=== PATIENT | male | born 1955 | race Caucasian/White ===

== ENCOUNTER → 2020-03-16 09:50 | Outpatient (BNVA) | payer MEDICAID, SELFPAY | PROVIDERS: PCP Family Medicine; Referring Provider Family Medicine; Visit Provider Internal Medicine Endocrinology, Diabetes & Metabolism | DX: E11.65 Type 2 diabetes mellitus with hyperglycemia (principal); E11.42 Type 2 diabetes mellitus with diabetic polyneuropathy; E11.21 Type 2 diabetes mellitus with diabetic nephropathy; E11.319 Type 2 diabetes mellitus with unspecified diabetic retinopathy without macular edema; E78.5 Hyperlipidemia, unspecified; I10 Essential (primary) hypertension; E66.01 Morbid (severe) obesity due to excess calories; E55.9 Vitamin D deficiency, unspecified; Z79.84 Long term (current) use of oral hypoglycemic drugs; Z96.41 Presence of insulin pump (external) (internal) | CPT/HCPCS: 82947; 99212 ==

== ENCOUNTER 2020-04-03 14:07 | Outpatient (RCR) | payer MEDICAID, SELFPAY ==
[2020-04-03 14:33] VITALS: BMI 42.3
[2020-04-03 14:34] VITALS: BP 126/58; PULSE 93; RESP 18; TEMP 38.4; O2SAT 97
[2020-04-03 14:42] VITALS: TEMP 38.8
--- NOTE | 2020-04-03 15:20 | P.PNHO_ITS ---
Medical Summary - Medical Summary Date of Service: 04/09/20 Chief complaint: F/U FOR 1. ANEMIA. 2. THROMBOCYTOPENIA. Medical Summary: DIAGNOSIS: 1. ANEMIA. 2. THROMBOCYTOPENIA. Interval History Interval history: This is a pleasant 65 year-old gentleman, who has been noted to have Thrombocytopenia. Review of his platelet count in the computer reveals the following trend: Dec 13 10:05 75 Oct 27 20:06 132 Oct 20 15:32 126 October 03 09:48 94 Aug 12 08:02 82 May 27 12:29 93 Jan 16 23:55 121 Dec 23 08:15 89 He has easy fatigueability. He was noted to have a fever today. He went out yesterday. He said every time he goes out into the rain he gets a fever. This happens since childhood. he has had a non productive cough for several months. He denies abdominal pain, nausea vomiting, nor heart burn/indigestion. His bowels are working without any gross blood. He enjoys a good apetite. He has gained weight. He has H/O complains of epistaxis. He mentioned that sometimes it is quite moderate. he was referred to ENT. He denies any systemic bleeding. No easy bruising. He is in good spirits, rest of the ROS is unremarkable.. He used to drink heavily quit in 1985. Review of Systems - Constitutional Denies body aches, Reports fever(s), Reports lack of energy, Denies malaise, Denies night sweats, Reports weight gain - Eyes Denies blurry vision - Cardiovascular Denies chest pain at rest - Respiratory Reports cough, Denies hemoptysis - Gastrointestinal Denies abdominal pain, Denies black, tarry stools, Reports constipation, Reports dyspepsia - Musculoskeletal Reports back pain - Integumentary/Breasts Skin/Breast: Denies bleeding lesions - Neurologic Reports no additional neurologic complaints - Psychiatric Denies anxiety - Hematologic/Lymphatic Denies easy bleeding, Denies easy bruising - Allergic/Immunologic Reports GI upset with certain foods PMFSH Medical History: Medical History (Last Reviewed 04/03/20 @ 16:07 by Princess Andre NP) Anxiety Asthma Bipolar disorder Depression Diabetes type 2, uncontrolled Diabetic nephropathy associated with type 2 diabetes mellitus Diabetic polyneuropathy associated with type 2 diabetes mellitus Diabetic retinopathy associated with type 2 diabetes mellitus Dyslipidemia History of CVA (cerebrovascular accident) Hyperlipidemia Hypertension 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 Morbid obesity SHIRA on CPAP Pulmonary embolism Pulmonary embolism Vitamin D deficiency Functional capacity: uses cane/walker Patient : No Family History: Family History (Last Reviewed 04/03/20 @ 16:07 by Princess Andre NP) Father Diabetes Mother Diabetes Hypertension Surgical History: Surgical History (Last Reviewed 04/03/20 @ 16:07 by Princess Andre NP) History of carpal tunnel release Hx of brain surgery Hx of colonoscopy Hx of esophagogastroduodenoscopy Hx of hernia repair Home Medications and Allergies Home Medications Medication Instructions Recorded Confirmed Type amlodipine 5 mg tablet 5 mg PO DAILY 03/16/20 03/16/20 History aspirin 81 mg tablet,delayed 81 mg PO DAILY 03/16/20 03/16/20 History release blood sugar diagnostic #10 ea 03/16/20 03/16/20 History cholecalciferol (vitamin D3) 125 125 mcg PO DAILY 03/16/20 03/16/20 History mcg (5,000 unit) capsule clopidogrel 75 mg tablet 75 mg PO DAILY 03/16/20 03/16/20 History diltiazem HCl 120 mg 120 mg PO BID 03/16/20 03/16/20 History capsule,extended release 12 hr dulaglutide 1.5 mg/0.5 mL 1.5 mg SUBCUT QWEEK 03/16/20 03/16/20 History subcutaneous pen injector furosemide 20 mg tablet 20 mg PO DAILY 03/16/20 03/16/20 History insulin regular hum U-500 conc 500 130 unit SUBCUT QPM ml 03/16/20 03/16/20 History unit/mL subcutaneous soln lancets 28 gauge #100 ea 03/16/20 03/16/20 History losartan 50 mg tablet 50 mg PO DAILY 03/16/20 03/16/20 History metformin 500 mg/5 mL oral solution 1,000 mg PO DAILY 03/16/20 03/16/20 History montelukast 10 mg tablet 10 mg PO DAILY 03/16/20 03/16/20 History Allergies Allergy/AdvReac Type Severity Reaction Status Date / Time amoxicillin [AMOXICILLIN] Allergy Mild DIZZINESS Unverified 01/26/20 15:27 carbamazepine [From Tegretol] Allergy Mild RASH AND Unverified 01/26/20 15:27 ITCH lurasidone [From LATUDA] Allergy Unknown TONGUE Unverified 01/26/20 15:27 SWELLED Penicillins [PENICILLINS] Allergy Unknown ITCHINESS, Unverified 01/26/20 15:27 FELT LIKE BLACKING OUT clonazepam [From KLONOPIN] AdvReac Mild CAUSED Unverified 01/26/20 15:27 SHORT TERM MEMORY LOSS Exam Vital signs: Vital Signs Temp 101.9 F H 04/03/20 14:42 Pulse 93 04/03/20 14:34 Resp 18 04/03/20 14:34 BP 126/58 L 04/03/20 14:34 Pulse Ox 97 04/03/20 14:34 Intake & Output 04/02/20 04/03/20 04/03/20 18:59 06:59 18:59 Other: Weight 122.4 kg Weight 122.4 kg Body Mass Index 42.3 - Constitutional Present: mild distress - Routine HEENT Exam Head: Present: normocephalic Eye: Present: normal appearance ENT: Present: mucous membranes moist - Routine Neck Exam Present: full ROM - Routine Respiratory Exam Present: CTAB - Routine Cardiovascular Exam Cardiovascular: Present: RRR, S1, S2 - Routine Abdominal Exam Present: soft, nontender - Routine Rectal Exam Patient deferred: digital exam - Routine Extremities Exam Present: nontender - Routine Skin Exam Present: intact - Routine Neurological Exam Present: alert, oriented X3 - Detailed Neurological Exam: Coma Scale Eye Opening: Spontaneous (4) Verbal Response: Oriented (5) Motor Response: Obeys commands (6) Glascow Coma Scale Total: 15 - Routine Psychiatric Exam Present: normal affect Data - Labs CBC & Chem 7: 04/03/20 15:08 04/03/20 15:08 Progress Note: A/P (1) Anemia Status: Acute Assessment and plan: 65 year old man with H/O Anemia & Thrombocytopenia. He has had a long standing low platelet however they have recently dropped from 132 to 75. DIFFERENTIAL DIAGNOSIS: 1. Related to underlying liver disease: He does have a history of alcoholism. Most likely he has splenomegaly, leading to hypersplenism. 2. B12 and folate deficiency. 3. Collagen vascular disorder. 4. Underlying myelo infiltrative disorder: MDS versus MM versus lymphoma. 5. ITP. I proceeded with further evaluation. l checked an ultrasound of the abdomen, to check his liver and spleen. This was done 01/25 and revealed: 1. Splenomegaly, 17.3 cm. No ascites. 2. Hepatic steatosis. Liver normal in size with smooth surface. 3. Visualized pancreas unremarkable. Distal body and tail obscured by bowel gas. 4. Mild gallbladder wall thickening likely related to incomplete distention/partial contraction. No visible stone, sludge, or ductal dilatation. Checked B12: 831 and folate levels: 9.1. Checked a collagen vascular profile: ESR 19, RA: <15, SHARON: Negative. I checked LDH: 165 and an SIEP: IgG 1481 IgA 424 IgM 78 IMFIXS INTERP No abnormal bands are present on immunofixation. Most likely he has Hypersplenism leading to his hematological abnormalities. PLAN: At this point I will monitor his platelet count carefully over time. If the platelets fall to less than 50, will proceed with a bone marrow exam for further evaluation. He will return in 3 month for follow-up visit. He was transferred to the ER, for further testing where he tested positive for COVID-19. Thank you, CC: Dr. Brito. Dr. Francisco Thomas. Code Status FULL CODE (2) Thrombocytopenia Status: Acute Assessment and plan: This is a pleasant 65 year-old gentleman here for: Thrombocytopenia. He has had a long standing low platelet however they have recently dropped from 132 to 75. Today's plts are 58. DIFFERENTIAL DIAGNOSIS: 1. Related to underlying liver disease: He does have a history of alcoholism. Most likely he has splenomegaly, leading to hypersplenism. 2. B12 and folate deficiency. 3. Collagen vascular disorder. 4. Underlying myelo infiltrative disorder: MDS versus MM versus lymphoma. 5. ITP. PLAN: I will proceed with further evaluation. Will check an ultrasound of the abdomen, to check his liver and spleen. Will check B12: 831 and folate levels: 9.1. Will check a collagen vascular profile: ESR 19, RA: <15, SHARON: Negative. Will check LDH: 165 and an SIEP: IgG 1481 IgA 424 IgM 78 IMFIXS INTERP No abnormal bands are present on immunofixation. PLAN: At this point I will monitor his platelet count carefully over time. If the platelets fall to less than 50, will proceed with a bone marrow exam for further evaluation. He will return in 6 months for follow-up visit. However, he was referred to the ER, for further evaluation, on account of the rising fever, Thank you, CC: Dr. Brito. Dr. Francisco Thomas. Code Status FULL CODE - Time Spent With Patient Total time spent is greater than 50% in coordination of care (as documented) at patient's floor/unit and/or counseling patient: 25 - 35 minutes
[2020-04-03 15:34] LABS: MANUAL DIFF FLAG NO
[2020-04-03 15:44] LABS: Basophils Absolute Auto 0.1 X10*3/uL (0.0-0.2); Basophils Percent Auto 1.2 % (0-2); Eosinophils Percent Auto 0.5 % (0-4); Hematocrit 41.8 % (42-52); Hemoglobin 14.1 g/dl (14.0-18.0); Imm Gran Abs Auto 0.01 X10*3/uL (0.00-0.03); Imm Gran Pct Auto 0.2 % (0.0-0.4); Lymphocytes Absolute Auto 0.9 X10*3/uL (1.2-4.9); Lymphocytes Percent Auto 19.9 % (20-40); Mean Corpuscular HGB Conc 33.7 g/dl (31.0-36.0); Mean Corpuscular Hemoglobin 32.6 pg (27.0-33.0); Mean Corpuscular Volume 96.5 fL (80-98); Mean Platelet Volume 12.3 fL (9.4-12.4); Monocytes Absolute Auto 0.8 X10*3/uL (0.1-1.2); Monocytes Percent Auto 18.3 % (2-11); Neutrophils Absolute Auto 2.6 X10*3/uL (2.0-8.3); Neutrophils Percent Auto 59.9 % (45-73); Red Blood Count 4.33 X10*6/uL (4.60-5.80); Red Cell Distribution Width 13.2 % (11.0-16.0); White Blood Count 4.3 X10*3/uL (4.8-10.8)
[2020-04-03 16:05] LABS: Platelet Count 59 X10*3/uL (160-400)
[2020-04-03 16:13] LABS: Alanine Aminotransferase 44 U/L (0-40); Albumin Level 3.3 g/dL (3.5-5.0); Alkaline Phosphatase 172 U/L (39-117); Anion Gap 9 (12-20); Aspartate Amino Transferase 109 U/L (5-37); Bilirubin Total 0.9 mg/dL (0.0-1.0); Blood Urea Nitrogen 8 mg/dL (9-16); Calcium 8.3 mg/dL (8.4-10.2); Carbon Dioxide 23 mmol/L (22-29); Chloride 107 mmol/L (96-108); Creatinine Clr Calc Pharmacy 91.7; Estimated Glomerular Filt Rate > 60; Glucose Random 109 mg/dL (60-115); Potassium 3.4 mmol/l (3.3-5.1); Sodium 136 mmol/L (135-145); Total Protein 6.7 g/dL (6.5-8.0)
== END 2020-05-02 | disposition home or self-care (01) ==
LOC: HO.ONC 14:07
PROVIDERS: PCP Family Medicine; Visit Provider Internal Medicine Medical Oncology
DX: D64.9 Anemia, unspecified (principal); D69.6 Thrombocytopenia, unspecified
CPT/HCPCS: 36415; 80053; 85025; 99214

== ENCOUNTER 2020-04-03 15:24 | Emergency (ER) | payer MEDICAID, SELFPAY ==
[2020-04-03 15:27] VITALS: BP 151/59; PULSE 102; RESP 16; TEMP 38.1; O2SAT 98; BMI 34.4
[2020-04-03] MEDS: Acetaminophen 325 MG TABLET 650 MG PO (16:03)
--- NOTE | 2020-04-03 16:04 | ED.FEVER ---
HPI - Fever General Chief Complaint: Fever Stated Complaint: Fever Time Seen by Provider: 04/03/20 15:53 Source: patient and sign language interpreter Mode of arrival: ambulatory Limitations: no limitations and language barrier History of Present Illness HPI Narrative: 65-year-old male with a past medical history of diabetes, liver disease, thrombocytopenia with fever. The patient tells me he was seen at hematology this morning for follow-up for thrombocytopenia and was noted to be febrile and was sent to the emergency department for further evaluation. He denies fevers or chills at home. Denies weakness, cough, shortness of breath, body aches, vomiting, diarrhea or any other symptoms. He tells me he feels well. On arrival the patient has a temp of 100.5 degrees. He is asking to be discharged home as his mother suddenly and he needs to go to the home. he does not want to stay in the emergency department MD elicited complaint: fever Pertinent past history: diabetes Onset (ago): day(s) (1 day) Measured temperature: 100.5 F Exacerbating factors: nothing Relieving factors: nothing Associated symptoms: denies other symptoms Treatments prior to arrival fever: none Related Data Home Medications Medication Instructions Recorded Confirmed amlodipine 5 mg tablet 5 mg PO DAILY 03/16/20 03/16/20 aspirin 81 mg tablet,delayed 81 mg PO DAILY 03/16/20 03/16/20 release blood sugar diagnostic #10 ea 03/16/20 03/16/20 cholecalciferol (vitamin D3) 125 125 mcg PO DAILY 03/16/20 03/16/20 mcg (5,000 unit) capsule clopidogrel 75 mg tablet 75 mg PO DAILY 03/16/20 03/16/20 diltiazem HCl 120 mg 120 mg PO BID 03/16/20 03/16/20 capsule,extended release 12 hr dulaglutide 1.5 mg/0.5 mL 1.5 mg SUBCUT QWEEK 03/16/20 03/16/20 subcutaneous pen injector furosemide 20 mg tablet 20 mg PO DAILY 03/16/20 03/16/20 insulin regular hum U-500 conc 500 130 unit SUBCUT QPM ml 03/16/20 03/16/20 unit/mL subcutaneous soln lancets 28 gauge #100 ea 03/16/20 03/16/20 losartan 50 mg tablet 50 mg PO DAILY 03/16/20 03/16/20 metformin 500 mg/5 mL oral solution 1,000 mg PO DAILY 03/16/20 03/16/20 montelukast 10 mg tablet 10 mg PO DAILY 03/16/20 03/16/20 Previous Rx's Medication Instructions Recorded ezetimibe 10 mg tablet 10 mg PO DAILY 30 Days #30 tab 03/05/20 rosuvastatin 40 mg tablet 40 mg PO DAILY 30 Days #30 tab 03/05/20 BD Insulin Syringe U-500 1/2 mL 31 #100 ea NS 03/16/20 gauge x 15/64 blood-glucose meter #1 ea 03/16/20 Allergies Allergy/AdvReac Type Severity Reaction Status Date / Time amoxicillin [AMOXICILLIN] Allergy Mild DIZZINESS Unverified 01/26/20 15:27 carbamazepine [From Tegretol] Allergy Mild RASH AND Unverified 01/26/20 15:27 ITCH lurasidone [From LATUDA] Allergy Unknown TONGUE Unverified 01/26/20 15:27 SWELLED Penicillins [PENICILLINS] Allergy Unknown ITCHINESS, Unverified 01/26/20 15:27 FELT LIKE BLACKING OUT clonazepam [From KLONOPIN] AdvReac Mild CAUSED Unverified 01/26/20 15:27 SHORT TERM MEMORY LOSS Review of Systems Review of Systems: Yes all other systems are reviewed and are negative Constitutional: Constitutional: Reports no additional constitutional complaints, Denies body ache(s), Denies chills, Reports fever(s), Denies headache(s) and Denies weakness Eyes: Eyes: Reports no additional eye complaints and Denies change in vision ENT: Reports system reviewed and no additional complaints, except as documented, Denies dizziness, Denies headache(s), Denies nasal congestion, Denies nasal discharge and Denies neck pain Cardiovascular: Cardiovascular: Reports no additional cardiovascular complaints, Denies chest pain, Denies leg edema and Denies dyspnea Respiratory: Respiratory: Reports no additional respiratory complaints, Denies cough and Denies dyspnea Gastrointestinal: Gastrointestinal: Reports no additional gastrointestinal complaints, Denies abdominal pain, Denies diarrhea, Denies nausea and Denies vomiting Genitourinary: Genitourinary: Denies urinary incontinence Musculoskeletal: Musculoskeletal: Reports no additional musculoskeletal complaints, Denies back pain, Denies arthralgias, Denies joint swelling, Denies neck pain, Denies numbness and Denies tingling Integumentary/Breasts: Skin/Breast: Reports system reviewed and no additional complaints, except as docu and Denies rash Neurologic: Reports system reviewed and no additional complaints, except as documented, Denies Abnormal speech present, Denies dizziness, Denies headache(s), Denies numbness, Denies tingling and Denies weakness PMFSH Past Medical History Attestation statement: The following information was validated with the patient. 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 Morbid obesity SHIRA on CPAP Pulmonary embolism Pulmonary embolism Vitamin D deficiency Surgical History History of carpal tunnel release Hx of brain surgery Hx of colonoscopy Hx of esophagogastroduodenoscopy Hx of hernia repair Family History Family History Father Diabetes Mother Diabetes Hypertension Social History Social History Alcohol intake: unknown Smoking Status: Unknown if ever smoked Smoked in Last 30 Days: No Use of substances other than those prescribed or required for medical reasons: Unknown Substance Use Type: Unknown Advance Directives: No Advance Directives Information Provided: No Physical Exam Vital Signs: Vital Signs: Last Vital Signs Temp 100.5 F H 04/03/20 15:27 Pulse 102 H 04/03/20 15:27 Resp 16 04/03/20 15:27 BP 151/59 H 04/03/20 15:27 Pulse Ox 98 04/03/20 15:27 Body Mass Index 34.4 Const: General: cooperative, healthy appearing, comfortable and no acute distress Orientation/consciousness: patient oriented x3 Limitations: no limitations HENMT: Head: Yes normal to inspection Ears: hearing grossly normal bilaterally General nose exam: Normal external nose present Face and sinus: Yes normal facial exam Mouth: Normal oral and palatal mucosa present Throat: Yes posterior oropharynx normal Eyes: General: appearance normal, both eyes and all related structures Pupils: Equal, round and reactive pupils present Neck: Neck: Yes normal visual inspection Chest: Chest palpation & inspection: normal inspection of the chest Resp: Effort & Inspection: normal respiratory effort Auscultation: clear to auscultation bilaterally Cardio: Rate: regular rate Rhythm: regular rhythm Peripheral pulses: Peripheral pulses 2+ throughout GI: Inspection: Yes normal to inspection Palpation (GI): Soft to palpation and nontender Auscultation: normal bowel sounds Back/Spine/Pelvis: Thoracic/Lumbar Spine: thoracic and lumbar spine normal to inspection Skin: General skin exam: no rashes or lesions noted Neuro: General: patient oriented x3, no focal motor deficits and normal sensation to monofilament Cranial nerves: Yes Equal, round and reactive pupils present Cognition (Neuro): normal cognition Speech: No Abnormal speech present Gait exam (Neuro): Normal gait present Motor exam (neuro): 5/5 motor strength present throughout Extrem: General: Yes normal to inspection Course Course Course Narrative: I was called to the room to the patient as he was requesting to leave. He tells me that his mother suddenly today and he must leave. I did discuss with the patient that I would like to do additional testing including labs and imaging. Patient declined this. He tells me he feels well and is asymptomatic. He did accept having a COVID test done and sent. I did explain that he is welcome to return at any time. Shared decision making done with patient, nursing with sign language interpreter. reviewed worrisome signs and symptoms of when to return to the emergency department. Comfortable discharge home. Discharge Plan Discharge Clinical Impression: Fever of unknown origin Patient Disposition: Home, Self-Care Instructions: Fever in Adults (ED) Additional Instructions: We have tested you today for COVID 19. Test results take 1-2 days and we will call you with the results negative or positive. Take tylenol or motrin if able as needed for pain or fever. Stay well hydrated with fluids like water, gatorade and/or powerade. Wash hands at home. If living with others try to self isolate if possible. If unable wear a mask around others in your home and wash hands frequently. If COVID test is positive you will need to self isolate for a total of 14 days from when your symptoms started. You may return to work sooner if testing is negative and all symptoms resolved >72 hours. You should return to the emergency department for severe shortness of breath, chest pain or fever which does not respond to both tylenol and motrin at home. Prescriptions: No Action rosuvastatin 40 mg tablet 40 mg PO DAILY 30 Days Qty: 30 RF: 6 ezetimibe [Zetia] 10 mg tablet 10 mg PO DAILY 30 Days Qty: 30 RF: 0 amlodipine 5 mg tablet 5 mg PO DAILY RF: 0 aspirin 81 mg tablet,delayed release (DR/EC) 81 mg PO DAILY RF: 0 clopidogrel 75 mg tablet 75 mg PO DAILY RF: 0 diltiazem HCl 120 mg capsule,extended release 12 hr 120 mg PO BID RF: 0 furosemide 20 mg tablet 20 mg PO DAILY RF: 0 losartan 50 mg tablet 50 mg PO DAILY RF: 0 montelukast 10 mg tablet 10 mg PO DAILY RF: 0 cholecalciferol (vitamin D3) 125 mcg (5,000 unit) capsule 125 mcg PO DAILY RF: 0 insulin regular hum U-500 conc 500 unit/mL solution 130 unit subcut QPM RF: 0 Trulicity 1.5 mg/0.5 mL pen injector 1.5 mg subcut QWEEK RF: 0 metformin [Riomet] 500 mg/5 mL solution 1,000 mg PO DAILY RF: 0 (DME) FreeStyle Lite Strips Strip See Rx Instructions .ROUTE .MEDSUPPLY Qty: 10 RF: 0 (DME) lancets [FreeStyle Lancets] 28 gauge misc See Rx Instructions .ROUTE .MEDSUPPLY Qty: 100 RF: 0 (DME) BD Insulin Syringe U-500 1/2 mL 31 gauge x 15/64 syringe See Rx Instructions .ROUTE .MEDSUPPLY Qty: 100 RF: 4 (DME) blood-glucose meter [FreeStyle Lite Meter] Kit See Rx Instructions .ROUTE .MEDSUPPLY Qty: 1 RF: 0 Referrals: Peyton Brito MD [Primary Care Provider] - 2 days Interventions: ED Discharge Assessment Last Done: 04/03/20 16:05 Discharge Date/Time: 04/03/20 16:06 Print Language: Chadian
[2020-04-03 16:09] VITALS: TEMP 38.1
== END 2020-04-03 16:06 | disposition home or self-care (01) ==
PROVIDERS: Nurse Practitioner Family; Emergency Provider Emergency Medicine Emergency Medical Services; PCP Family Medicine
DX: R50.9 Fever, unspecified (principal); D69.6 Thrombocytopenia, unspecified; I10 Essential (primary) hypertension; Z79.899 Other long term (current) drug therapy
CPT/HCPCS: 99283; 99284; U0003

== ENCOUNTER 2020-04-14 05:47 | Inpatient (IN) | payer MEDICAID, SELFPAY ==
[2020-04-14] VITALS (33 sets, daily range): BP systolic 00–198; BP diastolic 00–66; PULSE 88–151; RESP 18–40; TEMP -17.7–38.2; O2SAT 38–92; BMI 40.8; BMI 40.4
--- NOTE | 2020-04-14 | US_ITS ---
EXAMINATION: US VENOUS ULTRASOUND WITH DOPPLER LOWER EXTREMITY, BILATERAL CLINICAL INFORMATION: Bilateral lower extremity swelling COMPARISON: None TECHNIQUE: Ultrasound of the deep veins is performed from the hip to the calf with compression sonography and color and pulse Doppler assessment. Spectral analysis with color-flow imaging is performed. FINDINGS: RIGHT: There is normal venous compression and respiratory variation and augmented flow. The visualized common femoral vein, superficial femoral vein, profunda femoral vein, popliteal vein, and the trifurcation region shows no evidence of deep venous thrombosis. There is no significant popliteal fossa cyst. LEFT: There is normal venous compression and respiratory variation and augmented flow. The visualized common femoral vein, superficial femoral vein, profunda femoral vein, popliteal vein, and the trifurcation region shows no evidence of deep venous thrombosis. There is no significant popliteal fossa cyst. If the patient's symptoms persist, followup ultrasound in 5 days 7 days might be of value to exclude proximal propagation from a non-visualized calf vein. US/US venous duplex LE BI IMPRESSION: No DVT demonstrated in either lower extremity.
--- NOTE | 2020-04-14 06:00 | ECG_ITS ---
Test Reason : sob Blood Pressure : / mmHG Vent. Rate : 123 BPM Atrial Rate : 123 BPM P-R Int : 150 ms QRS Dur : 084 ms QT Int : 318 ms P-R-T Axes : 060 086 042 degrees QTc Int : 455 ms Sinus tachycardia Nonspecific ST abnormality Abnormal ECG When compared to the previous EKG of NST is now present Referred By: William Meyers Electronically Signed By: MARITZA CONTE MD MTDManish
--- NOTE | 2020-04-14 06:18 | XR_ITS ---
EXAMINATION: XR CHEST CLINICAL INFORMATION: ET tube COMPARISON: 05/02/2019 TECHNIQUE: Frontal view of the chest was obtained. FINDINGS: Endotracheal tube tip lies approximately 5 cm above the ramón. Lung volumes are symmetric. There are moderately extensive bilateral airspace opacities in the mid to lower lungs. No appreciable pneumothorax or significant pleural effusion. The cardiomediastinal contour is unremarkable. No acute osseous findings are seen. XR/XR chest 1V IMPRESSION: Endotracheal tube tip approximately 5 cm above the ramón. Moderately extensive bilateral airspace opacities suspicious for multifocal pneumonia versus edema in the proper clinical setting.
[2020-04-14] MEDS: propofoL 1,000 MG/100 ML VIAL 14.22 MG IVCONT ×2 (06:24→13:45)
--- NOTE | 2020-04-14 06:27 | ED.SOB ---
HPI - SOB/Dyspnea General Chief Complaint: Dyspnea Stated Complaint: DIFF BREATHING Time Seen by Provider: 04/14/20 05:57 Source: EMS Mode of arrival: EMS Limitations: language barrier and other ( respiratory distress) History of Present Illness HPI Narrative: patient history of COPD/ asthma sleep apnea was diagnosed with COVID on 04/03 was doing okay using inhaler for last 2 days getting worse and today was not able to take breath saturating 670% at room air increased to 80% on 100% non-rebreather by EMS when he arrived patient was very short of breath unable to speak full sentences saturating 30% at room air and increased to 70% on non-rebreather no chest pain no fever MD elicited complaint: shortness of breath Pertinent past history: COPD and asthma Onset (ago): day(s) (2) Context: recent illness Related Data Home Medications Medication Instructions Recorded Confirmed amlodipine 5 mg tablet 5 mg PO DAILY 03/16/20 03/16/20 aspirin 81 mg tablet,delayed 81 mg PO DAILY 03/16/20 03/16/20 release blood sugar diagnostic #10 ea 03/16/20 03/16/20 cholecalciferol (vitamin D3) 125 125 mcg PO DAILY 03/16/20 03/16/20 mcg (5,000 unit) capsule clopidogrel 75 mg tablet 75 mg PO DAILY 03/16/20 03/16/20 diltiazem HCl 120 mg 120 mg PO BID 03/16/20 03/16/20 capsule,extended release 12 hr dulaglutide 1.5 mg/0.5 mL 1.5 mg SUBCUT QWEEK 03/16/20 03/16/20 subcutaneous pen injector furosemide 20 mg tablet 20 mg PO DAILY 03/16/20 03/16/20 insulin regular hum U-500 conc 500 130 unit SUBCUT QPM ml 03/16/20 03/16/20 unit/mL subcutaneous soln lancets 28 gauge #100 ea 03/16/20 03/16/20 losartan 50 mg tablet 50 mg PO DAILY 03/16/20 03/16/20 metformin 500 mg/5 mL oral solution 1,000 mg PO DAILY 03/16/20 03/16/20 montelukast 10 mg tablet 10 mg PO DAILY 03/16/20 03/16/20 Previous Rx's Medication Instructions Recorded rosuvastatin 40 mg tablet 40 mg PO DAILY 30 Days #30 tab 03/05/20 BD Insulin Syringe U-500 1/2 mL 31 #100 ea NS 03/16/20 gauge x 15/64 blood-glucose meter #1 ea 03/16/20 ezetimibe 10 mg tablet 10 mg PO DAILY 90 Days #90 tab 04/10/20 Allergies Allergy/AdvReac Type Severity Reaction Status Date / Time amoxicillin [AMOXICILLIN] Allergy Mild DIZZINESS Unverified 01/26/20 15:27 carbamazepine [From Tegretol] Allergy Mild RASH AND Unverified 01/26/20 15:27 ITCH lurasidone [From LATUDA] Allergy Unknown TONGUE Unverified 01/26/20 15:27 SWELLED Penicillins [PENICILLINS] Allergy Unknown ITCHINESS, Unverified 01/26/20 15:27 FELT LIKE BLACKING OUT clonazepam [From KLONOPIN] AdvReac Mild CAUSED Unverified 01/26/20 15:27 SHORT TERM MEMORY LOSS Review of Systems Review of Systems: Yes Unobtainable due to mental condition PMFSH Past Medical History Medical History Anxiety Asthma Bipolar disorder Depression Diabetes type 2, uncontrolled Diabetic nephropathy associated with type 2 diabetes mellitus Diabetic polyneuropathy associated with type 2 diabetes mellitus Diabetic retinopathy associated with type 2 diabetes mellitus Dyslipidemia History of CVA (cerebrovascular accident) Hyperlipidemia Hypertension skilled nursing (current) use of insulin Morbid obesity SHIRA on CPAP Pulmonary embolism Pulmonary embolism Vitamin D deficiency Surgical History History of carpal tunnel release Hx of brain surgery Hx of colonoscopy Hx of esophagogastroduodenoscopy Hx of hernia repair Family History Family History Father Diabetes Mother Diabetes Hypertension Social History Social History Alcohol intake: unknown Smoking Status: Unknown if ever smoked Use of substances other than those prescribed or required for medical reasons: Unknown Substance Use Type: Unknown Advance Directives: No Advance Directives Information Provided: No Physical Exam Vital Signs: Vital Signs: Last Vital Signs Temp 100.8 F H 04/14/20 07:22 Pulse 133 H 04/14/20 07:22 Resp 20 04/14/20 07:22 BP 127/45 L 04/14/20 07:22 Pulse Ox 85 L 04/14/20 07:22 Body Mass Index 40.8 Const: General: acute distress severe and respiratory, ill appearing, lethargic and tired appearing Nutritional Appearance: obese Orientation/consciousness: oriented to person, oriented to place, oriented to time and lethargic Limitations: language barrier HENMT: Head: Yes normal to inspection and Yes normocephalic Ears: hearing grossly normal bilaterally Face and sinus: Yes normal facial exam Mouth: Normal oral and palatal mucosa present Eyes: General: appearance normal, both eyes and all related structures Conjunctivae: conjunctivae normal Sclerae: sclerae normal Neck: Other: short neck Neck: Yes normal visual inspection and Yes full ROM Thyroid: Thyroid normal Carotids: normal carotid upstroke Lymphatic: no lymphadenopathy noted Chest: Chest palpation & inspection: normal inspection of the chest Resp: Effort & Inspection: decreased respiratory effort, labored, nasal flaring, respiratory distress, uses accessory muscles and prolonged expiratory phase Auscultation: rhonchi and diminished lung sounds Percussion: percussion normal Cardio: Jugular venous distension: no JVD Palpation: normal PMI Rate: regular rate Rhythm: regular rhythm Heart sounds: S1 normal heart sound present and S2 normal heart sound present GI: Inspection: Yes normal to inspection Palpation (GI): Soft to palpation, nontender and no guarding Auscultation: normal bowel sounds : General: Yes no CVA tenderness Penis: normal penis Back/Spine/Pelvis: Back: no CVA tenderness Thoracic/Lumbar Spine: thoracic and lumbar spine normal to inspection Skin: General skin exam: no rashes or lesions noted Neuro: General: oriented to person, oriented to place, oriented to time, moves all extremities and no focal motor deficits Extrem: General: Yes normal to inspection, Yes full ROM, Yes no calf tenderness, Yes normal gait and No pedal edema Procedures Intubation Time out performed: Yes sedative: Etomidate Mg Given: 20 paralytic: Rocuronium Mg Given: 50 Laryngoscope: fiber optic video scope ET Tube Size: 7.5 ET Tube Uncuffed: Yes Tube Secured Depth (cm): 25 Tube Secured Location: teeth Tube Placement Confirmation: visualized tube passing through cords and equal breath sounds bilaterally Patient Tolerated Procedure: well Intubation Complications: none MDM - SOB/Dyspnea MDM Narrative Medical decision making narrative: patient with sleep apnea COPD/asthma with COVID infection came for increased shortness of breath patient was started on non rebreather 100% is still desaturating to 70% plays on high-flow oxygen and still barely maintaining 75%-80% patient was getting tired agreed for intubation patient was intubated at 06:24. case discussed with Dr. staton talent program manager will take the patient to ICU patient received IV Decadron 10 mg continues nebulizing treatment will start him on Rocephin and Zithromax labs are pending. Chest x-ray showed diffuse infiltrate in ARDS pattern patient is septic secondary to viral infection COVID-19 not bacterial infection and fluids are restricted Medical Records Attestation: I reviewed the patient's medical records. Lab Data Result diagrams: 04/14/20 06:31 12 06:31 Labs: Lab Results 04/14/20 04/14/20 Range/Units 06:31 06:31 PT 16.2 H (10.8-13.0) SEC INR 1.4 H (0.9-1.1) APTT 31.7 (24.1-38.0) SEC D-Dimer 1249 NG/ML Lactic Acid 6.6 H* (0.5-2.0) mmol/L Critical Care Time Critical Care Time Critical Care Time: Yes Total Critical Care Time: 35 Attestation: critical care time involved patient care only Discharge Plan Discharge Clinical Impression: Acute hypoxemic respiratory failure due to COVID-19 Patient Disposition: Admitted As Inpatient
[2020-04-14] MEDS: Albuterol Sulfate (0.083%) 2.5 MG/3 ML VIAL.NEB 7.5 MG INHALE (06:35)
[2020-04-14] MEDS: Etomidate 20 MG/10 ML VIAL IVPUSH (06:35)
[2020-04-14] MEDS: Rocuronium Bromide 50 MG/5 ML VIAL IVPUSH (06:36)
--- NOTE | 2020-04-14 06:36 | PC.NURSE ---
0609 HIGH FLOW O2, O2 SAT 79% HR 130 R16 0610 10MG DECADRON GIVEN 0612 PLAN TO INTUBATE, PT CYANOTIC, RESTLESS, R28 0613 O2 SAT 74% HIGH FLOW 0614 O2 SAT 69% HR 132 R40 0614 ETOMIDATE 20MG IN 0616 50MG LAZARO IN 0616 ATTEMPTING INTUBATION HR 150 0618 SUCCESSFUL INTUBATION 0619 HR 158 O2 SAT 84% VIA BVM R26 BP 169/70 0621 BP 149/74 MAG 2G IN 0624 PER MD PROPOFOL FOR SEDATION 0625 HR 154 O2 SAT 81% R25 BP 179/67 VENT SETTINGS R18 TV500 O2 100% PEEP 10
[2020-04-14] MEDS: Magnesium Sulfate/H2O 2 GM/50 ML PIGGYBACK IV ×2 (06:37→18:00)
[2020-04-14] MEDS: dexAMETHasone sod phosphate 4 MG/ML VIAL 10 MG IVPUSH (06:37)
--- NOTE | 2020-04-14 06:45 | PC.NURSE ---
EMS VS BP 142/84 HR 124 R24/28 O2 SAT 65%-70% 85-90% ON NASAL CANULA
[2020-04-14] MEDS: Albuterol Sulfate (0.083%) 2.5 MG/3 ML VIAL.NEB 10 MG INHALE (06:55)
[2020-04-14 07:00] LABS: MANUAL DIFF FLAG SCAN; Mean Corpuscular Hemoglobin 32.8 pg (27.0-33.0); Monocytes Absolute Auto 0.1 X10*3/uL (0.1-1.2); PLT CLUMP 1; SCAN SMEAR FLAG 1
[2020-04-14 07:02] LABS: Basophils Percent Auto 0.5 % (0-2); Hematocrit 44.2 % (42-52); Imm Gran Abs Auto 0.04 X10*3/uL (0.00-0.03); Imm Gran Pct Auto 0.9 % (0.0-0.4); Lymphocytes Absolute Auto 0.6 X10*3/uL (1.2-4.9); Lymphocytes Percent Auto 13.1 % (20-40); Mean Corpuscular HGB Conc 33.9 g/dl (31.0-36.0); Mean Corpuscular Volume 96.5 fL (80-98); Mean Platelet Volume 12.4 fL (9.4-12.4); NRBC Pct Auto 0.5 /100WBC (0.0-0.2); Neutrophils Absolute Auto 3.6 X10*3/uL (2.0-8.3); Neutrophils Percent Auto 82.5 % (45-73); Platelet Count 115 X10*3/uL (160-400); Red Blood Count 4.58 X10*6/uL (4.60-5.80); Red Cell Distribution Width 14.1 % (11.0-16.0); White Blood Count 4.3 X10*3/uL (4.8-10.8)
[2020-04-14 07:04] LABS: INTERNATIONAL NORM RATIO 1.4 (0.9-1.1); Prothrombin Time 16.2 SEC (10.8-13.0)
[2020-04-14 07:06] LABS: Partial Thromboplastin Time 31.7 SEC (24.1-38.0)
--- NOTE | 2020-04-14 07:10 | PC.NURSE ---
pt arrives by ems. welsh speaking only able to stand and pivot from stretcher. Patient was covid postive 04/03. patient reported fevers and sob at home. pt arrived by ems on 2 L. satting 38% on ra/2L. Patient was extremely anxious. unable to tolerate NRB on face until rt arrived. 2 bilateral 18g iv established. Per verbal md order 1 L ns given due to suspected severe sepsis. Mag infused per notes. dexamethasone given. line flushed per protocol. Patient failed highflow. unable to tolerate it per severe respiratory distress. Intubated per notes from [place] rn. ET tube and vent settings as noted. Temperature clemons placed. Dark foul smelling yellow urine. cloudy to note. approximately 40ml output.
[2020-04-14 07:18] LABS: D Dimer 1249 NG/ML
[2020-04-14 07:20] LABS: Lactic Acid 6.6 mmol/L (0.5-2.0)
[2020-04-14] MEDS: cefTRIAXone sodium 1 GM in 0.9 % Sodium Chloride 50 ML IV (07:27)
--- NOTE | 2020-04-14 07:30 | PC.NURSE ---
BP continues to trend down, Dr Napier aware and will order Levophed. RT at bedside attempting to trial pt on different settings at 02 sat is trending down as well, Attempted APRV settings however pt not tolerating well. Central line to be placed in ICU Per Dr Napeir
[2020-04-14 07:31] LABS: Troponin-I High Sensitivity 17.9 ng/L (<3.5-35.0)
[2020-04-14 07:36] LABS: SLIDE REVIEW VERIFIED
[2020-04-14 07:40] LABS: Alanine Aminotransferase 64 U/L (0-40); Albumin Level 2.8 g/dL (3.5-5.0); Alkaline Phosphatase 307 U/L (39-117); Anion Gap 20 (12-20); Aspartate Amino Transferase 131 U/L (5-37); Bilirubin Direct 1.6 mg/dL (0.0-0.5); Bilirubin Total 2.1 mg/dL (0.0-1.0); Blood Urea Nitrogen 13 mg/dL (9-16); Calcium 7.5 mg/dL (8.4-10.2); Carbon Dioxide 18 mmol/L (22-29); Chloride 98 mmol/L (96-108); Creatinine Clr Calc Pharmacy 103.2; Estimated Glomerular Filt Rate > 60; Glucose Random 88 mg/dL (60-115); Potassium 3.4 mmol/l (3.3-5.1); Sodium 133 mmol/L (135-145); Total Protein 6.3 g/dL (6.5-8.0)
[2020-04-14] MEDS: Midazolam HCl/PF 2 MG/2 ML VIAL IVPUSH (07:44)
[2020-04-14] MEDS: 0.9 % Sodium Chloride 1,000 ML 999 ML IVCONT (07:51)
[2020-04-14] MEDS: Acetaminophen Supp 650 MG SUPP.RECT PR (08:25)
--- NOTE | 2020-04-14 08:32 | XR_ITS ---
EXAMINATION: XR CHEST CLINICAL INFORMATION: COVID 19. Intubated. COMPARISON: Chest done on 04/14/2020. TECHNIQUE: Frontal view of the chest was obtained. FINDINGS: Multilobar patchy groundglass airspace disease is noted at both upper, left lower and right lower lobes, appear similar to prior study. The position of the catheters and tubes appear satisfactory, unchanged. Heart size is within normal limits. Overall no significant change. XR/XR chest 1V IMPRESSION: Stable radiographic appearance of the chest. The position of the tubes and catheters appear satisfactory. No new abnormalities.
[2020-04-14 08:37] LABS: Reflex Lactate? Lactic Acid Added
[2020-04-14] MEDS: Azithromycin 500 MG in 0.9 % Sodium Chloride 250 ML 125 MG IV (08:49)
[2020-04-14] MEDS: Midazolam HCl/NS 50 MG/50 ML PLAST..BAG IVCONT ×2 (09:04→20:06)
--- NOTE | 2020-04-14 09:15 | PC.NURSE ---
Azithromycin started at this time Delay in start d/t non compatibility with propfol and versed, needed to obtain additional peripheral IV access.
[2020-04-14 09:36] LABS: Base Excess VBG -7.6 mmol/L; HCO3 VBG 22 mmol/L; PCO2 VBG 65 mmhg; PO2 VBG 77 mmhg
[2020-04-14 09:37] LABS: Oxygen Saturation VBG 90.2 %
[2020-04-14 09:38] LABS: pH VBG 7.15 (7.32-7.43)
--- NOTE | 2020-04-14 09:38 | PC.NURSE ---
Addendum entered by Lindsay Turner 04/14/20 10:23: 400ml in clemons at this time Original Note: Dr Napier notified of continuous low BPs at this time despite max of Levophed at 0.3mcg/kg/min will reach out to ICU for further recommendations Versed gtt started per emar to assist with sedation at 2mg/hr Pressure control settings on vent with resp 18, peep 12, 90% and a 1:2 I/E ratio Indwelling cath is patent with approx 600ml of dark yellow concentrated urine. Propfol gtt running at 30mcg/kg/min Temp trending down s/p AR tylenol given and currently 99.3 via temp sensing indwelling cath Spoke with daughter Eliza who has been updated on plan and transfer needed to ICU some time this morning, contact [phone]
--- NOTE | 2020-04-14 09:47 | PC.NURSE ---
No further recommendations from ICU at this time
[2020-04-14 10:02] LABS: ~Lactic Acid-LAB USE ONLY 2.8 mmol/L (0.5-2.0)
--- NOTE | 2020-04-14 10:38 | PC.NURSE ---
Pt sedated on Propofol 40mcg/kg/min (unable to tolerate 30mcg/kg/min) and Versed at 2mg/hr , HR has trended down to low 100s at this time, sinus tach with occasional PVCs noted. Pt appears more comfortable, breathing synchronously with vent. Awaiting bed assgn in ICU at this time. Per Dr Napier, Rocuronium ordered and to be given just prior to transfer to ICU to facilitate central line placement in ICU. Dr Napier and ICU undercollar baster aware of vitals/status, no new orders at this time. No changes on vent settings, continues on pressure support with settings from prior note
[2020-04-14 11:31] LABS: Reflex Lactate? 2 Y
--- NOTE | 2020-04-14 12:34 | PC.NURSE ---
Spoke with Eliza (daughter) again who will be designated person to contact and speak with. RT trialed pt down to 80% fi02 and sat down to 88%, pt back up to 90% fi02 and 92% at this time with Etc02 41. SBP 90s with MAP 54. Awaiting room assgn to be ready for pt to transfer at this time. Drips continue to infuse at previously documented rates. POC obtained and 126
[2020-04-14 12:58] LABS: ~Lactic Acid-LAB USE ONLY 3.9 mmol/L (0.5-2.0)
--- NOTE | 2020-04-14 13:05 | PC.NURSE ---
ET tube 25ATL, 7.5 tube
[2020-04-14] MEDS: Rocuronium Bromide 50 MG/5 ML VIAL 80 MG IVPUSH (13:08)
[2020-04-14 13:44] LABS: C Reactive Protein 21.62 mg/dL (< or = 0.50); Lactate Dehydrogenase 798 U/L (118-273)
[2020-04-14 14:05] LABS: Ferritin 765 ng/mL (20-250)
--- NOTE | 2020-04-14 15:07 | XR_ITS ---
EXAMINATION: XR CHEST CLINICAL INFORMATION: Triple-lumen catheter placed COMPARISON: Chest radiograph earlier this morning TECHNIQUE: Frontal view of the chest was obtained. FINDINGS: Since the prior study a left IJ triple-lumen catheter has been placed with its tip in the proximal SVC, curved upwards for about 2 cm. The exam is otherwise unchanged. Again seen is the lobar patchy airspace disease and the tube and NG tube. XR/XR chest 1V IMPRESSION: A left-sided jugular triple lumen catheter has its tip in the proximal SVC.
[2020-04-14 15:14] LABS: Glucose, Whole Blood 126 mg/dL (60-115)
--- NOTE | 2020-04-14 15:17 | PC.NURSE ---
Pt arrived from ED to icu via zoll and stretcher with no incident. ammon given prior to patient transport by ed rn for line placement. BP trending 70s-80s systollically upon arrival,maxed out on levo, md aware, 1 L LR ordered to be given, pt responded well, bp up to 100-110 systollically post bolus. Left ij tlc placed by md, chest xray ordered to confirm placement.
--- NOTE | 2020-04-14 15:29 | MHC.CM.PN ---
Male 65 DX COVID+. Information obtain via EMR and daughter Eliza. He lives with his s.o., his childrens mother. He uses 2 crutches to ambulate. Eliza will look for HCP. DP will be determined by further evaluation. Patient is intubated in ICU.CM will follow.
--- NOTE | 2020-04-14 15:36 | P.PCNCC_ITS ---
Procedures Central Line Placement Left IJ: Central Line Comments: PROCEDURE: Insertion Left internal jugular triple lumen central venous catheter. INDICATION: acute respiratory failure, shock; for venous access and respiratory monitoring. ANESTHESIA: Local plus propofol infusion. PROCEDURE: Vascular ultrasound was used to examine the left neck. A large compressible internal jugular vein was noted, lateral to the carotid artery. The left neck was widely prepped and draped in full sterile fashion. Local anesthesia was applied to the LIJV insertion site. Under US guidance, the left IJ vein was cannulated on the 1st pass of the 18 g thin wall needle, w return of dark, non-pulsatile blood. The wire was threaded but hung up at about 14cm. I twisted the wire a number of times and it finally went in fully. The 16cm x 7 [place]ian triple-lumen CVC was then advanced into the vein up to the hub via the Seldinger technique without incident. There was good blood return x3. The catheter was sutured x3 and a Biopatch and dry sterile dressing were applied. Postop chest x-ray showed the line traveling caudad on the left side of the midline, then crossing to the right at the level just above the cariina, then flipping upward. there is no pneumothorax. I discussed the line position with Dr. Duron from Radiology. In his opinion, the tip is in the proximal SVC, and may well flip back down over time. He advises leaving the line where it is and taking another film tomorrow. The patient tolerated the procedure well w otherwise no complications. No consent was obtained bec of the emergent nature of the procedure.
--- NOTE | 2020-04-14 15:38 | PM.CCPN ---
Subjective Subjective Date of Service: 04/14/20 Physical Exam Vital Signs: Vital Signs: Last Vital Signs Temp 7.7 F L 04/14/20 14:00 Pulse 100 04/14/20 14:00 Resp 18 04/14/20 14:00 BP 106/47 L 04/14/20 14:00 Pulse Ox 91 L 04/14/20 14:00 Body Mass Index 40.4 Objective Data Labs CBC & Chem 7: 04/14/20 06:31 04/14/20 06:31 Labs: Laboratory Results - last 24 hr 04/14/20 04/14/20 04/14/20 06:31 06:31 06:31 WBC 4.3 L RBC 4.58 L Hgb 15.0 Hct 44.2 MCV 96.5 MCH 32.8 MCHC 33.9 RDW 14.1 Plt Count 115 L D MPV 12.4 Immature Gran % (Auto) 0.9 H Neut % (Auto) 82.5 H Lymph % (Auto) 13.1 L Baxter % (Auto) 3.0 Eos % (Auto) 0.0 Baso % (Auto) 0.5 Lymph # (Auto) 0.6 L Baxter # (Auto) 0.1 Eos # (Auto) 0.0 Baso # (Auto) 0.0 Abs Immat Gran (auto) 0.04 H Absolute Neuts (auto) 3.6 Absolute Nucleated RBC 0.020 H Nucleated RBC % (auto) 0.5 H Smear Tech's Comments VERIFIED PT INR APTT D-Dimer VBG pH VBG pCO2 VBG pO2 VBG HCO3 VBG O2 Saturation VBG Base Excess Sodium 133 L Potassium 3.4 Chloride 98 Carbon Dioxide 18 L Anion Gap 20 BUN 13 D Creatinine 0.89 Estim Creat Clear Calc 103.2 Estimated GFR > 60 POC Glucose Random Glucose 88 Lactic Acid Lactic Acid Fup @ 2Hr Lactic Acid Fup @ 4Hr Calcium 7.5 L D Ferritin 765 H Total Bilirubin 2.1 H Direct Bilirubin 1.6 H AST 131 H ALT 64 H Alkaline Phosphatase 307 H D Lactate Dehydrogenase 798 H Troponin I High Sens 17.9 C-Reactive Protein 21.62 H Total Protein 6.3 L Albumin 2.8 L 04/14/20 04/14/20 04/14/20 06:31 06:31 09:19 WBC RBC Hgb Hct MCV MCH MCHC RDW Plt Count MPV Immature Gran % (Auto) Neut % (Auto) Lymph % (Auto) Baxter % (Auto) Eos % (Auto) Baso % (Auto) Lymph # (Auto) Baxter # (Auto) Eos # (Auto) Baso # (Auto) Abs Immat Gran (auto) Absolute Neuts (auto) Absolute Nucleated RBC Nucleated RBC % (auto) Smear Tech's Comments PT 16.2 H INR 1.4 H APTT 31.7 D-Dimer 1249 VBG pH 7.15 L* VBG pCO2 65 VBG pO2 77 VBG HCO3 22 VBG O2 Saturation 90.2 VBG Base Excess -7.6 Sodium Potassium Chloride Carbon Dioxide Anion Gap BUN Creatinine Estim Creat Clear Calc Estimated GFR POC Glucose Random Glucose Lactic Acid 6.6 H* Lactic Acid Fup @ 2Hr Lactic Acid Fup @ 4Hr Calcium Ferritin Total Bilirubin Direct Bilirubin AST ALT Alkaline Phosphatase Lactate Dehydrogenase Troponin I High Sens C-Reactive Protein Total Protein Albumin 04/14/20 04/14/20 04/14/20 09:23 12:16 12:31 WBC RBC Hgb Hct MCV MCH MCHC RDW Plt Count MPV Immature Gran % (Auto) Neut % (Auto) Lymph % (Auto) Baxter % (Auto) Eos % (Auto) Baso % (Auto) Lymph # (Auto) Baxter # (Auto) Eos # (Auto) Baso # (Auto) Abs Immat Gran (auto) Absolute Neuts (auto) Absolute Nucleated RBC Nucleated RBC % (auto) Smear Tech's Comments PT INR APTT D-Dimer VBG pH VBG pCO2 VBG pO2 VBG HCO3 VBG O2 Saturation VBG Base Excess Sodium Potassium Chloride Carbon Dioxide Anion Gap BUN Creatinine Estim Creat Clear Calc Estimated GFR POC Glucose 126 H Random Glucose Lactic Acid Lactic Acid Fup @ 2Hr 2.8 H* Lactic Acid Fup @ 4Hr 3.9 H* Calcium Ferritin Total Bilirubin Direct Bilirubin AST ALT Alkaline Phosphatase Lactate Dehydrogenase Troponin I High Sens C-Reactive Protein Total Protein Albumin Progress Note: A&P Time Spent With Patient Time: Total time spent is greater than 50% in coordination of care (as documented) at patient's floor/unit and/or counseling patient:
[2020-04-14 16:44] LABS: Anion Gap 17 (12-20); Blood Urea Nitrogen 17 mg/dL (9-16); Calcium 7.1 mg/dL (8.4-10.2); Carbon Dioxide 22 mmol/L (22-29); Chloride 99 mmol/L (96-108); Creatinine Clr Calc Pharmacy 50.9; Estimated Glomerular Filt Rate 38; Glucose Random 158 mg/dL (60-115); Potassium 4.6 mmol/l (3.3-5.1); Sodium 133 mmol/L (135-145)
[2020-04-14 16:47] LABS: Lactic Acid 3.7 mmol/L (0.5-2.0)
[2020-04-14 17:28] LABS: Cancel Lactic Acid Canceled
[2020-04-14] MEDS: Amiodarone/Dextrose 150 MG/100 ML PLAST..BAG 600 MG IV (17:32)
[2020-04-14] MEDS: Albumin Human 25 % 100 ML 200 ML IV (17:42)
[2020-04-14 17:45] LABS: Procalcitonin 42.65 ng/mL
[2020-04-14] MEDS: Amiodarone HCL 900 MG in 0.9 % Sodium Chloride 500 ML 34.53 MG IVCONT (17:45)
--- NOTE | 2020-04-14 17:46 | P.HPCC_ITS ---
History of Present Illness Date of Service: 04/14/20 Chief Complaint: Acute respiratory failure secondary to COVID pneumonia. Mr. Christiano Tirado was admitted to the ICU this morning because of acute respiratory failure secondary to COVID pneumonia. The patient is a 65-year-old male with a past medical history of morbid obesity, COPD/asthma, sleep apnea, diabetes, liver disease, vitamin-D deficiency, and thrombocytopenia. Was seen at hematology clinic on Apr 03 for follow-up for thrombocytopenia and was noted to be febrile and was sent to the emergency department for further evaluation. Was febrile to 100.5. Tested COVID positive there, and was sent home. At the time, he denied any symptoms and felt well. Over the last 2 days, the patient's breathing was getting worse and he called EMS. Sat was 67% on room air at the scene, increased to 80% on non-rebreather face mask by EMS. On arrival to the ED, the patient was very short of breath, unable to speak full sentences, saturating 30% at room air and increased to 70% on non-rebreather. Placed on high-flow nasal cannula, was still barely maintaining 75-80% sat. Patient started getting tired and agreed to intubation. Following that, he was given Decadron, Rocephin, and Zithromax. Chest x-ray was consistent with coronavirus pneumonia. Fluids were restricted. LABS in the ED were notable for: White count is 4.3, with 0.6% lymphs. Hem oglobin was 15.0, platelet count was [id number]. D-dimer was 1249. BUN and creatinine were 13/0.8, lactate was 6.6, ferritin was 765, total bili was 2.1, AST/ALT were 131/64, LDH 798, CRP 21, albumin 2.8. Patient was given a total of about 2.5 L of fluid in the ER, sedated, admitted to the ICU. In the ICU, he is afebrile, heart rate was 98, blood pressure 106/47. Paralyzed on Nimbex, the patient is on AC PC, FiO2 90%, peep 12 cm, with sat 90-92%. He is sedated on propofol at 40 mcg, midazolam at 2 mg, and he is on Levophed 0.3ug. A central line was immediately placed (see separate procedure note) and the patient was echoed: ECHOCARDIOGRAM for hemodynamic monitoring: Image quality: Fair. Findings: 1. Wall thickness probably normal or top normal. 2. LV cavity size is normal, with normal LV fxn. Images not adequate to comment on reg wall motion. EF 50-60%. 3. RV size normal or top normal. 4. Atria not adequately assessed. 5. AoV not adeq assessed. 6. MV morphologically normal with no MR by color valentin. 7. TV morphologically normal. Unable to obtain any Doppler signal. 8. IVC 1.3 cm w minimal insp collapse. Estimated CVP 8cm. Unable to estimate RVSP. IMPRESSION: 1. Bilateral pulmonary infiltrates/ARDS secondary to COVID pneumonia. Send sputum. 2. Acute hypoxemic and hypercarbic respiratory failure secondary to above. PE unlikely based on echo, but we?ll duplex his LE?s. 3. Hypotension with elevated lactate. Presumably septic shock. The patient was given an empiric dose of ceftriaxone and Zithromax, and I am going to start him on doxycycline. Given Coronavirus pneumonia, fluid should be restricted to the extent possible. The echo and the amount of fluid he has had so far suggests adequate volume resuscitation. I will also send a urine sodium. For now, we?ll go with Levophed and vasopressin. 4. DM. Gluc is adequately controlled so far without intervention. Will no doubt rise w the steroids. Will start him on the complete EVMS COVID, including Solumedrol 80 bid, Lovenox 100 bid, doxycycline, etc. (minus the ivermectin). Follow biomarkers daily. Prognosis guarded. But his biomarkers aren?t so bad (yet). Critical care time (excluding procedures): 100 min. [facility] Past Medical History Medical History Anxiety Asthma Bipolar disorder Depression Diabetes type 2, uncontrolled Diabetic nephropathy associated with type 2 diabetes mellitus Diabetic polyneuropathy associated with type 2 diabetes mellitus Diabetic retinopathy associated with type 2 diabetes mellitus Dyslipidemia History of CVA (cerebrovascular accident) Hyperlipidemia Hypertension [employer] (current) use of insulin Morbid obesity SHIRA on CPAP Pulmonary embolism Pulmonary embolism Vitamin D deficiency Family History Family History Father Diabetes Mother Diabetes Hypertension Surgical History Surgical History History of carpal tunnel release Hx of brain surgery Hx of colonoscopy Hx of esophagogastroduodenoscopy Hx of hernia repair Social History Social History Household Members: Spouse Housing: Apartment Do you presently have visiting nurse or other home services: Yes ([employer] through [employer] daily) Alcohol intake: unknown Smoking Status: Former smoker Tobacco Type: Cigarette Smoked in Last 30 Days: No Smoking Quit Date: 2004 Patient Interested in Nicotine Replacement: No (n/a) Patient Given Instructions on How to Stop Smoking: No Second Hand Smoke Exposure: Yes Use of substances other than those prescribed or required for medical reasons: Unknown Substance Use Type: Unknown Spiritual Healthcare Practices: no Voodoo Healthcare Practices: no Cultural Healthcare Practices: no Advance Directives: No Advance Directives Information Provided: No Recently lost weight without trying: Unsure service: No Current occupational status: disabled Meds Allergies Allergy/AdvReac Type Severity Reaction Status Date / Time carbamazepine [From Tegretol] Allergy Mild RASH AND Verified 04/14/20 13:57 ITCH lurasidone [From LATUDA] Allergy Unknown TONGUE Verified 04/14/20 13:57 SWELLED Penicillins [PENICILLINS] Allergy Unknown ITCHINESS, Verified 04/14/20 13:57 FELT LIKE BLACKING OUT amoxicillin [AMOXICILLIN] AdvReac Mild DIZZINESS Verified 04/14/20 13:57 clonazepam [From KLONOPIN] AdvReac Mild CAUSED Verified 04/14/20 13:57 SHORT TERM MEMORY LOSS Home Medications Medication Instructions Recorded Confirmed Type amlodipine 5 mg tablet 5 mg PO DAILY 03/16/20 03/16/20 History aspirin 81 mg tablet,delayed 81 mg PO DAILY 03/16/20 03/16/20 History release blood sugar diagnostic #10 ea 03/16/20 03/16/20 History cholecalciferol (vitamin D3) 125 125 mcg PO DAILY 03/16/20 03/16/20 History mcg (5,000 unit) capsule clopidogrel 75 mg tablet 75 mg PO DAILY 03/16/20 03/16/20 History diltiazem HCl 120 mg 120 mg PO BID 03/16/20 03/16/20 History capsule,extended release 12 hr dulaglutide 1.5 mg/0.5 mL 1.5 mg SUBCUT QWEEK 03/16/20 03/16/20 History subcutaneous pen injector furosemide 20 mg tablet 20 mg PO DAILY 03/16/20 03/16/20 History insulin regular hum U-500 conc 500 130 unit SUBCUT QPM ml 03/16/20 03/16/20 History unit/mL subcutaneous soln lancets 28 gauge #100 ea 03/16/20 03/16/20 History losartan 50 mg tablet 50 mg PO DAILY 03/16/20 03/16/20 History metformin 500 mg/5 mL oral solution 1,000 mg PO DAILY 03/16/20 03/16/20 History montelukast 10 mg tablet 10 mg PO DAILY 03/16/20 03/16/20 History Physical Exam Vital Signs: Vital Signs: Last Vital Signs Temp 7.7 F L 04/14/20 14:00 Pulse 100 04/14/20 14:00 Resp 18 04/14/20 14:00 BP 106/47 L 04/14/20 14:00 Pulse Ox 91 L 04/14/20 14:00 Body Mass Index 40.4 Results Labs CBC and Chem 7: 04/14/20 06:31 04/14/20 16:01 Labs: Laboratory Results - last 24 hr 04/14/20 04/14/20 04/14/20 06:31 06:31 06:31 MCV 96.5 MCH 32.8 MCHC 33.9 RDW 14.1 Plt Count 115 L D MPV 12.4 Immature Gran % (Auto) 0.9 H Neut % (Auto) 82.5 H Lymph % (Auto) 13.1 L [place] % (Auto) 3.0 Eos % (Auto) 0.0 Baso % (Auto) 0.5 Lymph # (Auto) 0.6 L [place] # (Auto) 0.1 Eos # (Auto) 0.0 Baso # (Auto) 0.0 Abs Immat Gran (auto) 0.04 H Absolute Neuts (auto) 3.6 Absolute Nucleated RBC 0.020 H Nucleated RBC % (auto) 0.5 H Smear Tech's Comments VERIFIED PT INR APTT D-Dimer VBG pH VBG pCO2 VBG pO2 VBG HCO3 VBG O2 Saturation VBG Base Excess Anion Gap 20 Estim Creat Clear Calc 103.2 Estimated GFR > 60 POC Glucose Random Glucose 88 Lactic Acid Lactic Acid Fup @ 2Hr Lactic Acid Fup @ 4Hr Calcium 7.5 L D Ferritin 765 H Total Bilirubin 2.1 H Direct Bilirubin 1.6 H AST 131 H ALT 64 H Alkaline Phosphatase 307 H D Lactate Dehydrogenase 798 H Troponin I High Sens 17.9 C-Reactive Protein 21.62 H Total Protein 6.3 L Albumin 2.8 L Procalcitonin 04/14/20 04/14/20 04/14/20 06:31 06:31 06:31 MCV MCH MCHC RDW Plt Count MPV Immature Gran % (Auto) Neut % (Auto) Lymph % (Auto) [place] % (Auto) Eos % (Auto) Baso % (Auto) Lymph # (Auto) [place] # (Auto) Eos # (Auto) Baso # (Auto) Abs Immat Gran (auto) Absolute Neuts (auto) Absolute Nucleated RBC Nucleated RBC % (auto) Smear Tech's Comments PT 16.2 H INR 1.4 H APTT 31.7 D-Dimer 1249 VBG pH VBG pCO2 VBG pO2 VBG HCO3 VBG O2 Saturation VBG Base Excess Anion Gap Estim Creat Clear Calc Estimated GFR POC Glucose Random Glucose Lactic Acid 6.6 H* Lactic Acid Fup @ 2Hr Lactic Acid Fup @ 4Hr Calcium Ferritin Total Bilirubin Direct Bilirubin AST ALT Alkaline Phosphatase Lactate Dehydrogenase Troponin I High Sens C-Reactive Protein Total Protein Albumin Procalcitonin 42.65 04/14/20 04/14/20 04/14/20 09:19 09:23 12:16 MCV MCH MCHC RDW Plt Count MPV Immature Gran % (Auto) Neut % (Auto) Lymph % (Auto) [place] % (Auto) Eos % (Auto) Baso % (Auto) Lymph # (Auto) [place] # (Auto) Eos # (Auto) Baso # (Auto) Abs Immat Gran (auto) Absolute Neuts (auto) Absolute Nucleated RBC Nucleated RBC % (auto) Smear Tech's Comments PT INR APTT D-Dimer VBG pH 7.15 L* VBG pCO2 65 VBG pO2 77 VBG HCO3 22 VBG O2 Saturation 90.2 VBG Base Excess -7.6 Anion Gap Estim Creat Clear Calc Estimated GFR POC Glucose Random Glucose Lactic Acid Lactic Acid Fup @ 2Hr 2.8 H* Lactic Acid Fup @ 4Hr 3.9 H* Calcium Ferritin Total Bilirubin Direct Bilirubin AST ALT Alkaline Phosphatase Lactate Dehydrogenase Troponin I High Sens C-Reactive Protein Total Protein Albumin Procalcitonin 04/14/20 04/14/20 04/14/20 12:31 16:01 16:01 MCV MCH MCHC RDW Plt Count MPV Immature Gran % (Auto) Neut % (Auto) Lymph % (Auto) [place] % (Auto) Eos % (Auto) Baso % (Auto) Lymph # (Auto) [place] # (Auto) Eos # (Auto) Baso # (Auto) Abs Immat Gran (auto) Absolute Neuts (auto) Absolute Nucleated RBC Nucleated RBC % (auto) Smear Tech's Comments PT INR APTT D-Dimer VBG pH VBG pCO2 VBG pO2 VBG HCO3 VBG O2 Saturation VBG Base Excess Anion Gap 17 Estim Creat Clear Calc 50.9 Estimated GFR 38 POC Glucose 126 H Random Glucose 158 H D Lactic Acid 3.7 H* Lactic Acid Fup @ 2Hr Lactic Acid Fup @ 4Hr Calcium 7.1 L Ferritin Total Bilirubin Direct Bilirubin AST ALT Alkaline Phosphatase Lactate Dehydrogenase Troponin I High Sens C-Reactive Protein Total Protein Albumin Procalcitonin Imaging Radiologist's Impressions: Impressions Venous Duplex 04/14/20 00:00 IMPRESSION: No DVT demonstrated in either lower extremity. Chest X-Ray 04/14/20 06:18 IMPRESSION: Endotracheal tube tip approximately 5 cm above the ramón. Moderately extensive bilateral airspace opacities suspicious for multifocal pneumonia versus edema in the proper clinical setting. Chest X-Ray 04/14/20 08:32 IMPRESSION: Stable radiographic appearance of the chest. The position of the tubes and catheters appear satisfactory. No new abnormalities. Chest X-Ray 04/14/20 15:07 IMPRESSION: A left-sided jugular triple lumen catheter has its tip in the proximal SVC. Critical Care Time Critical Care Time (minutes): 90
[2020-04-14 17:47] LABS: Base Excess VBG -14.8 mmol/L; HCO3 VBG 20 mmol/L; PCO2 VBG 97 mmhg; PO2 VBG 80 mmhg
[2020-04-14 17:48] LABS: Blood Gas Serial # 5414; Oxygen Saturation VBG 88.8 %; pH VBG 6.93 (7.32-7.43)
[2020-04-14] MEDS: Zinc Sulfate 220 MG CAPSULE G-TUBE (18:00)
[2020-04-14] MEDS: methylPREDNISolone Sod Succ/PF 125 MG/2 ML VIAL 80 MG IV (18:00)
[2020-04-14] MEDS: Cholecalciferol (Vitamin D3) 25 MCG TABLET 50 MCG G-TUBE (18:00)
[2020-04-14] MEDS: Doxycycline Hyclate 100 MG in 0.9 % Sodium Chloride 250 ML 166.67 MG IV (18:00)
[2020-04-14 18:11] LABS: Base Excess VBG -12.4 mmol/L; HCO3 VBG 22 mmol/L; PCO2 VBG 97 mmhg; PO2 VBG 78 mmhg; pH VBG 6.97 (7.32-7.43)
[2020-04-14 18:12] LABS: Blood Gas Serial # 5414; Oxygen Saturation VBG 88.9 %
[2020-04-14] MEDS: Enoxaparin Sodium 100 MG/ML SYRINGE SUBCUT (18:45)
[2020-04-14] MEDS: Famotidine/PF 20 MG/2 ML VIAL 40 MG IVPUSH (18:45)
[2020-04-14] MEDS: Sodium Polystyrene Sulfon/Sorb 15 GM/60 ML ORAL.SUSP 30 GM G-TUBE (19:00)
[2020-04-14] MEDS: Thiamine HCL 200 MG in 0.9 % Sodium Chloride 100 ML 204 MG IV (19:00)
[2020-04-14] MEDS: Ascorbic Acid 500 MG TABLET 1000 MG G-TUBE (19:47)
[2020-04-14] MEDS: Sodium Bicarbonate 8.4% 50 MEQ/50 ML VIAL 100 MEQ IVPUSH (19:49)
[2020-04-14] MEDS: Cisatracurium Besylate 20 MG/10 ML VIAL IVPUSH (19:51)
[2020-04-14] MEDS: Melatonin 3 MG TABLET 9 MG PO ×2 (19:53→20:07)
[2020-04-14] MEDS: Atorvastatin Calcium 80 MG TABLET G-TUBE ×2 (19:54→20:07)
[2020-04-14] MEDS: Chlorhexidine Gluc Oral Rinse 15 ML MOUTHWASH BUCCAL ×2 (19:54→20:07)
[2020-04-14 21:21] LABS: Pt Ventilation O2% 100%
[2020-04-14 21:24] LABS: PO2 ABG 53 mmhg (83-108)
[2020-04-14 21:25] LABS: Base Excess ABG -10.2; Blood Gas Serial # 5414; HCO3 ABG 20 mmol/l (22-26); Oxygen Saturation ABG 85.2 %
[2020-04-14 21:27] LABS: pH ABG 7.13 (7.35-7.45)
[2020-04-14 21:28] LABS: ABG PCO2 60 mmhg (32-45)
[2020-04-14] MEDS: fentaNYL citrate/NS 1,000 MCG/100 ML PLAST..BAG 10 MCG IVCONT (23:53)
[2020-04-15] VITALS (31 sets, daily range): BP systolic 110–128; BP diastolic 33–66; PULSE 80–92; RESP 25–26; TEMP 36.9–37.3; O2SAT 86–91; BMI 41.4
[2020-04-15 00:04] LABS: Glucose, Whole Blood 216 mg/dL (60-115)
[2020-04-15 01:18] LABS: Anion Gap 22 (12-20); Blood Urea Nitrogen 23 mg/dL (9-16); Calcium 6.7 mg/dL (8.4-10.2); Carbon Dioxide 18 mmol/L (22-29); Chloride 98 mmol/L (96-108); Creatinine Clr Calc Pharmacy 37.7; Estimated Glomerular Filt Rate 27; Glucose Random 296 mg/dL (60-115); Potassium 5.7 mmol/l (3.3-5.1); Sodium 132 mmol/L (135-145)
[2020-04-15] MEDS: Insulin Lispro 100 UNIT/ML 3 ML VIAL SUBCUT ×2 (01:20→07:27)
[2020-04-15 01:21] LABS: Glucose, Whole Blood 282 mg/dL (60-115)
[2020-04-15] MEDS: Albuterol Sulfate (0.083%) 2.5 MG/3 ML VIAL.NEB 10 MG INHALE (03:05)
[2020-04-15] MEDS: propofoL 1,000 MG/100 ML VIAL 14.22 MG IVCONT ×3 (03:10→15:57)
[2020-04-15] MEDS: methylPREDNISolone Sod Succ/PF 125 MG/2 ML VIAL 80 MG IV ×2 (05:21→16:10)
[2020-04-15] MEDS: Doxycycline Hyclate 100 MG in 0.9 % Sodium Chloride 250 ML 166.67 MG IV ×2 (05:21→16:10)
[2020-04-15] MEDS: Enoxaparin Sodium 100 MG/ML SYRINGE SUBCUT (05:21)
[2020-04-15] MEDS: Famotidine/PF 20 MG/2 ML VIAL 40 MG IVPUSH ×2 (05:22→16:07)
[2020-04-15 06:08] LABS: Hematocrit 42.7 % (42-52); Hemoglobin 13.3 g/dl (14.0-18.0); Mean Corpuscular HGB Conc 31.1 g/dl (31.0-36.0); Mean Corpuscular Hemoglobin 32.7 pg (27.0-33.0); Mean Corpuscular Volume 104.9 fL (80-98); NRBC Pct Auto 0.1 /100WBC (0.0-0.2); Platelet Count 217 X10*3/uL (160-400); Red Blood Count 4.07 X10*6/uL (4.60-5.80); Red Cell Distribution Width 15.4 % (11.0-16.0); White Blood Count 21.4 X10*3/uL (4.8-10.8)
[2020-04-15 06:17] LABS: Base Excess VBG -9.9 mmol/L; HCO3 VBG 19 mmol/L; Oxygen Saturation VBG 84.3 %; PCO2 VBG 52 mmhg; PO2 VBG 54 mmhg
[2020-04-15 06:19] LABS: pH VBG 7.18 (7.32-7.43)
[2020-04-15 06:41] LABS: Anion Gap 25 (12-20); Blood Urea Nitrogen 28 mg/dL (9-16); C Reactive Protein 30.46 mg/dL (< or = 0.50); Calcium 6.5 mg/dL (8.4-10.2); Carbon Dioxide 16 mmol/L (22-29); Chloride 97 mmol/L (96-108); Estimated Glomerular Filt Rate 22; Glucose Random 339 mg/dL (60-115); Phosphorus 9.3 mg/dL (2.7-4.5); Potassium 5.8 mmol/l (3.3-5.1); Sodium 132 mmol/L (135-145)
[2020-04-15 06:57] LABS: Ferritin 494 ng/mL (20-250)
[2020-04-15] MEDS: Zinc Sulfate 220 MG CAPSULE G-TUBE (07:26)
[2020-04-15] MEDS: Thiamine HCL 200 MG in 0.9 % Sodium Chloride 100 ML 204 MG IV (07:26)
[2020-04-15] MEDS: Cholecalciferol (Vitamin D3) 25 MCG TABLET 50 MCG G-TUBE (07:26)
[2020-04-15 07:31] LABS: Atypical Lymph Absolute Manual 0.4 x10*3/uL; Atypical Lymphs Percent Manual 2 % (0-6); Band Neutrophils Percent 24 % (3-5); Lymphocytes Absolute Manual 0.6 X10*3/uL (0.6-4.8); Lymphocytes Percent Manual 3 % (20-40); Monocytes Absolute Manual 1.5 X10*3/uL (0.0-1.2); Monocytes Percent Manual 7 % (2-11); Neutrophils Absolute Manual 18.8 X10*3/uL (2.2-7.9); Neutrophils Percent Manual 64 % (45-73)
[2020-04-15 07:33] LABS: Platelet Estimate NORMAL (NORMAL); Platelet Morphology Comment NORMAL; Toxic Vacuolation PRESENT
[2020-04-15 07:34] LABS: Burr Cells 2+; D Dimer 1581 NG/ML; Macrocytosis 1+; RBC Morphology NOTED
[2020-04-15 07:35] LABS: Acanthocytes 1+; Ovalocytes 1+; Polychromasia 1+
[2020-04-15] MEDS: fentaNYL citrate/NS 1,000 MCG/100 ML PLAST..BAG 10 MCG IVCONT ×2 (07:52→20:01)
[2020-04-15 08:18] LABS: Procalcitonin 80.59 ng/mL
--- NOTE | 2020-04-15 08:46 | P.PNCC_ITS ---
Subjective Subjective Date of Service: 04/15/20 Interval History: Mr. Christiano Tirado was admitted to the ICU yesterday Apr 14 because of acute respiratory failure secondary to COVID pneumonia. The patient is a 65-year-old male with a past medical history of morbid obesity, COPD/asthma, sleep apnea, diabetes, liver disease, vitamin-D deficiency, and thrombocytopenia. Was seen at hematology clinic on Apr 03 for follow-up for thrombocytopenia and was noted to be febrile and was sent to the emergency department for further evaluation. Was febrile to 100.5. Tested COVID positive there, and was sent home. At that time, he denied any symptoms and felt well. Over the 2 days prior to the current admission, the patient's breathing was getting worse. He called EMS early yest morning. Sat was 67% on room air at the scene, increased to 80% on non-rebreather face mask by EMS. On arrival to the ED, the patient was very short of breath, unable to speak full sentences, saturating 38% at room air and increased to 70% on non-rebreather. Placed on high-flow nasal cannula, was still barely maintaining 75-80% sat. LABS in the ED were notable for white count 4.3, with 0.6% lymphs. Hemoglobin 15.0, platelet count was 115,000. D-dimer was 1249. BUN and creatinine were 13/0.8, lactate was 6.6, ferritin was 765, total bili was 2.1, AST/ALT were 131/64, LDH 798, CRP 21, PCT was 42, albumin 2.8. Chest x-ray was consistent with coronavirus pneumonia. The patient was given Decadron, Rocephin, and Zithromax. He started getting tired and agreed to intubation. Fluids were restricted. The patient was given a total of about 2.5 L of fluid in the ER and sedated. After sedation, his BP dropped into 80s-90?s, and he was started on Levophed. Doxycycline was added. He was admitted to the ICU. In the ICU, he was afebrile, heart rate was 98, blood pressure was 106/47 on Lev ophed 0.3ug. Paralyzed on Zemuron. A central line was placed. We added full dose Lovenox and the complete EVMS COVID protocol (minus ivermectin). After the Zemuron wore off, tidal vol dropped to 450cc range and his PvCO2 climbed into the 90?s, pH dropped to 6.95 range. He was reparalyzed, and Vt increased to 500s range and pCO2 came down. Creat delmer to 1.8 in the evening, then to 2.4 by MN. He?s been averaging u/o of 20cc/hr or less. He?s sedated and paralyzed this morning. On propofol at 20ug, Versed at 2mg, Fent at 100ug, Levophed at 0.3ug, vasopressin at 0.04ug, Nimbex @ 1. HR 83, sinus rhythm, on an amiodarone drip. The QRS complex and T-waves are normal. BP about 120/40. Afebrile. On the vent at AC/PC 26, pressures 22/12, 100%, PiP is 35, Vt 530cc, Ve 13.8L, Sat 90%. Central venous blood gas this morning showed 7.18/52/-10. No JVD, abdomen is soft, no edema. LABORATORY DATA: As below. Notably, white count this morning is bumped to 21. BUN and creatinine are up to 28/2.8, bicarb is down to 16, potassium is up to 5.8. Phosphorus is up to 9.3. Glucose is up to 339. D-dimer is only up to 1580. Ferritin is down to 494, CRP is up to 30, prolactin is up to 80. MICROBIOLOGY: Sputum Gram stain from yesterday shows 4+ polys with a polymicrobial lacho. Blood cultures from the ED are negative so far. Bilat LE duplex US flast nite: No evidence of DVT ECHOCARDIOGRAM yesterday for hemodynamic monitoring: Image quality: Fair. Findings: 1. Wall thickness probably normal or top normal. 2. LV cavity size is normal, with normal LV fxn. Images not adequate to comment on reg wall motion. EF 50-60%. 3. RV size normal or top normal. 4. Atria not adequately assessed. 5. AoV not adeq assessed. 6. MV morphologically normal with no MR by color valentin. 7. TV morphologically normal. Unable to obtain any Doppler signal. 8. IVC 1.3 cm w minimal insp collapse. Estimated CVP 8cm. Unable to estimate RVSP. IMPRESSION: 1. Bilateral pulmonary infiltrates/ARDS secondary to COVID pneumonia. On full EVMS Covid protocol, including Solumedrol, Lovenox, and doxycycline (minus ivermectin). Follow biomarkers daily. 2. Acute hypoxemic and hypercarbic respiratory failure secondary to above. PE unlikely based on echo, and Duplex scan was negative last nite. Regardless, was started on full dose Lovenox empirically, and we?ll continue that, silverio in light of rising DDimer. 3. Hypotension with elevated lactate. I?m doubtful he has bacterial septic shock, but can?t rule it out, silverio with the bump in his WBC. The patient was given empiric Abx. Given Coronavirus pneumonia, fluid should be restricted to the extent possible. The echo yesterday suggested euvolemia. Urine sodium was 44. He?s getting > 100cc/hr of fluids. We?ll continue with Levophed and vasopressin. (And he?s also getting steroids.) 4. BRYSON with metabolic acidosis. 2? sepsis vs COVID. Doesn?t need more fluids. Will start bicarb drip and place a permcath today. Prepare for HD tomorrow. R echeck chem 5pm. 5. Hyperkalemia. Treating with bicarb, insulin, and kayexelate. 6. Hypergycemia. Starting insulin drip. 7. ID. Still afebrile, but WBC is up (albeit could be 2? rhoids). Given his desperate situation, we?ll add Zyvox and meropenam (PCN allergic) to his Doxy, altho I believe dubious benefit. Prognosis very grim. Critical care time (including multiple visits and extended discussion with Renal consult and pharmacy): 90 min. Physical Exam Vital Signs: Vital Signs: Last Vital Signs Temp 98.8 F 04/15/20 08:00 Pulse 83 04/15/20 08:00 Resp 26 H 04/15/20 08:00 BP 120/36 L 04/15/20 08:00 Pulse Ox 90 L 04/15/20 08:00 Body Mass Index 40.4 Objective Data Labs CBC & Chem 7: 04/15/20 05:24 04/15/20 05:24 Labs: Laboratory Results - last 24 hr 04/14/20 04/14/20 04/14/20 06:31 06:31 09:19 WBC RBC Hgb Hct MCV MCH MCHC RDW Plt Count MPV Immature Gran % (Auto) Neut % (Auto) Lymph % (Auto) Mccracken % (Auto) Eos % (Auto) Baso % (Auto) Lymph # (Auto) Mccracken # (Auto) Eos # (Auto) Baso # (Auto) Abs Immat Gran (auto) Absolute Neuts (auto) Absolute Nucleated RBC Nucleated RBC % (auto) Neutrophils % (Manual) Band Neutrophils % Lymphocytes % (Manual) Atypical Lymphs % (Man) Monocytes % (Manual) Abs Neuts (Manual) Lymphocytes # (Manual) Atyp Lymphs # (Manual) Monocytes # (Manual) Toxic Vacuolation Platelet Estimate Plt Morphology Comment RBC Morphology Polychromasia Macrocytosis Ovalocytes Hermosa Cells Acanthocytes (Spur) D-Dimer ABG pH ABG pCO2 ABG pO2 ABG HCO3 ABG O2 Saturation ABG Base Excess VBG pH 7.15 L* VBG pCO2 65 VBG pO2 77 VBG HCO3 22 VBG O2 Saturation 90.2 VBG Base Excess -7.6 Oxygen Given Sodium Potassium Chloride Carbon Dioxide Anion Gap BUN Creatinine Estim Creat Clear Calc Estimated GFR POC Glucose Random Glucose Lactic Acid Lactic Acid Fup @ 2Hr Lactic Acid Fup @ 4Hr Calcium Phosphorus Magnesium Ferritin 765 H Lactate Dehydrogenase 798 H Total Creatine Kinase C-Reactive Protein 21.62 H Procalcitonin 42.65 Ur Random Sodium 04/14/20 04/14/20 04/14/20 09:23 12:16 12:31 WBC RBC Hgb Hct MCV MCH MCHC RDW Plt Count MPV Immature Gran % (Auto) Neut % (Auto) Lymph % (Auto) Mccracken % (Auto) Eos % (Auto) Baso % (Auto) Lymph # (Auto) Mccracken # (Auto) Eos # (Auto) Baso # (Auto) Abs Immat Gran (auto) Absolute Neuts (auto) Absolute Nucleated RBC Nucleated RBC % (auto) Neutrophils % (Manual) Band Neutrophils % Lymphocytes % (Manual) Atypical Lymphs % (Man) Monocytes % (Manual) Abs Neuts (Manual) Lymphocytes # (Manual) Atyp Lymphs # (Manual) Monocytes # (Manual) Toxic Vacuolation Platelet Estimate Plt Morphology Comment RBC Morphology Polychromasia Macrocytosis Ovalocytes Hermosa Cells Acanthocytes (Spur) D-Dimer ABG pH ABG pCO2 ABG pO2 ABG HCO3 ABG O2 Saturation ABG Base Excess VBG pH VBG pCO2 VBG pO2 VBG HCO3 VBG O2 Saturation VBG Base Excess Oxygen Given Sodium Potassium Chloride Carbon Dioxide Anion Gap BUN Creatinine Estim Creat Clear Calc Estimated GFR POC Glucose 126 H Random Glucose Lactic Acid Lactic Acid Fup @ 2Hr 2.8 H* Lactic Acid Fup @ 4Hr 3.9 H* Calcium Phosphorus Magnesium Ferritin Lactate Dehydrogenase Total Creatine Kinase C-Reactive Protein Procalcitonin Ur Random Sodium 04/14/20 04/14/20 04/14/20 14:45 16:01 16:01 WBC RBC Hgb Hct MCV MCH MCHC RDW Plt Count MPV Immature Gran % (Auto) Neut % (Auto) Lymph % (Auto) Mccracken % (Auto) Eos % (Auto) Baso % (Auto) Lymph # (Auto) Mccracken # (Auto) Eos # (Auto) Baso # (Auto) Abs Immat Gran (auto) Absolute Neuts (auto) Absolute Nucleated RBC Nucleated RBC % (auto) Neutrophils % (Manual) Band Neutrophils % Lymphocytes % (Manual) Atypical Lymphs % (Man) Monocytes % (Manual) Abs Neuts (Manual) Lymphocytes # (Manual) Atyp Lymphs # (Manual) Monocytes # (Manual) Toxic Vacuolation Platelet Estimate Plt Morphology Comment RBC Morphology Polychromasia Macrocytosis Ovalocytes Hermosa Cells Acanthocytes (Spur) D-Dimer ABG pH ABG pCO2 ABG pO2 ABG HCO3 ABG O2 Saturation ABG Base Excess VBG pH 6.93 L* VBG pCO2 97 VBG pO2 80 VBG HCO3 20 VBG O2 Saturation 88.8 VBG Base Excess -14.8 Oxygen Given Sodium 133 L Potassium 4.6 D Chloride 99 Carbon Dioxide 22 Anion Gap 17 BUN 17 H Creatinine 1.79 H Estim Creat Clear Calc 50.9 Estimated GFR 38 POC Glucose Random Glucose 158 H D Lactic Acid 3.7 H* Lactic Acid Fup @ 2Hr Lactic Acid Fup @ 4Hr Calcium 7.1 L Phosphorus Magnesium Ferritin Lactate Dehydrogenase Total Creatine Kinase C-Reactive Protein Procalcitonin Ur Random Sodium 04/14/20 04/14/20 04/14/20 17:59 18:21 18:56 WBC RBC Hgb Hct MCV MCH MCHC RDW Plt Count MPV Immature Gran % (Auto) Neut % (Auto) Lymph % (Auto) Mccracken % (Auto) Eos % (Auto) Baso % (Auto) Lymph # (Auto) Mccracken # (Auto) Eos # (Auto) Baso # (Auto) Abs Immat Gran (auto) Absolute Neuts (auto) Absolute Nucleated RBC Nucleated RBC % (auto) Neutrophils % (Manual) Band Neutrophils % Lymphocytes % (Manual) Atypical Lymphs % (Man) Monocytes % (Manual) Abs Neuts (Manual) Lymphocytes # (Manual) Atyp Lymphs # (Manual) Monocytes # (Manual) Toxic Vacuolation Platelet Estimate Plt Morphology Comment RBC Morphology Polychromasia Macrocytosis Ovalocytes Hermosa Cells Acanthocytes (Spur) D-Dimer ABG pH ABG pCO2 ABG pO2 ABG HCO3 ABG O2 Saturation ABG Base Excess VBG pH 6.97 L* VBG pCO2 97 VBG pO2 78 VBG HCO3 22 VBG O2 Saturation 88.9 VBG Base Excess -12.4 Oxygen Given Sodium Potassium Chloride Carbon Dioxide Anion Gap BUN Creatinine Estim Creat Clear Calc Estimated GFR POC Glucose 216 H Random Glucose Lactic Acid Lactic Acid Fup @ 2Hr Lactic Acid Fup @ 4Hr Calcium Phosphorus Magnesium Ferritin Lactate Dehydrogenase Total Creatine Kinase C-Reactive Protein Procalcitonin Ur Random Sodium 44.0 04/14/20 04/15/20 04/15/20 21:02 00:09 00:31 WBC RBC Hgb Hct MCV MCH MCHC RDW Plt Count MPV Immature Gran % (Auto) Neut % (Auto) Lymph % (Auto) Mccracken % (Auto) Eos % (Auto) Baso % (Auto) Lymph # (Auto) Mccracken # (Auto) Eos # (Auto) Baso # (Auto) Abs Immat Gran (auto) Absolute Neuts (auto) Absolute Nucleated RBC Nucleated RBC % (auto) Neutrophils % (Manual) Band Neutrophils % Lymphocytes % (Manual) Atypical Lymphs % (Man) Monocytes % (Manual) Abs Neuts (Manual) Lymphocytes # (Manual) Atyp Lymphs # (Manual) Monocytes # (Manual) Toxic Vacuolation Platelet Estimate Plt Morphology Comment RBC Morphology Polychromasia Macrocytosis Ovalocytes Hermosa Cells Acanthocytes (Spur) D-Dimer ABG pH 7.13 L* ABG pCO2 60 H* ABG pO2 53 L ABG HCO3 20 L ABG O2 Saturation 85.2 ABG Base Excess -10.2 VBG pH VBG pCO2 VBG pO2 VBG HCO3 VBG O2 Saturation VBG Base Excess Oxygen Given 100% Sodium 132 L Potassium 5.7 H D Chloride 98 Carbon Dioxide 18 L Anion Gap 22 H BUN 23 H Creatinine 2.42 H Estim Creat Clear Calc 37.7 Estimated GFR 27 POC Glucose 282 H Random Glucose 296 H D Lactic Acid Lactic Acid Fup @ 2Hr Lactic Acid Fup @ 4Hr Calcium 6.7 L Phosphorus Magnesium Ferritin Lactate Dehydrogenase Total Creatine Kinase C-Reactive Protein Procalcitonin Ur Random Sodium 04/15/20 04/15/20 04/15/20 05:24 05:24 05:24 WBC 21.4 H RBC 4.07 L Hgb 13.3 L Hct 42.7 MCV 104.9 H D MCH 32.7 MCHC 31.1 RDW 15.4 Plt Count 217 D MPV 11.0 Immature Gran % (Auto) Cancelled Neut % (Auto) Cancelled Lymph % (Auto) Cancelled Mccracken % (Auto) Cancelled Eos % (Auto) Cancelled Baso % (Auto) Cancelled Lymph # (Auto) Cancelled Mccracken # (Auto) Cancelled Eos # (Auto) Cancelled Baso # (Auto) Cancelled Abs Immat Gran (auto) Cancelled Absolute Neuts (auto) Cancelled Absolute Nucleated RBC 0.030 H Nucleated RBC % (auto) 0.1 Neutrophils % (Manual) 64 Band Neutrophils % 24 H Lymphocytes % (Manual) 3 L Atypical Lymphs % (Man) 2 Monocytes % (Manual) 7 Abs Neuts (Manual) 18.8 H Lymphocytes # (Manual) 0.6 Atyp Lymphs # (Manual) 0.4 Monocytes # (Manual) 1.5 H Toxic Vacuolation PRESENT Platelet Estimate NORMAL Plt Morphology Comment NORMAL RBC Morphology NOTED Polychromasia 1+ Macrocytosis 1+ Ovalocytes 1+ Thomas Cells 2+ Acanthocytes (Spur) 1+ D-Dimer 1581 ABG pH ABG pCO2 ABG pO2 ABG HCO3 ABG O2 Saturation ABG Base Excess VBG pH 7.18 L* VBG pCO2 52 VBG pO2 54 VBG HCO3 19 VBG O2 Saturation 84.3 VBG Base Excess -9.9 Oxygen Given Sodium Potassium Chloride Carbon Dioxide Anion Gap BUN Creatinine Estim Creat Clear Calc Estimated GFR POC Glucose Random Glucose Lactic Acid Lactic Acid Fup @ 2Hr Lactic Acid Fup @ 4Hr Calcium Phosphorus Magnesium Ferritin Lactate Dehydrogenase Total Creatine Kinase C-Reactive Protein Procalcitonin Ur Random Sodium 04/15/20 04/15/20 05:24 05:24 WBC RBC Hgb Hct MCV MCH MCHC RDW Plt Count MPV Immature Gran % (Auto) Neut % (Auto) Lymph % (Auto) Mccracken % (Auto) Eos % (Auto) Baso % (Auto) Lymph # (Auto) Mccracken # (Auto) Eos # (Auto) Baso # (Auto) Abs Immat Gran (auto) Absolute Neuts (auto) Absolute Nucleated RBC Nucleated RBC % (auto) Neutrophils % (Manual) Band Neutrophils % Lymphocytes % (Manual) Atypical Lymphs % (Man) Monocytes % (Manual) Abs Neuts (Manual) Lymphocytes # (Manual) Atyp Lymphs # (Manual) Monocytes # (Manual) Toxic Vacuolation Platelet Estimate Plt Morphology Comment RBC Morphology Polychromasia Macrocytosis Ovalocytes Thomas Cells Acanthocytes (Spur) D-Dimer ABG pH ABG pCO2 ABG pO2 ABG HCO3 ABG O2 Saturation ABG Base Excess VBG pH VBG pCO2 VBG pO2 VBG HCO3 VBG O2 Saturation VBG Base Excess Oxygen Given Sodium 132 L Potassium 5.8 H Chloride 97 Carbon Dioxide 16 L Anion Gap 25 H BUN 28 H Creatinine 2.85 H Estim Creat Clear Calc 32.0 Estimated GFR 22 POC Glucose Random Glucose 339 H Lactic Acid Lactic Acid Fup @ 2Hr Lactic Acid Fup @ 4Hr Calcium 6.5 L Phosphorus 9.3 H Magnesium 3.0 H Ferritin 494 H Lactate Dehydrogenase Total Creatine Kinase 4195 H C-Reactive Protein 30.46 H Procalcitonin 80.59 Ur Random Sodium Progress Note: A&P Time Spent With Patient Time: Total time spent is greater than 50% in coordination of care (as documented) at patient's floor/unit and/or counseling patient: Total time spent with greater than 50% in coordination of care (as documented) at patient's floor/unit and/or counseling patient:: 0 Critical Care Time Critical Care Time (minutes): 90
[2020-04-15 08:48] LABS: Glucose, Whole Blood 340 mg/dL (60-115)
[2020-04-15] MEDS: Amiodarone HCL 900 MG in 0.9 % Sodium Chloride 500 ML 17.27 MG IVCONT (11:22)
[2020-04-15] MEDS: Linezolid/D5W 600 MG/300 ML PIGGYBACK 300 MG IV ×2 (11:23→22:38)
[2020-04-15] MEDS: Ascorbic Acid 500 MG TABLET 1000 MG G-TUBE ×2 (11:24→16:07)
[2020-04-15] MEDS: Chlorhexidine Gluc Oral Rinse 15 ML MOUTHWASH BUCCAL ×2 (11:24→20:00)
[2020-04-15] MEDS: Insulin Regular/NS 100 UNIT/100 ML PLAST..BAG 10 UNIT IVCONT ×2 (11:39→16:20)
[2020-04-15 12:01] LABS: Glucose, Whole Blood 349 mg/dL (60-115)
--- NOTE | 2020-04-15 12:09 | P.CONNP_ITS ---
History of Present Illness Reason for Consult Consult date: 04/15/20 Reason for consult: BRYSON, acidosis,hyperkalemia Requesting physician: Erik Pool Chief Complaint Chief complaint: HYPOXIC RESPIRATORY FAILURE, COVID History of Present Illness Narrative: Pt is a 65 yo male admitted with hypoxic resp failure from COVID 19 pneumonia. He presented initially to ER with fever and thromboc ytopenia, tested positive for COVID 19-was sent home then returned very dyspneic and requireed intubation. He was initially hypotensive. His creat at presentation was 0.8 mg/dl. He has a hx of type II DM, HTN. Over the past 24 hrs, he has become oliguric, remains pressor dependent with BPs 120 systolic, went into AFib and is on amiodarone. He has received about 3L fluid IV and IVC appears adequate in size by US suggesting vol resuscitated. He is getting linezolid and doxycycline. He has not had contrast exposure. His creat has risen from 1.7 yesterday aftternoon to 2.9 today and he is hyperkalemic with a mixed resp and metabolic acidosis. CPK is 4000. The patient is intubated and this history is obtained from dr. Pool and the medical record. There is mention made in ER and H and P notes of possible underlying liver dysfunction. 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 Morbid obesity SHIRA on CPAP Pulmonary embolism Pulmonary embolism Vitamin D deficiency Functional capacity: independent ambulation Family History Family History Father Diabetes Mother Diabetes Hypertension Surgical History Surgical History History of carpal tunnel release Hx of brain surgery Hx of colonoscopy Hx of esophagogastroduodenoscopy Hx of hernia repair Social History Social History Household Members: Spouse Housing: Apartment Do you presently have visiting nurse or other home services: Yes ([employer] through [employer] daily) Alcohol intake: unknown Smoking Status: Former smoker Tobacco Type: Cigarette Smoked in Last 30 Days: No Smoking Quit Date: 2004 Patient Interested in Nicotine Replacement: No (n/a) Patient Given Instructions on How to Stop Smoking: No Second Hand Smoke Exposure: Yes Use of substances other than those prescribed or required for medical reasons: Unknown Substance Use Type: Unknown Currently Displaying Signs/Symptoms of Drug Intoxication Withdrawal: No Spiritual Healthcare Practices: no Jainism Healthcare Practices: no Cultural Healthcare Practices: no Advance Directives: No Advance Directives Information Provided: No Do you have thoughts of harming others: None Do you have a plan to hurt others: No Plan Recently lost weight without trying: Unsure service: No Current occupational status: disabled Meds Allergies Allergy/AdvReac Type Severity Reaction Status Date / Time carbamazepine [From Tegretol] Allergy Mild RASH AND Verified 04/14/20 13:57 ITCH lurasidone [From LATUDA] Allergy Unknown TONGUE Verified 04/14/20 13:57 SWELLED Penicillins [PENICILLINS] Allergy Unknown ITCHINESS, Verified 04/14/20 13:57 FELT LIKE BLACKING OUT amoxicillin [AMOXICILLIN] AdvReac Mild DIZZINESS Verified 04/14/20 13:57 clonazepam [From KLONOPIN] AdvReac Mild CAUSED Verified 04/14/20 13:57 SHORT TERM MEMORY LOSS Home Medications Medication Instructions Recorded Confirmed Type amlodipine 5 mg tablet 5 mg PO DAILY 03/16/20 03/16/20 History aspirin 81 mg tablet,delayed 81 mg PO DAILY 03/16/20 03/16/20 History release blood sugar diagnostic #10 ea 03/16/20 03/16/20 History cholecalciferol (vitamin D3) 125 125 mcg PO DAILY 03/16/20 03/16/20 History mcg (5,000 unit) capsule clopidogrel 75 mg tablet 75 mg PO DAILY 03/16/20 03/16/20 History diltiazem HCl 120 mg 120 mg PO BID 03/16/20 03/16/20 History capsule,extended release 12 hr dulaglutide 1.5 mg/0.5 mL 1.5 mg SUBCUT QWEEK 03/16/20 03/16/20 History subcutaneous pen injector furosemide 20 mg tablet 20 mg PO DAILY 03/16/20 03/16/20 History insulin regular hum U-500 conc 500 130 unit SUBCUT QPM ml 03/16/20 03/16/20 History unit/mL subcutaneous soln lancets 28 gauge #100 ea 03/16/20 03/16/20 History losartan 50 mg tablet 50 mg PO DAILY 03/16/20 03/16/20 History metformin 500 mg/5 mL oral solution 1,000 mg PO DAILY 03/16/20 03/16/20 History montelukast 10 mg tablet 10 mg PO DAILY 03/16/20 03/16/20 History Physical Exam Vital Signs: Last Vital Signs Temp 98.8 F 04/15/20 11:55 Pulse 81 04/15/20 11:55 Resp 26 H 04/15/20 11:55 BP 127/39 L 04/15/20 11:55 Pulse Ox 89 L 04/15/20 11:55 Body Mass Index 41.4 Resp Other: I did not examine patient but reviewed the exam done by the [employer] consultant - pt is orally intubated, sitting 45 degrees Results Lab Results Result Diagrams: 04/15/20 05:24 04/15/20 05:24 Lab results: Chemistry 04/14/20 04/14/20 04/15/20 06:31 16:01 00:31 Sodium 133 L 133 L 132 L Potassium 3.4 4.6 D 5.7 H D Carbon Dioxide 18 L 22 18 L BUN 13 D 17 H 23 H Creatinine 0.89 1.79 H 2.42 H Calcium 7.5 L D 7.1 L 6.7 L Phosphorus 04/15/20 05:24 Sodium 132 L Potassium 5.8 H Carbon Dioxide 16 L BUN 28 H Creatinine 2.85 H Calcium 6.5 L Phosphorus 9.3 H Hematology 04/14/20 04/15/20 06:31 05:24 WBC 4.3 L 21.4 H Hgb 15.0 13.3 L Plt Count 115 L D 217 D Assessment and Plan (1) Acute kidney injury: Problem details: This pt has BRYSON in the setting of severe COVID 19 pneumonia, hypotensive on presentation and on a background of type II DM and HTN. The most likely cause of BRYSON is ATN. Covid 19 has also been associated with TMA within the kidney. He is not volume overloaded but is receiving over 130 cc/hr in IV drips and is oliguric. He will require dialysis over the next 24 hrs for hyperkalemia and acidosis. Ideally, CRRT but not available here and given current BP can trial IHD. Status: Acute (2) Hyperkalemia: Problem details: Hyperkalemia is due predominantly to transcell shift due to acidemia and relative insulin deficiency; mild rhabdo as well. K is 5.8 and being repeated Status: Acute REcommend: Place [facility] for anticipated need for dialysis over next 12-24 hrs Repeat K Kayexalate Low rate D5W with 150 meq/L bicarb Monitor calcium with bicarb as it is low REmdesivir and or dexamethasone should be considered Monitor platelets on linezolid as baseline thrombocytopenia
[2020-04-15] MEDS: Sodium Polystyrene Sulfon/Sorb 15 GM/60 ML ORAL.SUSP 30 GM G-TUBE ×2 (13:31→16:10)
[2020-04-15 14:08] LABS: Glucose, Whole Blood 363 mg/dL (60-115)
--- NOTE | 2020-04-15 14:47 | PC.NURSE ---
Patient remains sedated and paralyzed on propofol, fentanyl, versed, and nimbex for vent synchrony. Patient afebrile. SR on tele monitor with HR trending in the 80s, patient remains on Amiodarone drip. SBP trending in the 120s, remains on vasopressin and levophed. Remains on PC ventilation, fio2 titrated down to 85% from 100%, o2 sat trending between 88-90%. Remains off tube feeds d/t nimbex. Kayexlate given and started on bicarb drip. Abx ordered and adjusted. Urine output around 10 ml/hr, MD aware, nephro consult placed. Patient blood glucose levels trending in the 300s, reported to MD, started on insulin drip. Patient's daughter, Jaiden undated.
--- NOTE | 2020-04-15 15:00 | XR_ITS ---
EXAMINATION: XR chest 1V CLINICAL INFORMATION: Reason for Exam CVC position COMPARISON: Prior portable chest x-ray 04/14/2020 TECHNIQUE: XR chest 1V Tubes and lines: Endotracheal tube is about 5 cm from ramón. Gastric tube passing below the diaphragm into the stomach the tip is excluded from film margin. Left IJ central line catheter tip is pointing upward toward the right lung apex, might have perforated or heading toward the right subclavian. Lungs and Joanna: Redemonstration of bilateral pulmonary interstitial opacification concerning for diffuse interstitial pneumonia has not significantly changed. Pleura: Normal. Costophrenic angles are sharp. No pneumothorax. Heart and mediastinum: The mediastinum is within normal limits.. Bones: Skeletal structures included are normal for patient's age. XR/XR chest 1V IMPRESSION: Left IJ central line catheter tip still pointing upward toward the right lung apex might have perforated or malpositioned in the SVC or right subclavian. Reinsertion of this catheter recommended. Exam otherwise unchanged. (Referring physician staff is being called, to be alerted of the above findings and recommendations.) AJ
[2020-04-15] MEDS: Midazolam HCl/NS 50 MG/50 ML PLAST..BAG IVCONT (16:00)
--- NOTE | 2020-04-15 17:35 | P.PCNCC_ITS ---
Procedures Central Line Placement Right SC: Central Line Comments: PROCEDURE: Insertion right subclavian central venous line. INDICATION: Acute respiratory failure, acute renal failure. For IV access; blood draws, respiratory monitoring. ANESTHESIA: Local plus propofol infusion. PROCEDURE: The right subclavian areas was widely prepped and draped in full sterile fashion. Local anesthesia was applied to the subclavian area. The right subclavian vein was cannulated on the 1st pass of the 18 gauge thin wall. The wire was threaded without incident. A 7 [place] by 16 cm triple-lumen catheter was advanced into the vein up to the hub via the Seldinger technique without incident. There was good blood return x3. The catheter was sutured x3 and a Biopatch and dry sterile dressing were applied. No postop chest x-ray. The patient tolerated the procedure well w no complications.
[2020-04-15 18:04] LABS: PCO2 VBG 65 mmhg; pH VBG 7.12 (7.32-7.43)
[2020-04-15 18:05] LABS: Base Excess VBG -9.5 mmol/L; Blood Gas Serial # 5414; HCO3 VBG 21 mmol/L; Oxygen Saturation VBG 81.2 %; PO2 VBG 53 mmhg
[2020-04-15 18:18] LABS: Glucose, Whole Blood 243 mg/dL (60-115)
[2020-04-15 18:18] LABS: Lactic Acid 1.8 mmol/L (0.5-2.0)
[2020-04-15 18:18] LABS: Glucose, Whole Blood 290 mg/dL (60-115)
[2020-04-15 18:22] LABS: Anion Gap 20 (12-20); Blood Urea Nitrogen 42 mg/dL (9-16); Calcium 6.3 mg/dL (8.4-10.2); Carbon Dioxide 19 mmol/L (22-29); Chloride 98 mmol/L (96-108); Creatinine Clr Calc Pharmacy 24.2; Estimated Glomerular Filt Rate 16; Glucose Random 261 mg/dL (60-115); Potassium 4.8 mmol/l (3.3-5.1); Sodium 132 mmol/L (135-145)
--- NOTE | 2020-04-15 18:30 | PC.NURSE ---
Right subclavian TLC placed by , no XRay to confirm placement per MD. Removed LIJ TLC per MD and Policy. Catheter and tip visualized and intact. Continuous o2 and HR monitoring provided, O2 remained at 88-90% and HR remained in the 80s. Occlusive dressing applied.
[2020-04-15] MEDS: Atorvastatin Calcium 80 MG TABLET G-TUBE (20:00)
[2020-04-15] MEDS: Melatonin 3 MG TABLET 9 MG PO (20:00)
[2020-04-15] MEDS: Thiamine HCL 200 MG in 0.9 % Sodium Chloride 100 ML IV (20:00)
[2020-04-15 20:49] LABS: Glucose, Whole Blood 184 mg/dL (60-115)
[2020-04-15 22:55] LABS: Glucose, Whole Blood 185 mg/dL (60-115)
[2020-04-16] VITALS (29 sets, daily range): BP systolic 100–180; BP diastolic 34–80; PULSE 73–101; RESP 25–27; TEMP 36.8–37.2; O2SAT 82–95; BMI 41.4
--- NOTE | 2020-04-16 | XR_ITS ---
EXAMINATION: XR CHEST CLINICAL INFORMATION: Right IJ power line placement COMPARISON: 04/15/2020 TECHNIQUE: Frontal view of the chest was obtained. FINDINGS: Endotracheal tube tip lies approximately 5.5 cm above the ramón. Enteric tube courses into the stomach. Right IJ central line tip is suspected to lie in the region of the mid SVC. Right subclavian central line tip suspected to lie in the region of the distal SVC. Lung volumes are symmetric. Regions of airspace opacity in the mid and basilar right lung appears similar to prior. There is increasing opacity in the mid and basilar left lung compared to prior. No pneumothorax is seen. Small pleural effusions cannot be excluded. The cardiomediastinal silhouette is stable. No acute osseous findings are seen. XR/XR chest 1V IMPRESSION: 1. Right IJ central line tip suspected to lie in the region of the mid SVC. Right subclavian central line tip likely in the region of the distal SVC. 2. Multifocal bilateral airspace opacities of the mid to lower lungs, worsened on the left since 04/15/2020.
--- NOTE | 2020-04-16 00:33 | W.PM.CCHP ---
Procedures Central Line Placement A quick time-out was made for clarification and proper patient identification, patient was positioned, landmarks were identified, US used to locate a large compressible IJ. The right neck was widely prepped and draped in a full sterile fashion. Ultrasound was used to locate again the right IJ, the vein was cannulated on the 1st pass with an 18 gauge thin needle, dark nonpulsatile blood return was obtained. The wire was threaded, a small incision was made at its base and dilator inserted. A double lumen 13cm power line HD catheter was advanced into the vein up to the hub without problems, wired was removed. Ports had good blood return and flushed x3. The catheter was secured with 3 sutures at 3 sites, a Biopatch and dry sterile dressing were applied. Post procedure chest x-ray showed the line to be in good position without pneumothorax. No bleeding or complications noted.: Consent for Procedure: Emergent-no informed consent obtained Time out performed: Yes Sterile Technique Used: Yes Patient placed on monitor/pulse ox: Yes prep: mask, gown and gloves Central line prep: Chlorhexidine scrub Ultrasound used for placement: Yes Central line lumen inserted: double Post procedure: sutured in place, good blood return and all ports aspirated, flushed, capped Post procedure x-ray: tip of catheter in good position Patient tolerated procedure: well Complications: none
[2020-04-16] MEDS: Sodium Polystyrene Sulfon/Sorb 15 GM/60 ML ORAL.SUSP 30 GM G-TUBE (01:15)
[2020-04-16] MEDS: Ascorbic Acid 500 MG TABLET 1000 MG G-TUBE ×2 (01:16→06:20)
[2020-04-16 01:43] LABS: Glucose, Whole Blood 183 mg/dL (60-115)
[2020-04-16] MEDS: Doxycycline Hyclate 100 MG in 0.9 % Sodium Chloride 250 ML 166.67 MG IV ×2 (04:41→16:14)
[2020-04-16] MEDS: methylPREDNISolone Sod Succ/PF 125 MG/2 ML VIAL 80 MG IV ×2 (04:41→16:14)
[2020-04-16 05:36] LABS: Glucose, Whole Blood 190 mg/dL (60-115)
[2020-04-16] MEDS: Famotidine/PF 20 MG/2 ML VIAL 40 MG IVPUSH ×2 (06:20→16:20)
[2020-04-16] MEDS: Enoxaparin Sodium 120 MG/0.8 ML SYRINGE 110 MG SUBCUT (06:20)
[2020-04-16] MEDS: Thiamine HCL 200 MG in 0.9 % Sodium Chloride 100 ML 100 MG IV ×2 (06:21→18:06)
[2020-04-16] MEDS: Insulin Regular/NS 100 UNIT/100 ML PLAST..BAG 6 UNIT IVCONT (06:21)
[2020-04-16 06:47] LABS: Hematocrit 40.8 % (42-52); Hemoglobin 12.9 g/dl (14.0-18.0); Mean Corpuscular HGB Conc 31.6 g/dl (31.0-36.0); Mean Corpuscular Hemoglobin 32.5 pg (27.0-33.0); Mean Corpuscular Volume 102.8 fL (80-98); Mean Platelet Volume 10.8 fL (9.4-12.4); NRBC Pct Auto 0.5 /100WBC (0.0-0.2); Platelet Count 267 X10*3/uL (160-400); Red Blood Count 3.97 X10*6/uL (4.60-5.80); Red Cell Distribution Width 15.6 % (11.0-16.0); White Blood Count 24.3 X10*3/uL (4.8-10.8)
[2020-04-16] MEDS: fentaNYL citrate/NS 1,000 MCG/100 ML PLAST..BAG 10 MCG IVCONT (06:49)
[2020-04-16 06:53] LABS: Base Excess VBG -7.2 mmol/L; HCO3 VBG 22 mmol/L; PCO2 VBG 57 mmhg; PO2 VBG 45 mmhg
[2020-04-16 06:54] LABS: Oxygen Saturation VBG 77.2 %
[2020-04-16 06:55] LABS: pH VBG 7.19 (7.32-7.43)
[2020-04-16 07:14] LABS: Band Neutrophils Percent 8 % (3-5); Lymphocytes Absolute Manual 0.7 X10*3/uL (0.6-4.8); Lymphocytes Percent Manual 3 % (20-40); Metamyelocytes Absolute 0.2 X10*3/uL; Metamyelocytes Percent 1 %; Monocytes Absolute Manual 0.7 X10*3/uL (0.0-1.2); Monocytes Percent Manual 3 % (2-11); Neutrophils Absolute Manual 22.6 X10*3/uL (2.2-7.9); Neutrophils Percent Manual 85 % (45-73); Nucleated Red Blood Cells 1 /100WBC (0-0)
[2020-04-16 07:15] LABS: Platelet Estimate NORMAL (NORMAL); Platelet Morphology Comment NORMAL
[2020-04-16 07:17] LABS: Burr Cells 1+; Macrocytosis 1+; Polychromasia 1+; RBC Morphology NOTED
[2020-04-16 07:23] LABS: Procalcitonin 73.59 ng/mL
[2020-04-16 07:30] LABS: Ferritin 639 ng/mL (20-250)
--- NOTE | 2020-04-16 07:33 | PC.NURSE ---
Insulin drip was titrated per MILO Block. Dialysis catheter was placed at the bedside at 2350. Patient was afebrile throughout the shift, drips were titrated as needed. Propofol was turned off at 2100 and patient remained on fentanyl, versed and nimbex.
[2020-04-16 07:57] LABS: Glucose, Whole Blood 165 mg/dL (60-115)
[2020-04-16 07:57] LABS: SARS COV2 IgG Positive (Negative)
[2020-04-16] MEDS: Chlorhexidine Gluc Oral Rinse 15 ML MOUTHWASH BUCCAL ×3 (07:59→21:19)
[2020-04-16] MEDS: Zinc Sulfate 220 MG CAPSULE G-TUBE (07:59)
[2020-04-16] MEDS: Cholecalciferol (Vitamin D3) 25 MCG TABLET 50 MCG G-TUBE (07:59)
[2020-04-16 08:05] LABS: D Dimer 1374 NG/ML
[2020-04-16 08:22] LABS: Alanine Aminotransferase 66 U/L (0-40); Albumin Level 2.4 g/dL (3.5-5.0); Alkaline Phosphatase 216 U/L (39-117); Anion Gap 20 (12-20); Aspartate Amino Transferase 257 U/L (5-37); Bilirubin Direct 1.9 mg/dL (0.0-0.5); Bilirubin Total 2.3 mg/dL (0.0-1.0); Blood Urea Nitrogen 59 mg/dL (9-16); C Reactive Protein 30.75 mg/dL (< or = 0.50); Carbon Dioxide 20 mmol/L (22-29); Chloride 99 mmol/L (96-108); Creatinine Clr Calc Pharmacy 20.1; Estimated Glomerular Filt Rate 13; Glucose Random 172 mg/dL (60-115); Phosphorus 7.7 mg/dL (2.7-4.5); Potassium 5.4 mmol/l (3.3-5.1); Sodium 134 mmol/L (135-145); Total Protein 5.6 g/dL (6.5-8.0)
[2020-04-16 08:29] LABS: Glucose, Whole Blood 91 mg/dL (60-115)
[2020-04-16 08:44] LABS: Glucose, Whole Blood 176 mg/dL (60-115)
[2020-04-16] MEDS: Linezolid/D5W 600 MG/300 ML PIGGYBACK 300 MG IV (09:35)
[2020-04-16] MEDS: Albumin Human 25 % 100 ML 200 ML IV (09:35)
[2020-04-16] MEDS: Heparin Sodium,Porcine 1,000 UNIT/ML VIAL 1000 UNIT IV ×2 (10:22)
[2020-04-16 10:35] LABS: Glucose, Whole Blood 182 mg/dL (60-115)
--- NOTE | 2020-04-16 10:41 | MHC.CLN ---
[facility] CURRENT[facility]C PLAN TO START TF; RECOMMEND NEPRO AT MAX GOAL RATE 35CC/HR TO PROVIDE 1512KCALS (22.5KCALS/KG BASED ON IBW), 68G PROTEIN (1.0G/KG), 610CC FREE WATER FROM FORMULA MONITOR TOLERANCE, RESIDUALS AND LYTES
[2020-04-16 11:36] LABS: Glucose, Whole Blood 143 mg/dL (60-115)
--- NOTE | 2020-04-16 11:47 | PM.PNNEP ---
Subjective Subjective Date of Service: 04/16/20 Interval history: The patient is a 65-year-old male with a history of morbid obesity, COPD/asthma, sleep apnea, diabetes, liver disease, vitamin-D deficiency, and thrombocytopenia. Was seen at hematology clinic on Apr 03 for follow-up for thrombocytopenia and was noted to be febrile and was sent to the emergency department for further evaluation. Was febrile to 100.5. Tested COVID positive there, and was sent home. At that time, he denied any symptoms and felt well. Currently oliguric with worsening kidney function Physical Exam Vital Signs: Vital Signs: Last Vital Signs Temp 98.6 F 04/16/20 11:00 Pulse 81 04/16/20 11:00 Resp 26 H 04/16/20 11:00 BP 132/66 04/16/20 11:00 Pulse Ox 88 L 04/16/20 11:00 Body Mass Index 41.4 Const: Other: Intubated General: ill appearing Assessment & Plan Assessment and plan (1) Acute kidney injury: Problem details: BRYSON in the setting of severe COVID 19 pneumonia, hypotensive on presentation and on a background of type II DM and HTN The most likely cause of BRYSON is ATN. Covid 19 has also been associated with TMA within the kidney. He is oliguric Will initiate dialysis for hyperkalemia and acidosis and renal failure. Status: Acute Time Spent With Patient Time: Total time spent is greater than 50% in coordination of care (as documented) at patient's floor/unit and/or counseling patient:
[2020-04-16 12:33] LABS: Glucose, Whole Blood 144 mg/dL (60-115)
[2020-04-16 13:39] LABS: Glucose, Whole Blood 148 mg/dL (60-115)
--- NOTE | 2020-04-16 14:18 | PM.CCPN ---
Subjective Subjective Date of Service: 04/16/20 Interval History: 65-year-old morbidly obese diabetic male admitted with acute hypoxic respiratory failure due to bilateral COVID-19 ARDS/pneumonitis and now sputum growing strep agalactiae group B with penicillin allergy and this could represent a nosocomial or ventilator associated pneumonia also complicated by acute stage 5 renal failure currently requiring hemodialysis initiated today because of worsening uremia in and hypervolemia with probable component given the elevated CVP of pulmonary edema and had ultrafiltration as well Physical Exam Vital Signs: Vital Signs: Last Vital Signs Temp 98.6 F 04/16/20 13:00 Pulse 85 04/16/20 13:00 Resp 25 H 04/16/20 13:00 BP 146/72 H 04/16/20 13:00 Pulse Ox 92 04/16/20 13:00 Body Mass Index 41.4 Const: Other: completely unresponsive and on fentanyl given the concern with renal failure fentanyl was stopped and train of 4 showed no response so Nimbex drip was also discontinued unresponsive but pupils reactive to light and other cranial nerve reflexes are intact and after dialysis which was hemodynamically well tolerated oxygen saturations delmer from 86% to 94% blood pressure mean delmer to 104 skin intact with no decubiti I no acrocyanosis abdomen benign soft with good bowel sounds no organomegaly tolerating feedings bilateral coarse ventilator related breath sounds cardiac exam repeat CVP is improving with ultrafiltration and is no neck vein distension and bilateral carotid upstrokes are normal with no resting gallop Objective Data Labs CBC & Chem 7: 04/16/20 05:16 04/16/20 05:16 Labs: Laboratory Results - last 24 hr 04/14/20 04/14/20 04/15/20 06:00 16:01 15:45 WBC RBC Hgb Hct MCV MCH MCHC RDW Plt Count MPV Immature Gran % (Auto) Neut % (Auto) Lymph % (Auto) [place] % (Auto) Eos % (Auto) Baso % (Auto) Lymph # (Auto) [place] # (Auto) Eos # (Auto) Baso # (Auto) Abs Immat Gran (auto) Absolute Neuts (auto) Absolute Nucleated RBC Nucleated RBC % (auto) Neutrophils % (Manual) Band Neutrophils % Lymphocytes % (Manual) Monocytes % (Manual) Metamyelocytes % Abs Neuts (Manual) Lymphocytes # (Manual) Monocytes # (Manual) Metamyelocytes # Nucleated RBCs Platelet Estimate Plt Morphology Comment RBC Morphology Polychromasia Macrocytosis [place] Cells Smear Path Review D-Dimer VBG pH VBG pCO2 VBG pO2 VBG HCO3 VBG O2 Saturation VBG Base Excess Sodium Potassium Chloride Carbon Dioxide Anion Gap BUN Creatinine Estim Creat Clear Calc Estimated GFR POC Glucose 91 290 H Random Glucose Lactic Acid Calcium Phosphorus Ferritin Total Bilirubin Direct Bilirubin AST ALT Alkaline Phosphatase Total Creatine Kinase C-Reactive Protein Total Protein Albumin Procalcitonin SARS-CoV-2 IgG Ab Positive 04/15/20 04/15/20 04/15/20 17:38 17:38 17:38 WBC RBC Hgb Hct MCV MCH MCHC RDW Plt Count MPV Immature Gran % (Auto) Neut % (Auto) Lymph % (Auto) [place] % (Auto) Eos % (Auto) Baso % (Auto) Lymph # (Auto) [place] # (Auto) Eos # (Auto) Baso # (Auto) Abs Immat Gran (auto) Absolute Neuts (auto) Absolute Nucleated RBC Nucleated RBC % (auto) Neutrophils % (Manual) Band Neutrophils % Lymphocytes % (Manual) Monocytes % (Manual) Metamyelocytes % Abs Neuts (Manual) Lymphocytes # (Manual) Monocytes # (Manual) Metamyelocytes # Nucleated RBCs Platelet Estimate Plt Morphology Comment RBC Morphology Polychromasia Macrocytosis [place] Cells Smear Path Review D-Dimer VBG pH 7.12 L* VBG pCO2 65 VBG pO2 53 VBG HCO3 21 VBG O2 Saturation 81.2 VBG Base Excess -9.5 Sodium 132 L Potassium 4.8 Chloride 98 Carbon Dioxide 19 L Anion Gap 20 BUN 42 H Creatinine 3.82 H Estim Creat Clear Calc 24.2 Estimated GFR 16 POC Glucose Random Glucose 261 H Lactic Acid 1.8 Calcium 6.3 L Phosphorus Ferritin Total Bilirubin Direct Bilirubin AST ALT Alkaline Phosphatase Total Creatine Kinase C-Reactive Protein Total Protein Albumin Procalcitonin SARS-CoV-2 IgG Ab 04/15/20 04/15/20 04/15/20 17:54 20:09 22:40 WBC RBC Hgb Hct MCV MCH MCHC RDW Plt Count MPV Immature Gran % (Auto) Neut % (Auto) Lymph % (Auto) [place] % (Auto) Eos % (Auto) Baso % (Auto) Lymph # (Auto) [place] # (Auto) Eos # (Auto) Baso # (Auto) Abs Immat Gran (auto) Absolute Neuts (auto) Absolute Nucleated RBC Nucleated RBC % (auto) Neutrophils % (Manual) Band Neutrophils % Lymphocytes % (Manual) Monocytes % (Manual) Metamyelocytes % Abs Neuts (Manual) Lymphocytes # (Manual) Monocytes # (Manual) Metamyelocytes # Nucleated RBCs Platelet Estimate Plt Morphology Comment RBC Morphology Polychromasia Macrocytosis [place] Cells Smear Path Review D-Dimer VBG pH VBG pCO2 VBG pO2 VBG HCO3 VBG O2 Saturation VBG Base Excess Sodium Potassium Chloride Carbon Dioxide Anion Gap BUN Creatinine Estim Creat Clear Calc Estimated GFR POC Glucose 243 H 184 H 185 H Random Glucose Lactic Acid Calcium Phosphorus Ferritin Total Bilirubin Direct Bilirubin AST ALT Alkaline Phosphatase Total Creatine Kinase C-Reactive Protein Total Protein Albumin Procalcitonin SARS-CoV-2 IgG Ab 04/16/20 04/16/20 04/16/20 01:22 04:45 05:16 WBC RBC Hgb Hct MCV MCH MCHC RDW Plt Count MPV Immature Gran % (Auto) Neut % (Auto) Lymph % (Auto) [place] % (Auto) Eos % (Auto) Baso % (Auto) Lymph # (Auto) [place] # (Auto) Eos # (Auto) Baso # (Auto) Abs Immat Gran (auto) Absolute Neuts (auto) Absolute Nucleated RBC Nucleated RBC % (auto) Neutrophils % (Manual) Band Neutrophils % Lymphocytes % (Manual) Monocytes % (Manual) Metamyelocytes % Abs Neuts (Manual) Lymphocytes # (Manual) Monocytes # (Manual) Metamyelocytes # Nucleated RBCs Platelet Estimate Plt Morphology Comment RBC Morphology Polychromasia Macrocytosis Thomas Cells Smear Path Review D-Dimer VBG pH VBG pCO2 VBG pO2 VBG HCO3 VBG O2 Saturation VBG Base Excess Sodium Potassium Chloride Carbon Dioxide Anion Gap BUN Creatinine Estim Creat Clear Calc Estimated GFR POC Glucose 183 H 190 H Random Glucose Lactic Acid Calcium Phosphorus Ferritin Total Bilirubin Cancelled Direct Bilirubin Cancelled AST Cancelled ALT Cancelled Alkaline Phosphatase Cancelled Total Creatine Kinase C-Reactive Protein Total Protein Cancelled Albumin Cancelled Procalcitonin SARS-CoV-2 IgG Ab 04/16/20 04/16/20 04/16/20 05:16 05:16 05:16 WBC 24.3 H RBC 3.97 L Hgb 12.9 L Hct 40.8 L MCV 102.8 H MCH 32.5 MCHC 31.6 RDW 15.6 Plt Count 267 MPV 10.8 Immature Gran % (Auto) Cancelled Neut % (Auto) Cancelled Lymph % (Auto) Cancelled [place] % (Auto) Cancelled Eos % (Auto) Cancelled Baso % (Auto) Cancelled Lymph # (Auto) Cancelled [place] # (Auto) Cancelled Eos # (Auto) Cancelled Baso # (Auto) Cancelled Abs Immat Gran (auto) Cancelled Absolute Neuts (auto) Cancelled Absolute Nucleated RBC 0.120 H Nucleated RBC % (auto) 0.5 H Neutrophils % (Manual) 85 H Band Neutrophils % 8 H Lymphocytes % (Manual) 3 L Monocytes % (Manual) 3 Metamyelocytes % 1 Abs Neuts (Manual) 22.6 H Lymphocytes # (Manual) 0.7 Monocytes # (Manual) 0.7 Metamyelocytes # 0.2 Nucleated RBCs 1 H Platelet Estimate NORMAL Plt Morphology Comment NORMAL RBC Morphology NOTED Polychromasia 1+ Macrocytosis 1+ [place] Cells 1+ Smear Path Review SEE NOTE D-Dimer 1374 VBG pH VBG pCO2 VBG pO2 VBG HCO3 VBG O2 Saturation VBG Base Excess Sodium 134 L Potassium 5.4 H Chloride 99 Carbon Dioxide 20 L Anion Gap 20 BUN 59 H Creatinine 4.59 H* Estim Creat Clear Calc 20.1 Estimated GFR 13 POC Glucose Random Glucose 172 H Lactic Acid Calcium 6.0 L* Phosphorus 7.7 H Ferritin 639 H Total Bilirubin 2.3 H Direct Bilirubin 1.9 H AST 257 H ALT 66 H Alkaline Phosphatase 216 H D Total Creatine Kinase C-Reactive Protein 30.75 H Total Protein 5.6 L Albumin 2.4 L Procalcitonin SARS-CoV-2 IgG Ab 04/16/20 04/16/20 04/16/20 05:16 05:16 05:16 WBC RBC Hgb Hct MCV MCH MCHC RDW Plt Count MPV Immature Gran % (Auto) Neut % (Auto) Lymph % (Auto) [place] % (Auto) Eos % (Auto) Baso % (Auto) Lymph # (Auto) [place] # (Auto) Eos # (Auto) Baso # (Auto) Abs Immat Gran (auto) Absolute Neuts (auto) Absolute Nucleated RBC Nucleated RBC % (auto) Neutrophils % (Manual) Band Neutrophils % Lymphocytes % (Manual) Monocytes % (Manual) Metamyelocytes % Abs Neuts (Manual) Lymphocytes # (Manual) Monocytes # (Manual) Metamyelocytes # Nucleated RBCs Platelet Estimate Plt Morphology Comment RBC Morphology Polychromasia Macrocytosis [place] Cells Smear Path Review D-Dimer VBG pH 7.19 L* VBG pCO2 57 VBG pO2 45 VBG HCO3 22 VBG O2 Saturation 77.2 VBG Base Excess -7.2 Sodium Potassium Chloride Carbon Dioxide Anion Gap BUN Creatinine Estim Creat Clear Calc Estimated GFR POC Glucose Random Glucose Lactic Acid Calcium Phosphorus Ferritin Total Bilirubin Direct Bilirubin AST ALT Alkaline Phosphatase Total Creatine Kinase 72851 H D C-Reactive Protein Total Protein Albumin Procalcitonin 73.59 SARS-CoV-2 IgG Ab 04/16/20 04/16/20 04/16/20 07:30 08:31 10:27 WBC RBC Hgb Hct MCV MCH MCHC RDW Plt Count MPV Immature Gran % (Auto) Neut % (Auto) Lymph % (Auto) [place] % (Auto) Eos % (Auto) Baso % (Auto) Lymph # (Auto) [place] # (Auto) Eos # (Auto) Baso # (Auto) Abs Immat Gran (auto) Absolute Neuts (auto) Absolute Nucleated RBC Nucleated RBC % (auto) Neutrophils % (Manual) Band Neutrophils % Lymphocytes % (Manual) Monocytes % (Manual) Metamyelocytes % Abs Neuts (Manual) Lymphocytes # (Manual) Monocytes # (Manual) Metamyelocytes # Nucleated RBCs Platelet Estimate Plt Morphology Comment RBC Morphology Polychromasia Macrocytosis Thomas Cells Smear Path Review D-Dimer VBG pH VBG pCO2 VBG pO2 VBG HCO3 VBG O2 Saturation VBG Base Excess Sodium Potassium Chloride Carbon Dioxide Anion Gap BUN Creatinine Estim Creat Clear Calc Estimated GFR POC Glucose 165 H 176 H 182 H Random Glucose Lactic Acid Calcium Phosphorus Ferritin Total Bilirubin Direct Bilirubin AST ALT Alkaline Phosphatase Total Creatine Kinase C-Reactive Protein Total Protein Albumin Procalcitonin SARS-CoV-2 IgG Ab 04/16/20 04/16/20 04/16/20 11:23 12:24 13:33 WBC RBC Hgb Hct MCV MCH MCHC RDW Plt Count MPV Immature Gran % (Auto) Neut % (Auto) Lymph % (Auto) [place] % (Auto) Eos % (Auto) Baso % (Auto) Lymph # (Auto) [place] # (Auto) Eos # (Auto) Baso # (Auto) Abs Immat Gran (auto) Absolute Neuts (auto) Absolute Nucleated RBC Nucleated RBC % (auto) Neutrophils % (Manual) Band Neutrophils % Lymphocytes % (Manual) Monocytes % (Manual) Metamyelocytes % Abs Neuts (Manual) Lymphocytes # (Manual) Monocytes # (Manual) Metamyelocytes # Nucleated RBCs Platelet Estimate Plt Morphology Comment RBC Morphology Polychromasia Macrocytosis [place] Cells Smear Path Review D-Dimer VBG pH VBG pCO2 VBG pO2 VBG HCO3 VBG O2 Saturation VBG Base Excess Sodium Potassium Chloride Carbon Dioxide Anion Gap BUN Creatinine Estim Creat Clear Calc Estimated GFR POC Glucose 143 H 144 H 148 H Random Glucose Lactic Acid Calcium Phosphorus Ferritin Total Bilirubin Direct Bilirubin AST ALT Alkaline Phosphatase Total Creatine Kinase C-Reactive Protein Total Protein Albumin Procalcitonin SARS-CoV-2 IgG Ab Microbiology Microbiology Results: Microbiology 04/14/20 07:14 Blood - Venous Blood Culture - Preliminary No growth after 48 hours. 04/14/20 07:09 Blood - Venous Blood Culture - Preliminary No growth after 48 hours. 04/14/20 21:02 Sputum - Suctioned Gram Stain - Final 04/14/20 21:02 Sputum - Suctioned Sputum Culture - Final Strep agalactiae (Grp B) Progress Note: A&P Assessment and plan (1) Hyperkalemia: Problem details: Hyperkalemia is due predominantly to transcell shift due to acidemia and relative insulin deficiency; mild rhabdo as well. K is 5.8 and being repeated Status: Acute (2) Acute kidney injury: Problem details: BRYSON in the setting of severe COVID 19 pneumonia, hypotensive on presentation and on a background of type II DM and HTN The most likely cause of BRYSON is ATN. Covid 19 has also been associated with TMA within the kidney. He is oliguric Will initiate dialysis for hyperkalemia and acidosis and renal failure. 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: Status: Acute (12) Diabetes type 2, uncontrolled: Status: Acute (13) Dyslipidemia: Status: Acute (14) ARDS (adult respiratory distress syndrome): Status: Acute (15) Ventilator-associated bacterial pneumonia: Status: Acute Assessment and Plan: metabolically much improved and volume status much improved since dialysis and we will recheck blood work to prove resolution of uremia and continue to follow CVP but adding vancomycin post dialysis to treat strep agalactiae group B secondary pneumonia Time Spent With Patient Time: Total time spent is greater than 50% in coordination of care (as documented) at patient's floor/unit and/or counseling patient: Total time spent with greater than 50% in coordination of care (as documented) at patient's floor/unit and/or counseling patient:: 35
[2020-04-16 14:20] LABS: Glucose, Whole Blood 147 mg/dL (60-115)
--- NOTE | 2020-04-16 14:44 | MHC.CM.PN ---
Pt remains in ICU: intubated with COVID PNA: Pt began emergent hemodialysis today in response to worsening renal labs: D/C plans remain unknown at this time d/t patients ability to wean from the vent and ? resumption of normal renal fx. CM will follow for d/c needs
[2020-04-16] MEDS: Midazolam HCl/NS 50 MG/50 ML PLAST..BAG IVCONT (14:49)
[2020-04-16 14:58] LABS: Glucose, Whole Blood 127 mg/dL (60-115)
--- NOTE | 2020-04-16 15:06 | W.PM.IDCN ---
History of Present Illness Data of Consult Service Date: 04/16/20 Requesting physician: Donna Galdamez Primary Care Provider: Unknown Physician HPI Reason for consult: possible lung infection He presents to hospital with shortness of breath. He has no fever or chills He has had COVID diagnosed 04/03 He has Group B strep in sputum He has maximal oxygen saturation of 86% He has had multiple antibiotics Review of Systems Review of Systems: Yes unobtainable due to endotracheal tube PMFSH Past Medical History Medical History Anxiety Asthma Bipolar disorder Depression Diabetes type 2, uncontrolled Diabetic nephropathy associated with type 2 diabetes mellitus Diabetic polyneuropathy associated with type 2 diabetes mellitus Diabetic retinopathy associated with type 2 diabetes mellitus Dyslipidemia History of CVA (cerebrovascular accident) Hyperlipidemia Hypertension 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 Morbid obesity SHIRA on CPAP Pulmonary embolism Pulmonary embolism Vitamin D deficiency Functional capacity: independent ambulation Family History Family History Father Diabetes Mother Diabetes Hypertension Surgical History Surgical History History of carpal tunnel release Hx of brain surgery Hx of colonoscopy Hx of esophagogastroduodenoscopy Hx of hernia repair Social History Social History Household Members: Spouse Housing: Apartment Do you presently have visiting nurse or other home services: Yes ([employer]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) Alcohol intake: unknown Smoking Status: Former smoker Tobacco Type: Cigarette Smoked in Last 30 Days: No Smoking Quit Date: 2004 Patient Interested in Nicotine Replacement: No (n/a) Patient Given Instructions on How to Stop Smoking: No Second Hand Smoke Exposure: Yes Use of substances other than those prescribed or required for medical reasons: Unknown Substance Use Type: Unknown Currently Displaying Signs/Symptoms of Drug Intoxication Withdrawal: No Spiritual Healthcare Practices: no [employer]an Healthcare Practices: no Cultural Healthcare Practices: no Advance Directives: No Advance Directives Information Provided: No Do you have thoughts of harming others: None Do you have a plan to hurt others: No Plan Recently lost weight without trying: Unsure service: No Current occupational status: disabled Meds Allergies Allergy/AdvReac Type Severity Reaction Status Date / Time carbamazepine [From Tegretol] Allergy Mild RASH AND Verified 04/14/20 13:57 ITCH lurasidone [From LATUDA] Allergy Unknown TONGUE Verified 04/14/20 13:57 SWELLED Penicillins [PENICILLINS] Allergy Unknown ITCHINESS, Verified 04/14/20 13:57 FELT LIKE BLACKING OUT amoxicillin [AMOXICILLIN] AdvReac Mild DIZZINESS Verified 04/14/20 13:57 clonazepam [From KLONOPIN] AdvReac Mild CAUSED Verified 04/14/20 13:57 SHORT TERM MEMORY LOSS Home Medications Medication Instructions Recorded Confirmed Type amlodipine 5 mg tablet 5 mg PO DAILY 03/16/20 03/16/20 History aspirin 81 mg tablet,delayed 81 mg PO DAILY 03/16/20 03/16/20 History release blood sugar diagnostic #10 ea 03/16/20 03/16/20 History cholecalciferol (vitamin D3) 125 125 mcg PO DAILY 03/16/20 03/16/20 History mcg (5,000 unit) capsule clopidogrel 75 mg tablet 75 mg PO DAILY 03/16/20 03/16/20 History diltiazem HCl 120 mg 120 mg PO BID 03/16/20 03/16/20 History capsule,extended release 12 hr dulaglutide 1.5 mg/0.5 mL 1.5 mg SUBCUT QWEEK 03/16/20 03/16/20 History subcutaneous pen injector furosemide 20 mg tablet 20 mg PO DAILY 03/16/20 03/16/20 History insulin regular hum U-500 conc 500 130 unit SUBCUT QPM ml 03/16/20 03/16/20 History unit/mL subcutaneous soln lancets 28 gauge #100 ea 03/16/20 03/16/20 History losartan 50 mg tablet 50 mg PO DAILY 03/16/20 03/16/20 History metformin 500 mg/5 mL oral solution 1,000 mg PO DAILY 03/16/20 03/16/20 History montelukast 10 mg tablet 10 mg PO DAILY 03/16/20 03/16/20 History Physical Exam Vital Signs: Vital Signs: Last Vital Signs Temp 98.8 F 04/16/20 14:00 Pulse 93 04/16/20 14:00 Resp 26 H 04/16/20 14:00 BP 180/79 H 04/16/20 14:00 Pulse Ox 94 04/16/20 14:00 Body Mass Index 41.4 Const: General: no acute distress HENMT: Head: Yes normal to inspection Mouth: Normal oral and palatal mucosa present Resp: Effort & Inspection: normal respiratory effort Cardio: Rate: regular rate Rhythm: regular rhythm GI: Inspection: Yes normal to inspection : General: Yes no CVA tenderness Back/Spine/Pelvis: Back: no CVA tenderness Skin: General skin exam: no rashes or lesions noted Extrem: General: Yes normal to inspection Assessment and Plan (1) Ventilator-associated bacterial pneumonia: Problem details: He has still some areas of lung with infiltrate He has some prior Group A strep pneumonia Status: Acute Doxycycline 100 mg bid for 10 days cover possible atypical lung infection (2) ARDS (adult respiratory distress syndrome): Status: Acute Results Labs CBC & Chem 7: 04/16/20 05:16 04/16/20 05:16 Labs: Short CBC 04/16/20 Range/Units 05:16 WBC 24.3 H (4.8-10.8) X10*3/uL Hgb 12.9 L (14.0-18.0) g/dl Hct 40.8 L (42-52) % Plt Count 267 (160-400) X10*3/uL BMP 04/15/20 04/16/20 17:38 05:16 Sodium 132 L 134 L Potassium 4.8 5.4 H Chloride 98 99 Carbon Dioxide 19 L 20 L BUN 42 H 59 H Creatinine 3.82 H 4.59 H* Calcium 6.3 L 6.0 L* Cardiac Enzymes 04/16/20 Range/Units 05:16 Total Creatine Kinase 05843 H D (38-174) U/L Liver Function 04/16/20 04/16/20 Range/Units 05:16 05:16 Total Bilirubin Cancelled 2.3 H Direct Bilirubin Cancelled 1.9 H AST Cancelled 257 H ALT Cancelled 66 H Alkaline Phosphatase Cancelled 216 H D Albumin Cancelled 2.4 L Microbiology Microbiology Results: Microbiology 04/14/20 07:14 Blood - Venous Blood Culture - Preliminary No growth after 48 hours. 04/14/20 07:09 Blood - Venous Blood Culture - Preliminary No growth after 48 hours. 04/14/20 21:02 Sputum - Suctioned Gram Stain - Final 04/14/20 21:02 Sputum - Suctioned Sputum Culture - Final Strep agalactiae (Grp B)
[2020-04-16 15:56] LABS: Glucose, Whole Blood 127 mg/dL (60-115)
[2020-04-16 16:57] LABS: Glucose, Whole Blood 119 mg/dL (60-115)
[2020-04-16 20:00] LABS: Glucose, Whole Blood 184 mg/dL (60-115)
[2020-04-16 20:15] LABS: Base Excess VBG -3.4 mmol/L; Blood Gas Serial # 5414; HCO3 VBG 23 mmol/L; PCO2 VBG 49 mmhg; PO2 VBG 54 mmhg; pH VBG 7.29 (7.32-7.43)
[2020-04-16 21:41] LABS: Glucose, Whole Blood 222 mg/dL (60-115)
[2020-04-16 21:48] LABS: Anion Gap 20 (12-20); Blood Urea Nitrogen 54 mg/dL (9-16); Calcium 6.2 mg/dL (8.4-10.2); Carbon Dioxide 21 mmol/L (22-29); Chloride 99 mmol/L (96-108); Creatinine Clr Calc Pharmacy 20.9; Estimated Glomerular Filt Rate 14; Glucose Random 184 mg/dL (60-115); Potassium 4.3 mmol/l (3.3-5.1); Sodium 136 mmol/L (135-145)
[2020-04-16 22:40] LABS: Glucose, Whole Blood 246 mg/dL (60-115)
[2020-04-16 23:47] LABS: Glucose, Whole Blood 247 mg/dL (60-115)
[2020-04-17] VITALS (31 sets, daily range): BP systolic 94–178; BP diastolic 46–79; PULSE 76–106; RESP 8–76; TEMP 36.9–37.5; O2SAT 90–94
--- NOTE | 2020-04-17 | XR_ITS ---
EXAMINATION: XR CHEST CLINICAL INFORMATION: Volumes dropping COMPARISON: 04/16/2020 TECHNIQUE: Frontal view of the chest was obtained. FINDINGS: An ET tube remains in place about 5 cm above the ramón. Again noted is a right IJ catheter with its tip in the SVC. PICC line is present also with its tip in the SVC Again noted are bilateral pulmonary infiltrates minimally improved when compared to yesterday's study. Lungs are better inflated when compared to the prior study. No pleural effusions are seen on today's study, whereas small pleural effusions were suggested on yesterday's exam. XR/XR chest 1V IMPRESSION: Appearance is slightly improved with better expansion of lungs and slight decrease in pulmonary infiltrates with clearing of possible pleural effusions.
--- NOTE | 2020-04-17 | US_ITS ---
EXAMINATION: US ABDOMEN LIMITED CLINICAL INFORMATION: Elevated liver function tests and elevated white blood cell count. Evaluate for cholecystitis.. COMPARISON: Previous abdominal ultrasound January [address] of the abdomen and pelvis October 2018 TECHNIQUE: Real-time imaging of the right upper quadrant abdominal viscera. FINDINGS: PANCREAS: Not well visualized due to bowel gas. LIVER: Liver echotexture is heterogeneous suggestive of hepatocellular disease. The contour of the liver is slightly irregular suggestive of mild cirrhotic change. No focal liver lesion is seen. There is no intrahepatic biliary duct dilatation. Dedicated Doppler exam was not performed however occluded splenic vein and portal splenic confluence is noted. The visualized main portal vein is patent. GALLBLADDER: The gallbladder is normal in size. No gallstones are seen. The gallbladder wall is minimally thickened measuring 0.4 cm. COMMON BILE DUCT: Not well visualized. The visualized common bile duct is normal in caliber measuring 0.4 cm. RIGHT KIDNEY: Normal. No hydronephrosis. No renal calculi or focal parenchymal lesions. The kidney measures 13 cm in maximum dimension. FREE FLUID: There is trace ascites. US/US abdomen limited IMPRESSION: Cirrhotic-appearing liver. Normal-size gallbladder without gallstones. Mild gallbladder wall thickening measuring 4 mm. Trace ascites. Dedicated Doppler exam not performed however the splenic vein/portal spenic confluence appears thrombosed.
--- NOTE | 2020-04-17 | CT_ITS ---
EXAMINATION: CT ABDOMEN AND PELVIS WITHOUT CONTRAST CLINICAL INFORMATION: Elevated liver function tests and possible portal vein thrombosis COMPARISON: Previous abdominal and pelvic CT October 2018, abdominal ultrasound from earlier today and chest x-rays most recent from yesterday TECHNIQUE: Multidetector volumetric imaging was performed from the superior aspect of the liver through the pubic symphysis. Sagittal and coronal reformatted images were obtained on the technologist's workstation. This CT examination was performed using dose optimization techniques as appropriate, variously including the following: *Automated exposure control *Adjustment of mA and/or kV according to patient size (this includes techniques or standardized protocols for targeted exams where dose is matched to indication/reason for exam; i.e. extremities or head) *Use of iterative reconstruction technique DLP: 133 mGy-cm FINDINGS: Exam is limited due to motion artifact and the patient's arms being at his side. LUNG BASES: There is dense bilateral lower lobe airspace disease with air bronchograms suggestive of pneumonia. There is airspace disease seen in the right middle lobe as well. LIVER, GALLBLADDER, AND BILIARY TREE: The liver appears cirrhotic. No focal liver lesion is seen. There is high attenuation seen dependently in the gallbladder. No gallstones are seen on previous ultrasounds or CT scan is a represent vicarious excretion of IV contrast. There is no biliary duct dilatation. Vascular patency is not assessed without contrast. There is a small amount of ascites. PANCREAS: Unremarkable. SPLEEN: The spleen is enlarged measuring 14.8 cm in length. ADRENAL GLANDS: Unremarkable. KIDNEYS AND URETERS: There may be bilateral renal cortical thickening. There is a central left renal vascular calcification. There are 2 punctate 2 mm calcifications in the upper and lower pole the left kidney questionable for vascular calcifications versus stones. BLADDER: There is a Chandler catheter in the bladder. There is high attenuation fluid in the bladder, again questionable for previous IV contrast excretion. GASTROINTESTINAL TRACT: There is a nasogastric tube in the stomach. There are fluid and contrast filled loops of small and large bowel. There is a rectal tube. ABDOMINAL WALL: No significant hernia is appreciated. LYMPH NODES: Normal. VASCULAR: There is evidence of atherosclerotic disease. No aneurysm is seen. PELVIC VISCERA: The prostate gland does not appear enlarged. OSSEOUS STRUCTURES: There are degenerative changes of the spine. CT/CT abdomen pelvis wo con IMPRESSION: Cirrhotic-appearing liver, splenomegaly and small amount of ascites. Vessel patency is not assessed without contrast. New dependent high attenuation in the gallbladder probably representing vicarious excretion of contrast. Bilateral renal cortical thickening. Two small left renal calcifications questionable for vascular calcifications versus nonobstructing stones. Distended fluid-filled loops of small and large bowel probably representing an ileus. Bibasilar pneumonia.
[2020-04-17 01:12] LABS: Glucose, Whole Blood 256 mg/dL (60-115)
[2020-04-17 02:17] LABS: Glucose, Whole Blood 250 mg/dL (60-115)
[2020-04-17] MEDS: Insulin Regular/NS 100 UNIT/100 ML PLAST..BAG 8 UNIT IVCONT (03:05)
[2020-04-17 03:17] LABS: Glucose, Whole Blood 258 mg/dL (60-115)
[2020-04-17] MEDS: methylPREDNISolone Sod Succ/PF 125 MG/2 ML VIAL 80 MG IV ×2 (04:16→16:46)
[2020-04-17] MEDS: Doxycycline Hyclate 100 MG in 0.9 % Sodium Chloride 250 ML 166.67 MG IV ×2 (04:17→16:45)
[2020-04-17 04:40] LABS: Glucose, Whole Blood 268 mg/dL (60-115)
[2020-04-17] MEDS: Heparin Sodium,Porcine 5,000 UNIT/ML VIAL 5000 UNIT SUBCUT ×2 (05:23→13:44)
[2020-04-17] MEDS: Famotidine/PF 20 MG/2 ML VIAL 40 MG IVPUSH ×2 (05:23→16:46)
[2020-04-17 05:44] LABS: Glucose, Whole Blood 242 mg/dL (60-115)
[2020-04-17 06:13] LABS: Basophils Percent Auto 0.2 % (0-2); Hematocrit 35.8 % (42-52); Hemoglobin 11.8 g/dl (14.0-18.0); Imm Gran Abs Auto 0.16 X10*3/uL (0.00-0.03); Imm Gran Pct Auto 1.1 % (0.0-0.4); Lymphocytes Absolute Auto 0.6 X10*3/uL (1.2-4.9); Lymphocytes Percent Auto 3.8 % (20-40); MANUAL DIFF FLAG SCAN; Mean Corpuscular Hemoglobin 32.1 pg (27.0-33.0); Mean Corpuscular Volume 97.3 fL (80-98); Mean Platelet Volume 10.2 fL (9.4-12.4); Monocytes Absolute Auto 0.6 X10*3/uL (0.1-1.2); NRBC Pct Auto 0.2 /100WBC (0.0-0.2); Neutrophils Absolute Auto 13.2 X10*3/uL (2.0-8.3); Neutrophils Percent Auto 90.9 % (45-73); Platelet Count 156 X10*3/uL (160-400); Red Blood Count 3.68 X10*6/uL (4.60-5.80); Red Cell Distribution Width 15.1 % (11.0-16.0); SCAN SMEAR FLAG 1; White Blood Count 14.5 X10*3/uL (4.8-10.8)
[2020-04-17 06:20] LABS: INTERNATIONAL NORM RATIO 1.2 (0.9-1.1); Prothrombin Time 14.8 SEC (10.8-13.0)
[2020-04-17 06:24] LABS: Partial Thromboplastin Time 36.3 SEC (24.1-38.0)
[2020-04-17 06:29] LABS: HCO3 VBG 23 mmol/L; Oxygen Saturation VBG 87.2 %; PCO2 VBG 39 mmhg; PO2 VBG 55 mmhg; pH VBG 7.38 (7.32-7.43)
[2020-04-17] MEDS: Thiamine HCL 200 MG in 0.9 % Sodium Chloride 100 ML 100 MG IV ×3 (06:29→22:16)
[2020-04-17 06:40] LABS: D Dimer 2010 NG/ML
[2020-04-17 06:42] LABS: B Type Natriuretic Peptide 150 pg/mL (<100)
[2020-04-17 06:51] LABS: Glucose, Whole Blood 212 mg/dL (60-115)
[2020-04-17 06:56] LABS: Alanine Aminotransferase 89 U/L (0-40); Albumin Level 2.6 g/dL (3.5-5.0); Alkaline Phosphatase 270 U/L (39-117); Anion Gap 19 (12-20); Aspartate Amino Transferase 423 U/L (5-37); Bilirubin Direct 2.4 mg/dL (0.0-0.5); Bilirubin Total 2.9 mg/dL (0.0-1.0); Blood Urea Nitrogen 70 mg/dL (9-16); C Reactive Protein 18.96 mg/dL (< or = 0.50); Calcium 6.3 mg/dL (8.4-10.2); Carbon Dioxide 22 mmol/L (22-29); Chloride 100 mmol/L (96-108); Glucose Random 238 mg/dL (60-115); Magnesium 2.9 mg/dL (1.6-2.6); Phosphorus 5.5 mg/dL (2.7-4.5); Potassium 3.2 mmol/l (3.3-5.1); Sodium 138 mmol/L (135-145); Total Protein 5.4 g/dL (6.5-8.0)
[2020-04-17 06:57] LABS: Creatinine Clr Calc Pharmacy 19.4; Estimated Glomerular Filt Rate 12
[2020-04-17] MEDS: Midazolam HCl/NS 50 MG/50 ML PLAST..BAG IVCONT (07:19)
[2020-04-17] MEDS: Chlorhexidine Gluc Oral Rinse 15 ML MOUTHWASH BUCCAL ×3 (07:19→22:17)
[2020-04-17] MEDS: levoFLOXacin/D5W 250 MG/50 ML PIGGYBACK 50 MG IV ×2 (07:20→16:45)
[2020-04-17] MEDS: Cholecalciferol (Vitamin D3) 25 MCG TABLET 50 MCG G-TUBE (07:20)
[2020-04-17] MEDS: Zinc Sulfate 220 MG CAPSULE G-TUBE (07:20)
[2020-04-17 07:55] LABS: Glucose, Whole Blood 206 mg/dL (60-115)
[2020-04-17] MEDS: Potassium Chloride Packet 20 MEQ PACKET PO (08:11)
[2020-04-17 08:41] LABS: Ferritin 630 ng/mL (20-250)
[2020-04-17 09:25] LABS: SLIDE REVIEW VERIFIED
[2020-04-17 09:27] LABS: Glucose, Whole Blood 207 mg/dL (60-115)
[2020-04-17 09:44] LABS: INTERNATIONAL NORM RATIO 1.2 (0.9-1.1); Prothrombin Time 14.8 SEC (10.8-13.0)
[2020-04-17 09:47] LABS: Partial Thromboplastin Time 36.7 SEC (24.1-38.0)
[2020-04-17 10:09] LABS: Lipase 51 U/L (8-78)
--- NOTE | 2020-04-17 10:10 | P.PNNP_ITS ---
Subjective Subjective Date of Service: 04/17/20 Interval history: Events noted Tolerated HD yesterday Off pressors UO sluggish LFTs increasing Physical Exam Vital Signs: Vital Signs: Last Vital Signs Temp 99.5 F 04/17/20 09:52 Pulse 106 H 04/17/20 09:52 Resp 34 H 04/17/20 09:52 BP 178/67 H 04/17/20 09:52 Pulse Ox 93 04/17/20 09:52 Body Mass Index 41.4 Const: Other: Intubated General: ill appearing Resp: Auscultation: rhonchi Cardio: Other: Intubated Heart sounds: no rubs GI: Auscultation: normal bowel sounds Extrem: Left upper extremity: edema Assessment & Plan Assessment and plan (1) Acute kidney injury: Problem details: BRYSON in the setting of severe COVID 19 pneumonia, hypotensive on presentation and on a background of type II DM and HTN The most likely cause of BRYSON is ATN. Covid 19 has also been associated with TMA within the kidney. He is oliguric Will initiate dialysis again today and remove fluids supportive care Status: Acute Time Spent With Patient Time: Total time spent is greater than 50% in coordination of care (as docume nted) at patient's floor/unit and/or counseling patient:
[2020-04-17 10:15] LABS: Glucose, Whole Blood 205 mg/dL (60-115)
[2020-04-17] MEDS: Insulin Regular/NS 100 UNIT/100 ML PLAST..BAG 14 UNIT IVCONT (10:54)
[2020-04-17 11:09] LABS: Glucose, Whole Blood 185 mg/dL (60-115)
[2020-04-17] MEDS: Midazolam HCl/NS 50 MG/50 ML PLAST..BAG 10 MG IVCONT ×3 (11:59→22:17)
[2020-04-17 12:05] LABS: Glucose, Whole Blood 168 mg/dL (60-115)
[2020-04-17 13:04] LABS: Glucose, Whole Blood 145 mg/dL (60-115)
[2020-04-17 13:59] LABS: Glucose, Whole Blood 120 mg/dL (60-115)
[2020-04-17 14:57] LABS: Glucose, Whole Blood 115 mg/dL (60-115)
--- NOTE | 2020-04-17 17:30 | P.PNCC_ITS ---
Subjective Subjective Date of Service: 04/18/20 Interval History: [age]-year-old diabetic hypertensive presents with acute hypoxic respiratory failure due to bilateral COVID-19 pneumonitis and ARDS with acute stage 5 renal failure requiring temporary dialysis but currently increasingly non oliguric and hopefully prognosis for kidney recovery is improving but also has elevated liver function tests and between CT scan and ultrasound there is no evidence of cholecystitis or cholangitis just a cirrhotic liver but a question of splenic vein thrombosis from the ultrasound is raised and within otherwise benign looking pancreas on CT scan her raising the question of COVID related coagulopathy Physical Exam Vital Signs: Vital Signs: Last Vital Signs Temp 98.4 F 04/17/20 15:39 Pulse 96 04/17/20 15:39 Resp 26 H 04/17/20 15:39 BP 160/64 H 04/17/20 15:39 Pulse Ox 93 04/17/20 15:39 Body Mass Index 41.4 Const: Other: at the end of the day routine blood gas showed an acute respiratory acidosis with pCO2 of 90 and pH 7.12 and apparently his tidal volumes were dropping on pressure control so we put him on volume control requiring more sedation with propofol and with that his blood gas corrected beautifully before propofol he was awake responsive and nonfocal neurologic Nina skin intact with no wounds no acrocyanosis cardiac exam normal S1 normal S2 no gallops or murmurs CVP 12-13 abdomen benign tolerating feedings good bowel sounds no organomegaly and n ondistended chest with coarse bilateral rales on the ventilator but no other adventitious sounds Objective Data Labs CBC & Chem 7: 04/18/20 04:48 04/18/20 04:48 Labs: Laboratory Results - last 24 hr 04/16/20 04/16/20 04/16/20 19:30 19:36 19:40 WBC RBC Hgb Hct MCV MCH MCHC RDW Plt Count MPV Immature Gran % (Auto) Neut % (Auto) Lymph % (Auto) Ness % (Auto) Eos % (Auto) Baso % (Auto) Lymph # (Auto) Ness # (Auto) Eos # (Auto) Baso # (Auto) Abs Immat Gran (auto) Absolute Neuts (auto) Absolute Nucleated RBC Nucleated RBC % (auto) Smear Tech's Comments PT INR APTT D-Dimer VBG pH 7.29 L VBG pCO2 49 VBG pO2 54 VBG HCO3 23 VBG O2 Saturation 86.0 VBG Base Excess -3.4 Sodium 136 Potassium 4.3 D Chloride 99 Carbon Dioxide 21 L Anion Gap 20 BUN 54 H Creatinine 4.42 H* Estim Creat Clear Calc 20.9 Estimated GFR 14 POC Glucose 184 H Random Glucose 184 H Calcium 6.2 L Phosphorus Magnesium Ferritin Total Bilirubin Direct Bilirubin AST ALT Alkaline Phosphatase Total Creatine Kinase C-Reactive Protein B-Natriuretic Peptide Total Protein Albumin Lipase 04/16/20 04/16/20 04/16/20 21:26 22:34 23:32 WBC RBC Hgb Hct MCV MCH MCHC RDW Plt Count MPV Immature Gran % (Auto) Neut % (Auto) Lymph % (Auto) Ness % (Auto) Eos % (Auto) Baso % (Auto) Lymph # (Auto) Ness # (Auto) Eos # (Auto) Baso # (Auto) Abs Immat Gran (auto) Absolute Neuts (auto) Absolute Nucleated RBC Nucleated RBC % (auto) Smear Tech's Comments PT INR APTT D-Dimer VBG pH VBG pCO2 VBG pO2 VBG HCO3 VBG O2 Saturation VBG Base Excess Sodium Potassium Chloride Carbon Dioxide Anion Gap BUN Creatinine Estim Creat Clear Calc Estimated GFR POC Glucose 222 H 246 H 247 H Random Glucose Calcium Phosphorus Magnesium Ferritin Total Bilirubin Direct Bilirubin AST ALT Alkaline Phosphatase Total Creatine Kinase C-Reactive Protein B-Natriuretic Peptide Total Protein Albumin Lipase 04/17/20 04/17/20 04/17/20 01:05 02:04 03:06 WBC RBC Hgb Hct MCV MCH MCHC RDW Plt Count MPV Immature Gran % (Auto) Neut % (Auto) Lymph % (Auto) Ness % (Auto) Eos % (Auto) Baso % (Auto) Lymph # (Auto) Ness # (Auto) Eos # (Auto) Baso # (Auto) Abs Immat Gran (auto) Absolute Neuts (auto) Absolute Nucleated RBC Nucleated RBC % (auto) Smear Tech's Comments PT INR APTT D-Dimer VBG pH VBG pCO2 VBG pO2 VBG HCO3 VBG O2 Saturation VBG Base Excess Sodium Potassium Chloride Carbon Dioxide Anion Gap BUN Creatinine Estim Creat Clear Calc Estimated GFR POC Glucose 256 H 250 H 258 H Random Glucose Calcium Phosphorus Magnesium Ferritin Total Bilirubin Direct Bilirubin AST ALT Alkaline Phosphatase Total Creatine Kinase C-Reactive Protein B-Natriuretic Peptide Total Protein Albumin Lipase 04/17/20 04/17/2020 04:21 05:26 05:26 WBC 14.5 H RBC 3.68 L Hgb 11.8 L Hct 35.8 L MCV 97.3 D MCH 32.1 MCHC 33.0 RDW 15.1 Plt Count 156 L D MPV 10.2 Immature Gran % (Auto) 1.1 H Neut % (Auto) 90.9 H Lymph % (Auto) 3.8 L Ness % (Auto) 4.0 Eos % (Auto) 0.0 Baso % (Auto) 0.2 Lymph # (Auto) 0.6 L Ness # (Auto) 0.6 Eos # (Auto) 0.0 Baso # (Auto) 0.0 Abs Immat Gran (auto) 0.16 H Absolute Neuts (auto) 13.2 H Absolute Nucleated RBC 0.030 H Nucleated RBC % (auto) 0.2 Smear Tech's Comments VERIFIED PT 14.8 H INR 1.2 H APTT 36.3 D-Dimer 2010 VBG pH VBG pCO2 VBG pO2 VBG HCO3 VBG O2 Saturation VBG Base Excess Sodium Potassium Chloride Carbon Dioxide Anion Gap BUN Creatinine Estim Creat Clear Calc Estimated GFR POC Glucose 268 H Random Glucose Calcium Phosphorus Magnesium Ferritin Total Bilirubin Direct Bilirubin AST ALT Alkaline Phosphatase Total Creatine Kinase C-Reactive Protein B-Natriuretic Peptide Total Protein Albumin Lipase 04/17/20 04/17/20 04/17/20 05:26 05:26 05:26 WBC RBC Hgb Hct MCV MCH MCHC RDW Plt Count MPV Immature Gran % (Auto) Neut % (Auto) Lymph % (Auto) Ness % (Auto) Eos % (Auto) Baso % (Auto) Lymph # (Auto) Ness # (Auto) Eos # (Auto) Baso # (Auto) Abs Immat Gran (auto) Absolute Neuts (auto) Absolute Nucleated RBC Nucleated RBC % (auto) Smear Tech's Comments PT INR APTT D-Dimer VBG pH 7.38 VBG pCO2 39 VBG pO2 55 VBG HCO3 23 VBG O2 Saturation 87.2 VBG Base Excess -2.0 Sodium 138 Potassium 3.2 L D Chloride 100 Carbon Dioxide 22 Anion Gap 19 BUN 70 H Creatinine 4.75 H* Estim Creat Clear Calc 19.4 Estimated GFR 12 POC Glucose Random Glucose 238 H Calcium 6.3 L Phosphorus 5.5 H Magnesium 2.9 H Ferritin 630 H Total Bilirubin 2.9 H Direct Bilirubin 2.4 H AST 423 H ALT 89 H Alkaline Phosphatase 270 H D Total Creatine Kinase 11110 H D C-Reactive Protein 18.96 H B-Natriuretic Peptide 150 H Total Protein 5.4 L Albumin 2.6 L Lipase 04/17/20 04/17/20 04/17/20 05:30 06:34 07:50 WBC RBC Hgb Hct MCV MCH MCHC RDW Plt Count MPV Immature Gran % (Auto) Neut % (Auto) Lymph % (Auto) Ness % (Auto) Eos % (Auto) Baso % (Auto) Lymph # (Auto) Ness # (Auto) Eos # (Auto) Baso # (Auto) Abs Immat Gran (auto) Absolute Neuts (auto) Absolute Nucleated RBC Nucleated RBC % (auto) Smear Tech's Comments PT INR APTT D-Dimer VBG pH VBG pCO2 VBG pO2 VBG HCO3 VBG O2 Saturation VBG Base Excess Sodium Potassium Chloride Carbon Dioxide Anion Gap BUN Creatinine Estim Creat Clear Calc Estimated GFR POC Glucose 242 H 212 H 206 H Random Glucose Calcium Phosphorus Magnesium Ferritin Total Bilirubin Direct Bilirubin AST ALT Alkaline Phosphatase Total Creatine Kinase C-Reactive Protein B-Natriuretic Peptide Total Protein Albumin Lipase 04/17/20 04/17/20 04/17/20 09:22 09:27 09:27 WBC RBC Hgb Hct MCV MCH MCHC RDW Plt Count MPV Immature Gran % (Auto) Neut % (Auto) Lymph % (Auto) Ness % (Auto) Eos % (Auto) Baso % (Auto) Lymph # (Auto) Ness # (Auto) Eos # (Auto) Baso # (Auto) Abs Immat Gran (auto) Absolute Neuts (auto) Absolute Nucleated RBC Nucleated RBC % (auto) Smear Tech's Comments PT 14.8 H INR 1.2 H APTT 36.7 D-Dimer VBG pH VBG pCO2 VBG pO2 VBG HCO3 VBG O2 Saturation VBG Base Excess Sodium Potassium Chloride Carbon Dioxide Anion Gap BUN Creatinine Estim Creat Clear Calc Estimated GFR POC Glucose 207 H Random Glucose Calcium Phosphorus Magnesium Ferritin Total Bilirubin Direct Bilirubin AST ALT Alkaline Phosphatase Total Creatine Kinase C-Reactive Protein B-Natriuretic Peptide Total Protein Albumin Lipase 51 04/17/20 04/17/20 04/17/20 09:57 10:58 12:01 WBC RBC Hgb Hct MCV MCH MCHC RDW Plt Count MPV Immature Gran % (Auto) Neut % (Auto) Lymph % (Auto) Ness % (Auto) Eos % (Auto) Baso % (Auto) Lymph # (Auto) Ness # (Auto) Eos # (Auto) Baso # (Auto) Abs Immat Gran (auto) Absolute Neuts (auto) Absolute Nucleated RBC Nucleated RBC % (auto) Smear Tech's Comments PT INR APTT D-Dimer VBG pH VBG pCO2 VBG pO2 VBG HCO3 VBG O2 Saturation VBG Base Excess Sodium Potassium Chloride Carbon Dioxide Anion Gap BUN Creatinine Estim Creat Clear Calc Estimated GFR POC Glucose 205 H 185 H 168 H Random Glucose Calcium Phosphorus Magnesium Ferritin Total Bilirubin Direct Bilirubin AST ALT Alkaline Phosphatase Total Creatine Kinase C-Reactive Protein B-Natriuretic Peptide Total Protein Albumin Lipase 04/17/20 04/17/20 04/17/20 12:59 13:50 14:50 WBC RBC Hgb Hct MCV MCH MCHC RDW Plt Count MPV Immature Gran % (Auto) Neut % (Auto) Lymph % (Auto) Ness % (Auto) Eos % (Auto) Baso % (Auto) Lymph # (Auto) Ness # (Auto) Eos # (Auto) Baso # (Auto) Abs Immat Gran (auto) Absolute Neuts (auto) Absolute Nucleated RBC Nucleated RBC % (auto) Smear Tech's Comments PT INR APTT D-Dimer VBG pH VBG pCO2 VBG pO2 VBG HCO3 VBG O2 Saturation VBG Base Excess Sodium Potassium Chloride Carbon Dioxide Anion Gap BUN Creatinine Estim Creat Clear Calc Estimated GFR POC Glucose 145 H 120 H 115 Random Glucose Calcium Phosphorus Magnesium Ferritin Total Bilirubin Direct Bilirubin AST ALT Alkaline Phosphatase Total Creatine Kinase C-Reactive Protein B-Natriuretic Peptide Total Protein Albumin Lipase Microbiology Microbiology Results: Microbiology 04/14/20 07:14 Blood - Venous Blood Culture - Preliminary No growth after 48 hours. 04/14/20 07:09 Blood - Venous Blood Culture - Preliminary No growth after 48 hours. 04/14/20 21:02 Sputum - Suctioned Gram Stain - Final 04/14/20 21:02 Sputum - Suctioned Sputum Culture - Final Strep agalactiae (Grp B) Progress Note: A&P Assessment and plan (1) Ventilator-associated bacterial pneumonia: Problem details: He has still some areas of lung with infiltrate He has some prior Group A strep pneumonia Status: Acute (2) ARDS (adult respiratory distress syndrome): Status: Acute (3) Hyperkalemia: Problem details: Hyperkalemia is due predominantly to transcell shift due to acidemia and relative insulin deficiency; mild rhabdo as well. K is 5.8 and being repeated Status: Acute (4) Acute kidney injury: Problem details: BRYSON in the setting of severe COVID 19 pneumonia, hypotensive on presentation and on a background of type II DM and HTN The most likely cause of BRYSON is ATN. ;Rhabdomyolysis Will initiate dialysis again today and remove fluids as tolerated Watch UO supportive care Status: Acute (5) Anemia: Status: Acute (6) Thrombocytopenia: Status: Acute (7) Acute hypoxemic respiratory failure due to COVID-19: Status: Acute (8) Vitamin D deficiency: Status: Acute (9) Morbid obesity: Status: Acute (10) Hypertension: Status: Acute (11) Diabetic retinopathy associated with type 2 diabetes mellitus: Status: Acute (12) Diabetic nephropathy associated with type 2 diabetes mellitus: Status: Acute (13) Diabetic polyneuropathy associated with type 2 diabetes mellitus: Status: Acute (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: Status: Acute (15) Diabetes type 2, uncontrolled: Status: Acute (16) Dyslipidemia: Status: Acute (17) Coagulopathy: Status: Acute (18) Rhabdomyolysis due to COVID-19: Status: Acute Assessment and Plan: so fluid intake is all through his feedings and with somewhat elevated CVP I will await the CPK resulted in the morning make a decision about fluids and based on urine output and resolution of metabolic issues decide about another dialysis treatment but he is becoming progressively less oliguric and he will receive a dose of Levaquin today post dialysis to treat him for the strep agalactiae ventilator associated secondary bacterial pneumonia Time Spent With Patient Time: Total time spent is greater than 50% in coordination of care (as documented) at patient's floor/unit and/or counseling patient: Total time spent with greater than 50% in coordination of care (as documented) at patient's floor/unit and/or counseling patient:: 45
[2020-04-17 17:49] LABS: Glucose, Whole Blood 182 mg/dL (60-115)
[2020-04-17 18:23] LABS: Hematocrit 38.2 % (42-52); Hemoglobin 12.5 g/dl (14.0-18.0); Mean Corpuscular HGB Conc 32.7 g/dl (31.0-36.0); Mean Corpuscular Hemoglobin 32.8 pg (27.0-33.0); Mean Corpuscular Volume 100.3 fL (80-98); Mean Platelet Volume 10.1 fL (9.4-12.4); NRBC Pct Auto 0.3 /100WBC (0.0-0.2); Platelet Count 133 X10*3/uL (160-400); Red Blood Count 3.81 X10*6/uL (4.60-5.80); Red Cell Distribution Width 15.7 % (11.0-16.0); White Blood Count 14.5 X10*3/uL (4.8-10.8)
[2020-04-17 18:25] LABS: Glucose, Whole Blood 179 mg/dL (60-115)
[2020-04-17 18:27] LABS: INTERNATIONAL NORM RATIO 1.2 (0.9-1.1); Prothrombin Time 14.8 SEC (10.8-13.0)
[2020-04-17 18:30] LABS: Partial Thromboplastin Time 41.2 SEC (24.1-38.0)
[2020-04-17 18:37] LABS: PCO2 VBG 90 mmhg
[2020-04-17 18:38] LABS: HCO3 VBG 29 mmol/L; Oxygen Saturation VBG 93.9 %; PO2 VBG 94 mmhg
[2020-04-17 18:43] LABS: Blood Gas Serial # 5414; pH VBG 7.12 (7.32-7.43)
[2020-04-17 19:18] LABS: Anion Gap 17 (12-20); Blood Urea Nitrogen 52 mg/dL (9-16); Calcium 6.6 mg/dL (8.4-10.2); Carbon Dioxide 27 mmol/L (22-29); Chloride 100 mmol/L (96-108); Creatinine Clr Calc Pharmacy 25.2; Estimated Glomerular Filt Rate 17; Glucose Random 185 mg/dL (60-115); Potassium 3.8 mmol/l (3.3-5.1); Sodium 140 mmol/L (135-145)
[2020-04-17 21:15] LABS: Glucose, Whole Blood 231 mg/dL (60-115)
[2020-04-17 21:15] LABS: Glucose, Whole Blood 207 mg/dL (60-115)
[2020-04-17 21:15] LABS: Glucose, Whole Blood 202 mg/dL (60-115)
[2020-04-17 21:18] LABS: Base Excess VBG -3.5 mmol/L; Blood Gas Serial # 5414; HCO3 VBG 26 mmol/L; Oxygen Saturation VBG 84.6 %; PCO2 VBG 70 mmhg; PO2 VBG 61 mmhg
[2020-04-17 21:24] LABS: pH VBG 7.19 (7.32-7.43)
[2020-04-17] MEDS: Enoxaparin Sodium 120 MG/0.8 ML SYRINGE SUBCUT (22:17)
[2020-04-18] VITALS (30 sets, daily range): BP systolic 105–151; BP diastolic 46–73; PULSE 65–93; RESP 14–29; TEMP 36.7–37.2; O2SAT 92–97
[2020-04-18 00:03] LABS: Base Excess VBG -3.5 mmol/L; HCO3 VBG 23 mmol/L; Oxygen Saturation VBG 87.6 %; PCO2 VBG 49 mmhg; PO2 VBG 57 mmhg; pH VBG 7.29 (7.32-7.43)
--- NOTE | 2020-04-18 00:05 | W.PM.CCHP ---
Procedures Chest Tube Chest Tube 1: Chest tube location: Mid-Axillary Chest Size of tube: 14 Chest tube procedure: Yes betadine prep and sterile drapes applied Tube sutured to skin: Yes Sterile dressing applied: Yes Anesthesia: 1% Lidocaine Incision made with: #11 blade Post procedure: sutured to skin and sterile dressing applied Macario of air heard: Yes Tube Drainage: fluid Amount of initial drainage (ml): 2,500 Post procedure CXR?: Yes Patient tolerated procedure: Yes Progress: improved respiratory acidosis and other words some some relief of space
[2020-04-18 00:47] LABS: Glucose, Whole Blood 189 mg/dL (60-115)
[2020-04-18 00:47] LABS: Glucose, Whole Blood 200 mg/dL (60-115)
[2020-04-18 00:47] LABS: Glucose, Whole Blood 212 mg/dL (60-115)
[2020-04-18 01:20] LABS: Glucose, Whole Blood 211 mg/dL (60-115)
--- NOTE | 2020-04-18 01:41 | PC.NURSE ---
ineffective breathing pattern- I. STAFF ASSISTED FAMILY WITH IPAD COMMUNICATION WITH PT I. VENT CHANGES-FROM PRESSURE CONTROL VENTILATION TO VOLUME CONTROL-VENOUS GASES PH 7.19 HAVE SHOWN PROFOUND RESP ACIDOSIS: VENOUS GAS PH 7.29 PC02 49 P02 57 I. LOW DOSE LEVOPHED IMPLEMENTED TO ACHIEVE B/P GUIDELINES I. INSULIN DRIP ADJUSTED PER PROTOCOL I. REPOSITION SIDE TO SIDE Q 2HR ON HOVER MAT
[2020-04-18] MEDS: Insulin Regular/NS 100 UNIT/100 ML PLAST..BAG 6 UNIT IVCONT (01:55)
[2020-04-18 02:49] LABS: Glucose, Whole Blood 222 mg/dL (60-115)
[2020-04-18] MEDS: propofoL 1,000 MG/100 ML VIAL 21.6 MG IVCONT (03:19)
[2020-04-18] MEDS: Midazolam HCl/NS 50 MG/50 ML PLAST..BAG 10 MG IVCONT ×4 (03:48→17:10)
[2020-04-18 03:56] LABS: Glucose, Whole Blood 230 mg/dL (60-115)
[2020-04-18 05:02] LABS: Glucose, Whole Blood 226 mg/dL (60-115)
[2020-04-18 05:29] LABS: Hematocrit 34.9 % (42-52); Hemoglobin 11.5 g/dl (14.0-18.0); Mean Corpuscular Hemoglobin 31.9 pg (27.0-33.0); Mean Corpuscular Volume 96.9 fL (80-98); Mean Platelet Volume 10.1 fL (9.4-12.4); NRBC Pct Auto 0.3 /100WBC (0.0-0.2); Platelet Count 130 X10*3/uL (160-400); Red Cell Distribution Width 15.5 % (11.0-16.0); White Blood Count 10.8 X10*3/uL (4.8-10.8)
[2020-04-18 05:35] LABS: INTERNATIONAL NORM RATIO 1.3 (0.9-1.1); Prothrombin Time 15.4 SEC (10.8-13.0)
[2020-04-18 05:37] LABS: Partial Thromboplastin Time 37.9 SEC (24.1-38.0)
[2020-04-18 05:46] LABS: D Dimer 1989 NG/ML
[2020-04-18 05:49] LABS: Base Excess VBG -2.6 mmol/L; HCO3 VBG 23 mmol/L; Oxygen Saturation VBG 88.5 %; PCO2 VBG 44 mmhg; PO2 VBG 58 mmhg; pH VBG 7.34 (7.32-7.43)
[2020-04-18 06:06] LABS: Glucose, Whole Blood 242 mg/dL (60-115)
[2020-04-18 06:15] LABS: Creatinine Clr Calc Pharmacy 19.6; Estimated Glomerular Filt Rate 13
[2020-04-18] MEDS: Doxycycline Hyclate 100 MG in 0.9 % Sodium Chloride 250 ML 166.7 MG IV (06:16)
[2020-04-18] MEDS: methylPREDNISolone Sod Succ/PF 125 MG/2 ML VIAL 80 MG IV ×2 (06:17→17:07)
[2020-04-18 06:18] LABS: Anion Gap 17 (12-20); Blood Urea Nitrogen 71 mg/dL (9-16); C Reactive Protein 13.91 mg/dL (< or = 0.50); Calcium 6.5 mg/dL (8.4-10.2); Carbon Dioxide 25 mmol/L (22-29); Chloride 100 mmol/L (96-108); Glucose Random 223 mg/dL (60-115); Lactate Dehydrogenase 1156 U/L (118-273); Phosphorus 6.4 mg/dL (2.7-4.5); Potassium 3.5 mmol/l (3.3-5.1); Sodium 138 mmol/L (135-145)
[2020-04-18] MEDS: Famotidine/PF 20 MG/2 ML VIAL 40 MG IVPUSH ×2 (06:18→17:07)
[2020-04-18] MEDS: Thiamine HCL 200 MG in 0.9 % Sodium Chloride 100 ML 100 MG IV (06:18)
[2020-04-18 06:32] LABS: Ferritin 927 ng/mL (20-250)
[2020-04-18 06:55] LABS: Glucose, Whole Blood 215 mg/dL (60-115)
[2020-04-18] MEDS: Chlorhexidine Gluc Oral Rinse 15 ML MOUTHWASH BUCCAL ×3 (08:05→20:23)
[2020-04-18] MEDS: Cholecalciferol (Vitamin D3) 25 MCG TABLET 50 MCG G-TUBE (08:05)
[2020-04-18] MEDS: Zinc Sulfate 220 MG CAPSULE G-TUBE (08:06)
--- NOTE | 2020-04-18 09:06 | PM.PNNEP ---
Subjective Subjective Date of Service: 04/18/20 Interval history: Events noted Remains on vent REsp acidosis -corrected UO increased CPK trending down Physical Exam Vital Signs: Vital Signs: Last Vital Signs Temp 98.2 F 04/18/20 08:00 Pulse 85 04/18/20 08:00 Resp 21 H 04/18/20 08:00 BP 151/73 H 04/18/20 08:00 Pulse Ox 95 04/18/20 08:00 Body Mass Index 41.4 Const: Other: Intubated General: ill appearing Resp: Auscultation: rhonchi Cardio: Other: Intubated Heart sounds: no rubs GI: Auscultation: normal bowel sounds Extrem: Left upper extremity: edema Assessment & Plan Assessment and plan (1) Acute kidney injury: Problem details: BRYSON in the setting of severe COVID 19 pneumonia, hypotensive on presentation and on a background of type II DM and HTN The most likely cause of BRYSON is ATN. ;Rhabdomyolysis Will initiate dialysis again today and remove fluids as tolerated Watch UO supportive care Status: Acute Time Spent With Patient Time: :
--- NOTE | 2020-04-18 09:32 | MHC.CLN ---
F/U PT RECEIVING TF NEPRO AT MAX GOAL RATE 35CC/HR PROVIDES 1512KCALS (22.5KCALS/KG BASED ON IBW), 68G PROTEIN (1.0G/KG), 610CC FREE WATER FROM FORMULA TOLERATING PER NSG MONITOR TOLERANCE, RESIDUALS AND LYTES
[2020-04-18 09:41] LABS: Glucose, Whole Blood 223 mg/dL (60-115)
[2020-04-18] MEDS: Heparin Sodium,Porcine 5,000 UNIT/ML VIAL 5000 UNIT INTRACATH (11:52)
[2020-04-18] MEDS: Heparin Sodium,Porcine 1,000 UNIT/ML VIAL 1000 UNIT IV (11:54)
[2020-04-18 12:08] LABS: Basophils Percent Auto 0.1 % (0-2); Imm Gran Abs Auto 0.09 X10*3/uL (0.00-0.03); Imm Gran Pct Auto 0.8 % (0.0-0.4); Lymphocytes Absolute Auto 0.5 X10*3/uL (1.2-4.9); Lymphocytes Percent Auto 4.2 % (20-40); MANUAL DIFF FLAG SCAN; Monocytes Absolute Auto 0.6 X10*3/uL (0.1-1.2); Monocytes Percent Auto 5.8 % (2-11); Neutrophils Absolute Auto 9.8 X10*3/uL (2.0-8.3); Neutrophils Percent Auto 89.1 % (45-73); SCAN SMEAR FLAG 1
--- NOTE | 2020-04-18 12:23 | W.PM.CCHP ---
Procedures Chest Tube Chest Tube 2: Chest tube location: anterior axillary Size of tube: 14 Chest tube procedure: Yes betadine prep and sterile drapes applied Tube sutured to skin: Yes Sterile dressing applied: Yes Anesthesia: 1% Lidocaine Incision made with: #11 blade Post procedure: sutured to skin and sterile dressing applied Macario of air heard: Yes Tube Drainage: air Post procedure CXR?: Yes Patient tolerated procedure: Yes Progress: uncomplicated procedure with complete resolution of pneumothorax and re-expansion of the left lung with extensive interstitial infiltrate infectious verses re-expansion pulmonary edema
--- NOTE | 2020-04-18 12:25 | P.PNCC_ITS ---
Subjective Subjective Date of Service: 04/18/20 Interval History: doing well still has increasing azotemia following yesterday's dialysis but significant resolution of uremia and central venous pressure on 12 of PEEP reads at 12-13 so I doubt any significant volume overload but still has significant CPK elevation he has been weaned from the propofol and is on a trivial 3 micrograms/minute dose of Levophed with blood pressure 130 and undergoing dialysis without intention to remove volume and little by little very slowly weaning peep and FiO2 Physical Exam Vital Signs: Vital Signs: Last Vital Signs Temp 98.1 F 04/18/20 11:00 Pulse 72 04/18/20 11:00 Resp 26 H 04/18/20 11:00 BP 132/58 L 04/18/20 11:00 Pulse Ox 95 04/18/20 11:00 Body Mass Index 41.4 Const: Other: arousable with nonfocal neurological skin intact cardiac exam stable with normal sinus rhythm and normal S1 and S2 with no gallops abdomen benign with good bowel sounds and nondistended and tolerating feedings chest with coarse bilateral ventilator related breath sounds Objective Data Labs CBC & Chem 7: 04/18/20 04:48 04/18/20 04:48 Labs: Laboratory Results - last 24 hr 04/17/20 04/17/20 04/17/20 12:59 13:50 14:50 WBC RBC Hgb Hct MCV MCH MCHC RDW Plt Count MPV Absolute Nucleated RBC Nucleated RBC % (auto) PT INR APTT D-Dimer VBG pH VBG pCO2 VBG pO2 VBG HCO3 VBG O2 Saturation VBG Base Excess Sodium Potassium Chloride Carbon Dioxide Anion Gap BUN Creatinine Estim Creat Clear Calc Estimated GFR POC Glucose 145 H 120 H 115 Random Glucose Calcium Phosphorus Magnesium Ferritin Lactate Dehydrogenase Total Creatine Kinase C-Reactive Protein 04/17/20 04/17/20 04/17/20 16:58 18:11 18:11 WBC 14.5 H RBC 3.81 L Hgb 12.5 L Hct 38.2 L MCV 100.3 H MCH 32.8 MCHC 32.7 RDW 15.7 Plt Count 133 L MPV 10.1 Absolute Nucleated RBC 0.040 H Nucleated RBC % (auto) 0.3 H PT INR APTT D-Dimer VBG pH 7.12 L* VBG pCO2 90 VBG pO2 94 VBG HCO3 29 VBG O2 Saturation 93.9 VBG Base Excess -3.0 Sodium Potassium Chloride Carbon Dioxide Anion Gap BUN Creatinine Estim Creat Clear Calc Estimated GFR POC Glucose 182 H Random Glucose Calcium Phosphorus Magnesium Ferritin Lactate Dehydrogenase Total Creatine Kinase C-Reactive Protein 04/17/20 04/17/20 04/17/20 18:11 18:11 18:11 WBC RBC Hgb Hct MCV MCH MCHC RDW Plt Count MPV Absolute Nucleated RBC Nucleated RBC % (auto) PT 14.8 H INR 1.2 H APTT 41.2 H D-Dimer VBG pH VBG pCO2 VBG pO2 VBG HCO3 VBG O2 Saturation VBG Base Excess Sodium 140 Potassium 3.8 Chloride 100 Carbon Dioxide 27 Anion Gap 17 BUN 52 H Creatinine 3.67 H Estim Creat Clear Calc 25.2 Estimated GFR 17 POC Glucose 179 H Random Glucose 185 H Calcium 6.6 L Phosphorus Magnesium Ferritin Lactate Dehydrogenase Total Creatine Kinase C-Reactive Protein 04/17/20 04/17/20 04/17/20 19:06 20:26 21:02 WBC RBC Hgb Hct MCV MCH MCHC RDW Plt Count MPV Absolute Nucleated RBC Nucleated RBC % (auto) PT INR APTT D-Dimer VBG pH 7.19 L* VBG pCO2 70 VBG pO2 61 VBG HCO3 26 VBG O2 Saturation 84.6 VBG Base Excess -3.5 Sodium Potassium Chloride Carbon Dioxide Anion Gap BUN Creatinine Estim Creat Clear Calc Estimated GFR POC Glucose 207 H 202 H Random Glucose Calcium Phosphorus Magnesium Ferritin Lactate Dehydrogenase Total Creatine Kinase C-Reactive Protein 04/17/20 04/17/20 04/17/20 21:08 22:17 23:25 WBC RBC Hgb Hct MCV MCH MCHC RDW Plt Count MPV Absolute Nucleated RBC Nucleated RBC % (auto) PT INR APTT D-Dimer VBG pH VBG pCO2 VBG pO2 VBG HCO3 VBG O2 Saturation VBG Base Excess Sodium Potassium Chloride Carbon Dioxide Anion Gap BUN Creatinine Estim Creat Clear Calc Estimated GFR POC Glucose 231 H 212 H 189 H Random Glucose Calcium Phosphorus Magnesium Ferritin Lactate Dehydrogenase Total Creatine Kinase C-Reactive Protein 04/17/20 04/18/20 04/18/20 23:45 00:23 01:14 WBC RBC Hgb Hct MCV MCH MCHC RDW Plt Count MPV Absolute Nucleated RBC Nucleated RBC % (auto) PT INR APTT D-Dimer VBG pH 7.29 L VBG pCO2 49 VBG pO2 57 VBG HCO3 23 VBG O2 Saturation 87.6 VBG Base Excess -3.5 Sodium Potassium Chloride Carbon Dioxide Anion Gap BUN Creatinine Estim Creat Clear Calc Estimated GFR POC Glucose 200 H 211 H Random Glucose Calcium Phosphorus Magnesium Ferritin Lactate Dehydrogenase Total Creatine Kinase C-Reactive Protein 04/18/20 04/18/20 04/18/20 02:41 03:47 04:48 WBC RBC Hgb Hct MCV MCH MCHC RDW Plt Count MPV Absolute Nucleated RBC Nucleated RBC % (auto) PT 15.4 H INR 1.3 H APTT 37.9 D-Dimer 1989 VBG pH VBG pCO2 VBG pO2 VBG HCO3 VBG O2 Saturation VBG Base Excess Sodium Potassium Chloride Carbon Dioxide Anion Gap BUN Creatinine Estim Creat Clear Calc Estimated GFR POC Glucose 222 H 230 H Random Glucose Calcium Phosphorus Magnesium Ferritin Lactate Dehydrogenase Total Creatine Kinase C-Reactive Protein 04/18/20 04/18/20 04/18/20 04:48 04:48 04:48 WBC 10.8 RBC 3.60 L Hgb 11.5 L Hct 34.9 L MCV 96.9 MCH 31.9 MCHC 33.0 RDW 15.5 Plt Count 130 L MPV 10.1 Absolute Nucleated RBC 0.030 H Nucleated RBC % (auto) 0.3 H PT INR APTT D-Dimer VBG pH 7.34 VBG pCO2 44 VBG pO2 58 VBG HCO3 23 VBG O2 Saturation 88.5 VBG Base Excess -2.6 Sodium 138 Potassium 3.5 Chloride 100 Carbon Dioxide 25 Anion Gap 17 BUN 71 H Creatinine 4.71 H* Estim Creat Clear Calc 19.6 Estimated GFR 13 POC Glucose Random Glucose 223 H Calcium 6.5 L Phosphorus 6.4 H Magnesium 3.0 H Ferritin 927 H Lactate Dehydrogenase 1156 H Total Creatine Kinase 05299 H C-Reactive Protein 13.91 H 04/18/20 04/18/20 04/18/20 04:54 06:00 06:49 WBC RBC Hgb Hct MCV MCH MCHC RDW Plt Count MPV Absolute Nucleated RBC Nucleated RBC % (auto) PT INR APTT D-Dimer VBG pH VBG pCO2 VBG pO2 VBG HCO3 VBG O2 Saturation VBG Base Excess Sodium Potassium Chloride Carbon Dioxide Anion Gap BUN Creatinine Estim Creat Clear Calc Estimated GFR POC Glucose 226 H 242 H 215 H Random Glucose Calcium Phosphorus Magnesium Ferritin Lactate Dehydrogenase Total Creatine Kinase C-Reactive Protein 04/18/20 08:13 WBC RBC Hgb Hct MCV MCH MCHC RDW Plt Count MPV Absolute Nucleated RBC Nucleated RBC % (auto) PT INR APTT D-Dimer VBG pH VBG pCO2 VBG pO2 VBG HCO3 VBG O2 Saturation VBG Base Excess Sodium Potassium Chloride Carbon Dioxide Anion Gap BUN Creatinine Estim Creat Clear Calc Estimated GFR POC Glucose 223 H Random Glucose Calcium Phosphorus Magnesium Ferritin Lactate Dehydrogenase Total Creatine Kinase C-Reactive Protein Microbiology Microbiology Results: Microbiology 04/14/20 07:14 Blood - Venous Blood Culture - Preliminary No growth after 48 hours. 04/14/20 07:09 Blood - Venous Blood Culture - Preliminary No growth after 48 hours. 04/14/20 21:02 Sputum - Suctioned Gram Stain - Final 04/14/20 21:02 Sputum - Suctioned Sputum Culture - Final Strep agalactiae (Grp B) Progress Note: A&P Assessment and plan (1) Rhabdomyolysis due to COVID-19: Status: Acute (2) Coagulopathy: Status: Acute (3) Ventilator-associated bacterial pneumonia: Problem details: He has still some areas of lung with infiltrate He has some prior Group A strep pneumonia Status: Acute (4) ARDS (adult respiratory distress syndrome): Status: Acute (5) Hyperkalemia: Problem details: Hyperkalemia is due predominantly to transcell shift due to acidemia and relative insulin deficiency; mild rhabdo as well. K is 5.8 and being repeated Status: Acute (6) Acute kidney injury: Problem details: BRYSON in the setting of severe COVID 19 pneumonia, hypotensive on presentation and on a background of type II DM and HTN The most likely cause of BRYSON is ATN. 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: Status: Acute (16) Diabetes type 2, uncontrolled: Status: Acute (17) Dyslipidemia: Status: Acute (18) Diabetic polyneuropathy associated with type 2 diabetes mellitus: Status: Acute Assessment and Plan: so the plan is to complete dialysis and will continue to treat the strep agalactiae secondary respiratory infection with the Levaquin and gradually wean ventilator FiO2 and PEEP and maintain full anticoagulation with Lovenox due to quite likely splenic venous thrombosis Time Spent With Patient Time: Total time spent is greater than 50% in coordination of care (as documented) at patient's floor/unit and/or counseling patient: Total time spent with greater than 50% in coordination of care (as documented) at patient's floor/unit and/or counseling patient:: 35
[2020-04-18] MEDS: Insulin Regular/NS 100 UNIT/100 ML PLAST..BAG 10 UNIT IVCONT (12:28)
[2020-04-18 12:49] LABS: SLIDE REVIEW VERIFIED
[2020-04-18 12:52] LABS: Glucose, Whole Blood 146 mg/dL (60-115)
[2020-04-18 14:06] LABS: Glucose, Whole Blood 149 mg/dL (60-115)
--- NOTE | 2020-04-18 15:18 | PM.IDPN ---
Subjective Subjective Date of Service: 04/18/20 Interval History: He remains dialysis He has slightly improving CXR He has strep sputum Objective Data Labs CBC & Chem 7: 04/18/20 04:48 04/18/20 04:48 Labs: Laboratory Results - last 24 hr 04/17/20 04/17/20 04/17/20 16:58 18:11 18:11 WBC 14.5 H RBC 3.81 L Hgb 12.5 L Hct 38.2 L MCV 100.3 H MCH 32.8 MCHC 32.7 RDW 15.7 Plt Count 133 L MPV 10.1 Immature Gran % (Auto) Neut % (Auto) Lymph % (Auto) [place] % (Auto) Eos % (Auto) Baso % (Auto) Lymph # (Auto) [place] # (Auto) Eos # (Auto) Baso # (Auto) Abs Immat Gran (auto) Absolute Neuts (auto) Absolute Nucleated RBC 0.040 H Nucleated RBC % (auto) 0.3 H Smear Tech's Comments PT INR APTT D-Dimer VBG pH 7.12 L* VBG pCO2 90 VBG pO2 94 VBG HCO3 29 VBG O2 Saturation 93.9 VBG Base Excess -3.0 Sodium Potassium Chloride Carbon Dioxide Anion Gap BUN Creatinine Estim Creat Clear Calc Estimated GFR POC Glucose 182 H Random Glucose Calcium Phosphorus Magnesium Ferritin Lactate Dehydrogenase Total Creatine Kinase C-Reactive Protein 04/17/20 04/17/20 04/17/20 18:11 18:11 18:11 WBC RBC Hgb Hct MCV MCH MCHC RDW Plt Count MPV Immature Gran % (Auto) Neut % (Auto) Lymph % (Auto) [place] % (Auto) Eos % (Auto) Baso % (Auto) Lymph # (Auto) [place] # (Auto) Eos # (Auto) Baso # (Auto) Abs Immat Gran (auto) Absolute Neuts (auto) Absolute Nucleated RBC Nucleated RBC % (auto) Smear Tech's Comments PT 14.8 H INR 1.2 H APTT 41.2 H D-Dimer VBG pH VBG pCO2 VBG pO2 VBG HCO3 VBG O2 Saturation VBG Base Excess Sodium 140 Potassium 3.8 Chloride 100 Carbon Dioxide 27 Anion Gap 17 BUN 52 H Creatinine 3.67 H Estim Creat Clear Calc 25.2 Estimated GFR 17 POC Glucose 179 H Random Glucose 185 H Calcium 6.6 L Phosphorus Magnesium Ferritin Lactate Dehydrogenase Total Creatine Kinase C-Reactive Protein 04/17/20 04/17/20 04/17/20 19:06 20:26 21:02 WBC RBC Hgb Hct MCV MCH MCHC RDW Plt Count MPV Immature Gran % (Auto) Neut % (Auto) Lymph % (Auto) [place] % (Auto) Eos % (Auto) Baso % (Auto) Lymph # (Auto) [place] # (Auto) Eos # (Auto) Baso # (Auto) Abs Immat Gran (auto) Absolute Neuts (auto) Absolute Nucleated RBC Nucleated RBC % (auto) Smear Tech's Comments PT INR APTT D-Dimer VBG pH 7.19 L* VBG pCO2 70 VBG pO2 61 VBG HCO3 26 VBG O2 Saturation 84.6 VBG Base Excess -3.5 Sodium Potassium Chloride Carbon Dioxide Anion Gap BUN Creatinine Estim Creat Clear Calc Estimated GFR POC Glucose 207 H 202 H Random Glucose Calcium Phosphorus Magnesium Ferritin Lactate Dehydrogenase Total Creatine Kinase C-Reactive Protein 04/17/20 04/17/20 04/17/20 21:08 22:17 23:25 WBC RBC Hgb Hct MCV MCH MCHC RDW Plt Count MPV Immature Gran % (Auto) Neut % (Auto) Lymph % (Auto) [place] % (Auto) Eos % (Auto) Baso % (Auto) Lymph # (Auto) [place] # (Auto) Eos # (Auto) Baso # (Auto) Abs Immat Gran (auto) Absolute Neuts (auto) Absolute Nucleated RBC Nucleated RBC % (auto) Smear Tech's Comments PT INR APTT D-Dimer VBG pH VBG pCO2 VBG pO2 VBG HCO3 VBG O2 Saturation VBG Base Excess Sodium Potassium Chloride Carbon Dioxide Anion Gap BUN Creatinine Estim Creat Clear Calc Estimated GFR POC Glucose 231 H 212 H 189 H Random Glucose Calcium Phosphorus Magnesium Ferritin Lactate Dehydrogenase Total Creatine Kinase C-Reactive Protein 04/17/20 04/18/20 04/18/20 23:45 00:23 01:14 WBC RBC Hgb Hct MCV MCH MCHC RDW Plt Count MPV Immature Gran % (Auto) Neut % (Auto) Lymph % (Auto) [place] % (Auto) Eos % (Auto) Baso % (Auto) Lymph # (Auto) [place] # (Auto) Eos # (Auto) Baso # (Auto) Abs Immat Gran (auto) Absolute Neuts (auto) Absolute Nucleated RBC Nucleated RBC % (auto) Smear Tech's Comments PT INR APTT D-Dimer VBG pH 7.29 L VBG pCO2 49 VBG pO2 57 VBG HCO3 23 VBG O2 Saturation 87.6 VBG Base Excess -3.5 Sodium Potassium Chloride Carbon Dioxide Anion Gap BUN Creatinine Estim Creat Clear Calc Estimated GFR POC Glucose 200 H 211 H Random Glucose Calcium Phosphorus Magnesium Ferritin Lactate Dehydrogenase Total Creatine Kinase C-Reactive Protein 04/18/20 04/18/20 04/18/20 02:41 03:47 04:48 WBC RBC Hgb Hct MCV MCH MCHC RDW Plt Count MPV Immature Gran % (Auto) Neut % (Auto) Lymph % (Auto) [place] % (Auto) Eos % (Auto) Baso % (Auto) Lymph # (Auto) [place] # (Auto) Eos # (Auto) Baso # (Auto) Abs Immat Gran (auto) Absolute Neuts (auto) Absolute Nucleated RBC Nucleated RBC % (auto) Smear Tech's Comments PT 15.4 H INR 1.3 H APTT 37.9 D-Dimer 1989 VBG pH VBG pCO2 VBG pO2 VBG HCO3 VBG O2 Saturation VBG Base Excess Sodium Potassium Chloride Carbon Dioxide Anion Gap BUN Creatinine Estim Creat Clear Calc Estimated GFR POC Glucose 222 H 230 H Random Glucose Calcium Phosphorus Magnesium Ferritin Lactate Dehydrogenase Total Creatine Kinase C-Reactive Protein 04/18/20 04/18/20 04/18/20 04:48 04:48 04:48 WBC 10.8 RBC 3.60 L Hgb 11.5 L Hct 34.9 L MCV 96.9 MCH 31.9 MCHC 33.0 RDW 15.5 Plt Count 130 L MPV 10.1 Immature Gran % (Auto) 0.8 H Neut % (Auto) 89.1 H Lymph % (Auto) 4.2 L [place] % (Auto) 5.8 Eos % (Auto) 0.0 Baso % (Auto) 0.1 Lymph # (Auto) 0.5 L [place] # (Auto) 0.6 Eos # (Auto) 0.0 Baso # (Auto) 0.0 Abs Immat Gran (auto) 0.09 H Absolute Neuts (auto) 9.8 H Absolute Nucleated RBC 0.030 H Nucleated RBC % (auto) 0.3 H Smear Tech's Comments VERIFIED PT INR APTT D-Dimer VBG pH 7.34 VBG pCO2 44 VBG pO2 58 VBG HCO3 23 VBG O2 Saturation 88.5 VBG Base Excess -2.6 Sodium 138 Potassium 3.5 Chloride 100 Carbon Dioxide 25 Anion Gap 17 BUN 71 H Creatinine 4.71 H* Estim Creat Clear Calc 19.6 Estimated GFR 13 POC Glucose Random Glucose 223 H Calcium 6.5 L Phosphorus 6.4 H Magnesium 3.0 H Ferritin 927 H Lactate Dehydrogenase 1156 H Total Creatine Kinase 87477 H C-Reactive Protein 13.91 H 04/18/20 04/18/20 04/18/20 04:54 06:00 06:49 WBC RBC Hgb Hct MCV MCH MCHC RDW Plt Count MPV Immature Gran % (Auto) Neut % (Auto) Lymph % (Auto) [place] % (Auto) Eos % (Auto) Baso % (Auto) Lymph # (Auto) [place] # (Auto) Eos # (Auto) Baso # (Auto) Abs Immat Gran (auto) Absolute Neuts (auto) Absolute Nucleated RBC Nucleated RBC % (auto) Smear Tech's Comments PT INR APTT D-Dimer VBG pH VBG pCO2 VBG pO2 VBG HCO3 VBG O2 Saturation VBG Base Excess Sodium Potassium Chloride Carbon Dioxide Anion Gap BUN Creatinine Estim Creat Clear Calc Estimated GFR POC Glucose 226 H 242 H 215 H Random Glucose Calcium Phosphorus Magnesium Ferritin Lactate Dehydrogenase Total Creatine Kinase C-Reactive Protein 04/18/20 04/18/20 04/18/20 08:13 12:31 14:03 WBC RBC Hgb Hct MCV MCH MCHC RDW Plt Count MPV Immature Gran % (Auto) Neut % (Auto) Lymph % (Auto) [place] % (Auto) Eos % (Auto) Baso % (Auto) Lymph # (Auto) [place] # (Auto) Eos # (Auto) Baso # (Auto) Abs Immat Gran (auto) Absolute Neuts (auto) Absolute Nucleated RBC Nucleated RBC % (auto) Smear Tech's Comments PT INR APTT D-Dimer VBG pH VBG pCO2 VBG pO2 VBG HCO3 VBG O2 Saturation VBG Base Excess Sodium Potassium Chloride Carbon Dioxide Anion Gap BUN Creatinine Estim Creat Clear Calc Estimated GFR POC Glucose 223 H 146 H 149 H Random Glucose Calcium Phosphorus Magnesium Ferritin Lactate Dehydrogenase Total Creatine Kinase C-Reactive Protein Microbiology Microbiology Results: Microbiology 04/14/20 07:14 Blood - Venous Blood Culture - Preliminary No growth after 48 hours. 04/14/20 07:09 Blood - Venous Blood Culture - Preliminary No growth after 48 hours. 04/14/20 21:02 Sputum - Suctioned Gram Stain - Final 04/14/20 21:02 Sputum - Suctioned Sputum Culture - Final Strep agalactiae (Grp B) Physical Exam Vital Signs: Vital Signs: Last Vital Signs Temp 98.4 F 04/18/20 13:00 Pulse 93 04/18/20 13:00 Resp 29 H 04/18/20 13:00 BP 146/65 H 04/18/20 13:00 Pulse Ox 93 04/18/20 13:00 Body Mass Index 41.4 Const: General: no acute distress HENMT: Head: Yes normal to inspection Resp: Effort & Inspection: normal respiratory effort Cardio: Rate: regular rate Rhythm: regular rhythm GI: Inspection: Yes normal to inspection Assessment and Plan Assessment and plan (1) Rhabdomyolysis due to COVID-19: Problem details: He remains on vent He has slightly improving CXR Status: Acute Assessment and Plan: Would stop Doxycycline as doesnt need both Levaquin and Doxycycline unless MRSA Probable 7-10 d Levaqin (2) Coagulopathy: Status: Acute (3) Ventilator-associated bacterial pneumonia: Problem details: He has still some areas of lung with infiltrate He has some prior Group A strep pneumonia Status: Acute (4) ARDS (adult respiratory distress syndrome): Status: Acute Time Spent With Patient Time: Total time spent is greater than 50% in coordination of care (as documented) at patient's floor/unit and/or counseling patient: Time with patient: 15 - 24 minutes
--- NOTE | 2020-04-18 15:23 | PC.NURSE ---
Initial infusion of Levophed order not scanned by night RN. Levophed running at .03 mcg/kg/min, MD aware. Titrated Levophed off at 14:45, BP 149/65 but unable to document in MAR for drug tittration.
[2020-04-18] MEDS: 0.9 % Sodium Chloride Flush 3 ML SYRINGE IVFLUSH (15:59)
[2020-04-18] MEDS: 0.9 % Sodium Chloride 1,000 ML 40 ML IVCONT (15:59)
[2020-04-18] MEDS: levoFLOXacin/D5W 250 MG/50 ML PIGGYBACK 50 MG IV (16:00)
[2020-04-18 16:16] LABS: Glucose, Whole Blood 183 mg/dL (60-115)
[2020-04-18 17:20] LABS: Glucose, Whole Blood 191 mg/dL (60-115)
[2020-04-18 17:37] LABS: INTERNATIONAL NORM RATIO 1.3 (0.9-1.1); Prothrombin Time 15.7 SEC (10.8-13.0)
[2020-04-18 18:30] LABS: Glucose, Whole Blood 181 mg/dL (60-115)
[2020-04-18] MEDS: propofoL 1,000 MG/100 ML VIAL 14.4 MG IVCONT (20:23)
[2020-04-18] MEDS: Enoxaparin Sodium 120 MG/0.8 ML SYRINGE SUBCUT (20:23)
[2020-04-18 20:30] LABS: Glucose, Whole Blood 193 mg/dL (60-115)
[2020-04-18 21:31] LABS: Glucose, Whole Blood 179 mg/dL (60-115)
[2020-04-18 21:42] LABS: Base Excess VBG -1.4 mmol/L; HCO3 VBG 27 mmol/L; PCO2 VBG 62 mmhg; PO2 VBG 61 mmhg; pH VBG 7.25 (7.32-7.43)
[2020-04-18 21:43] LABS: Oxygen Saturation VBG 86.4 %
[2020-04-18 21:44] LABS: Blood Gas Serial # 5414
[2020-04-18 22:53] LABS: Glucose, Whole Blood 194 mg/dL (60-115)
[2020-04-18] MEDS: Insulin Regular/NS 100 UNIT/100 ML PLAST..BAG 9 UNIT IVCONT (23:15)
[2020-04-18] MEDS: Midazolam HCl/NS 50 MG/50 ML PLAST..BAG IVCONT (23:15)
[2020-04-18 23:57] LABS: Glucose, Whole Blood 199 mg/dL (60-115)
[2020-04-19] VITALS (27 sets, daily range): BP systolic 92–133; BP diastolic 15–61; PULSE 63–95; RESP 26–27; TEMP 36.8–37.2; O2SAT 87–97; BMI 42.7
[2020-04-19 00:20] LABS: PCO2 VBG 51 mmhg; PO2 VBG 53 mmhg; pH VBG 7.34 (7.32-7.43)
[2020-04-19 00:21] LABS: Base Excess VBG 0.6 mmol/L; HCO3 VBG 27 mmol/L; Oxygen Saturation VBG 84.4 %
[2020-04-19 01:26] LABS: Glucose, Whole Blood 177 mg/dL (60-115)
[2020-04-19] MEDS: propofoL 1,000 MG/100 ML VIAL 14.4 MG IVCONT ×4 (02:13→16:32)
[2020-04-19 02:28] LABS: Glucose, Whole Blood 192 mg/dL (60-115)
[2020-04-19 03:16] LABS: Glucose, Whole Blood 192 mg/dL (60-115)
[2020-04-19 04:05] LABS: Glucose, Whole Blood 199 mg/dL (60-115)
[2020-04-19] MEDS: methylPREDNISolone Sod Succ/PF 125 MG/2 ML VIAL 80 MG IV ×2 (04:37→16:30)
[2020-04-19] MEDS: Famotidine/PF 20 MG/2 ML VIAL 40 MG IVPUSH ×2 (04:38→16:31)
[2020-04-19 05:14] LABS: Basophils Percent Auto 0.1 % (0-2); Hematocrit 33.3 % (42-52); Hemoglobin 10.9 g/dl (14.0-18.0); Imm Gran Abs Auto 0.07 X10*3/uL (0.00-0.03); Lymphocytes Absolute Auto 0.3 X10*3/uL (1.2-4.9); Lymphocytes Percent Auto 4.2 % (20-40); Mean Corpuscular HGB Conc 32.7 g/dl (31.0-36.0); Mean Corpuscular Hemoglobin 32.6 pg (27.0-33.0); Mean Corpuscular Volume 99.7 fL (80-98); Mean Platelet Volume 10.7 fL (9.4-12.4); Monocytes Absolute Auto 0.4 X10*3/uL (0.1-1.2); Monocytes Percent Auto 6.1 % (2-11); NRBC Pct Auto 0.6 /100WBC (0.0-0.2); Neutrophils Percent Auto 88.6 % (45-73); Platelet Count 97 X10*3/uL (160-400); Red Blood Count 3.34 X10*6/uL (4.60-5.80); Red Cell Distribution Width 15.6 % (11.0-16.0); SCAN SMEAR FLAG 1; White Blood Count 6.8 X10*3/uL (4.8-10.8)
[2020-04-19 05:22] LABS: MANUAL DIFF FLAG SCAN
[2020-04-19 05:36] LABS: D Dimer 1231 NG/ML
[2020-04-19 05:38] LABS: pH VBG 7.34 (7.32-7.43)
[2020-04-19 05:39] LABS: Base Excess VBG -0.7 mmol/L; HCO3 VBG 26 mmol/L; Oxygen Saturation VBG 79.7 %; PCO2 VBG 48 mmhg; PO2 VBG 47 mmhg
[2020-04-19 05:46] LABS: SLIDE REVIEW VERIFIED
[2020-04-19 06:00] LABS: Anion Gap 17 (12-20); Blood Urea Nitrogen 88 mg/dL (9-16); Calcium 7.1 mg/dL (8.4-10.2); Carbon Dioxide 24 mmol/L (22-29); Chloride 103 mmol/L (96-108); Estimated Glomerular Filt Rate 14; Glucose Random 183 mg/dL (60-115); Phosphorus 6.9 mg/dL (2.7-4.5); Potassium 4.1 mmol/l (3.3-5.1); Sodium 140 mmol/L (135-145)
[2020-04-19 06:21] LABS: Glucose, Whole Blood 192 mg/dL (60-115)
[2020-04-19 07:18] LABS: Glucose, Whole Blood 181 mg/dL (60-115)
--- NOTE | 2020-04-19 07:35 | XR_ITS ---
EXAMINATION: XR CHEST CLINICAL INFORMATION: Hypoxia. COMPARISON: Chest 12 12/31 TECHNIQUE: Frontal view of the chest was obtained. FINDINGS: The lungs are well-expanded with patchy opacities seen in bilateral midlung and lower lobe consistent with infiltrates. The density of the infiltrates has improved especially right lung. No pleural effusion seen. Right jugular sheath, right subclavian catheter, endotracheal tube and enteric tube are stable. Heart size and pulmonary vascularity is normal. No gross bony abnormality seen. XR/XR chest 1V IMPRESSION: Improvement in the density of bilateral pulmonary infiltrates. Support lines and catheters are stable.
[2020-04-19] MEDS: Chlorhexidine Gluc Oral Rinse 15 ML MOUTHWASH BUCCAL ×3 (07:47→21:24)
[2020-04-19] MEDS: 0.9 % Sodium Chloride Flush 3 ML SYRINGE IVFLUSH ×2 (07:47→14:38)
[2020-04-19] MEDS: Thiamine HCL 200 MG in 0.9 % Sodium Chloride 100 ML 100 MG IV ×2 (07:47→19:27)
[2020-04-19] MEDS: Zinc Sulfate 220 MG CAPSULE G-TUBE (07:48)
[2020-04-19] MEDS: Cholecalciferol (Vitamin D3) 25 MCG TABLET 50 MCG G-TUBE (07:48)
[2020-04-19 09:02] LABS: Glucose, Whole Blood 186 mg/dL (60-115)
--- NOTE | 2020-04-19 09:35 | PM.PNNEP ---
Subjective Subjective Date of Service: 04/19/20 Interval history: Still on vent with PEEP CVP noted UO improved Had HD yesterday Physical Exam Vital Signs: Vital Signs: Last Vital Signs Temp 98.6 F 04/19/20 09:00 Pulse 67 04/19/20 09:00 Resp 26 H 04/19/20 09:00 BP 115/53 L 04/19/20 09:00 Pulse Ox 92 04/19/20 09:00 Body Mass Index 42.7 Const: Other: Intubated General: ill appearing Resp: Auscultation: rhonchi Cardio: Other: Intubated Heart sounds: no rubs GI: Auscultation: normal bowel sounds Extrem: Left upper extremity: edema Assessment & Plan Assessment and plan (1) Acute kidney injury: Problem details: BRYSON in the setting of severe COVID 19 pneumonia, hypotensive on presentation and on a background of type II DM and HTN The most likely cause of BRYSON is ATN. ;Rhabdomyolysis HOLD HD today and reassess Watch UO supportive care Status: Acute Time Spent With Patient Time: Total time spent is greater than 50% in coordination of care (as documented) at patient's floor/unit and/or counseling patient:
[2020-04-19] MEDS: Insulin Regular/NS 100 UNIT/100 ML PLAST..BAG 9 UNIT IVCONT (10:30)
[2020-04-19] MEDS: Midazolam HCl/NS 50 MG/50 ML PLAST..BAG IVCONT ×2 (10:30→21:24)
[2020-04-19 11:10] LABS: Glucose, Whole Blood 199 mg/dL (60-115)
--- NOTE | 2020-04-19 11:18 | PM.CCPN ---
Subjective Subjective Date of Service: 04/19/20 Interval History: 65-year-old male with acute hypoxemic respiratory failure due to bilateral COVID-19 pneumonitis/ARDS complicated by and acute stage 5 and now dialysis dependent renal failure but non oliguric Currently appears euvolemic and on a peep of 10 has a CVP of 12 and oxygen saturation of about 88-90% on an FiO2 now down to 80% and again he still remains nonoliguric He has underlying alcoholic cirrhosis and is a type 2 diabetic Physical Exam Vital Signs: Vital Signs: Last Vital Signs Temp 98.8 F 04/19/20 11:00 Pulse 69 04/19/20 11:00 Resp 26 H 04/19/20 11:00 BP 119/50 L 04/19/20 11:00 Pulse Ox 87 L 04/19/20 11:00 Body Mass Index 42.7 Const: Other: He has equal tone and reflexes bilaterally but remains sedated and intubated Cardiac exam heart rate of 73 in normal sinus rhythm blood pressure on minimal Levophed is 115/52 and he has no neck vein distension and has good bilateral carotid upstrokes no bruits no murmurs and no gallops Chest with coarse bilateral ventilatory sounds Abdomen with comfort and accepting his diet with no signs of ileus belly is nondistended Skin is intact with no wounds and no acrocyanosis Objective Data Labs CBC & Chem 7: 04/19/20 04:41 04/19/20 04:41 Labs: Laboratory Results - last 24 hr 04/18/20 04/18/20 04/18/20 04:48 12:31 14:03 WBC RBC Hgb Hct MCV MCH MCHC RDW Plt Count MPV Immature Gran % (Auto) 0.8 H Neut % (Auto) 89.1 H Lymph % (Auto) 4.2 L [place] % (Auto) 5.8 Eos % (Auto) 0.0 Baso % (Auto) 0.1 Lymph # (Auto) 0.5 L [place] # (Auto) 0.6 Eos # (Auto) 0.0 Baso # (Auto) 0.0 Abs Immat Gran (auto) 0.09 H Absolute Neuts (auto) 9.8 H Absolute Nucleated RBC Nucleated RBC % (auto) Smear Tech's Comments VERIFIED PT INR D-Dimer VBG pH VBG pCO2 VBG pO2 VBG HCO3 VBG O2 Saturation VBG Base Excess Sodium Potassium Chloride Carbon Dioxide Anion Gap BUN Creatinine Estim Creat Clear Calc Estimated GFR POC Glucose 146 H 149 H Random Glucose Calcium Phosphorus Magnesium Total Creatine Kinase 04/18/20 04/18/20 04/18/20 16:10 17:13 17:15 WBC RBC Hgb Hct MCV MCH MCHC RDW Plt Count MPV Immature Gran % (Auto) Neut % (Auto) Lymph % (Auto) [place] % (Auto) Eos % (Auto) Baso % (Auto) Lymph # (Auto) [place] # (Auto) Eos # (Auto) Baso # (Auto) Abs Immat Gran (auto) Absolute Neuts (auto) Absolute Nucleated RBC Nucleated RBC % (auto) Smear Tech's Comments PT 15.7 H INR 1.3 H D-Dimer VBG pH VBG pCO2 VBG pO2 VBG HCO3 VBG O2 Saturation VBG Base Excess Sodium Potassium Chloride Carbon Dioxide Anion Gap BUN Creatinine Estim Creat Clear Calc Estimated GFR POC Glucose 183 H 191 H Random Glucose Calcium Phosphorus Magnesium Total Creatine Kinase 04/18/20 04/18/20 04/18/20 18:08 19:39 21:22 WBC RBC Hgb Hct MCV MCH MCHC RDW Plt Count MPV Immature Gran % (Auto) Neut % (Auto) Lymph % (Auto) [place] % (Auto) Eos % (Auto) Baso % (Auto) Lymph # (Auto) [place] # (Auto) Eos # (Auto) Baso # (Auto) Abs Immat Gran (auto) Absolute Neuts (auto) Absolute Nucleated RBC Nucleated RBC % (auto) Smear Tech's Comments PT INR D-Dimer VBG pH VBG pCO2 VBG pO2 VBG HCO3 VBG O2 Saturation VBG Base Excess Sodium Potassium Chloride Carbon Dioxide Anion Gap BUN Creatinine Estim Creat Clear Calc Estimated GFR POC Glucose 181 H 193 H 179 H Random Glucose Calcium Phosphorus Magnesium Total Creatine Kinase 04/18/20 04/18/20 04/18/20 21:25 22:49 23:53 WBC RBC Hgb Hct MCV MCH MCHC RDW Plt Count MPV Immature Gran % (Auto) Neut % (Auto) Lymph % (Auto) [place] % (Auto) Eos % (Auto) Baso % (Auto) Lymph # (Auto) [place] # (Auto) Eos # (Auto) Baso # (Auto) Abs Immat Gran (auto) Absolute Neuts (auto) Absolute Nucleated RBC Nucleated RBC % (auto) Smear Tech's Comments PT INR D-Dimer VBG pH 7.25 L VBG pCO2 62 VBG pO2 61 VBG HCO3 27 VBG O2 Saturation 86.4 VBG Base Excess -1.4 Sodium Potassium Chloride Carbon Dioxide Anion Gap BUN Creatinine Estim Creat Clear Calc Estimated GFR POC Glucose 194 H 199 H Random Glucose Calcium Phosphorus Magnesium Total Creatine Kinase 04/18/20 04/19/20 04/19/20 23:59 01:21 02:22 WBC RBC Hgb Hct MCV MCH MCHC RDW Plt Count MPV Immature Gran % (Auto) Neut % (Auto) Lymph % (Auto) [place] % (Auto) Eos % (Auto) Baso % (Auto) Lymph # (Auto) [place] # (Auto) Eos # (Auto) Baso # (Auto) Abs Immat Gran (auto) Absolute Neuts (auto) Absolute Nucleated RBC Nucleated RBC % (auto) Smear Tech's Comments PT INR D-Dimer VBG pH 7.34 VBG pCO2 51 VBG pO2 53 VBG HCO3 27 VBG O2 Saturation 84.4 VBG Base Excess 0.6 Sodium Potassium Chloride Carbon Dioxide Anion Gap BUN Creatinine Estim Creat Clear Calc Estimated GFR POC Glucose 177 H 192 H Random Glucose Calcium Phosphorus Magnesium Total Creatine Kinase 04/19/20 04/19/20 04/19/20 03:11 03:57 04:41 WBC 6.8 RBC 3.34 L Hgb 10.9 L Hct 33.3 L MCV 99.7 H MCH 32.6 MCHC 32.7 RDW 15.6 Plt Count 97 L D MPV 10.7 Immature Gran % (Auto) 1.0 H Neut % (Auto) 88.6 H Lymph % (Auto) 4.2 L [place] % (Auto) 6.1 Eos % (Auto) 0.0 Baso % (Auto) 0.1 Lymph # (Auto) 0.3 L [place] # (Auto) 0.4 Eos # (Auto) 0.0 Baso # (Auto) 0.0 Abs Immat Gran (auto) 0.07 H Absolute Neuts (auto) 6.0 Absolute Nucleated RBC 0.040 H Nucleated RBC % (auto) 0.6 H Smear Tech's Comments VERIFIED PT INR D-Dimer VBG pH VBG pCO2 VBG pO2 VBG HCO3 VBG O2 Saturation VBG Base Excess Sodium Potassium Chloride Carbon Dioxide Anion Gap BUN Creatinine Estim Creat Clear Calc Estimated GFR POC Glucose 192 H 199 H Random Glucose Calcium Phosphorus Magnesium Total Creatine Kinase 04/19/20 04/19/20 04/19/20 04:41 04:41 04:41 WBC RBC Hgb Hct MCV MCH MCHC RDW Plt Count MPV Immature Gran % (Auto) Neut % (Auto) Lymph % (Auto) [place] % (Auto) Eos % (Auto) Baso % (Auto) Lymph # (Auto) [place] # (Auto) Eos # (Auto) Baso # (Auto) Abs Immat Gran (auto) Absolute Neuts (auto) Absolute Nucleated RBC Nucleated RBC % (auto) Smear Tech's Comments PT INR D-Dimer 1231 VBG pH 7.34 VBG pCO2 48 VBG pO2 47 VBG HCO3 26 VBG O2 Saturation 79.7 VBG Base Excess -0.7 Sodium 140 Potassium 4.1 Chloride 103 Carbon Dioxide 24 Anion Gap 17 BUN 88 H* D Creatinine 4.40 H* Estim Creat Clear Calc 21.0 Estimated GFR 14 POC Glucose Random Glucose 183 H Calcium 7.1 L D Phosphorus 6.9 H Magnesium 3.0 H Total Creatine Kinase 7490 H D 04/19/20 04/19/20 04/19/20 06:01 07:12 08:57 WBC RBC Hgb Hct MCV MCH MCHC RDW Plt Count MPV Immature Gran % (Auto) Neut % (Auto) Lymph % (Auto) [place] % (Auto) Eos % (Auto) Baso % (Auto) Lymph # (Auto) [place] # (Auto) Eos # (Auto) Baso # (Auto) Abs Immat Gran (auto) Absolute Neuts (auto) Absolute Nucleated RBC Nucleated RBC % (auto) Smear Tech's Comments PT INR D-Dimer VBG pH VBG pCO2 VBG pO2 VBG HCO3 VBG O2 Saturation VBG Base Excess Sodium Potassium Chloride Carbon Dioxide Anion Gap BUN Creatinine Estim Creat Clear Calc Estimated GFR POC Glucose 192 H 181 H 186 H Random Glucose Calcium Phosphorus Magnesium Total Creatine Kinase 04/19/20 10:47 WBC RBC Hgb Hct MCV MCH MCHC RDW Plt Count MPV Immature Gran % (Auto) Neut % (Auto) Lymph % (Auto) [place] % (Auto) Eos % (Auto) Baso % (Auto) Lymph # (Auto) [place] # (Auto) Eos # (Auto) Baso # (Auto) Abs Immat Gran (auto) Absolute Neuts (auto) Absolute Nucleated RBC Nucleated RBC % (auto) Smear Tech's Comments PT INR D-Dimer VBG pH VBG pCO2 VBG pO2 VBG HCO3 VBG O2 Saturation VBG Base Excess Sodium Potassium Chloride Carbon Dioxide Anion Gap BUN Creatinine Estim Creat Clear Calc Estimated GFR POC Glucose 199 H Random Glucose Calcium Phosphorus Magnesium Total Creatine Kinase Microbiology Microbiology Results: Microbiology 04/14/20 07:14 Blood - Venous Blood Culture - Final No growth after 5 days. 04/14/20 07:09 Blood - Venous Blood Culture - Final No growth after 5 days. 04/14/20 21:02 Sputum - Suctioned Gram Stain - Final 04/14/20 21:02 Sputum - Suctioned Sputum Culture - Final Strep agalactiae (Grp B) Progress Note: A&P Assessment and plan (1) Rhabdomyolysis due to COVID-19: Problem details: He remains on vent He has slightly improving CXR Status: Acute (2) Coagulopathy: Status: Acute (3) Ventilator-associated bacterial pneumonia: Problem details: He has still some areas of lung with infiltrate He has some prior Group A strep pneumonia Status: Acute (4) ARDS (adult respiratory distress syndrome): Status: Acute (5) Hyperkalemia: Problem details: Hyperkalemia is due predominantly to transcell shift due to acidemia and relative insulin deficiency; mild rhabdo as well. K is 5.8 and being repeated Status: Acute (6) Acute kidney injury: Problem details: BRYSON in the setting of severe COVID 19 pneumonia, hypotensive on presentation and on a background of type II DM and HTN The most likely cause of BRYSON is ATN. 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: Status: Acute (17) Diabetes type 2, uncontrolled: Status: Acute (18) Dyslipidemia: Status: Acute Assessment and Plan: So plan is to continue blood pressure support as needed and as long as BUN and creatinine still climb he will still need dialysis but not for the next 24 hours and will continue to wean the ventilator as he permits Time Spent With Patient Time: Total time spent is greater than 50% in coordination of care (as documented) at patient's floor/unit and/or counseling patient: Total time spent with greater than 50% in coordination of care (as documented) at patient's floor/unit and/or counseling patient:: 40
--- NOTE | 2020-04-19 11:40 | P.CDIC_ITS ---
[facility] Concurrent Query Service Date: 05/12/20 Documentation Clarification: Please clarify if you are treating a proba ble/suspected/likely or confirmed: Clarity: Sepsis due to Covid-19/Pneumonia/ARDS with Acute hypoxemia and hypercarbic respiratory failure POA Severe Sepsis with shock due to Covid-19/Pneumonia/ARDS w Acute hypoxemia and hypercarbic respiratory failure Please specify if know or other Provider Response: Other Other Diagnosis: Agree with COVID-19 sepsis PLEASE DO NOT DELETE/MODIFY EXISTING CONTENT Additional information is needed in order to code to the highest accuracy and appropriate Severity of Illness (SOI). Please clarify the information noted below in your progress notes and discharge summary. Risk Factors/Clinical Indicators/Treatments ICU 04/14-Bilateral pulmonary infiltrates/ARDS 2nd to Covid-19 with Acute hypoxemia and hypecarbic respiratory failure. CXR consistent with Covid-19 pneumonia presumed septic shock, empiric Ceftriaxone, Zithromycin, Doxycycyline, Solumedrol, ICU admit, intubated on vent. BRYSON secondary to Sepsis vs. Covid-19. ICU 04/15 - Acute respiratory failure, CRP up, prolactin up to 80 hypotensive probably bacterial septic shock, bump up in WBC. CDS: Corrina Driver CCS, [facility] Contact Number: [phone] Please Review the information above and exercise your independent professional judgment in responding to the query. If you concur, pleas document in the PROGRESS NOTES and DISCHARGE SUMMARY. If you do not agree with the query, please document in the query above. THIS QUERY IS PART OF THE PERMANENT MEDICAL RECORD
--- NOTE | 2020-04-19 11:59 | PM.CCPN ---
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 with Lovenox Complicated by acute stage 5 renal failure and dialysis dependent with last dialysis yesterday and persistent CVP level of 12-13 and still unable to wean his FiO2 Off sedation on holiday that he is arousable nonfocal neurologically Physical Exam Vital Signs: Vital Signs: Last Vital Signs Temp 98.8 F 04/19/20 11:00 Pulse 69 04/19/20 11:00 Resp 26 H 04/19/20 11:00 BP 119/50 L 04/19/20 11:00 Pulse Ox 87 L 04/19/20 11:00 Body Mass Index 42.7 Const: Other: Nonfocal neurologically and he does awaken and he tracks so this some cognitive function Cardiac exam stable with normal S1 and S2 and no gallops or murmurs Chest with coarse ventilatory sounds and no barotrauma On Levaquin for secondary bacterial infection with strep agalactiae therefore nosocomial or ventilator associated pneumonia Abdomen benign and tolerating feedings with nondistention no organomegaly and good bowel sounds Skin intact without breakdown no cellulitis no livedo Objective Data Labs CBC & Chem 7: 05/01/20 05:48 05/01/20 05:48 Labs: Laboratory Results - last 24 hr 04/18/20 04/18/20 04/18/20 04:48 12:31 14:03 WBC RBC Hgb Hct MCV MCH MCHC RDW Plt Count MPV Immature Gran % (Auto) 0.8 H Neut % (Auto) 89.1 H Lymph % (Auto) 4.2 L [place] % (Auto) 5.8 Eos % (Auto) 0.0 Baso % (Auto) 0.1 Lymph # (Auto) 0.5 L [place] # (Auto) 0.6 Eos # (Auto) 0.0 Baso # (Auto) 0.0 Abs Immat Gran (auto) 0.09 H Absolute Neuts (auto) 9.8 H Absolute Nucleated RBC Nucleated RBC % (auto) Smear Tech's Comments VERIFIED PT INR D-Dimer VBG pH VBG pCO2 VBG pO2 VBG HCO3 VBG O2 Saturation VBG Base Excess Sodium Potassium Chloride Carbon Dioxide Anion Gap BUN Creatinine Estim Creat Clear Calc Estimated GFR POC Glucose 146 H 149 H Random Glucose Calcium Phosphorus Magnesium Total Creatine Kinase 04/18/20 04/18/20 04/18/20 16:10 17:13 17:15 WBC RBC Hgb Hct MCV MCH MCHC RDW Plt Count MPV Immature Gran % (Auto) Neut % (Auto) Lymph % (Auto) [place] % (Auto) Eos % (Auto) Baso % (Auto) Lymph # (Auto) [place] # (Auto) Eos # (Auto) Baso # (Auto) Abs Immat Gran (auto) Absolute Neuts (auto) Absolute Nucleated RBC Nucleated RBC % (auto) Smear Tech's Comments PT 15.7 H INR 1.3 H D-Dimer VBG pH VBG pCO2 VBG pO2 VBG HCO3 VBG O2 Saturation VBG Base Excess Sodium Potassium Chloride Carbon Dioxide Anion Gap BUN Creatinine Estim Creat Clear Calc Estimated GFR POC Glucose 183 H 191 H Random Glucose Calcium Phosphorus Magnesium Total Creatine Kinase 04/18/20 04/18/20 04/18/20 18:08 19:39 21:22 WBC RBC Hgb Hct MCV MCH MCHC RDW Plt Count MPV Immature Gran % (Auto) Neut % (Auto) Lymph % (Auto) [place] % (Auto) Eos % (Auto) Baso % (Auto) Lymph # (Auto) [place] # (Auto) Eos # (Auto) Baso # (Auto) Abs Immat Gran (auto) Absolute Neuts (auto) Absolute Nucleated RBC Nucleated RBC % (auto) Smear Tech's Comments PT INR D-Dimer VBG pH VBG pCO2 VBG pO2 VBG HCO3 VBG O2 Saturation VBG Base Excess Sodium Potassium Chloride Carbon Dioxide Anion Gap BUN Creatinine Estim Creat Clear Calc Estimated GFR POC Glucose 181 H 193 H 179 H Random Glucose Calcium Phosphorus Magnesium Total Creatine Kinase 04/18/20 04/18/20 04/18/20 21:25 22:49 23:53 WBC RBC Hgb Hct MCV MCH MCHC RDW Plt Count MPV Immature Gran % (Auto) Neut % (Auto) Lymph % (Auto) [place] % (Auto) Eos % (Auto) Baso % (Auto) Lymph # (Auto) [place] # (Auto) Eos # (Auto) Baso # (Auto) Abs Immat Gran (auto) Absolute Neuts (auto) Absolute Nucleated RBC Nucleated RBC % (auto) Smear Tech's Comments PT INR D-Dimer VBG pH 7.25 L VBG pCO2 62 VBG pO2 61 VBG HCO3 27 VBG O2 Saturation 86.4 VBG Base Excess -1.4 Sodium Potassium Chloride Carbon Dioxide Anion Gap BUN Creatinine Estim Creat Clear Calc Estimated GFR POC Glucose 194 H 199 H Random Glucose Calcium Phosphorus Magnesium Total Creatine Kinase 04/18/20 04/19/20 04/19/20 23:59 01:21 02:22 WBC RBC Hgb Hct MCV MCH MCHC RDW Plt Count MPV Immature Gran % (Auto) Neut % (Auto) Lymph % (Auto) [place] % (Auto) Eos % (Auto) Baso % (Auto) Lymph # (Auto) [place] # (Auto) Eos # (Auto) Baso # (Auto) Abs Immat Gran (auto) Absolute Neuts (auto) Absolute Nucleated RBC Nucleated RBC % (auto) Smear Tech's Comments PT INR D-Dimer VBG pH 7.34 VBG pCO2 51 VBG pO2 53 VBG HCO3 27 VBG O2 Saturation 84.4 VBG Base Excess 0.6 Sodium Potassium Chloride Carbon Dioxide Anion Gap BUN Creatinine Estim Creat Clear Calc Estimated GFR POC Glucose 177 H 192 H Random Glucose Calcium Phosphorus Magnesium Total Creatine Kinase 04/19/20 04/19/20 04/19/20 03:11 03:57 04:41 WBC 6.8 RBC 3.34 L Hgb 10.9 L Hct 33.3 L MCV 99.7 H MCH 32.6 MCHC 32.7 RDW 15.6 Plt Count 97 L D MPV 10.7 Immature Gran % (Auto) 1.0 H Neut % (Auto) 88.6 H Lymph % (Auto) 4.2 L [place] % (Auto) 6.1 Eos % (Auto) 0.0 Baso % (Auto) 0.1 Lymph # (Auto) 0.3 L [place] # (Auto) 0.4 Eos # (Auto) 0.0 Baso # (Auto) 0.0 Abs Immat Gran (auto) 0.07 H Absolute Neuts (auto) 6.0 Absolute Nucleated RBC 0.040 H Nucleated RBC % (auto) 0.6 H Smear Tech's Comments VERIFIED PT INR D-Dimer VBG pH VBG pCO2 VBG pO2 VBG HCO3 VBG O2 Saturation VBG Base Excess Sodium Potassium Chloride Carbon Dioxide Anion Gap BUN Creatinine Estim Creat Clear Calc Estimated GFR POC Glucose 192 H 199 H Random Glucose Calcium Phosphorus Magnesium Total Creatine Kinase 04/19/20 04/19/20 04/19/20 04:41 04:41 04:41 WBC RBC Hgb Hct MCV MCH MCHC RDW Plt Count MPV Immature Gran % (Auto) Neut % (Auto) Lymph % (Auto) [place] % (Auto) Eos % (Auto) Baso % (Auto) Lymph # (Auto) [place] # (Auto) Eos # (Auto) Baso # (Auto) Abs Immat Gran (auto) Absolute Neuts (auto) Absolute Nucleated RBC Nucleated RBC % (auto) Smear Tech's Comments PT INR D-Dimer 1231 VBG pH 7.34 VBG pCO2 48 VBG pO2 47 VBG HCO3 26 VBG O2 Saturation 79.7 VBG Base Excess -0.7 Sodium 140 Potassium 4.1 Chloride 103 Carbon Dioxide 24 Anion Gap 17 BUN 88 H* D Creatinine 4.40 H* Estim Creat Clear Calc 21.0 Estimated GFR 14 POC Glucose Random Glucose 183 H Calcium 7.1 L D Phosphorus 6.9 H Magnesium 3.0 H Total Creatine Kinase 7490 H D 04/19/20 04/19/20 04/19/20 06:01 07:12 08:57 WBC RBC Hgb Hct MCV MCH MCHC RDW Plt Count MPV Immature Gran % (Auto) Neut % (Auto) Lymph % (Auto) [place] % (Auto) Eos % (Auto) Baso % (Auto) Lymph # (Auto) [place] # (Auto) Eos # (Auto) Baso # (Auto) Abs Immat Gran (auto) Absolute Neuts (auto) Absolute Nucleated RBC Nucleated RBC % (auto) Smear Tech's Comments PT INR D-Dimer VBG pH VBG pCO2 VBG pO2 VBG HCO3 VBG O2 Saturation VBG Base Excess Sodium Potassium Chloride Carbon Dioxide Anion Gap BUN Creatinine Estim Creat Clear Calc Estimated GFR POC Glucose 192 H 181 H 186 H Random Glucose Calcium Phosphorus Magnesium Total Creatine Kinase 04/19/20 10:47 WBC RBC Hgb Hct MCV MCH MCHC RDW Plt Count MPV Immature Gran % (Auto) Neut % (Auto) Lymph % (Auto) [place] % (Auto) Eos % (Auto) Baso % (Auto) Lymph # (Auto) [place] # (Auto) Eos # (Auto) Baso # (Auto) Abs Immat Gran (auto) Absolute Neuts (auto) Absolute Nucleated RBC Nucleated RBC % (auto) Smear Tech's Comments PT INR D-Dimer VBG pH VBG pCO2 VBG pO2 VBG HCO3 VBG O2 Saturation VBG Base Excess Sodium Potassium Chloride Carbon Dioxide Anion Gap BUN Creatinine Estim Creat Clear Calc Estimated GFR POC Glucose 199 H Random Glucose Calcium Phosphorus Magnesium Total Creatine Kinase Microbiology Microbiology Results: Microbiology 04/14/20 07:14 Blood - Venous Blood Culture - Final No growth after 5 days. 04/14/20 07:09 Blood - Venous Blood Culture - Final No growth after 5 days. 04/14/20 21:02 Sputum - Suctioned Gram Stain - Final 04/14/20 21:02 Sputum - Suctioned Sputum Culture - Final Strep agalactiae (Grp B) Progress Note: A&P Assessment and plan (1) Respiratory failure: Status: Acute (2) COVID-19: Status: Acute (3) Hyperkalemia: Status: Acute (4) BRYSNO (acute kidney injury): Status: Acute (5) Encephalopathy acute: Status: Acute (6) Fever of unknown origin (FUO): Problem details: He had prior Group A strep He has new gram negative sputum Gram negative in sputeum and splenic portal confluence thrombosis may be cause of fever Status: Acute (7) Acute hypernatremia: Status: Acute (8) Rhabdomyolysis due to COVID-19: Problem details: He remains on vent He has slightly improving CXR He is on Levaquin day 4 Status: Acute (9) Coagulopathy: Status: Acute (10) Ventilator-associated bacterial pneumonia: Problem details: He has still some areas of lung with infiltrate He has some prior Group A strep pneumonia Status: Acute (11) ARDS (adult respiratory distress syndrome): Status: Acute (12) Hyperkalemia: Status: Acute (13) Acute kidney injury: Status: Acute (14) Anemia: Status: Acute (15) Thrombocytopenia: Status: Acute (16) Acute hypoxemic respiratory failure due to COVID-19: Status: Acute (17) Vitamin D deficiency: Status: Acute (18) Morbid obesity: Status: Acute (19) Hypertension: Status: Acute (20) Diabetic retinopathy associated with type 2 diabetes mellitus: Status: Acute (21) Diabetic nephropathy associated with type 2 diabetes mellitus: Status: Acute (22) Diabetic polyneuropathy associated with type 2 diabetes mellitus: Status: Acute (23) long-term (current) use of insulin: Status: Acute (24) Diabetes type 2, uncontrolled: Status: Acute (25) Dyslipidemia: Status: Acute Assessment and Plan: So support will continue as before Time Spent With Patient Time: Total time spent is greater than 50% in coordination of care (as documented) at patient's floor/unit and/or counseling patient: Total time spent with greater than 50% in coordination of care (as documented) at patient's floor/unit and/or counseling patient:: 30
[2020-04-19 14:02] LABS: Glucose, Whole Blood 183 mg/dL (60-115)
[2020-04-19] MEDS: 0.9 % Sodium Chloride 1,000 ML 40 ML IVCONT (14:38)
[2020-04-19 15:06] LABS: Glucose, Whole Blood 177 mg/dL (60-115)
[2020-04-19] MEDS: levoFLOXacin/D5W 250 MG/50 ML PIGGYBACK 50 MG IV (16:31)
--- NOTE | 2020-04-19 16:31 | MHC.CM.PN ---
Patient remains intubated/vented in ICU. Continue to monitor for d/c needs.
[2020-04-19 17:19] LABS: Glucose, Whole Blood 183 mg/dL (60-115)
[2020-04-19] MEDS: Insulin Regular/NS 100 UNIT/100 ML PLAST..BAG 8 UNIT IVCONT (19:28)
[2020-04-19 19:39] LABS: Glucose, Whole Blood 158 mg/dL (60-115)
[2020-04-19] MEDS: Enoxaparin Sodium 120 MG/0.8 ML SYRINGE SUBCUT (19:40)
--- NOTE | 2020-04-19 19:58 | PC.NURSE ---
assumed care at 0700. patient sedated on propofol and versed, propofol was able to be titrated down 20 to 10. versed unable to be titrated from 4. patient with sluggishly reactive pupils, 2 bilatearlly, synchronous with vent. has 7.5 ETT, 25 cm at the inside of his bottom lip, near his teeth. patient on VC settings: AC 26; VC 650; peep 10; fio2 85%. patient with scant hartman thick secretions; patient with diminished ls; patient with distant heartsounds, tolerating TF. urine outputs around 100/hour, dark. edema to hands, feet; sacral. skin intact.
[2020-04-19 20:52] LABS: Glucose, Whole Blood 179 mg/dL (60-115)
[2020-04-19 22:03] LABS: Glucose, Whole Blood 178 mg/dL (60-115)
[2020-04-19 23:32] LABS: Glucose, Whole Blood 176 mg/dL (60-115)
[2020-04-20] VITALS (26 sets, daily range): BP systolic 114–154; BP diastolic 49–66; PULSE 86–106; RESP 12–31; TEMP 36.8–37.6; O2SAT 90–95; BMI 42.1
[2020-04-20] MEDS: propofoL 1,000 MG/100 ML VIAL 7.2 MG IVCONT ×2 (01:31→15:22)
[2020-04-20 02:34] LABS: Anion Gap 16 (12-20); Blood Urea Nitrogen 110 mg/dL (9-16); Calcium 7.4 mg/dL (8.4-10.2); Carbon Dioxide 25 mmol/L (22-29); Chloride 107 mmol/L (96-108); Estimated Glomerular Filt Rate 18; Glucose Random 191 mg/dL (60-115); Potassium 3.9 mmol/l (3.3-5.1); Sodium 144 mmol/L (135-145)
[2020-04-20 02:53] LABS: Osmolality Urine 472 mosm/kg (373-1093)
[2020-04-20 03:25] LABS: Glucose, Whole Blood 199 mg/dL (60-115)
[2020-04-20 03:25] LABS: Glucose, Whole Blood 181 mg/dL (60-115)
[2020-04-20] MEDS: methylPREDNISolone Sod Succ/PF 125 MG/2 ML VIAL 80 MG IV (05:11)
[2020-04-20] MEDS: Famotidine/PF 20 MG/2 ML VIAL 40 MG IVPUSH ×2 (05:11→18:03)
[2020-04-20 05:56] LABS: Glucose, Whole Blood 217 mg/dL (60-115)
[2020-04-20 06:17] LABS: Base Excess VBG 2.7 mmol/L; HCO3 VBG 28 mmol/L; Oxygen Saturation VBG 87.4 %; PCO2 VBG 46 mmhg; PO2 VBG 55 mmhg
[2020-04-20 06:20] LABS: MANUAL DIFF FLAG SCAN; Mean Corpuscular Volume 97.3 fL (80-98); PLT CLUMP 1; SCAN SMEAR FLAG 1
[2020-04-20 06:22] LABS: Hemoglobin 12.3 g/dl (14.0-18.0); Imm Gran Abs Auto 0.31 X10*3/uL (0.00-0.03); Lymphocytes Absolute Auto 0.2 X10*3/uL (1.2-4.9); Lymphocytes Percent Auto 3.1 % (20-40); Mean Corpuscular HGB Conc 34.2 g/dl (31.0-36.0); Mean Corpuscular Hemoglobin 33.2 pg (27.0-33.0); Mean Platelet Volume 9.9 fL (9.4-12.4); Monocytes Absolute Auto 0.7 X10*3/uL (0.1-1.2); Monocytes Percent Auto 9.4 % (2-11); NRBC Pct Auto 0.4 /100WBC (0.0-0.2); Neutrophils Absolute Auto 6.4 X10*3/uL (2.0-8.3); Neutrophils Percent Auto 83.5 % (45-73); Red Cell Distribution Width 15.2 % (11.0-16.0); White Blood Count 7.7 X10*3/uL (4.8-10.8)
[2020-04-20 06:25] LABS: Platelet Count 98 X10*3/uL (160-400)
[2020-04-20] MEDS: Insulin Regular/NS 100 UNIT/100 ML PLAST..BAG 9 UNIT IVCONT (06:29)
[2020-04-20 06:33] LABS: Anion Gap 15 (12-20); Blood Urea Nitrogen 112 mg/dL (9-16); Calcium 7.3 mg/dL (8.4-10.2); Carbon Dioxide 25 mmol/L (22-29); Chloride 109 mmol/L (96-108); Creatinine Clr Calc Pharmacy 28.6; Estimated Glomerular Filt Rate 19; Glucose Random 208 mg/dL (60-115); Magnesium 3.2 mg/dL (1.6-2.6); Phosphorus 5.6 mg/dL (2.7-4.5); Sodium 145 mmol/L (135-145)
[2020-04-20 06:34] LABS: INTERNATIONAL NORM RATIO 1.3 (0.9-1.1); Prothrombin Time 15.4 SEC (10.8-13.0)
[2020-04-20 06:36] LABS: D Dimer 985 NG/ML; Partial Thromboplastin Time 35.2 SEC (24.1-38.0)
[2020-04-20 06:53] LABS: SLIDE REVIEW VERIFIED
[2020-04-20 07:56] LABS: Glucose, Whole Blood 209 mg/dL (60-115)
--- NOTE | 2020-04-20 09:24 | P.PNNP_ITS ---
Subjective Subjective Date of Service: 04/20/20 Interval history: Events noted UO increase Cr trending down Remains on vent Physical Exam 2 Vital Signs: Vital Signs: Last Vital Signs Temp 99.1 F 04/20/20 08:00 Pulse 104 H 04/20/20 08:00 Resp 31 H 04/20/20 08:00 BP 136/66 04/20/20 08:00 Pulse Ox 94 04/20/20 08:00 Body Mass Index 42.1 Const: Other: Intubated General: ill appearing Resp: Auscultation: rhonchi Cardio: Other: Intubated Heart sounds: no rubs GI: Auscultation: normal bowel sounds Extrem: Left upper extremity: edema Objective Data Labs CBC & Chem 7: 04/20/20 05:20 04/20/20 05:20 Labs: Laboratory Results - last 24 hr 04/19/20 04/19/20 04/19/20 10:47 13:26 14:58 WBC RBC Hgb Hct MCV MCH MCHC RDW Plt Count MPV Immature Gran % (Auto) Neut % (Auto) Lymph % (Auto) [place] % (Auto) Eos % (Auto) Baso % (Auto) Lymph # (Auto) [place] # (Auto) Eos # (Auto) Baso # (Auto) Abs Immat Gran (auto) Absolute Neuts (auto) Absolute Nucleated RBC Nucleated RBC % (auto) Smear Tech's Comments PT INR APTT D-Dimer VBG pH VBG pCO2 VBG pO2 VBG HCO3 VBG O2 Saturation VBG Base Excess Sodium Potassium Chloride Carbon Dioxide Anion Gap BUN Creatinine Estim Creat Clear Calc Estimated GFR POC Glucose 199 H 183 H 177 H Random Glucose Calcium Phosphorus Magnesium Total Creatine Kinase Urine Osmolality 04/19/20 04/19/20 04/19/20 16:54 19:20 20:38 WBC RBC Hgb Hct MCV MCH MCHC RDW Plt Count MPV Immature Gran % (Auto) Neut % (Auto) Lymph % (Auto) [place] % (Auto) Eos % (Auto) Baso % (Auto) Lymph # (Auto) [place] # (Auto) Eos # (Auto) Baso # (Auto) Abs Immat Gran (auto) Absolute Neuts (auto) Absolute Nucleated RBC Nucleated RBC % (auto) Smear Tech's Comments PT INR APTT D-Dimer VBG pH VBG pCO2 VBG pO2 VBG HCO3 VBG O2 Saturation VBG Base Excess Sodium Potassium Chloride Carbon Dioxide Anion Gap BUN Creatinine Estim Creat Clear Calc Estimated GFR POC Glucose 183 H 158 H 179 H Random Glucose Calcium Phosphorus Magnesium Total Creatine Kinase Urine Osmolality 04/19/20 04/19/20 04/20/20 21:30 23:26 01:45 WBC RBC Hgb Hct MCV MCH MCHC RDW Plt Count MPV Immature Gran % (Auto) Neut % (Auto) Lymph % (Auto) [place] % (Auto) Eos % (Auto) Baso % (Auto) Lymph # (Auto) [place] # (Auto) Eos # (Auto) Baso # (Auto) Abs Immat Gran (auto) Absolute Neuts (auto) Absolute Nucleated RBC Nucleated RBC % (auto) Smear Tech's Comments PT INR APTT D-Dimer VBG pH VBG pCO2 VBG pO2 VBG HCO3 VBG O2 Saturation VBG Base Excess Sodium 144 Potassium 3.9 Chloride 107 Carbon Dioxide 25 Anion Gap 16 BUN 110 H* D Creatinine 3.48 H Estim Creat Clear Calc 27.0 Estimated GFR 18 POC Glucose 178 H 176 H Random Glucose 191 H Calcium 7.4 L Phosphorus Magnesium Total Creatine Kinase Urine Osmolality 04/20/20 04/20/20 04/20/20 01:45 01:46 03:20 WBC RBC Hgb Hct MCV MCH MCHC RDW Plt Count MPV Immature Gran % (Auto) Neut % (Auto) Lymph % (Auto) [place] % (Auto) Eos % (Auto) Baso % (Auto) Lymph # (Auto) [place] # (Auto) Eos # (Auto) Baso # (Auto) Abs Immat Gran (auto) Absolute Neuts (auto) Absolute Nucleated RBC Nucleated RBC % (auto) Smear Tech's Comments PT INR APTT D-Dimer VBG pH VBG pCO2 VBG pO2 VBG HCO3 VBG O2 Saturation VBG Base Excess Sodium Potassium Chloride Carbon Dioxide Anion Gap BUN Creatinine Estim Creat Clear Calc Estimated GFR POC Glucose 181 H 199 H Random Glucose Calcium Phosphorus Magnesium Total Creatine Kinase Urine Osmolality 472 04/20/20 04/20/20 04/20/20 05:20 05:20 05:20 WBC 7.7 RBC 3.70 L Hgb 12.3 L Hct 36.0 L MCV 97.3 MCH 33.2 H MCHC 34.2 RDW 15.2 Plt Count 98 L MPV 9.9 Immature Gran % (Auto) 4.0 H Neut % (Auto) 83.5 H Lymph % (Auto) 3.1 L [place] % (Auto) 9.4 Eos % (Auto) 0.0 Baso % (Auto) 0.0 Lymph # (Auto) 0.2 L [place] # (Auto) 0.7 Eos # (Auto) 0.0 Baso # (Auto) 0.0 Abs Immat Gran (auto) 0.31 H Absolute Neuts (auto) 6.4 Absolute Nucleated RBC 0.030 H Nucleated RBC % (auto) 0.4 H Smear Tech's Comments VERIFIED PT 15.4 H INR 1.3 H APTT 35.2 D-Dimer 985 VBG pH VBG pCO2 VBG pO2 VBG HCO3 VBG O2 Saturation VBG Base Excess Sodium 145 Potassium 4.0 Chloride 109 H Carbon Dioxide 25 Anion Gap 15 BUN 112 H* Creatinine 3.26 H Estim Creat Clear Calc 28.6 Estimated GFR 19 POC Glucose Random Glucose 208 H Calcium 7.3 L Phosphorus 5.6 H Magnesium 3.2 H Total Creatine Kinase 3296 H D Urine Osmolality 04/20/20 04/20/20 04/20/20 05:20 05:25 07:47 WBC RBC Hgb Hct MCV MCH MCHC RDW Plt Count MPV Immature Gran % (Auto) Neut % (Auto) Lymph % (Auto) [place] % (Auto) Eos % (Auto) Baso % (Auto) Lymph # (Auto) [place] # (Auto) Eos # (Auto) Baso # (Auto) Abs Immat Gran (auto) Absolute Neuts (auto) Absolute Nucleated RBC Nucleated RBC % (auto) Smear Tech's Comments PT INR APTT D-Dimer VBG pH 7.40 VBG pCO2 46 VBG pO2 55 VBG HCO3 28 VBG O2 Saturation 87.4 VBG Base Excess 2.7 Sodium Potassium Chloride Carbon Dioxide Anion Gap BUN Creatinine Estim Creat Clear Calc Estimated GFR POC Glucose 217 H 209 H Random Glucose Calcium Phosphorus Magnesium Total Creatine Kinase Urine Osmolality Microbiology Microbiology Results: Microbiology 04/14/20 07:14 Blood - Venous Blood Culture - Final No growth after 5 days. 04/14/20 07:09 Blood - Venous Blood Culture - Final No growth after 5 days. 04/14/20 21:02 Sputum - Suctioned Gram Stain - Final 04/14/20 21:02 Sputum - Suctioned Sputum Culture - Final Strep agalactiae (Grp B) Assessment & Plan Assessment and plan (1) Acute kidney injury: Problem details: BRYSON in the setting of severe COVID 19 pneumonia, hypotensive on presentation and on a background of type II DM and HTN The most likely cause of BRYSON is ATN. ;Rhabdomyolysis HOLD HD today and reassess Watch UO supportive care Status: Acute Time Spent With Patient Time: Total time spent is greater than 50% in coordination of care (as documented) at patient's floor/unit and/or counseling patient:
[2020-04-20 10:39] LABS: Glucose, Whole Blood 226 mg/dL (60-115)
--- NOTE | 2020-04-20 10:58 | MHC.CM.PN ---
Patient remains intubated/vented in ICU. Copy of HCP obtained by daughter, Eliza. Patient is from home. Continue to monitor for d/c needs.
--- NOTE | 2020-04-20 10:59 | MHC.CLN ---
F/U PT RECEIVING TF NEPRO AT MAX GOAL RATE 35CC/HR PROVIDES 1512KCALS (1702kcals; 25KCALS/KG WITH SEDATION BASED ON IBW), 68G PROTEIN (1.0G/KG), 610CC FREE WATER FROM FORMULA TOLERATING PER NSG MONITOR TOLERANCE, RESIDUALS AND LYTES
[2020-04-20] MEDS: Cholecalciferol (Vitamin D3) 25 MCG TABLET 50 MCG G-TUBE (11:20)
[2020-04-20] MEDS: Chlorhexidine Gluc Oral Rinse 15 ML MOUTHWASH BUCCAL ×3 (11:20→21:18)
[2020-04-20] MEDS: 0.9 % Sodium Chloride Flush 3 ML SYRINGE IVFLUSH ×3 (11:20→23:41)
[2020-04-20] MEDS: Midazolam HCl/NS 50 MG/50 ML PLAST..BAG IVCONT ×2 (11:22→23:41)
[2020-04-20 11:43] LABS: Glucose, Whole Blood 234 mg/dL (60-115)
--- NOTE | 2020-04-20 14:32 | PM.CCPN ---
Subjective Subjective Date of Service: 04/20/20 Interval History: 65-year-old male with acute hypoxemic respiratory failure due to COVID-19 bilateral pneumonitis/ARDS complicated by acute stage 5 renal failure which is now resolving because today he is beginning to diurese and creatinine has come down from a peak of 4.5 to the current 3.2 CVP is averaging now at about 11 and with resolving uremia he is now also resolving his hypervolemia and no further dialysis is being required and were slowly weaning his FiO2 only down now to 80% but is PEEP is down to 10 from a peak of 15 He had strep agalactiae superimposed ventilator associated pneumonia also being treated Physical Exam Vital Signs: Vital Signs: Last Vital Signs Temp 99.5 F 04/20/20 14:00 Pulse 100 04/20/20 14:00 Resp 27 H 04/20/20 14:00 BP 136/57 L 04/20/20 14:00 Pulse Ox 95 04/20/20 14:00 Body Mass Index 42.1 Const: Other: Sedated and intubated but he does awaken when he is just off propofol for a short while Skin is intact no wounds no acrocyanosis Neurological is nonfocal Cardiac exam with normal S1 and S2 no gallops Abdomen is benign tolerating feedings nondistended with good bowel sounds Chest with bilateral coarse ventilator related sounds Objective Data Labs CBC & Chem 7: 04/20/20 05:20 04/20/20 05:20 Labs: Laboratory Results - last 24 hr 04/19/20 04/19/20 04/19/20 14:58 16:54 19:20 WBC RBC Hgb Hct MCV MCH MCHC RDW Plt Count MPV Immature Gran % (Auto) Neut % (Auto) Lymph % (Auto) [place] % (Auto) Eos % (Auto) Baso % (Auto) Lymph # (Auto) [place] # (Auto) Eos # (Auto) Baso # (Auto) Abs Immat Gran (auto) Absolute Neuts (auto) Absolute Nucleated RBC Nucleated RBC % (auto) Smear Tech's Comments PT INR APTT D-Dimer VBG pH VBG pCO2 VBG pO2 VBG HCO3 VBG O2 Saturation VBG Base Excess Sodium Potassium Chloride Carbon Dioxide Anion Gap BUN Creatinine Estim Creat Clear Calc Estimated GFR POC Glucose 177 H 183 H 158 H Random Glucose Calcium Phosphorus Magnesium Total Creatine Kinase Urine Osmolality 1204/19/20 04/19/20 20:38 21:30 23:26 WBC RBC Hgb Hct MCV MCH MCHC RDW Plt Count MPV Immature Gran % (Auto) Neut % (Auto) Lymph % (Auto) [place] % (Auto) Eos % (Auto) Baso % (Auto) Lymph # (Auto) [place] # (Auto) Eos # (Auto) Baso # (Auto) Abs Immat Gran (auto) Absolute Neuts (auto) Absolute Nucleated RBC Nucleated RBC % (auto) Smear Tech's Comments PT INR APTT D-Dimer VBG pH VBG pCO2 VBG pO2 VBG HCO3 VBG O2 Saturation VBG Base Excess Sodium Potassium Chloride Carbon Dioxide Anion Gap BUN Creatinine Estim Creat Clear Calc Estimated GFR POC Glucose 179 H 178 H 176 H Random Glucose Calcium Phosphorus Magnesium Total Creatine Kinase Urine Osmolality 04/20/20 04/20/20 04/20/20 01:45 01:45 01:46 WBC RBC Hgb Hct MCV MCH MCHC RDW Plt Count MPV Immature Gran % (Auto) Neut % (Auto) Lymph % (Auto) [place] % (Auto) Eos % (Auto) Baso % (Auto) Lymph # (Auto) [place] # (Auto) Eos # (Auto) Baso # (Auto) Abs Immat Gran (auto) Absolute Neuts (auto) Absolute Nucleated RBC Nucleated RBC % (auto) Smear Tech's Comments PT INR APTT D-Dimer VBG pH VBG pCO2 VBG pO2 VBG HCO3 VBG O2 Saturation VBG Base Excess Sodium 144 Potassium 3.9 Chloride 107 Carbon Dioxide 25 Anion Gap 16 BUN 110 H* D Creatinine 3.48 H Estim Creat Clear Calc 27.0 Estimated GFR 18 POC Glucose 181 H Random Glucose 191 H Calcium 7.4 L Phosphorus Magnesium Total Creatine Kinase Urine Osmolality 472 04/20/20 04/20/20 04/20/20 03:20 05:20 05:20 WBC 7.7 RBC 3.70 L Hgb 12.3 L Hct 36.0 L MCV 97.3 MCH 33.2 H MCHC 34.2 RDW 15.2 Plt Count 98 L MPV 9.9 Immature Gran % (Auto) 4.0 H Neut % (Auto) 83.5 H Lymph % (Auto) 3.1 L [place] % (Auto) 9.4 Eos % (Auto) 0.0 Baso % (Auto) 0.0 Lymph # (Auto) 0.2 L [place] # (Auto) 0.7 Eos # (Auto) 0.0 Baso # (Auto) 0.0 Abs Immat Gran (auto) 0.31 H Absolute Neuts (auto) 6.4 Absolute Nucleated RBC 0.030 H Nucleated RBC % (auto) 0.4 H Smear Tech's Comments VERIFIED PT 15.4 H INR 1.3 H APTT 35.2 D-Dimer 985 VBG pH VBG pCO2 VBG pO2 VBG HCO3 VBG O2 Saturation VBG Base Excess Sodium Potassium Chloride Carbon Dioxide Anion Gap BUN Creatinine Estim Creat Clear Calc Estimated GFR POC Glucose 199 H Random Glucose Calcium Phosphorus Magnesium Total Creatine Kinase Urine Osmolality 04/20/20 04/20/20 04/20/20 05:20 05:20 05:25 WBC RBC Hgb Hct MCV MCH MCHC RDW Plt Count MPV Immature Gran % (Auto) Neut % (Auto) Lymph % (Auto) [place] % (Auto) Eos % (Auto) Baso % (Auto) Lymph # (Auto) [place] # (Auto) Eos # (Auto) Baso # (Auto) Abs Immat Gran (auto) Absolute Neuts (auto) Absolute Nucleated RBC Nucleated RBC % (auto) Smear Tech's Comments PT INR APTT D-Dimer VBG pH 7.40 VBG pCO2 46 VBG pO2 55 VBG HCO3 28 VBG O2 Saturation 87.4 VBG Base Excess 2.7 Sodium 145 Potassium 4.0 Chloride 109 H Carbon Dioxide 25 Anion Gap 15 BUN 112 H* Creatinine 3.26 H Estim Creat Clear Calc 28.6 Estimated GFR 19 POC Glucose 217 H Random Glucose 208 H Calcium 7.3 L Phosphorus 5.6 H Magnesium 3.2 H Total Creatine Kinase 3296 H D Urine Osmolality 04/20/20 04/20/20 04/20/20 07:47 09:14 11:29 WBC RBC Hgb Hct MCV MCH MCHC RDW Plt Count MPV Immature Gran % (Auto) Neut % (Auto) Lymph % (Auto) [place] % (Auto) Eos % (Auto) Baso % (Auto) Lymph # (Auto) [place] # (Auto) Eos # (Auto) Baso # (Auto) Abs Immat Gran (auto) Absolute Neuts (auto) Absolute Nucleated RBC Nucleated RBC % (auto) Smear Tech's Comments PT INR APTT D-Dimer VBG pH VBG pCO2 VBG pO2 VBG HCO3 VBG O2 Saturation VBG Base Excess Sodium Potassium Chloride Carbon Dioxide Anion Gap BUN Creatinine Estim Creat Clear Calc Estimated GFR POC Glucose 209 H 226 H 234 H Random Glucose Calcium Phosphorus Magnesium Total Creatine Kinase Urine Osmolality Microbiology Microbiology Results: Microbiology 04/14/20 07:14 Blood - Venous Blood Culture - Final No growth after 5 days. 04/14/20 07:09 Blood - Venous Blood Culture - Final No growth after 5 days. 04/14/20 21:02 Sputum - Suctioned Gram Stain - Final 04/14/20 21:02 Sputum - Suctioned Sputum Culture - Final Strep agalactiae (Grp B) Progress Note: A&P Assessment and plan (1) Rhabdomyolysis due to COVID-19: Problem details: He remains on vent He has slightly improving CXR Status: Acute (2) Coagulopathy: Status: Acute (3) Ventilator-associated bacterial pneumonia: Problem details: He has still some areas of lung with infiltrate He has some prior Group A strep pneumonia Status: Acute (4) ARDS (adult respiratory distress syndrome): Status: Acute (5) Hyperkalemia: Problem details: Hyperkalemia is due predominantly to transcell shift due to acidemia and relative insulin deficiency; mild rhabdo as well. K is 5.8 and being repeated Status: Acute (6) Acute kidney injury: Problem details: BRYSON in the setting of severe COVID 19 pneumonia, hypotensive on presentation and on a background of type II DM and HTN The most likely cause of BRYSON is ATN. 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: Status: Acute (17) Diabetes type 2, uncontrolled: Status: Acute (18) Dyslipidemia: Status: Acute Assessment and Plan: At this point I am going to institute IV fluids stain slightly behind his urine output of 100 an hour following CVP and continue to treat the nosocomial pneumonia and hopefully continue to wean some of the ventilator support Time Spent With Patient Time: Total time spent is greater than 50% in coordination of care (as documented) at patient's floor/unit and/or counseling patient: Total time spent with greater than 50% in coordination of care (as documented) at patient's floor/unit and/or counseling patient:: 30
[2020-04-20 14:36] LABS: Glucose, Whole Blood 202 mg/dL (60-115)
--- NOTE | 2020-04-20 15:09 | PC.NURSE ---
Addendum entered by Junior Nguyen 04/20/20 15:17: FIo2 titrated to 80% per MD Original Note: Pt remains sedated on propofol at 10mcg and versed at 4mcg, insulin drip titrate per protocol, q2h POC per MD, pt currently at 10 units/hr, Nepro running at 35ml/hr, 0 residual, daughter updated by this RN, Rectal tube left in place, draining dark brown liquid stool, pt bathed, juana and pad changed, peripheral IV removed from right arm, TLC remains intact and patent, dialysis port remains intact, will cont to monitor at this time
[2020-04-20] MEDS: KCl 20 mEq in 0.45% Sod 20 MEQ/1,000 ML IV.SOLN 80 MEQ IVCONT (15:22)
[2020-04-20 15:41] LABS: Glucose, Whole Blood 209 mg/dL (60-115)
[2020-04-20] MEDS: levoFLOXacin/D5W 250 MG/50 ML PIGGYBACK 50 MG IV (18:02)
[2020-04-20] MEDS: methylPREDNISolone Sod Succ/PF 125 MG/2 ML VIAL 60 MG IV (18:02)
[2020-04-20] MEDS: Insulin Regular/NS 100 UNIT/100 ML PLAST..BAG 10 UNIT IVCONT (18:10)
[2020-04-20 18:24] LABS: Glucose, Whole Blood 235 mg/dL (60-115)
[2020-04-20] MEDS: Enoxaparin Sodium 120 MG/0.8 ML SYRINGE SUBCUT (19:38)
[2020-04-20 20:14] LABS: Glucose, Whole Blood 230 mg/dL (60-115)
[2020-04-20 20:57] LABS: Anion Gap 14 (12-20); Blood Urea Nitrogen 124 mg/dL (9-16); Calcium 7.6 mg/dL (8.4-10.2); Carbon Dioxide 27 mmol/L (22-29); Chloride 111 mmol/L (96-108); Creatinine Clr Calc Pharmacy 35.7; Estimated Glomerular Filt Rate 25; Glucose Random 256 mg/dL (60-115); Potassium 4.1 mmol/l (3.3-5.1); Sodium 148 mmol/L (135-145)
[2020-04-20 21:54] LABS: Glucose, Whole Blood 237 mg/dL (60-115)
--- NOTE | 2020-04-20 22:06 | P.PNID_ITS ---
Subjective Subjective Date of Service: 04/20/20 Interval History: he remains on ventilator Objective Data Labs CBC & Chem 7: 04/20/20 05:20 04/20/20 19:35 Labs: Laboratory Results - last 24 hr 04/19/20 04/20/20 04/20/20 23:26 01:45 01:45 WBC RBC Hgb Hct MCV MCH MCHC RDW Plt Count MPV Immature Gran % (Auto) Neut % (Auto) Lymph % (Auto) [place] % (Auto) Eos % (Auto) Baso % (Auto) Lymph # (Auto) [place] # (Auto) Eos # (Auto) Baso # (Auto) Abs Immat Gran (auto) Absolute Neuts (auto) Absolute Nucleated RBC Nucleated RBC % (auto) Smear Tech's Comments PT INR APTT D-Dimer VBG pH VBG pCO2 VBG pO2 VBG HCO3 VBG O2 Saturation VBG Base Excess Sodium 144 Potassium 3.9 Chloride 107 Carbon Dioxide 25 Anion Gap 16 BUN 110 H* D Creatinine 3.48 H Estim Creat Clear Calc 27.0 Estimated GFR 18 POC Glucose 176 H Random Glucose 191 H Calcium 7.4 L Phosphorus Magnesium Total Creatine Kinase Urine Osmolality 472 04/20/20 04/20/20 04/20/20 01:46 03:20 05:20 WBC 7.7 RBC 3.70 L Hgb 12.3 L Hct 36.0 L MCV 97.3 MCH 33.2 H MCHC 34.2 RDW 15.2 Plt Count 98 L MPV 9.9 Immature Gran % (Auto) 4.0 H Neut % (Auto) 83.5 H Lymph % (Auto) 3.1 L [place] % (Auto) 9.4 Eos % (Auto) 0.0 Baso % (Auto) 0.0 Lymph # (Auto) 0.2 L [place] # (Auto) 0.7 Eos # (Auto) 0.0 Baso # (Auto) 0.0 Abs Immat Gran (auto) 0.31 H Absolute Neuts (auto) 6.4 Absolute Nucleated RBC 0.030 H Nucleated RBC % (auto) 0.4 H Smear Tech's Comments VERIFIED PT INR APTT D-Dimer VBG pH VBG pCO2 VBG pO2 VBG HCO3 VBG O2 Saturation VBG Base Excess Sodium Potassium Chloride Carbon Dioxide Anion Gap BUN Creatinine Estim Creat Clear Calc Estimated GFR POC Glucose 181 H 199 H Random Glucose Calcium Phosphorus Magnesium Total Creatine Kinase Urine Osmolality 04/20/20 04/20/20 04/20/20 05:20 05:20 05:20 WBC RBC Hgb Hct MCV MCH MCHC RDW Plt Count MPV Immature Gran % (Auto) Neut % (Auto) Lymph % (Auto) [place] % (Auto) Eos % (Auto) Baso % (Auto) Lymph # (Auto) [place] # (Auto) Eos # (Auto) Baso # (Auto) Abs Immat Gran (auto) Absolute Neuts (auto) Absolute Nucleated RBC Nucleated RBC % (auto) Smear Tech's Comments PT 15.4 H INR 1.3 H APTT 35.2 D-Dimer 985 VBG pH 7.40 VBG pCO2 46 VBG pO2 55 VBG HCO3 28 VBG O2 Saturation 87.4 VBG Base Excess 2.7 Sodium 145 Potassium 4.0 Chloride 109 H Carbon Dioxide 25 Anion Gap 15 BUN 112 H* Creatinine 3.26 H Estim Creat Clear Calc 28.6 Estimated GFR 19 POC Glucose Random Glucose 208 H Calcium 7.3 L Phosphorus 5.6 H Magnesium 3.2 H Total Creatine Kinase 3296 H D Urine Osmolality 04/20/20 04/20/20 04/20/20 05:25 07:47 09:14 WBC RBC Hgb Hct MCV MCH MCHC RDW Plt Count MPV Immature Gran % (Auto) Neut % (Auto) Lymph % (Auto) [place] % (Auto) Eos % (Auto) Baso % (Auto) Lymph # (Auto) [place] # (Auto) Eos # (Auto) Baso # (Auto) Abs Immat Gran (auto) Absolute Neuts (auto) Absolute Nucleated RBC Nucleated RBC % (auto) Smear Tech's Comments PT INR APTT D-Dimer VBG pH VBG pCO2 VBG pO2 VBG HCO3 VBG O2 Saturation VBG Base Excess Sodium Potassium Chloride Carbon Dioxide Anion Gap BUN Creatinine Estim Creat Clear Calc Estimated GFR POC Glucose 217 H 209 H 226 H Random Glucose Calcium Phosphorus Magnesium Total Creatine Kinase Urine Osmolality 04/20/20 04/20/20 04/20/20 11:29 14:02 15:26 WBC RBC Hgb Hct MCV MCH MCHC RDW Plt Count MPV Immature Gran % (Auto) Neut % (Auto) Lymph % (Auto) [place] % (Auto) Eos % (Auto) Baso % (Auto) Lymph # (Auto) [place] # (Auto) Eos # (Auto) Baso # (Auto) Abs Immat Gran (auto) Absolute Neuts (auto) Absolute Nucleated RBC Nucleated RBC % (auto) Smear Tech's Comments PT INR APTT D-Dimer VBG pH VBG pCO2 VBG pO2 VBG HCO3 VBG O2 Saturation VBG Base Excess Sodium Potassium Chloride Carbon Dioxide Anion Gap BUN Creatinine Estim Creat Clear Calc Estimated GFR POC Glucose 234 H 202 H 209 H Random Glucose Calcium Phosphorus Magnesium Total Creatine Kinase Urine Osmolality 04/20/20 04/20/20 04/20/20 18:14 19:35 19:42 WBC RBC Hgb Hct MCV MCH MCHC RDW Plt Count MPV Immature Gran % (Auto) Neut % (Auto) Lymph % (Auto) [place] % (Auto) Eos % (Auto) Baso % (Auto) Lymph # (Auto) [place] # (Auto) Eos # (Auto) Baso # (Auto) Abs Immat Gran (auto) Absolute Neuts (auto) Absolute Nucleated RBC Nucleated RBC % (auto) Smear Tech's Comments PT INR APTT D-Dimer VBG pH VBG pCO2 VBG pO2 VBG HCO3 VBG O2 Saturation VBG Base Excess Sodium 148 H Potassium 4.1 Chloride 111 H Carbon Dioxide 27 Anion Gap 14 BUN 124 H* Creatinine 2.61 H Estim Creat Clear Calc 35.7 Estimated GFR 25 POC Glucose 235 H 230 H Random Glucose 256 H Calcium 7.6 L Phosphorus Magnesium Total Creatine Kinase Urine Osmolality 04/20/20 21:32 WBC RBC Hgb Hct MCV MCH MCHC RDW Plt Count MPV Immature Gran % (Auto) Neut % (Auto) Lymph % (Auto) [place] % (Auto) Eos % (Auto) Baso % (Auto) Lymph # (Auto) [place] # (Auto) Eos # (Auto) Baso # (Auto) Abs Immat Gran (auto) Absolute Neuts (auto) Absolute Nucleated RBC Nucleated RBC % (auto) Smear Tech's Comments PT INR APTT D-Dimer VBG pH VBG pCO2 VBG pO2 VBG HCO3 VBG O2 Saturation VBG Base Excess Sodium Potassium Chloride Carbon Dioxide Anion Gap BUN Creatinine Estim Creat Clear Calc Estimated GFR POC Glucose 237 H Random Glucose Calcium Phosphorus Magnesium Total Creatine Kinase Urine Osmolality Microbiology Microbiology Results: Microbiology 04/14/20 07:14 Blood - Venous Blood Culture - Final No growth after 5 days. 04/14/20 07:09 Blood - Venous Blood Culture - Final No growth after 5 days. 04/14/20 21:02 Sputum - Suctioned Gram Stain - Final 04/14/20 21:02 Sputum - Suctioned Sputum Culture - Final Strep agalactiae (Grp B) Physical Exam Vital Signs: Vital Signs: Last Vital Signs Temp 99.5 F 04/20/20 20:03 Pulse 97 04/20/20 21:59 Resp 22 H 04/20/20 21:59 BP 141/64 H 04/20/20 21:59 Pulse Ox 90 L 04/20/20 21:59 Body Mass Index 42.1 Const: General: no acute distress HENMT: Head: Yes normal to inspection Resp: Effort & Inspection: normal respiratory effort Cardio: Rate: regular rate Rhythm: regular rhythm GI: Palpation (GI): nontender Extrem: General: Yes normal exam except as noted Assessment and Plan Assessment and plan (1) Rhabdomyolysis due to COVID-19: Problem details: He remains on vent He has slightly improving CXR He is on Levaquin day 4 Status: Acute Assessment and Plan: Would finish 7 days Levaquin (2) ARDS (adult respiratory distress syndrome): Status: Acute Time Spent With Patient Time: Total time spent is greater than 50% in coordination of care (as documented) at patient's floor/unit and/or counseling patient: Time with patient: 15 - 24 minutes
[2020-04-21] VITALS (30 sets, daily range): BP systolic 106–147; BP diastolic 47–70; PULSE 87–125; RESP 18–32; TEMP 37.3–38.6; O2SAT 90–94; BMI 41.5
[2020-04-21 00:12] LABS: Glucose, Whole Blood 225 mg/dL (60-115)
[2020-04-21 01:48] LABS: Glucose, Whole Blood 211 mg/dL (60-115)
[2020-04-21] MEDS: Insulin Regular/NS 100 UNIT/100 ML PLAST..BAG 12 UNIT IVCONT ×3 (03:22→21:00)
[2020-04-21] MEDS: propofoL 1,000 MG/100 ML VIAL 7.2 MG IVCONT ×2 (03:22→13:16)
[2020-04-21 03:54] LABS: Glucose, Whole Blood 216 mg/dL (60-115)
[2020-04-21] MEDS: KCl 20 mEq in 0.45% Sod 20 MEQ/1,000 ML IV.SOLN 80 MEQ IVCONT (04:10)
[2020-04-21] MEDS: methylPREDNISolone Sod Succ/PF 125 MG/2 ML VIAL 60 MG IV ×2 (04:13→15:35)
--- NOTE | 2020-04-21 05:00 | XR_ITS ---
EXAMINATION: XR CHEST CLINICAL INFORMATION: COVID COMPARISON: 04/19/2020 TECHNIQUE: Frontal view of the chest was obtained. FINDINGS: Endotracheal tube terminates 7 cm above the ramón. Right subclavian central venous catheter injection of the mid SVC. Enteric tube courses below the diaphragm. No pneumothorax. Stable bilateral patchy and streaky airspace opacities. Heart size and pulmonary vascularity within normal limits. No pleural effusion. XR/XR chest 1V IMPRESSION: Stable exam.
[2020-04-21 05:25] LABS: Basophils Percent Auto 0.1 % (0-2); Hemoglobin 11.9 g/dl (14.0-18.0); Imm Gran Abs Auto 0.14 X10*3/uL (0.00-0.03); Imm Gran Pct Auto 1.7 % (0.0-0.4); Lymphocytes Absolute Auto 0.2 X10*3/uL (1.2-4.9); Lymphocytes Percent Auto 2.1 % (20-40); MANUAL DIFF FLAG SCAN; Mean Corpuscular HGB Conc 32.2 g/dl (31.0-36.0); Mean Corpuscular Hemoglobin 31.6 pg (27.0-33.0); Mean Corpuscular Volume 98.4 fL (80-98); Mean Platelet Volume 10.6 fL (9.4-12.4); Monocytes Absolute Auto 0.8 X10*3/uL (0.1-1.2); Monocytes Percent Auto 9.7 % (2-11); NRBC Pct Auto 0.2 /100WBC (0.0-0.2); Neutrophils Absolute Auto 7.2 X10*3/uL (2.0-8.3); Neutrophils Percent Auto 86.4 % (45-73); Red Blood Count 3.76 X10*6/uL (4.60-5.80); Red Cell Distribution Width 15.8 % (11.0-16.0); SCAN SMEAR FLAG 1; White Blood Count 8.3 X10*3/uL (4.8-10.8)
[2020-04-21 05:33] LABS: Base Excess VBG 0.3 mmol/L; HCO3 VBG 26 mmol/L; INTERNATIONAL NORM RATIO 1.3 (0.9-1.1); Oxygen Saturation VBG 83.3 %; PCO2 VBG 49 mmhg; PO2 VBG 52 mmhg; Prothrombin Time 15.5 SEC (10.8-13.0); pH VBG 7.35 (7.32-7.43)
[2020-04-21 05:35] LABS: D Dimer 746 NG/ML
[2020-04-21 05:36] LABS: Partial Thromboplastin Time 34.5 SEC (24.1-38.0); Platelet Count 90 X10*3/uL (160-400)
[2020-04-21] MEDS: Famotidine/PF 20 MG/2 ML VIAL 40 MG IVPUSH ×2 (05:56→18:01)
[2020-04-21 06:06] LABS: SLIDE REVIEW VERIFIED
[2020-04-21 06:07] LABS: Anion Gap 13 (12-20); Blood Urea Nitrogen 119 mg/dL (9-16); Calcium 7.7 mg/dL (8.4-10.2); Carbon Dioxide 28 mmol/L (22-29); Chloride 114 mmol/L (96-108); Creatinine Clr Calc Pharmacy 40.4; Estimated Glomerular Filt Rate 29; Glucose Random 224 mg/dL (60-115); Magnesium 3.3 mg/dL (1.6-2.6); Phosphorus 4.2 mg/dL (2.7-4.5); Potassium 4.3 mmol/l (3.3-5.1); Sodium 151 mmol/L (135-145)
[2020-04-21 06:37] LABS: Glucose, Whole Blood 208 mg/dL (60-115)
[2020-04-21 08:08] LABS: Glucose, Whole Blood 193 mg/dL (60-115)
[2020-04-21] MEDS: Cholecalciferol (Vitamin D3) 25 MCG TABLET 50 MCG G-TUBE (09:21)
[2020-04-21] MEDS: Furosemide 100 MG/10 ML VIAL 80 MG IVPUSH (09:21)
[2020-04-21] MEDS: Chlorhexidine Gluc Oral Rinse 15 ML MOUTHWASH BUCCAL ×3 (09:21→21:01)
[2020-04-21 10:10] LABS: Glucose, Whole Blood 182 mg/dL (60-115)
[2020-04-21 12:07] LABS: Glucose, Whole Blood 181 mg/dL (60-115)
[2020-04-21] MEDS: Midazolam HCl/NS 50 MG/50 ML PLAST..BAG IVCONT (13:17)
[2020-04-21 13:54] LABS: Glucose, Whole Blood 189 mg/dL (60-115)
--- NOTE | 2020-04-21 14:27 | PM.CCPN ---
Subjective Subjective Date of Service: 04/21/20 Interval History: 65-year-old morbidly obese and type 2 diabetic with acute hypoxic respiratory failure from severe bilateral COVID-19 pneumonitis/ARDS complicated by a acute stage 5 renal failure briefly requiring dialysis now it is repairing with a post ATN resolution diuresis but still notably hypervolemic with central venous pressure readings that were elevated in the mid teens along with increased tachypnea respiratory effort persistent high FiO2 requirement at 80% with mild desaturation and based on this I gave him a high dose of Lasix x1 with an excellent response and degree of tachypnea and respiratory effort and CVP came down to 12 all improving saturations up from 88 to 91 or 92% and we may try to wean FiO2 to 75% current blood pressure 127/58 Physical Exam Vital Signs: Vital Signs: Last Vital Signs Temp 100.4 F 04/21/20 13:00 Pulse 114 H 04/21/20 13:00 Resp 29 H 04/21/20 13:00 BP 132/60 04/21/20 13:00 Pulse Ox 91 L 04/21/20 13:00 Body Mass Index 41.5 Const: Other: Sedated and intubated-might consider sedation holiday Cranial nerve function normal and equal bilaterally with tone and reflexes also symmetric Cardiac exam unchanged normal S1 normal S2 no gallops Lungs with bilateral coarse ventilator related sounds Abdomen again tolerating feedings good bowel sounds nontender and he is a cirrhotic but no palpable organomegaly Skin intact no wounds no acrocyanosis Objective Data Labs CBC & Chem 7: 04/21/20 04:35 04/21/20 04:35 Labs: Laboratory Results - last 24 hr 04/20/20 04/20/20 04/20/20 14:02 15:26 18:14 WBC RBC Hgb Hct MCV MCH MCHC RDW Plt Count MPV Immature Gran % (Auto) Neut % (Auto) Lymph % (Auto) [place] % (Auto) Eos % (Auto) Baso % (Auto) Lymph # (Auto) [place] # (Auto) Eos # (Auto) Baso # (Auto) Abs Immat Gran (auto) Absolute Neuts (auto) Absolute Nucleated RBC Nucleated RBC % (auto) Smear Tech's Comments PT INR APTT D-Dimer VBG pH VBG pCO2 VBG pO2 VBG HCO3 VBG O2 Saturation VBG Base Excess Sodium Potassium Chloride Carbon Dioxide Anion Gap BUN Creatinine Estim Creat Clear Calc Estimated GFR POC Glucose 202 H 209 H 235 H Random Glucose Calcium Phosphorus Magnesium 04/20/20 04/20/20 04/20/20 19:35 19:42 21:32 WBC RBC Hgb Hct MCV MCH MCHC RDW Plt Count MPV Immature Gran % (Auto) Neut % (Auto) Lymph % (Auto) [place] % (Auto) Eos % (Auto) Baso % (Auto) Lymph # (Auto) [place] # (Auto) Eos # (Auto) Baso # (Auto) Abs Immat Gran (auto) Absolute Neuts (auto) Absolute Nucleated RBC Nucleated RBC % (auto) Smear Tech's Comments PT INR APTT D-Dimer VBG pH VBG pCO2 VBG pO2 VBG HCO3 VBG O2 Saturation VBG Base Excess Sodium 148 H Potassium 4.1 Chloride 111 H Carbon Dioxide 27 Anion Gap 14 BUN 124 H* Creatinine 2.61 H Estim Creat Clear Calc 35.7 Estimated GFR 25 POC Glucose 230 H 237 H Random Glucose 256 H Calcium 7.6 L Phosphorus Magnesium 04/20/20 04/21/20 04/21/20 23:43 01:37 03:30 WBC RBC Hgb Hct MCV MCH MCHC RDW Plt Count MPV Immature Gran % (Auto) Neut % (Auto) Lymph % (Auto) [place] % (Auto) Eos % (Auto) Baso % (Auto) Lymph # (Auto) [place] # (Auto) Eos # (Auto) Baso # (Auto) Abs Immat Gran (auto) Absolute Neuts (auto) Absolute Nucleated RBC Nucleated RBC % (auto) Smear Tech's Comments PT INR APTT D-Dimer VBG pH VBG pCO2 VBG pO2 VBG HCO3 VBG O2 Saturation VBG Base Excess Sodium Potassium Chloride Carbon Dioxide Anion Gap BUN Creatinine Estim Creat Clear Calc Estimated GFR POC Glucose 225 H 211 H 216 H Random Glucose Calcium Phosphorus Magnesium 04/21/20 04/21/20 04/21/20 04:35 04:35 04:35 WBC 8.3 RBC 3.76 L Hgb 11.9 L Hct 37.0 L MCV 98.4 H MCH 31.6 MCHC 32.2 RDW 15.8 Plt Count 90 L MPV 10.6 Immature Gran % (Auto) 1.7 H Neut % (Auto) 86.4 H Lymph % (Auto) 2.1 L [place] % (Auto) 9.7 Eos % (Auto) 0.0 Baso % (Auto) 0.1 Lymph # (Auto) 0.2 L [place] # (Auto) 0.8 Eos # (Auto) 0.0 Baso # (Auto) 0.0 Abs Immat Gran (auto) 0.14 H Absolute Neuts (auto) 7.2 Absolute Nucleated RBC 0.020 H Nucleated RBC % (auto) 0.2 Smear Tech's Comments VERIFIED PT 15.5 H INR 1.3 H APTT 34.5 D-Dimer 746 VBG pH VBG pCO2 VBG pO2 VBG HCO3 VBG O2 Saturation VBG Base Excess Sodium 151 H Potassium 4.3 Chloride 114 H Carbon Dioxide 28 Anion Gap 13 BUN 119 H* Creatinine 2.31 H Estim Creat Clear Calc 40.4 Estimated GFR 29 POC Glucose Random Glucose 224 H Calcium 7.7 L Phosphorus 4.2 Magnesium 3.3 H 04/21/20 04/21/20 04/21/20 04:35 06:03 08:02 WBC RBC Hgb Hct MCV MCH MCHC RDW Plt Count MPV Immature Gran % (Auto) Neut % (Auto) Lymph % (Auto) [place] % (Auto) Eos % (Auto) Baso % (Auto) Lymph # (Auto) [place] # (Auto) Eos # (Auto) Baso # (Auto) Abs Immat Gran (auto) Absolute Neuts (auto) Absolute Nucleated RBC Nucleated RBC % (auto) Smear Tech's Comments PT INR APTT D-Dimer VBG pH 7.35 VBG pCO2 49 VBG pO2 52 VBG HCO3 26 VBG O2 Saturation 83.3 VBG Base Excess 0.3 Sodium Potassium Chloride Carbon Dioxide Anion Gap BUN Creatinine Estim Creat Clear Calc Estimated GFR POC Glucose 208 H 193 H Random Glucose Calcium Phosphorus Magnesium 04/21/20 04/21/20 04/21/20 09:48 11:59 13:47 WBC RBC Hgb Hct MCV MCH MCHC RDW Plt Count MPV Immature Gran % (Auto) Neut % (Auto) Lymph % (Auto) [place] % (Auto) Eos % (Auto) Baso % (Auto) Lymph # (Auto) [place] # (Auto) Eos # (Auto) Baso # (Auto) Abs Immat Gran (auto) Absolute Neuts (auto) Absolute Nucleated RBC Nucleated RBC % (auto) Smear Tech's Comments PT INR APTT D-Dimer VBG pH VBG pCO2 VBG pO2 VBG HCO3 VBG O2 Saturation VBG Base Excess Sodium Potassium Chloride Carbon Dioxide Anion Gap BUN Creatinine Estim Creat Clear Calc Estimated GFR POC Glucose 182 H 181 H 189 H Random Glucose Calcium Phosphorus Magnesium Microbiology Microbiology Results: Microbiology 04/14/20 07:14 Blood - Venous Blood Culture - Final No growth after 5 days. 04/14/20 07:09 Blood - Venous Blood Culture - Final No growth after 5 days. 04/14/20 21:02 Sputum - Suctioned Gram Stain - Final 04/14/20 21:02 Sputum - Suctioned Sputum Culture - Final Strep agalactiae (Grp B) Progress Note: A&P Assessment and plan (1) Rhabdomyolysis due to COVID-19: Problem details: He remains on vent He has slightly improving CXR He is on Levaquin day 4 Status: Acute (2) Coagulopathy: Status: Acute (3) Ventilator-associated bacterial pneumonia: Problem details: He has still some areas of lung with infiltrate He has some prior Group A strep pneumonia Status: Acute (4) ARDS (adult respiratory distress syndrome): Status: Acute (5) Hyperkalemia: Problem details: Hyperkalemia is due predominantly to transcell shift due to acidemia and relative insulin deficiency; mild rhabdo as well. K is 5.8 and being repeated Status: Acute (6) Acute kidney injury: Problem details: BRYSON in the setting of severe COVID 19 pneumonia, hypotensive on presentation and on a background of type II DM and HTN The most likely cause of BRYSON is ATN. 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 (17) Diabetes type 2, uncontrolled: Status: Acute (18) Dyslipidemia: Status: Acute (19) Acute hypernatremia: Status: Acute Assessment and Plan: The hypernatremia is representing in this recovering kidney a free water loss but still hypervolemic so I am increasing his free water intake via his feedings but simultaneously did diuresing him because of his respiratory distress Time Spent With Patient Time: Total time spent is greater than 50% in coordination of care (as documented) at patient's floor/unit and/or counseling patient: Total time spent with greater than 50% in coordination of care (as documented) at patient's floor/unit and/or counseling patient:: 45
[2020-04-21] MEDS: levoFLOXacin/D5W 250 MG/50 ML PIGGYBACK 50 MG IV (15:35)
[2020-04-21] MEDS: 0.9 % Sodium Chloride Flush 3 ML SYRINGE IVFLUSH ×4 (15:37→23:57)
--- NOTE | 2020-04-21 15:40 | P.PNNP_ITS ---
Subjective Subjective Date of Service: 04/21/20 Interval history: 65-year-old morbidly obese and type 2 diabetic with acute hypoxic respiratory failure from severe bilateral COVID-19 pneumonitis/ARDS complicated by a acute stage 5 renal failure briefly requiring dialysis now in post ATN phase but still notably hypervolemic with central venous pressure readings that were elevated improving with diuresis Physical Exam Vital Signs: Vital Signs: Last Vital Signs Temp 100.6 F H 04/21/20 15:00 Pulse 116 H 04/21/20 15:00 Resp 32 H 04/21/20 15:00 BP 145/70 H 04/21/20 15:00 Pulse Ox 94 04/21/20 15:00 Body Mass Index 41.5 Const: Other: Vented Resp: Auscultation: diminished lung sounds Cardio: Rate: regular rate Rhythm: regular rhythm GI: Inspection: Yes normal to inspection Palpation (GI): Soft to palpation Neuro: General: other (sedated) Objective Data Labs CBC & Chem 7: 04/21/20 04:35 04/21/20 04:35 Labs: Laboratory Results - last 24 hr 04/20/20 04/20/20 04/20/20 15:26 18:14 19:35 WBC RBC Hgb Hct MCV MCH MCHC RDW Plt Count MPV Immature Gran % (Auto) Neut % (Auto) Lymph % (Auto) [place] % (Auto) Eos % (Auto) Baso % (Auto) Lymph # (Auto) [place] # (Auto) Eos # (Auto) Baso # (Auto) Abs Immat Gran (auto) Absolute Neuts (auto) Absolute Nucleated RBC Nucleated RBC % (auto) Smear Tech's Comments PT INR APTT D-Dimer VBG pH VBG pCO2 VBG pO2 VBG HCO3 VBG O2 Saturation VBG Base Excess Sodium 148 H Potassium 4.1 Chloride 111 H Carbon Dioxide 27 Anion Gap 14 BUN 124 H* Creatinine 2.61 H Estim Creat Clear Calc 35.7 Estimated GFR 25 POC Glucose 209 H 235 H Random Glucose 256 H Calcium 7.6 L Phosphorus Magnesium 04/20/20 04/20/20 04/20/20 19:42 21:32 23:43 WBC RBC Hgb Hct MCV MCH MCHC RDW Plt Count MPV Immature Gran % (Auto) Neut % (Auto) Lymph % (Auto) [place] % (Auto) Eos % (Auto) Baso % (Auto) Lymph # (Auto) [place] # (Auto) Eos # (Auto) Baso # (Auto) Abs Immat Gran (auto) Absolute Neuts (auto) Absolute Nucleated RBC Nucleated RBC % (auto) Smear Tech's Comments PT INR APTT D-Dimer VBG pH VBG pCO2 VBG pO2 VBG HCO3 VBG O2 Saturation VBG Base Excess Sodium Potassium Chloride Carbon Dioxide Anion Gap BUN Creatinine Estim Creat Clear Calc Estimated GFR POC Glucose 230 H 237 H 225 H Random Glucose Calcium Phosphorus Magnesium 04/21/20 04/21/20 04/21/20 01:37 03:30 04:35 WBC 8.3 RBC 3.76 L Hgb 11.9 L Hct 37.0 L MCV 98.4 H MCH 31.6 MCHC 32.2 RDW 15.8 Plt Count 90 L MPV 10.6 Immature Gran % (Auto) 1.7 H Neut % (Auto) 86.4 H Lymph % (Auto) 2.1 L [place]ink[place] % (Auto) 9.7 Eos % (Auto) 0.0 Baso % (Auto) 0.1 Lymph # (Auto) 0.2 L [place]ink[place] # (Auto) 0.8 Eos # (Auto) 0.0 Baso # (Auto) 0.0 Abs Immat Gran (auto) 0.14 H Absolute Neuts (auto) 7.2 Absolute Nucleated RBC 0.020 H Nucleated RBC % (auto) 0.2 Smear Tech's Comments VERIFIED PT INR APTT D-Dimer VBG pH VBG pCO2 VBG pO2 VBG HCO3 VBG O2 Saturation VBG Base Excess Sodium Potassium Chloride Carbon Dioxide Anion Gap BUN Creatinine Estim Creat Clear Calc Estimated GFR POC Glucose 211 H 216 H Random Glucose Calcium Phosphorus Magnesium 04/21/20 04/21/20 04/21/20 04:35 04:35 04:35 WBC RBC Hgb Hct MCV MCH MCHC RDW Plt Count MPV Immature Gran % (Auto) Neut % (Auto) Lymph % (Auto) [place]ink[place] % (Auto) Eos % (Auto) Baso % (Auto) Lymph # (Auto) [place] # (Auto) Eos # (Auto) Baso # (Auto) Abs Immat Gran (auto) Absolute Neuts (auto) Absolute Nucleated RBC Nucleated RBC % (auto) Smear Tech's Comments PT 15.5 H INR 1.3 H APTT 34.5 D-Dimer 746 VBG pH 7.35 VBG pCO2 49 VBG pO2 52 VBG HCO3 26 VBG O2 Saturation 83.3 VBG Base Excess 0.3 Sodium 151 H Potassium 4.3 Chloride 114 H Carbon Dioxide 28 Anion Gap 13 BUN 119 H* Creatinine 2.31 H Estim Creat Clear Calc 40.4 Estimated GFR 29 POC Glucose Random Glucose 224 H Calcium 7.7 L Phosphorus 4.2 Magnesium 3.3 H 04/21/20 04/21/20 04/21/20 06:03 08:02 09:48 WBC RBC Hgb Hct MCV MCH MCHC RDW Plt Count MPV Immature Gran % (Auto) Neut % (Auto) Lymph % (Auto) [place]ink[place] % (Auto) Eos % (Auto) Baso % (Auto) Lymph # (Auto) [place] # (Auto) Eos # (Auto) Baso # (Auto) Abs Immat Gran (auto) Absolute Neuts (auto) Absolute Nucleated RBC Nucleated RBC % (auto) Smear Tech's Comments PT INR APTT D-Dimer VBG pH VBG pCO2 VBG pO2 VBG HCO3 VBG O2 Saturation VBG Base Excess Sodium Potassium Chloride Carbon Dioxide Anion Gap BUN Creatinine Estim Creat Clear Calc Estimated GFR POC Glucose 208 H 193 H 182 H Random Glucose Calcium Phosphorus Magnesium 04/21/20 04/21/20 11:59 13:47 WBC RBC Hgb Hct MCV MCH MCHC RDW Plt Count MPV Immature Gran % (Auto) Neut % (Auto) Lymph % (Auto) [place]ink[place] % (Auto) Eos % (Auto) Baso % (Auto) Lymph # (Auto) [place] # (Auto) Eos # (Auto) Baso # (Auto) Abs Immat Gran (auto) Absolute Neuts (auto) Absolute Nucleated RBC Nucleated RBC % (auto) Smear Tech's Comments PT INR APTT D-Dimer VBG pH VBG pCO2 VBG pO2 VBG HCO3 VBG O2 Saturation VBG Base Excess Sodium Potassium Chloride Carbon Dioxide Anion Gap BUN Creatinine Estim Creat Clear Calc Estimated GFR POC Glucose 181 H 189 H Random Glucose Calcium Phosphorus Magnesium Microbiology Microbiology Results: Microbiology 04/14/20 07:14 Blood - Venous Blood Culture - Final No growth after 5 days. 04/14/20 07:09 Blood - Venous Blood Culture - Final No growth after 5 days. 04/14/20 21:02 Sputum - Suctioned Gram Stain - Final 04/14/20 21:02 Sputum - Suctioned Sputum Culture - Final Strep agalactiae (Grp B) Assessment & Plan Assessment and plan (1) Acute kidney injury: Problem details: BRYSON in the setting of severe COVID 19 pneumonia, hypotensive on presentation and on a background of type II DM and HTN BRYSON is likely due to ATN. Shall hold HD today and reassess. Benefitting from diuresis; Shall C/W rest of current supportive care for now Status: Acute Time Spent With Patient Time: Total time spent is greater than 50% in coordination of care (as documented) at patient's floor/unit and/or counseling patient:
[2020-04-21 16:58] LABS: Anion Gap 14 (12-20); Blood Urea Nitrogen 124 mg/dL (9-16); Calcium 8.2 mg/dL (8.4-10.2); Carbon Dioxide 29 mmol/L (22-29); Chloride 117 mmol/L (96-108); Creatinine Clr Calc Pharmacy 43.1; Estimated Glomerular Filt Rate 31; Glucose Random 171 mg/dL (60-115); Potassium 4.3 mmol/l (3.3-5.1); Sodium 156 mmol/L (135-145)
[2020-04-21 17:05] LABS: Glucose, Whole Blood 175 mg/dL (60-115)
[2020-04-21] MEDS: Dextrose 5 % 500 ML 250 ML IVCONT (17:55)
[2020-04-21 18:40] LABS: Glucose, Whole Blood 180 mg/dL (60-115)
--- NOTE | 2020-04-21 19:06 | PC.NURSE ---
Pt recieved 80lasix today with good out put greater than 2000 urine. BC, urine culture and sputum cluture send off. Pt Insulin drip remains @12 units/hour. sedation vacation attempted @1555 pt began with increased HR, diaphoresis and nasal flaring. Dr Galdamez aware sedation restarted at 1630. versed up to 4/hr and propofol up to 15. pt HR came back to baseline 100s. Family updated this evening.
[2020-04-21] MEDS: Enoxaparin Sodium 120 MG/0.8 ML SYRINGE SUBCUT (21:01)
[2020-04-21] MEDS: dexAMETHasone sod phosphate 4 MG/ML VIAL IVPUSH (21:02)
[2020-04-21] MEDS: Clindamycin Phosphate/D5W 600 MG/50 ML PIGGYBACK 100 MG IV (21:56)
[2020-04-21 21:57] LABS: Glucose, Whole Blood 207 mg/dL (60-115)
[2020-04-21] MEDS: propofoL 1,000 MG/100 ML VIAL 10.8 MG IVCONT (23:55)
[2020-04-22] VITALS (28 sets, daily range): BP systolic 91–140; BP diastolic 44–70; PULSE 85–101; RESP 26–31; TEMP 37.3–38.5; O2SAT 88–95; BMI 40.5
--- NOTE | 2020-04-22 | XR_ITS ---
EXAMINATION: XR CHEST CLINICAL INFORMATION: Confirm placement of triple-lumen catheter COMPARISON: Previous day TECHNIQUE: Frontal view of the chest was obtained. FINDINGS: Left internal jugular central venous catheter terminates within the distal SVC. Right subclavian central venous catheter terminates within the mid SVC. Endotracheal tube terminates 5.6 cm above the ramón. Enteric tube terminates within the stomach. No pneumothorax. Bilateral patchy airspace opacities redemonstrated with questionable mild increase streaky opacity within the right lower lung. No pleural effusion. XR/XR chest 1V IMPRESSION: Left IJ central venous catheter terminates within the distal SVC. Remaining lines and tubes as above. Persistent bilateral patchy airspace opacity with mildly increased streaky opacity within the right lower lung.
--- NOTE | 2020-04-22 00:12 | W.PM.CCHP ---
Procedures Central Line Placement Left IJ: Consent for Procedure: Emergent-no informed consent obtained <MILO Rubin - Last Filed: 04/22/20 00:13> Time out performed: Yes <MILO Rubin Last Filed: 04/22/20 00:13> Sterile Technique Used: Yes <MILO Rubin - Last Filed: 04/22/20 00:13> Patient placed on monitor/pulse ox: Yes <MILO Rubin - Last Filed: 04/22/20 00:13> MD prep: mask, gown and gloves <MILO Rubin Last Filed: 04/22/20 00:13> Central line prep: Chlorhexidine scrub and sterile drapes applied <MILO Rubin - Last Filed: 04/22/20 00:13> Ultrasound used for placement: Yes <MILO Rubin - Last Filed: 04/22/20 00:13> Central line lumen inserted: triple <MILO Rubin - Last Filed: 04/22/20 00:13> Post procedure: sutured in place, good blood return, all ports aspirated, flushed, capped and sterile dressing applied <MILO Rubin - Last Filed: 04/22/20 00:13> Post procedure x-ray: tip of catheter in good position and no pneumothorax seen <MILO Rubin Last Filed: 04/22/20 00:13> Patient tolerated procedure: well and no complications <MILO Rubin - Last Filed: 04/22/20 00:13> Complications: none <MILO Rubin - Last Filed: 04/22/20 00:13>
[2020-04-22 00:34] LABS: Glucose, Whole Blood 205 mg/dL (60-115)
[2020-04-22 02:30] LABS: Glucose, Whole Blood 211 mg/dL (60-115)
[2020-04-22] MEDS: Midazolam HCl/NS 50 MG/50 ML PLAST..BAG IVCONT ×2 (04:14→14:19)
[2020-04-22 04:49] LABS: Glucose, Whole Blood 175 mg/dL (60-115)
[2020-04-22 05:58] LABS: Basophils Percent Auto 0.1 % (0-2); Hematocrit 38.6 % (42-52); Hemoglobin 12.3 g/dl (14.0-18.0); Imm Gran Abs Auto 0.15 X10*3/uL (0.00-0.03); Imm Gran Pct Auto 1.5 % (0.0-0.4); Lymphocytes Absolute Auto 0.2 X10*3/uL (1.2-4.9); Lymphocytes Percent Auto 1.7 % (20-40); MANUAL DIFF FLAG SCAN; Mean Corpuscular HGB Conc 31.9 g/dl (31.0-36.0); Mean Corpuscular Hemoglobin 32.8 pg (27.0-33.0); Mean Corpuscular Volume 102.9 fL (80-98); Mean Platelet Volume 11.7 fL (9.4-12.4); Monocytes Absolute Auto 0.7 X10*3/uL (0.1-1.2); Monocytes Percent Auto 7.5 % (2-11); NRBC Pct Auto 0.5 /100WBC (0.0-0.2); Neutrophils Absolute Auto 8.7 X10*3/uL (2.0-8.3); Neutrophils Percent Auto 89.2 % (45-73); Red Blood Count 3.75 X10*6/uL (4.60-5.80); Red Cell Distribution Width 16.3 % (11.0-16.0); SCAN SMEAR FLAG 1; White Blood Count 9.8 X10*3/uL (4.8-10.8)
[2020-04-22 06:04] LABS: Platelet Count 85 X10*3/uL (160-400)
[2020-04-22 06:07] LABS: Base Excess VBG 2.9 mmol/L; HCO3 VBG 28 mmol/L; Oxygen Saturation VBG 86.7 %; PCO2 VBG 45 mmhg; PO2 VBG 56 mmhg; pH VBG 7.41 (7.32-7.43)
[2020-04-22] MEDS: Famotidine/PF 20 MG/2 ML VIAL 40 MG IVPUSH ×2 (06:08→17:09)
[2020-04-22] MEDS: Insulin Regular/NS 100 UNIT/100 ML PLAST..BAG 12 UNIT IVCONT ×2 (06:09→14:19)
[2020-04-22 06:14] LABS: INTERNATIONAL NORM RATIO 1.4 (0.9-1.1); Prothrombin Time 16.5 SEC (10.8-13.0)
[2020-04-22 06:16] LABS: D Dimer 711 NG/ML
[2020-04-22 06:17] LABS: Partial Thromboplastin Time 35.1 SEC (24.1-38.0)
[2020-04-22 06:24] LABS: Blood Urea Nitrogen 125 mg/dL (9-16)
[2020-04-22 06:25] LABS: Anion Gap 14 (12-20); Calcium 8.1 mg/dL (8.4-10.2); Carbon Dioxide 28 mmol/L (22-29); Chloride 119 mmol/L (96-108); Estimated Glomerular Filt Rate 35; Glucose Random 197 mg/dL (60-115); Magnesium 3.2 mg/dL (1.6-2.6); Phosphorus 4.2 mg/dL (2.7-4.5); Potassium 4.6 mmol/l (3.3-5.1); Sodium 156 mmol/L (135-145)
[2020-04-22 06:44] LABS: Glucose, Whole Blood 191 mg/dL (60-115)
--- NOTE | 2020-04-22 07:18 | PC.NURSE ---
Patient's vent settings with no changes throughout shift. Max core temp was 101.3, patient gradually came down to 99.9 after administration of clindamycin and vancomycin and removal of excess garments and boots. A TLC was placed to the [facility] by MILO Castellanos; after placement confirmed by XRAY the RSC TLC was removed by MILO and an occlusive dressing was placed.
[2020-04-22] MEDS: Cholecalciferol (Vitamin D3) 25 MCG TABLET 50 MCG G-TUBE (07:56)
[2020-04-22] MEDS: propofoL 1,000 MG/100 ML VIAL 10.8 MG IVCONT ×2 (07:57→18:18)
[2020-04-22] MEDS: Chlorhexidine Gluc Oral Rinse 15 ML MOUTHWASH BUCCAL ×3 (07:58→20:19)
[2020-04-22] MEDS: dexAMETHasone sod phosphate 4 MG/ML VIAL IVPUSH ×2 (07:58→20:19)
[2020-04-22] MEDS: Dextrose 5 % 1,000 ML 125 ML IVCONT (08:00)
[2020-04-22] MEDS: 0.9 % Sodium Chloride Flush 3 ML SYRINGE IVFLUSH ×6 (08:00→16:22)
[2020-04-22 08:56] LABS: Glucose, Whole Blood 178 mg/dL (60-115)
[2020-04-22 09:05] LABS: SLIDE REVIEW VERIFIED
--- NOTE | 2020-04-22 09:12 | P.PNNP_ITS ---
Subjective Subjective Date of Service: 04/22/20 Interval history: 65-year-old morbidly obese and type 2 diabetic with acute hypoxic respiratory failure from severe bilateral COVID-19 pneumonitis/ARDS complicated by a acute stage 5 renal failure briefly requiring dialysis now in post ATN phase but still notably hypervolemic with central venous pressure readings that were elevated improving with diuresis Physical Exam Vital Signs: Vital Signs: Last Vital Signs Temp 100.2 F 04/22/20 08:00 Pulse 90 04/22/20 08:00 Resp 26 H 04/22/20 08:00 BP 95/47 L 04/22/20 08:00 Pulse Ox 91 L 04/22/20 08:00 Body Mass Index 40.5 Const: Other: Vented Resp: Auscultation: diminished lung sounds Cardio: Rate: regular rate GI: Palpation (GI): Soft to palpation Neuro: Other: Sedated Objective Data Labs CBC & Chem 7: 04/22/20 05:30 04/22/20 05:30 Labs: Laboratory Results - last 24 hr 04/21/20 04/21/20 04/21/20 09:48 11:59 13:47 WBC RBC Hgb Hct MCV MCH MCHC RDW Plt Count MPV Immature Gran % (Auto) Neut % (Auto) Lymph % (Auto) [place] % (Auto) Eos % (Auto) Baso % (Auto) Lymph # (Auto) [place] # (Auto) Eos # (Auto) Baso # (Auto) Abs Immat Gran (auto) Absolute Neuts (auto) Absolute Nucleated RBC Nucleated RBC % (auto) Smear Tech's Comments PT INR APTT D-Dimer VBG pH VBG pCO2 VBG pO2 VBG HCO3 VBG O2 Saturation VBG Base Excess Sodium Potassium Chloride Carbon Dioxide Anion Gap BUN Creatinine Estim Creat Clear Calc Estimated GFR POC Glucose 182 H 181 H 189 H Random Glucose Calcium Phosphorus Magnesium 04/21/20 04/21/20 04/21/20 15:51 16:32 18:23 WBC RBC Hgb Hct MCV MCH MCHC RDW Plt Count MPV Immature Gran % (Auto) Neut % (Auto) Lymph % (Auto) [place] % (Auto) Eos % (Auto) Baso % (Auto) Lymph # (Auto) [place] # (Auto) Eos # (Auto) Baso # (Auto) Abs Immat Gran (auto) Absolute Neuts (auto) Absolute Nucleated RBC Nucleated RBC % (auto) Smear Tech's Comments PT INR APTT D-Dimer VBG pH VBG pCO2 VBG pO2 VBG HCO3 VBG O2 Saturation VBG Base Excess Sodium 156 H Potassium 4.3 Chloride 117 H Carbon Dioxide 29 Anion Gap 14 BUN 124 H* Creatinine 2.15 H Estim Creat Clear Calc 43.1 Estimated GFR 31 POC Glucose 175 H 180 H Random Glucose 171 H Calcium 8.2 L D Phosphorus Magnesium 04/21/20 04/21/20 04/22/20 21:07 23:59 02:24 WBC RBC Hgb Hct MCV MCH MCHC RDW Plt Count MPV Immature Gran % (Auto) Neut % (Auto) Lymph % (Auto) [place] % (Auto) Eos % (Auto) Baso % (Auto) Lymph # (Auto) [place] # (Auto) Eos # (Auto) Baso # (Auto) Abs Immat Gran (auto) Absolute Neuts (auto) Absolute Nucleated RBC Nucleated RBC % (auto) Smear Tech's Comments PT INR APTT D-Dimer VBG pH VBG pCO2 VBG pO2 VBG HCO3 VBG O2 Saturation VBG Base Excess Sodium Potassium Chloride Carbon Dioxide Anion Gap BUN Creatinine Estim Creat Clear Calc Estimated GFR POC Glucose 207 H 205 H 211 H Random Glucose Calcium Phosphorus Magnesium 04/22/20 04/22/20 04/22/20 04:23 05:30 05:30 WBC 9.8 RBC 3.75 L Hgb 12.3 L Hct 38.6 L MCV 102.9 H MCH 32.8 MCHC 31.9 RDW 16.3 H Plt Count 85 L MPV 11.7 Immature Gran % (Auto) 1.5 H Neut % (Auto) 89.2 H Lymph % (Auto) 1.7 L [place] % (Auto) 7.5 Eos % (Auto) 0.0 Baso % (Auto) 0.1 Lymph # (Auto) 0.2 L [place] # (Auto) 0.7 Eos # (Auto) 0.0 Baso # (Auto) 0.0 Abs Immat Gran (auto) 0.15 H Absolute Neuts (auto) 8.7 H Absolute Nucleated RBC 0.050 H Nucleated RBC % (auto) 0.5 H Smear Tech's Comments VERIFIED PT 16.5 H INR 1.4 H APTT 35.1 D-Dimer 711 VBG pH VBG pCO2 VBG pO2 VBG HCO3 VBG O2 Saturation VBG Base Excess Sodium Potassium Chloride Carbon Dioxide Anion Gap BUN Creatinine Estim Creat Clear Calc Estimated GFR POC Glucose 175 H Random Glucose Calcium Phosphorus Magnesium 04/22/20 04/22/20 04/22/20 05:30 05:30 06:24 WBC RBC Hgb Hct MCV MCH MCHC RDW Plt Count MPV Immature Gran % (Auto) Neut % (Auto) Lymph % (Auto) [place] % (Auto) Eos % (Auto) Baso % (Auto) Lymph # (Auto) [place] # (Auto) Eos # (Auto) Baso # (Auto) Abs Immat Gran (auto) Absolute Neuts (auto) Absolute Nucleated RBC Nucleated RBC % (auto) Smear Tech's Comments PT INR APTT D-Dimer VBG pH 7.41 VBG pCO2 45 VBG pO2 56 VBG HCO3 28 VBG O2 Saturation 86.7 VBG Base Excess 2.9 Sodium 156 H Potassium 4.6 Chloride 119 H Carbon Dioxide 28 Anion Gap 14 BUN 125 H* Creatinine 1.93 H Estim Creat Clear Calc 48.0 Estimated GFR 35 POC Glucose 191 H Random Glucose 197 H Calcium 8.1 L Phosphorus 4.2 Magnesium 3.2 H 04/22/20 08:32 WBC RBC Hgb Hct MCV MCH MCHC RDW Plt Count MPV Immature Gran % (Auto) Neut % (Auto) Lymph % (Auto) [place] % (Auto) Eos % (Auto) Baso % (Auto) Lymph # (Auto) [place] # (Auto) Eos # (Auto) Baso # (Auto) Abs Immat Gran (auto) Absolute Neuts (auto) Absolute Nucleated RBC Nucleated RBC % (auto) Smear Tech's Comments PT INR APTT D-Dimer VBG pH VBG pCO2 VBG pO2 VBG HCO3 VBG O2 Saturation VBG Base Excess Sodium Potassium Chloride Carbon Dioxide Anion Gap BUN Creatinine Estim Creat Clear Calc Estimated GFR POC Glucose 178 H Random Glucose Calcium Phosphorus Magnesium Microbiology Microbiology Results: Microbiology 04/21/20 17:21 Urine Catheterized - [place] Catheter Urine Culture - Preliminary No growth to date. 04/14/20 07:14 Blood - Venous Blood Culture - Final No growth after 5 days. 04/14/20 07:09 Blood - Venous Blood Culture - Final No growth after 5 days. 04/14/20 21:02 Sputum - Suctioned Gram Stain - Final 04/14/20 21:02 Sputum - Suctioned Sputum Culture - Final Strep agalactiae (Grp B) Assessment & Plan Assessment and plan (1) Acute hypernatremia: Status: Acute (2) Acute kidney injury: Problem details: BRYSON in the setting of severe COVID 19 pneumonia, hypotensive on presentation and on a background of type II DM and HTN BRYSON is likely due to ATN which is improving. Hypernatremic. Needs free water replacement. Shall continue to hold HD and reassess. Benefitted from diuresis; Shall C/W rest of current supportive care for now. Will follow up Status: Acute Time Spent With Patient Time: Total time spent is greater than 50% in coordination of care (as documented) at patient's floor/unit and/or counseling patient:
[2020-04-22 09:26] LABS: Glucose Urine UA NEG (NEG); Leukocyte Esterase Urine NEG (NEG); Nitrite Urine NEG (NEG); Specific Gravity - Urine 1.015 (1.005-1.025); Urine Blood TRACE (NEG); Urine Ketones NEG (NEG); Urine Protein NEG (NEG-TRACE)
[2020-04-22 09:27] LABS: Appearance Urine CLEAR; Color Urine YELLOW
[2020-04-22 10:10] LABS: Bacteria Urine 1+ /LPF; Squamous Epithelial Cell Urine TRACE /LPF; WBC Urine 0-2 /HPF (0-4)
[2020-04-22 10:29] LABS: Glucose, Whole Blood 195 mg/dL (60-115)
--- NOTE | 2020-04-22 10:31 | PM.CCPN ---
Subjective Subjective Date of Service: 04/22/20 Interval History: 65-year-old male with acute hypoxemic respiratory failure and intubated with COVID-19 bilateral pneumonitis and ARDS complicated by acute stage 5 renal failure temporized with hemodialysis now repairing and hemodialysis catheter discontinued fresh new line lines were placed because today is now day 8 and he was completely re-cultured for low-grade temperature with a negative urinalysis we await the sputum and blood cultures but he was empirically covered with vancomycin in addition to the Levaquin that he has been on for the strep agalactiae ventilator associated pneumonia Still on FiO2 of 80% still with increased work of breathing much less labored and no accessory muscle use but high minute ventilatory requirements Sedation holiday he did awaken not with appropriate cognitive function but clearly open his eyes and oxygen saturation still borderline at 90% and in sinus rhythm rate 96 Physical Exam Vital Signs: Vital Signs: Last Vital Signs Temp 99.9 F 04/22/20 09:00 Pulse 98 04/22/20 09:00 Resp 26 H 04/22/20 09:00 BP 140/64 H 04/22/20 09:00 Pulse Ox 93 04/22/20 09:00 Body Mass Index 40.5 Const: Other: Awakens off sedation Skin intact with no wounds and no acrocyanosis Neurologic nonfocal moving all 4 extremities and intact cranial nerves Cardiac exam stable no gallops or murmurs Chest with bilateral coarse ventilator sounds no adventitious sounds Abdomen tolerating feedings soft nontender with good bowel sounds Objective Data Labs CBC & Chem 7: 04/22/20 05:30 04/22/20 05:30 Labs: Laboratory Results - last 24 hr 04/21/20 04/21/20 04/21/20 11:59 13:47 15:51 WBC RBC Hgb Hct MCV MCH MCHC RDW Plt Count MPV Immature Gran % (Auto) Neut % (Auto) Lymph % (Auto) [place] % (Auto) Eos % (Auto) Baso % (Auto) Lymph # (Auto) [place] # (Auto) Eos # (Auto) Baso # (Auto) Abs Immat Gran (auto) Absolute Neuts (auto) Absolute Nucleated RBC Nucleated RBC % (auto) Smear Tech's Comments PT INR APTT D-Dimer VBG pH VBG pCO2 VBG pO2 VBG HCO3 VBG O2 Saturation VBG Base Excess Sodium 156 H Potassium 4.3 Chloride 117 H Carbon Dioxide 29 Anion Gap 14 BUN 124 H* Creatinine 2.15 H Estim Creat Clear Calc 43.1 Estimated GFR 31 POC Glucose 181 H 189 H Random Glucose 171 H Calcium 8.2 L D Phosphorus Magnesium Urine Color Urine Appearance Urine pH Ur Specific [place] Urine Protein Urine Glucose (UA) Urine Ketones Urine Blood Urine Nitrite Ur Leukocyte Esterase Urine RBC Urine WBC Ur Squamous Epith Cells Urine Bacteria Hyaline Casts 04/21/20 04/21/20 04/21/20 16:32 18:23 21:07 WBC RBC Hgb Hct MCV MCH MCHC RDW Plt Count MPV Immature Gran % (Auto) Neut % (Auto) Lymph % (Auto) [place] % (Auto) Eos % (Auto) Baso % (Auto) Lymph # (Auto) [place] # (Auto) Eos # (Auto) Baso # (Auto) Abs Immat Gran (auto) Absolute Neuts (auto) Absolute Nucleated RBC Nucleated RBC % (auto) Smear Tech's Comments PT INR APTT D-Dimer VBG pH VBG pCO2 VBG pO2 VBG HCO3 VBG O2 Saturation VBG Base Excess Sodium Potassium Chloride Carbon Dioxide Anion Gap BUN Creatinine Estim Creat Clear Calc Estimated GFR POC Glucose 175 H 180 H 207 H Random Glucose Calcium Phosphorus Magnesium Urine Color Urine Appearance Urine pH Ur Specific [place] Urine Protein Urine Glucose (UA) Urine Ketones Urine Blood Urine Nitrite Ur Leukocyte Esterase Urine RBC Urine WBC Ur Squamous Epith Cells Urine Bacteria Hyaline Casts 04/21/20 04/22/20 04/22/20 23:59 02:24 04:23 WBC RBC Hgb Hct MCV MCH MCHC RDW Plt Count MPV Immature Gran % (Auto) Neut % (Auto) Lymph % (Auto) [place] % (Auto) Eos % (Auto) Baso % (Auto) Lymph # (Auto) [place] # (Auto) Eos # (Auto) Baso # (Auto) Abs Immat Gran (auto) Absolute Neuts (auto) Absolute Nucleated RBC Nucleated RBC % (auto) Smear Tech's Comments PT INR APTT D-Dimer VBG pH VBG pCO2 VBG pO2 VBG HCO3 VBG O2 Saturation VBG Base Excess Sodium Potassium Chloride Carbon Dioxide Anion Gap BUN Creatinine Estim Creat Clear Calc Estimated GFR POC Glucose 205 H 211 H 175 H Random Glucose Calcium Phosphorus Magnesium Urine Color Urine Appearance Urine pH Ur Specific [place] Urine Protein Urine Glucose (UA) Urine Ketones Urine Blood Urine Nitrite Ur Leukocyte Esterase Urine RBC Urine WBC Ur Squamous Epith Cells Urine Bacteria Hyaline Casts 04/22/20 04/22/20 04/22/20 05:30 05:30 05:30 WBC 9.8 RBC 3.75 L Hgb 12.3 L Hct 38.6 L MCV 102.9 H MCH 32.8 MCHC 31.9 RDW 16.3 H Plt Count 85 L MPV 11.7 Immature Gran % (Auto) 1.5 H Neut % (Auto) 89.2 H Lymph % (Auto) 1.7 L [place] % (Auto) 7.5 Eos % (Auto) 0.0 Baso % (Auto) 0.1 Lymph # (Auto) 0.2 L [place] # (Auto) 0.7 Eos # (Auto) 0.0 Baso # (Auto) 0.0 Abs Immat Gran (auto) 0.15 H Absolute Neuts (auto) 8.7 H Absolute Nucleated RBC 0.050 H Nucleated RBC % (auto) 0.5 H Smear Tech's Comments VERIFIED PT 16.5 H INR 1.4 H APTT 35.1 D-Dimer 711 VBG pH VBG pCO2 VBG pO2 VBG HCO3 VBG O2 Saturation VBG Base Excess Sodium 156 H Potassium 4.6 Chloride 119 H Carbon Dioxide 28 Anion Gap 14 BUN 125 H* Creatinine 1.93 H Estim Creat Clear Calc 48.0 Estimated GFR 35 POC Glucose Random Glucose 197 H Calcium 8.1 L Phosphorus 4.2 Magnesium 3.2 H Urine Color Urine Appearance Urine pH Ur Specific [place] Urine Protein Urine Glucose (UA) Urine Ketones Urine Blood Urine Nitrite Ur Leukocyte Esterase Urine RBC Urine WBC Ur Squamous Epith Cells Urine Bacteria Hyaline Casts 04/22/20 04/22/20 04/22/20 05:30 06:24 08:00 WBC RBC Hgb Hct MCV MCH MCHC RDW Plt Count MPV Immature Gran % (Auto) Neut % (Auto) Lymph % (Auto) [place] % (Auto) Eos % (Auto) Baso % (Auto) Lymph # (Auto) [place] # (Auto) Eos # (Auto) Baso # (Auto) Abs Immat Gran (auto) Absolute Neuts (auto) Absolute Nucleated RBC Nucleated RBC % (auto) Smear Tech's Comments PT INR APTT D-Dimer VBG pH 7.41 VBG pCO2 45 VBG pO2 56 VBG HCO3 28 VBG O2 Saturation 86.7 VBG Base Excess 2.9 Sodium Potassium Chloride Carbon Dioxide Anion Gap BUN Creatinine Estim Creat Clear Calc Estimated GFR POC Glucose 191 H Random Glucose Calcium Phosphorus Magnesium Urine Color YELLOW Urine Appearance CLEAR Urine pH 6.0 Ur Specific [place] 1.015 Urine Protein NEG Urine Glucose (UA) NEG Urine Ketones NEG Urine Blood TRACE Urine Nitrite NEG Ur Leukocyte Esterase NEG Urine RBC 1-4 Urine WBC 0-2 Ur Squamous Epith Cells TRACE Urine Bacteria 1+ Hyaline Casts 5-9 04/22/20 04/22/20 08:32 10:22 WBC RBC Hgb Hct MCV MCH MCHC RDW Plt Count MPV Immature Gran % (Auto) Neut % (Auto) Lymph % (Auto) [place] % (Auto) Eos % (Auto) Baso % (Auto) Lymph # (Auto) [place] # (Auto) Eos # (Auto) Baso # (Auto) Abs Immat Gran (auto) Absolute Neuts (auto) Absolute Nucleated RBC Nucleated RBC % (auto) Smear Tech's Comments PT INR APTT D-Dimer VBG pH VBG pCO2 VBG pO2 VBG HCO3 VBG O2 Saturation VBG Base Excess Sodium Potassium Chloride Carbon Dioxide Anion Gap BUN Creatinine Estim Creat Clear Calc Estimated GFR POC Glucose 178 H 195 H Random Glucose Calcium Phosphorus Magnesium Urine Color Urine Appearance Urine pH Ur Specific [place] Urine Protein Urine Glucose (UA) Urine Ketones Urine Blood Urine Nitrite Ur Leukocyte Esterase Urine RBC Urine WBC Ur Squamous Epith Cells Urine Bacteria Hyaline Casts Microbiology Microbiology Results: Microbiology 04/21/20 17:21 Urine Catheterized - [place] Catheter Urine Culture - Preliminary No growth to date. 04/14/20 07:14 Blood - Venous Blood Culture - Final No growth after 5 days. 04/14/20 07:09 Blood - Venous Blood Culture - Final No growth after 5 days. 04/14/20 21:02 Sputum - Suctioned Gram Stain - Final 04/14/20 21:02 Sputum - Suctioned Sputum Culture - Final Strep agalactiae (Grp B) Progress Note: A&P Assessment and plan (1) Acute hypernatremia: Status: Acute (2) Rhabdomyolysis due to COVID-19: Problem details: He remains on vent He has slightly improving CXR He is on Levaquin day 4 Status: Acute (3) Coagulopathy: Status: Acute (4) Ventilator-associated bacterial pneumonia: Problem details: He has still some areas of lung with infiltrate He has some prior Group A strep pneumonia Status: Acute (5) ARDS (adult respiratory distress syndrome): Status: Acute (6) Acute kidney injury: Problem details: BRYSON in the setting of severe COVID 19 pneumonia, hypotensive on presentation and on a background of type II DM and HTN BRYSON is likely due to ATN which is improving. Hypernatremic. Needs free water replacement. Shall continue to hold HD and reassess. Benefitted from diuresis; Shall C/W rest of current supportive care for now. Will follow up Status: Acute (7) Hyperkalemia: Problem details: Hyperkalemia is due predominantly to transcell shift due to acidemia and relative insulin deficiency; mild rhabdo as well. K is 5.8 and being repeated Status: Acute (8) Anemia: Status: Acute (9) Thrombocytopenia: Status: Acute (10) Acute hypoxemic respiratory failure due to COVID-19: Status: Acute (11) Vitamin D deficiency: Status: Acute (12) Morbid obesity: Status: Acute (13) Hypertension: Status: Acute (14) Diabetic retinopathy associated with type 2 diabetes mellitus: Status: Acute (15) Diabetic nephropathy associated with type 2 diabetes mellitus: Status: Acute (16) Diabetic polyneuropathy associated with type 2 diabetes mellitus: Status: Acute (17) Diabetes type 2, uncontrolled: Status: Acute (18) Dyslipidemia: Status: Acute Assessment and Plan: Diabetes controlled on IV insulin and renal function is now improving and we are replacing free water and the urine osmolality of 479 indicates that this free water losses solute driven and it may be largely because of the resolving rhabdomyolysis the markedly elevated BUN with urea as the solute and following his CVP which is now down to 8 so that his intravascular volume and pressure is normal Continue ventilator support and await results of cultures before continuing antibiotics but will cover until we have a confirm negative Time Spent With Patient Time: Total time spent is greater than 50% in coordination of care (as documented) at patient's floor/unit and/or counseling patient: Total time spent with greater than 50% in coordination of care (as documented) at patient's floor/unit and/or counseling patient:: 45
[2020-04-22 13:12] LABS: Glucose, Whole Blood 188 mg/dL (60-115)
[2020-04-22 14:55] LABS: Glucose, Whole Blood 190 mg/dL (60-115)
[2020-04-22] MEDS: levoFLOXacin/D5W 250 MG/50 ML PIGGYBACK 50 MG IV (16:19)
[2020-04-22 16:46] LABS: Glucose, Whole Blood 197 mg/dL (60-115)
[2020-04-22 17:26] LABS: Anion Gap 12 (12-20); Blood Urea Nitrogen 119 mg/dL (9-16); Calcium 7.6 mg/dL (8.4-10.2); Carbon Dioxide 29 mmol/L (22-29); Chloride 119 mmol/L (96-108); Creatinine Clr Calc Pharmacy 50.7; Estimated Glomerular Filt Rate 38; Glucose Random 210 mg/dL (60-115); Potassium 4.7 mmol/l (3.3-5.1); Sodium 155 mmol/L (135-145)
[2020-04-22 18:16] LABS: Glucose, Whole Blood 168 mg/dL (60-115)
--- NOTE | 2020-04-22 19:17 | PC.NURSE ---
sedation vacation attempted on pt today, pt had some movement of head and biting at tube. Pt remains on insulin drip at 11units and hour. Propofol back on at 15 at this writting. Vasopressin drip at 0.02 for MAP and fluid off loading. antibiotics as ordered. rectal tube removed. Generalized edema rEMAINS. ls DIMINISHED. vENT ac 26 [id number] fIO2 80% Peep 10. family updated
[2020-04-22] MEDS: Enoxaparin Sodium 120 MG/0.8 ML SYRINGE SUBCUT (20:19)
[2020-04-22] MEDS: Insulin Regular/NS 100 UNIT/100 ML PLAST..BAG 10 UNIT IVCONT (20:40)
[2020-04-22 21:00] LABS: Glucose, Whole Blood 148 mg/dL (60-115)
[2020-04-22 22:52] LABS: Glucose, Whole Blood 149 mg/dL (60-115)
[2020-04-22] MEDS: propofoL 1,000 MG/100 ML VIAL 14.4 MG IVCONT (23:42)
[2020-04-23] VITALS (30 sets, daily range): BP systolic 97–141; BP diastolic 44–67; PULSE 82–116; RESP 13–33; TEMP 38.4–38.8; O2SAT 90–98; BMI 41.1
--- NOTE | 2020-04-23 | XR_ITS ---
EXAMINATION: XR CHEST CLINICAL INFORMATION: COVID COMPARISON: Multiple priors, most recently 04/22/2020 TECHNIQUE: Frontal view of the chest was obtained. FINDINGS: Endotracheal tube terminates 7.0 cm above the ramón. Left internal jugular central venous catheter terminates within the mid SVC. Right subclavian central venous catheter has been removed. No significant change in the bilateral patchy and streaky airspace opacities. No pleural effusion or pneumothorax. Stable cardiac mediastinal silhouette. XR/XR chest 1V IMPRESSION: Stable airspace opacities.
[2020-04-23 01:08] LABS: Glucose, Whole Blood 127 mg/dL (60-115)
[2020-04-23 02:58] LABS: Glucose, Whole Blood 161 mg/dL (60-115)
[2020-04-23 05:07] LABS: Glucose, Whole Blood 204 mg/dL (60-115)
[2020-04-23 05:15] LABS: Hematocrit 36.6 % (42-52); Hemoglobin 11.5 g/dl (14.0-18.0); Mean Corpuscular HGB Conc 31.4 g/dl (31.0-36.0); Mean Corpuscular Hemoglobin 32.8 pg (27.0-33.0); Mean Corpuscular Volume 104.3 fL (80-98); Mean Platelet Volume 12.4 fL (9.4-12.4); Red Blood Count 3.51 X10*6/uL (4.60-5.80); Red Cell Distribution Width 16.7 % (11.0-16.0); White Blood Count 9.7 X10*3/uL (4.8-10.8)
[2020-04-23 05:22] LABS: Base Excess VBG 3.9 mmol/L; HCO3 VBG 29 mmol/L; Oxygen Saturation VBG 74.3 %; PCO2 VBG 48 mmhg; PO2 VBG 41 mmhg; pH VBG 7.41 (7.32-7.43)
[2020-04-23 05:31] LABS: D Dimer 563 NG/ML
[2020-04-23 05:37] LABS: NRBC Pct Auto 1.3 /100WBC (0.0-0.2); Platelet Count 86 X10*3/uL (160-400)
[2020-04-23 05:39] LABS: B Type Natriuretic Peptide < 10 pg/mL (<100)
[2020-04-23 05:41] LABS: Band Neutrophils Percent 4 % (3-5); Monocytes Absolute Manual 0.3 X10*3/uL (0.0-1.2); Monocytes Percent Manual 3 % (2-11)
[2020-04-23 05:42] LABS: Lymphocytes Absolute Manual 0.2 X10*3/uL (0.6-4.8); Lymphocytes Percent Manual 2 % (20-40); Neutrophils Absolute Manual 9.2 X10*3/uL (2.2-7.9); Neutrophils Percent Manual 91 % (45-73)
[2020-04-23 05:44] LABS: Blood Urea Nitrogen 113 mg/dL (9-16); RBC Morphology NOTED
[2020-04-23 05:45] LABS: Albumin Level 2.1 g/dL (3.5-5.0); Anion Gap 15 (12-20); Calcium 7.7 mg/dL (8.4-10.2); Carbon Dioxide 28 mmol/L (22-29); Chloride 118 mmol/L (96-108); Creatinine Clr Calc Pharmacy 52.2; Estimated Glomerular Filt Rate 39; Glucose Random 217 mg/dL (60-115); Macrocytosis 1+; Phosphorus 4.2 mg/dL (2.7-4.5); Potassium 4.9 mmol/l (3.3-5.1); Sodium 156 mmol/L (135-145); Target Cells 1+; Tear Drop Cells 1+
[2020-04-23 05:46] LABS: Large Platelet PRESENT; Platelet Estimate DECREASED (NORMAL); Platelet Morphology Comment NOTED; Polychromasia 1+
[2020-04-23] MEDS: propofoL 1,000 MG/100 ML VIAL 14.4 MG IVCONT ×3 (06:10→21:02)
[2020-04-23] MEDS: Famotidine/PF 20 MG/2 ML VIAL 40 MG IVPUSH (06:10)
[2020-04-23 06:51] LABS: Glucose, Whole Blood 209 mg/dL (60-115)
[2020-04-23] MEDS: Albumin Human 25 % 100 ML IV ×3 (08:35→21:02)
[2020-04-23] MEDS: 0.9 % Sodium Chloride Flush 3 ML SYRINGE IVFLUSH ×2 (08:35→17:06)
[2020-04-23] MEDS: Chlorhexidine Gluc Oral Rinse 15 ML MOUTHWASH BUCCAL ×3 (08:36→21:02)
[2020-04-23] MEDS: dexAMETHasone sod phosphate 4 MG/ML VIAL IVPUSH ×2 (08:36→21:41)
[2020-04-23] MEDS: Enoxaparin Sodium 30 MG/0.3 ML SYRINGE SUBCUT (09:04)
[2020-04-23] MEDS: Insulin Glargine,Hum.rec.anlog 100 UNIT/ML 10 ML VIAL 40 UNIT SUBCUT ×2 (09:04→21:02)
--- NOTE | 2020-04-23 09:10 | PM.PNNEP ---
Subjective Subjective Date of Service: 04/23/20 Interval history: Events noted Did not require HD over weekend UO increasing Physical Exam Vital Signs: Vital Signs: Last Vital Signs Temp 101.8 F H 04/23/20 08:58 Pulse 96 04/23/20 08:58 Resp 30 H 04/23/20 08:58 BP 121/65 04/23/20 08:58 Pulse Ox 92 04/23/20 08:58 Body Mass Index 41.1 Const: Other: Intubated General: ill appearing Neck: Neck: Yes no JVD Resp: Auscultation: rhonchi and diminished lung sounds Cardio: Other: Intubated Heart sounds: no rubs GI: Auscultation: normal bowel sounds Extrem: Left upper extremity: edema Objective Data Labs CBC & Chem 7: 04/23/20 04:42 04/23/20 04:42 Labs: Laboratory Results - last 24 hr 04/22/20 04/22/20 04/22/20 08:00 10:22 11:57 WBC RBC Hgb Hct MCV MCH MCHC RDW Plt Count MPV Immature Gran % (Auto) Neut % (Auto) Lymph % (Auto) [place] % (Auto) Eos % (Auto) Baso % (Auto) Lymph # (Auto) [place] # (Auto) Eos # (Auto) Baso # (Auto) Abs Immat Gran (auto) Absolute Neuts (auto) Absolute Nucleated RBC Nucleated RBC % (auto) Neutrophils % (Manual) Band Neutrophils % Lymphocytes % (Manual) Monocytes % (Manual) Abs Neuts (Manual) Lymphocytes # (Manual) Monocytes # (Manual) Platelet Estimate Large Platelets Plt Morphology Comment RBC Morphology Polychromasia Macrocytosis Target Cells Tear Drop Cells D-Dimer VBG pH VBG pCO2 VBG pO2 VBG HCO3 VBG O2 Saturation VBG Base Excess Sodium Potassium Chloride Carbon Dioxide Anion Gap BUN Creatinine Estim Creat Clear Calc Estimated GFR POC Glucose 195 H 188 H Random Glucose Calcium Phosphorus Magnesium B-Natriuretic Peptide Albumin Urine Color YELLOW Urine Appearance CLEAR Urine pH 6.0 Ur Specific [place] 1.015 Urine Protein NEG Urine Glucose (UA) NEG Urine Ketones NEG Urine Blood TRACE Urine Nitrite NEG Ur Leukocyte Esterase NEG Urine RBC 1-4 Urine WBC 0-2 Ur Squamous Epith Cells TRACE Urine Bacteria 1+ Hyaline Casts 5-9 04/22/20 04/22/20 04/22/20 14:12 16:25 16:45 WBC RBC Hgb Hct MCV MCH MCHC RDW Plt Count MPV Immature Gran % (Auto) Neut % (Auto) Lymph % (Auto) [place] % (Auto) Eos % (Auto) Baso % (Auto) Lymph # (Auto) [place] # (Auto) Eos # (Auto) Baso # (Auto) Abs Immat Gran (auto) Absolute Neuts (auto) Absolute Nucleated RBC Nucleated RBC % (auto) Neutrophils % (Manual) Band Neutrophils % Lymphocytes % (Manual) Monocytes % (Manual) Abs Neuts (Manual) Lymphocytes # (Manual) Monocytes # (Manual) Platelet Estimate Large Platelets Plt Morphology Comment RBC Morphology Polychromasia Macrocytosis Target Cells Tear Drop Cells D-Dimer VBG pH VBG pCO2 VBG pO2 VBG HCO3 VBG O2 Saturation VBG Base Excess Sodium 155 H Potassium 4.7 Chloride 119 H Carbon Dioxide 29 Anion Gap 12 BUN 119 H* Creatinine 1.80 H Estim Creat Clear Calc 50.7 Estimated GFR 38 POC Glucose 190 H 197 H Random Glucose 210 H Calcium 7.6 L D Phosphorus Magnesium B-Natriuretic Peptide Albumin Urine Color Urine Appearance Urine pH Ur Specific [place] Urine Protein Urine Glucose (UA) Urine Ketones Urine Blood Urine Nitrite Ur Leukocyte Esterase Urine RBC Urine WBC Ur Squamous Epith Cells Urine Bacteria Hyaline Casts 04/22/20 04/22/20 04/22/20 18:09 20:23 22:17 WBC RBC Hgb Hct MCV MCH MCHC RDW Plt Count MPV Immature Gran % (Auto) Neut % (Auto) Lymph % (Auto) [place] % (Auto) Eos % (Auto) Baso % (Auto) Lymph # (Auto) [place] # (Auto) Eos # (Auto) Baso # (Auto) Abs Immat Gran (auto) Absolute Neuts (auto) Absolute Nucleated RBC Nucleated RBC % (auto) Neutrophils % (Manual) Band Neutrophils % Lymphocytes % (Manual) Monocytes % (Manual) Abs Neuts (Manual) Lymphocytes # (Manual) Monocytes # (Manual) Platelet Estimate Large Platelets Plt Morphology Comment RBC Morphology Polychromasia Macrocytosis Target Cells Tear Drop Cells D-Dimer VBG pH VBG pCO2 VBG pO2 VBG HCO3 VBG O2 Saturation VBG Base Excess Sodium Potassium Chloride Carbon Dioxide Anion Gap BUN Creatinine Estim Creat Clear Calc Estimated GFR POC Glucose 168 H 148 H 149 H Random Glucose Calcium Phosphorus Magnesium B-Natriuretic Peptide Albumin Urine Color Urine Appearance Urine pH Ur Specific [place] Urine Protein Urine Glucose (UA) Urine Ketones Urine Blood Urine Nitrite Ur Leukocyte Esterase Urine RBC Urine WBC Ur Squamous Epith Cells Urine Bacteria Hyaline Casts 04/22/20 04/23/20 04/23/20 23:52 02:10 03:49 WBC RBC Hgb Hct MCV MCH MCHC RDW Plt Count MPV Immature Gran % (Auto) Neut % (Auto) Lymph % (Auto) [place] % (Auto) Eos % (Auto) Baso % (Auto) Lymph # (Auto) [place] # (Auto) Eos # (Auto) Baso # (Auto) Abs Immat Gran (auto) Absolute Neuts (auto) Absolute Nucleated RBC Nucleated RBC % (auto) Neutrophils % (Manual) Band Neutrophils % Lymphocytes % (Manual) Monocytes % (Manual) Abs Neuts (Manual) Lymphocytes # (Manual) Monocytes # (Manual) Platelet Estimate Large Platelets Plt Morphology Comment RBC Morphology Polychromasia Macrocytosis Target Cells Tear Drop Cells D-Dimer VBG pH VBG pCO2 VBG pO2 VBG HCO3 VBG O2 Saturation VBG Base Excess Sodium Potassium Chloride Carbon Dioxide Anion Gap BUN Creatinine Estim Creat Clear Calc Estimated GFR POC Glucose 127 H 161 H 204 H Random Glucose Calcium Phosphorus Magnesium B-Natriuretic Peptide Albumin Urine Color Urine Appearance Urine pH Ur Specific [place] Urine Protein Urine Glucose (UA) Urine Ketones Urine Blood Urine Nitrite Ur Leukocyte Esterase Urine RBC Urine WBC Ur Squamous Epith Cells Urine Bacteria Hyaline Casts 04/23/20 04/23/20 04/23/20 04:42 04:42 04:42 WBC 9.7 RBC 3.51 L Hgb 11.5 L Hct 36.6 L MCV 104.3 H MCH 32.8 MCHC 31.4 RDW 16.7 H Plt Count 86 L MPV 12.4 Immature Gran % (Auto) Cancelled Neut % (Auto) Cancelled Lymph % (Auto) Cancelled [place] % (Auto) Cancelled Eos % (Auto) Cancelled Baso % (Auto) Cancelled Lymph # (Auto) Cancelled [place] # (Auto) Cancelled Eos # (Auto) Cancelled Baso # (Auto) Cancelled Abs Immat Gran (auto) Cancelled Absolute Neuts (auto) Cancelled Absolute Nucleated RBC 0.130 H Nucleated RBC % (auto) 1.3 H Neutrophils % (Manual) 91 H Band Neutrophils % 4 Lymphocytes % (Manual) 2 L Monocytes % (Manual) 3 Abs Neuts (Manual) 9.2 H Lymphocytes # (Manual) 0.2 L Monocytes # (Manual) 0.3 Platelet Estimate DECREASED Large Platelets PRESENT Plt Morphology Comment NOTED RBC Morphology NOTED Polychromasia 1+ Macrocytosis 1+ Target Cells 1+ Tear Drop Cells 1+ D-Dimer 563 VBG pH VBG pCO2 VBG pO2 VBG HCO3 VBG O2 Saturation VBG Base Excess Sodium 156 H Potassium 4.9 Chloride 118 H Carbon Dioxide 28 Anion Gap 15 BUN 113 H* Creatinine 1.75 H Estim Creat Clear Calc 52.2 Estimated GFR 39 POC Glucose Random Glucose 217 H Calcium 7.7 L Phosphorus 4.2 Magnesium 3.0 H B-Natriuretic Peptide Albumin 2.1 L Urine Color Urine Appearance Urine pH Ur Specific [place] Urine Protein Urine Glucose (UA) Urine Ketones Urine Blood Urine Nitrite Ur Leukocyte Esterase Urine RBC Urine WBC Ur Squamous Epith Cells Urine Bacteria Hyaline Casts 04/23/20 04/23/20 04/23/20 04:42 04:42 06:23 WBC RBC Hgb Hct MCV MCH MCHC RDW Plt Count MPV Immature Gran % (Auto) Neut % (Auto) Lymph % (Auto) [place] % (Auto) Eos % (Auto) Baso % (Auto) Lymph # (Auto) [place] # (Auto) Eos # (Auto) Baso # (Auto) Abs Immat Gran (auto) Absolute Neuts (auto) Absolute Nucleated RBC Nucleated RBC % (auto) Neutrophils % (Manual) Band Neutrophils % Lymphocytes % (Manual) Monocytes % (Manual) Abs Neuts (Manual) Lymphocytes # (Manual) Monocytes # (Manual) Platelet Estimate Large Platelets Plt Morphology Comment RBC Morphology Polychromasia Macrocytosis Target Cells Tear Drop Cells D-Dimer VBG pH 7.41 VBG pCO2 48 VBG pO2 41 VBG HCO3 29 VBG O2 Saturation 74.3 VBG Base Excess 3.9 Sodium Potassium Chloride Carbon Dioxide Anion Gap BUN Creatinine Estim Creat Clear Calc Estimated GFR POC Glucose 209 H Random Glucose Calcium Phosphorus Magnesium B-Natriuretic Peptide < 10 Albumin Urine Color Urine Appearance Urine pH Ur Specific [place] Urine Protein Urine Glucose (UA) Urine Ketones Urine Blood Urine Nitrite Ur Leukocyte Esterase Urine RBC Urine WBC Ur Squamous Epith Cells Urine Bacteria Hyaline Casts Microbiology Microbiology Results: Microbiology 04/21/20 16:43 Blood - Venous Blood Culture - Preliminary No growth after 24 hours. 04/21/20 16:41 Blood - Venous Blood Culture - Preliminary No growth after 24 hours. 04/21/20 18:34 Sputum - Suctioned Gram Stain - Final 04/21/20 17:21 Urine Catheterized - [place] Catheter Urine Culture - Preliminary No growth to date. 04/14/20 07:14 Blood - Venous Blood Culture - Final No growth after 5 days. 04/14/20 07:09 Blood - Venous Blood Culture - Final No growth after 5 days. 04/14/20 21:02 Sputum - Suctioned Gram Stain - Final 04/14/20 21:02 Sputum - Suctioned Sputum Culture - Final Strep agalactiae (Grp B) Assessment & Plan Assessment and plan (1) Acute kidney injury: Problem details: BRYSON in the setting of severe COVID 19 pneumonia, hypotensive on presentation and on a background of type II DM and HTN BRYSON is likely due to ATN which is improving. No need for HD today Hypernatremic. Needs free water replacement. Benefitted from diuresis; Shall C/W rest of current supportive care for now. Status: Acute Time Spent With Patient Time: Total time spent is greater than 50% in coordination of care (as documented) at patient's floor/unit and/or counseling patient:
[2020-04-23 09:17] LABS: Glucose, Whole Blood 198 mg/dL (60-115)
--- NOTE | 2020-04-23 10:23 | MHC.CLN ---
F/U PT RECEIVING TF NEPRO AT MAX GOAL RATE 35CC/HR and 300cc q 4 hrs PROVIDES 1512KCALS (1892kcals; 28KCALS/KG WITH SEDATION BASED ON IBW), 68G PROTEIN (1.0G/KG), 2410CC TOTAL FREE WATER FROM FORMULA AND FLUSHES (36CC/KG BASED ON IBW) TOLERATING PER NSG MONITOR TOLERANCE, RESIDUALS AND LYTES
--- NOTE | 2020-04-23 10:31 | MHC.CM.PN ---
Patient remains intubated/vented in ICU. Patient is from home with his sig other, had no services prior to coming to the hospital. Continue to monitor for d/c needs.
[2020-04-23] MEDS: Furosemide 40 MG/4 ML VIAL IVPUSH (11:22)
[2020-04-23 11:49] LABS: Glucose, Whole Blood 232 mg/dL (60-115)
--- NOTE | 2020-04-23 14:27 | P.PNCC_ITS ---
Subjective Subjective Date of Service: 04/23/20 Interval History: 65-year-old gentleman with underlying history of obesity, COPD, SHIAR/obesity hyperventilation syndrome, diabetes, liver disease, admitted on 04/14/2020 with dyspnea and fevers secondary to COVID-19 requiring intubation and ventilatory support. Hospital course further complicated by acute renal failure requiring temporary hemodialysis, bacterial pneumonia, and encephalopathy. No events overnight. Poor arousal with sedation vacation today. Physical Exam Vital Signs: Vital Signs: Last Vital Signs Temp 101.5 F H 04/23/20 13:00 Pulse 97 04/23/20 13:00 Resp 33 H 04/23/20 12:00 BP 107/63 04/23/20 13:00 Pulse Ox 93 04/23/20 13:00 Body Mass Index 41.1 Const: General: no acute distress; No alert (With sedation vacation) or awake Nutritional Appearance: obese and other (Anasarca) Eyes: Sclerae: sclerae normal Neck: Neck: Yes no lymphadenopathy, Yes trachea midline and Yes supple Resp: Auscultation: crackles (Bilateral) Cardio: Rate: tachycardic Rhythm: regular rhythm Heart sounds: no gallops, no murmurs and no rubs GI: Palpation (GI): Soft to palpation and Other GI palpation findings present ( Nontender) Auscultation: normal bowel sounds Extrem: General: No clubbing, No cyanosis and Yes edema (2+ bilateral) Objective Data Labs CBC & Chem 7: 04/23/20 04:42 04/23/20 04:42 Labs: Laboratory Results - last 24 hr 04/22/20 04/22/20 04/22/20 14:12 16:25 16:45 WBC RBC Hgb Hct MCV MCH MCHC RDW Plt Count MPV Immature Gran % (Auto) Neut % (Auto) Lymph % (Auto) [place] % (Auto) Eos % (Auto) Baso % (Auto) Lymph # (Auto) [place] # (Auto) Eos # (Auto) Baso # (Auto) Abs Immat Gran (auto) Absolute Neuts (auto) Absolute Nucleated RBC Nucleated RBC % (auto) Neutrophils % (Manual) Band Neutrophils % Lymphocytes % (Manual) Monocytes % (Manual) Abs Neuts (Manual) Lymphocytes # (Manual) Monocytes # (Manual) Platelet Estimate Large Platelets Plt Morphology Comment RBC Morphology Polychromasia Macrocytosis Target Cells Tear Drop Cells D-Dimer VBG pH VBG pCO2 VBG pO2 VBG HCO3 VBG O2 Saturation VBG Base Excess Sodium 155 H Potassium 4.7 Chloride 119 H Carbon Dioxide 29 Anion Gap 12 BUN 119 H* Creatinine 1.80 H Estim Creat Clear Calc 50.7 Estimated GFR 38 POC Glucose 190 H 197 H Random Glucose 210 H Calcium 7.6 L D Phosphorus Magnesium B-Natriuretic Peptide Albumin 04/22/20 04/22/20 04/22/20 18:09 20:23 22:17 WBC RBC Hgb Hct MCV MCH MCHC RDW Plt Count MPV Immature Gran % (Auto) Neut % (Auto) Lymph % (Auto) [place] % (Auto) Eos % (Auto) Baso % (Auto) Lymph # (Auto) [place] # (Auto) Eos # (Auto) Baso # (Auto) Abs Immat Gran (auto) Absolute Neuts (auto) Absolute Nucleated RBC Nucleated RBC % (auto) Neutrophils % (Manual) Band Neutrophils % Lymphocytes % (Manual) Monocytes % (Manual) Abs Neuts (Manual) Lymphocytes # (Manual) Monocytes # (Manual) Platelet Estimate Large Platelets Plt Morphology Comment RBC Morphology Polychromasia Macrocytosis Target Cells Tear Drop Cells D-Dimer VBG pH VBG pCO2 VBG pO2 VBG HCO3 VBG O2 Saturation VBG Base Excess Sodium Potassium Chloride Carbon Dioxide Anion Gap BUN Creatinine Estim Creat Clear Calc Estimated GFR POC Glucose 168 H 148 H 149 H Random Glucose Calcium Phosphorus Magnesium B-Natriuretic Peptide Albumin 04/22/20 04/23/20 04/23/20 23:52 02:10 03:49 WBC RBC Hgb Hct MCV MCH MCHC RDW Plt Count MPV Immature Gran % (Auto) Neut % (Auto) Lymph % (Auto) [place] % (Auto) Eos % (Auto) Baso % (Auto) Lymph # (Auto) [place] # (Auto) Eos # (Auto) Baso # (Auto) Abs Immat Gran (auto) Absolute Neuts (auto) Absolute Nucleated RBC Nucleated RBC % (auto) Neutrophils % (Manual) Band Neutrophils % Lymphocytes % (Manual) Monocytes % (Manual) Abs Neuts (Manual) Lymphocytes # (Manual) Monocytes # (Manual) Platelet Estimate Large Platelets Plt Morphology Comment RBC Morphology Polychromasia Macrocytosis Target Cells Tear Drop Cells D-Dimer VBG pH VBG pCO2 VBG pO2 VBG HCO3 VBG O2 Saturation VBG Base Excess Sodium Potassium Chloride Carbon Dioxide Anion Gap BUN Creatinine Estim Creat Clear Calc Estimated GFR POC Glucose 127 H 161 H 204 H Random Glucose Calcium Phosphorus Magnesium B-Natriuretic Peptide Albumin 04/23/20 04/23/20 04/23/20 04:42 04:42 04:42 WBC 9.7 RBC 3.51 L Hgb 11.5 L Hct 36.6 L MCV 104.3 H MCH 32.8 MCHC 31.4 RDW 16.7 H Plt Count 86 L MPV 12.4 Immature Gran % (Auto) Cancelled Neut % (Auto) Cancelled Lymph % (Auto) Cancelled [place] % (Auto) Cancelled Eos % (Auto) Cancelled Baso % (Auto) Cancelled Lymph # (Auto) Cancelled [place] # (Auto) Cancelled Eos # (Auto) Cancelled Baso # (Auto) Cancelled Abs Immat Gran (auto) Cancelled Absolute Neuts (auto) Cancelled Absolute Nucleated RBC 0.130 H Nucleated RBC % (auto) 1.3 H Neutrophils % (Manual) 91 H Band Neutrophils % 4 Lymphocytes % (Manual) 2 L Monocytes % (Manual) 3 Abs Neuts (Manual) 9.2 H Lymphocytes # (Manual) 0.2 L Monocytes # (Manual) 0.3 Platelet Estimate DECREASED Large Platelets PRESENT Plt Morphology Comment NOTED RBC Morphology NOTED Polychromasia 1+ Macrocytosis 1+ Target Cells 1+ Tear Drop Cells 1+ D-Dimer 563 VBG pH VBG pCO2 VBG pO2 VBG HCO3 VBG O2 Saturation VBG Base Excess Sodium 156 H Potassium 4.9 Chloride 118 H Carbon Dioxide 28 Anion Gap 15 BUN 113 H* Creatinine 1.75 H Estim Creat Clear Calc 52.2 Estimated GFR 39 POC Glucose Random Glucose 217 H Calcium 7.7 L Phosphorus 4.2 Magnesium 3.0 H B-Natriuretic Peptide Albumin 2.1 L 04/23/20 04/23/20 04/23/20 04:42 04:42 06:23 WBC RBC Hgb Hct MCV MCH MCHC RDW Plt Count MPV Immature Gran % (Auto) Neut % (Auto) Lymph % (Auto) [place] % (Auto) Eos % (Auto) Baso % (Auto) Lymph # (Auto) [place] # (Auto) Eos # (Auto) Baso # (Auto) Abs Immat Gran (auto) Absolute Neuts (auto) Absolute Nucleated RBC Nucleated RBC % (auto) Neutrophils % (Manual) Band Neutrophils % Lymphocytes % (Manual) Monocytes % (Manual) Abs Neuts (Manual) Lymphocytes # (Manual) Monocytes # (Manual) Platelet Estimate Large Platelets Plt Morphology Comment RBC Morphology Polychromasia Macrocytosis Target Cells Tear Drop Cells D-Dimer VBG pH 7.41 VBG pCO2 48 VBG pO2 41 VBG HCO3 29 VBG O2 Saturation 74.3 VBG Base Excess 3.9 Sodium Potassium Chloride Carbon Dioxide Anion Gap BUN Creatinine Estim Creat Clear Calc Estimated GFR POC Glucose 209 H Random Glucose Calcium Phosphorus Magnesium B-Natriuretic Peptide < 10 Albumin 04/23/20 04/23/20 08:41 11:40 WBC RBC Hgb Hct MCV MCH MCHC RDW Plt Count MPV Immature Gran % (Auto) Neut % (Auto) Lymph % (Auto) [place] % (Auto) Eos % (Auto) Baso % (Auto) Lymph # (Auto) [place] # (Auto) Eos # (Auto) Baso # (Auto) Abs Immat Gran (auto) Absolute Neuts (auto) Absolute Nucleated RBC Nucleated RBC % (auto) Neutrophils % (Manual) Band Neutrophils % Lymphocytes % (Manual) Monocytes % (Manual) Abs Neuts (Manual) Lymphocytes # (Manual) Monocytes # (Manual) Platelet Estimate Large Platelets Plt Morphology Comment RBC Morphology Polychromasia Macrocytosis Target Cells Tear Drop Cells D-Dimer VBG pH VBG pCO2 VBG pO2 VBG HCO3 VBG O2 Saturation VBG Base Excess Sodium Potassium Chloride Carbon Dioxide Anion Gap BUN Creatinine Estim Creat Clear Calc Estimated GFR POC Glucose 198 H 232 H Random Glucose Calcium Phosphorus Magnesium B-Natriuretic Peptide Albumin Microbiology Microbiology Results: Microbiology 04/21/20 18:34 Sputum - Suctioned Gram Stain - Final 04/21/20 18:34 Sputum - Suctioned Sputum Culture - Preliminary Gram negative cortez 04/21/20 16:43 Blood - Venous Blood Culture - Preliminary No growth after 24 hours. 04/21/20 16:41 Blood - Venous Blood Culture - Preliminary No growth after 24 hours. 04/21/20 17:21 Urine Catheterized - [place] Catheter Urine Culture - Preliminary No growth to date. 04/14/20 07:14 Blood - Venous Blood Culture - Final No growth after 5 days. 04/14/20 07:09 Blood - Venous Blood Culture - Final No growth after 5 days. 04/14/20 21:02 Sputum - Suctioned Gram Stain - Final 04/14/20 21:02 Sputum - Suctioned Sputum Culture - Final Strep agalactiae (Grp B) Progress Note: A&P Assessment and plan (1) Morbid obesity: Status: Acute Assessment and Plan: Assessment: 65-year-old gentleman with underlying obesity, COPD, diabetes mellitus, liver disease admitted on 04/14/2020 with acute hypoxemic respiratory failure secondary to COVID-19 ARDS requiring ventilatory support with hospital course further complicated by acute kidney injury, bacterial pneumonia, and acute encephalopathy. Plan: Neuro: Acute encephalopathy, poor arousal with sedation vacation. Toxic versus hepatic versus metabolic. Will obtain MRI if not improving on sedation vacation in 24-48 hours. Cardiac: No acute issues. Pulmonary: Acute hypoxic respiratory failure secondary to COVID-19 ARDS requiring ventilatory support. Continue to titrate off as tolerated. Renal: Acute renal failure secondary to COVID-19 micro thrombolysis requiring temporary dialysis, now improved. Continue with fluid mobilization. Nephrology service care appreciated. Endo: No acute issues. Underlying diabetes mellitus. 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 ID: COVID 19 status post dexamethasone. Now with bacterial superinfection, continue lyons Levaquin. Gram-negative rods and the most recent sputum culture, will await speciation, if Pseudomonas will change to meropenem. Infectious Disease service care appreciated. Heme/Onc: No acute issues. Chronic thrombocytopenia. Psych: No acute issues. Miscellaneous: No acute issues. Prophylaxis: Heparin Diet: Tube feeds Critical care time spent: 60 minutes (2) Diabetes type 2, uncontrolled: Status: Acute (3) Thrombocytopenia: Status: Acute (4) Acute kidney injury: Status: Acute (5) ARDS (adult respiratory distress syndrome): Status: Acute (6) Acute hypoxemic respiratory failure due to COVID-19: Status: Acute Time Spent With Patient Total time spent with greater than 50% in coordination of care (as documented) at patient's floor/unit and/or counseling patient:: 0 Critical Care Time Critical Care Time (minutes): 60
--- NOTE | 2020-04-23 15:05 | P.PNID_ITS ---
Subjective Subjective Date of Service: 04/23/20 Interval History: he has had fever to 102 last 24 hours no focal symptoms Objective Data Labs CBC & Chem 7: 04/23/20 04:42 04/23/20 04:42 Labs: Laboratory Results - last 24 hr 04/22/20 04/22/20 04/22/20 16:25 16:45 18:09 WBC RBC Hgb Hct MCV MCH MCHC RDW Plt Count MPV Immature Gran % (Auto) Neut % (Auto) Lymph % (Auto) [place] % (Auto) Eos % (Auto) Baso % (Auto) Lymph # (Auto) [place] # (Auto) Eos # (Auto) Baso # (Auto) Abs Immat Gran (auto) Absolute Neuts (auto) Absolute Nucleated RBC Nucleated RBC % (auto) Neutrophils % (Manual) Band Neutrophils % Lymphocytes % (Manual) Monocytes % (Manual) Abs Neuts (Manual) Lymphocytes # (Manual) Monocytes # (Manual) Platelet Estimate Large Platelets Plt Morphology Comment RBC Morphology Polychromasia Macrocytosis Target Cells Tear Drop Cells D-Dimer VBG pH VBG pCO2 VBG pO2 VBG HCO3 VBG O2 Saturation VBG Base Excess Sodium 155 H Potassium 4.7 Chloride 119 H Carbon Dioxide 29 Anion Gap 12 BUN 119 H* Creatinine 1.80 H Estim Creat Clear Calc 50.7 Estimated GFR 38 POC Glucose 197 H 168 H Random Glucose 210 H Calcium 7.6 L D Phosphorus Magnesium B-Natriuretic Peptide Albumin 04/22/20 04/22/20 04/22/20 20:23 22:17 23:52 WBC RBC Hgb Hct MCV MCH MCHC RDW Plt Count MPV Immature Gran % (Auto) Neut % (Auto) Lymph % (Auto) [place] % (Auto) Eos % (Auto) Baso % (Auto) Lymph # (Auto) [place] # (Auto) Eos # (Auto) Baso # (Auto) Abs Immat Gran (auto) Absolute Neuts (auto) Absolute Nucleated RBC Nucleated RBC % (auto) Neutrophils % (Manual) Band Neutrophils % Lymphocytes % (Manual) Monocytes % (Manual) Abs Neuts (Manual) Lymphocytes # (Manual) Monocytes # (Manual) Platelet Estimate Large Platelets Plt Morphology Comment RBC Morphology Polychromasia Macrocytosis Target Cells Tear Drop Cells D-Dimer VBG pH VBG pCO2 VBG pO2 VBG HCO3 VBG O2 Saturation VBG Base Excess Sodium Potassium Chloride Carbon Dioxide Anion Gap BUN Creatinine Estim Creat Clear Calc Estimated GFR POC Glucose 148 H 149 H 127 H Random Glucose Calcium Phosphorus Magnesium B-Natriuretic Peptide Albumin 04/23/20 04/23/20 04/23/20 02:10 03:49 04:42 WBC 9.7 RBC 3.51 L Hgb 11.5 L Hct 36.6 L MCV 104.3 H MCH 32.8 MCHC 31.4 RDW 16.7 H Plt Count 86 L MPV 12.4 Immature Gran % (Auto) Cancelled Neut % (Auto) Cancelled Lymph % (Auto) Cancelled [place] % (Auto) Cancelled Eos % (Auto) Cancelled Baso % (Auto) Cancelled Lymph # (Auto) Cancelled [place] # (Auto) Cancelled Eos # (Auto) Cancelled Baso # (Auto) Cancelled Abs Immat Gran (auto) Cancelled Absolute Neuts (auto) Cancelled Absolute Nucleated RBC 0.130 H Nucleated RBC % (auto) 1.3 H Neutrophils % (Manual) 91 H Band Neutrophils % 4 Lymphocytes % (Manual) 2 L Monocytes % (Manual) 3 Abs Neuts (Manual) 9.2 H Lymphocytes # (Manual) 0.2 L Monocytes # (Manual) 0.3 Platelet Estimate DECREASED Large Platelets PRESENT Plt Morphology Comment NOTED RBC Morphology NOTED Polychromasia 1+ Macrocytosis 1+ Target Cells 1+ Tear Drop Cells 1+ D-Dimer VBG pH VBG pCO2 VBG pO2 VBG HCO3 VBG O2 Saturation VBG Base Excess Sodium Potassium Chloride Carbon Dioxide Anion Gap BUN Creatinine Estim Creat Clear Calc Estimated GFR POC Glucose 161 H 204 H Random Glucose Calcium Phosphorus Magnesium B-Natriuretic Peptide Albumin 04/23/20 04/23/20 04/23/20 04:42 04:42 04:42 WBC RBC Hgb Hct MCV MCH MCHC RDW Plt Count MPV Immature Gran % (Auto) Neut % (Auto) Lymph % (Auto) [place] % (Auto) Eos % (Auto) Baso % (Auto) Lymph # (Auto) [place] # (Auto) Eos # (Auto) Baso # (Auto) Abs Immat Gran (auto) Absolute Neuts (auto) Absolute Nucleated RBC Nucleated RBC % (auto) Neutrophils % (Manual) Band Neutrophils % Lymphocytes % (Manual) Monocytes % (Manual) Abs Neuts (Manual) Lymphocytes # (Manual) Monocytes # (Manual) Platelet Estimate Large Platelets Plt Morphology Comment RBC Morphology Polychromasia Macrocytosis Target Cells Tear Drop Cells D-Dimer 563 VBG pH VBG pCO2 VBG pO2 VBG HCO3 VBG O2 Saturation VBG Base Excess Sodium 156 H Potassium 4.9 Chloride 118 H Carbon Dioxide 28 Anion Gap 15 BUN 113 H* Creatinine 1.75 H Estim Creat Clear Calc 52.2 Estimated GFR 39 POC Glucose Random Glucose 217 H Calcium 7.7 L Phosphorus 4.2 Magnesium 3.0 H B-Natriuretic Peptide < 10 Albumin 2.1 L 04/23/20 04/23/20 04/23/20 04:42 06:23 08:41 WBC RBC Hgb Hct MCV MCH MCHC RDW Plt Count MPV Immature Gran % (Auto) Neut % (Auto) Lymph % (Auto) [place] % (Auto) Eos % (Auto) Baso % (Auto) Lymph # (Auto) [place] # (Auto) Eos # (Auto) Baso # (Auto) Abs Immat Gran (auto) Absolute Neuts (auto) Absolute Nucleated RBC Nucleated RBC % (auto) Neutrophils % (Manual) Band Neutrophils % Lymphocytes % (Manual) Monocytes % (Manual) Abs Neuts (Manual) Lymphocytes # (Manual) Monocytes # (Manual) Platelet Estimate Large Platelets Plt Morphology Comment RBC Morphology Polychromasia Macrocytosis Target Cells Tear Drop Cells D-Dimer VBG pH 7.41 VBG pCO2 48 VBG pO2 41 VBG HCO3 29 VBG O2 Saturation 74.3 VBG Base Excess 3.9 Sodium Potassium Chloride Carbon Dioxide Anion Gap BUN Creatinine Estim Creat Clear Calc Estimated GFR POC Glucose 209 H 198 H Random Glucose Calcium Phosphorus Magnesium B-Natriuretic Peptide Albumin 04/23/20 11:40 WBC RBC Hgb Hct MCV MCH MCHC RDW Plt Count MPV Immature Gran % (Auto) Neut % (Auto) Lymph % (Auto) [place] % (Auto) Eos % (Auto) Baso % (Auto) Lymph # (Auto) [place] # (Auto) Eos # (Auto) Baso # (Auto) Abs Immat Gran (auto) Absolute Neuts (auto) Absolute Nucleated RBC Nucleated RBC % (auto) Neutrophils % (Manual) Band Neutrophils % Lymphocytes % (Manual) Monocytes % (Manual) Abs Neuts (Manual) Lymphocytes # (Manual) Monocytes # (Manual) Platelet Estimate Large Platelets Plt Morphology Comment RBC Morphology Polychromasia Macrocytosis Target Cells Tear Drop Cells D-Dimer VBG pH VBG pCO2 VBG pO2 VBG HCO3 VBG O2 Saturation VBG Base Excess Sodium Potassium Chloride Carbon Dioxide Anion Gap BUN Creatinine Estim Creat Clear Calc Estimated GFR POC Glucose 232 H Random Glucose Calcium Phosphorus Magnesium B-Natriuretic Peptide Albumin Microbiology Microbiology Results: Microbiology 04/21/20 18:34 Sputum - Suctioned Gram Stain - Final 04/21/20 18:34 Sputum - Suctioned Sputum Culture - Preliminary Gram negative cortez 04/21/20 16:43 Blood - Venous Blood Culture - Preliminary No growth after 24 hours. 04/21/20 16:41 Blood - Venous Blood Culture - Preliminary No growth after 24 hours. 04/21/20 17:21 Urine Catheterized - [place] Catheter Urine Culture - Preliminary No growth to date. 04/14/20 07:14 Blood - Venous Blood Culture - Final No growth after 5 days. 04/14/20 07:09 Blood - Venous Blood Culture - Final No growth after 5 days. 04/14/20 21:02 Sputum - Suctioned Gram Stain - Final 04/14/20 21:02 Sputum - Suctioned Sputum Culture - Final Strep agalactiae (Grp B) Physical Exam Vital Signs: Vital Signs: Last Vital Signs Temp 101.5 F H 04/23/20 13:00 Pulse 97 04/23/20 13:00 Resp 33 H 04/23/20 12:00 BP 107/63 04/23/20 13:00 Pulse Ox 93 04/23/20 13:00 Body Mass Index 41.1 Const: General: cooperative HENMT: Head: Yes normal to inspection Mouth: oropharynx normal Resp: Effort & Inspection: normal respiratory effort Cardio: Rate: regular rate Rhythm: regular rhythm GI: Inspection: Yes normal to inspection Assessment and Plan Assessment and plan (1) Ventilator-associated bacterial pneumonia: Problem details: He has still some areas of lung with infiltrate He has some prior Group A strep pneumonia Status: Acute (2) Fever of unknown origin (FUO): Problem details: He had prior Group A strep He has new gram negative sputum Gram negative in sputeum and splenic portal confluence thrombosis may be cause of fever Status: Acute Assessment and Plan: Stop Levaquin Give Merepenem Anticoagulation prn need Time Spent With Patient Time: Total time spent is greater than 50% in coordination of care (as documented) at patient's floor/unit and/or counseling patient: Time with patient: 15 - 24 minutes
[2020-04-23] MEDS: Famotidine/PF 20 MG/2 ML VIAL IVPUSH (17:10)
[2020-04-23 17:28] LABS: Glucose, Whole Blood 320 mg/dL (60-115)
[2020-04-23] MEDS: Insulin Lispro 100 UNIT/ML 3 ML VIAL SUBCUT (18:17)
--- NOTE | 2020-04-23 19:16 | PC.NURSE ---
pt had CVP line DC'd today, Vasopressin off, insulin drip off, lantus and Sliding scale for POC coverage. Pt remains vented AC 20 650 75% FiO2 10 peep. occasional coughing while on sedation vacation 11:30-1500. head movement only pupils 2 and sluggish. Lasix given with good effect output, 1425 this shift. Rectal tube in place after removal yesterday. Lung sounds diminished, occasionally today pt presented with plural rub which cleared by shifts end. Pt remain edematous with decrease Pedal pulse to right foot. antibiotic for sputum culture gram neg rods, see labs family updated at 1910
[2020-04-23 23:34] LABS: Glucose, Whole Blood 356 mg/dL (60-115)
[2020-04-24] VITALS (26 sets, daily range): BP systolic 112–171; BP diastolic 44–66; PULSE 80–107; RESP 13–33; TEMP 37.8–38.8; O2SAT 87–96; BMI 40.4
--- NOTE | 2020-04-24 | CT_ITS ---
EXAMINATION: CT HEAD WITHOUT CONTRAST CLINICAL INFORMATION: Altered mental status COMPARISON: 10/03/2018 TECHNIQUE: Contiguous axial imaging was performed from the skull base to vertex without intravenous administration of contrast. This CT examination was performed using dose optimization techniques as appropriate, variously including the following: *Automated exposure control *Adjustment of mA and/or kV according to patient size (this includes techniques or standardized protocols for targeted exams where dose is matched to indication/reason for exam; i.e. extremities or head) *Use of iterative reconstruction technique DLP: 815 mGy-cm FINDINGS: Again seen is evidence of prior left frontal, parietal, temporal craniotomy. There is density along the course of the left middle cerebral artery, either a clip or omental mass. This was present previously and is unchanged. There is encephalomalacia in the left MCA territory, similar to the prior study. There is a remote left caudate head lacunar infarct. Otherwise, ortiz-white differentiation is maintained without evidence of new acute large vessel territory ischemia. There is some dural thickening subjacent to the craniotomy but no extra-axial fluid collection to suggest intracranial hemorrhage. No subarachnoid or intraparenchymal hemorrhage seen. No mass effect or midline shift. Ventricles and sulci are similar in configuration to the prior study. Globes and orbits are normal. There is partial opacification of the mastoid air cells bilaterally. There is trace dependent fluid the right maxillary sinus. CT/CT head/brain wo con IMPRESSION: Similar appearance of chronic abnormalities. No acute abnormality seen.
[2020-04-24] MEDS: Insulin Lispro 100 UNIT/ML 3 ML VIAL SUBCUT ×4 (00:06→19:27)
[2020-04-24] MEDS: propofoL 1,000 MG/100 ML VIAL 14.4 MG IVCONT (03:01)
[2020-04-24] MEDS: Albumin Human 25 % 100 ML IV (03:20)
[2020-04-24] MEDS: Famotidine/PF 20 MG/2 ML VIAL IVPUSH ×2 (05:20→19:27)
[2020-04-24 05:58] LABS: Basophils Percent Auto 0.1 % (0-2); Glucose, Whole Blood 394 mg/dL (60-115); Hemoglobin 9.7 g/dl (14.0-18.0); Imm Gran Abs Auto 0.15 X10*3/uL (0.00-0.03); Imm Gran Pct Auto 1.4 % (0.0-0.4); Lymphocytes Absolute Auto 0.2 X10*3/uL (1.2-4.9); Lymphocytes Percent Auto 1.8 % (20-40); MANUAL DIFF FLAG SCAN; Mean Corpuscular HGB Conc 31.3 g/dl (31.0-36.0); Mean Corpuscular Hemoglobin 32.4 pg (27.0-33.0); Mean Corpuscular Volume 103.7 fL (80-98); Mean Platelet Volume 12.8 fL (9.4-12.4); Monocytes Absolute Auto 0.7 X10*3/uL (0.1-1.2); Monocytes Percent Auto 6.1 % (2-11); NRBC Pct Auto 1.4 /100WBC (0.0-0.2); Neutrophils Percent Auto 90.6 % (45-73); Platelet Count 95 X10*3/uL (160-400); Red Blood Count 2.99 X10*6/uL (4.60-5.80); Red Cell Distribution Width 16.7 % (11.0-16.0); SCAN SMEAR FLAG 1; White Blood Count 11.1 X10*3/uL (4.8-10.8)
[2020-04-24 06:10] LABS: HCO3 VBG 28 mmol/L; PCO2 VBG 41 mmhg; PO2 VBG 53 mmhg; pH VBG 7.45 (7.32-7.43)
[2020-04-24 06:11] LABS: Base Excess VBG 3.3 mmol/L; Oxygen Saturation VBG 86.4 %
[2020-04-24 06:22] LABS: Ammonia 57 umol/L (13-55)
[2020-04-24 07:24] LABS: SLIDE REVIEW VERIFIED
[2020-04-24] MEDS: 0.9 % Sodium Chloride Flush 3 ML SYRINGE IVFLUSH ×2 (07:50→16:31)
[2020-04-24] MEDS: propofoL 1,000 MG/100 ML VIAL 21.6 MG IVCONT ×3 (07:57→21:03)
--- NOTE | 2020-04-24 08:03 | P.CDIC_ITS ---
[facility] Concurrent Query Service Date: 04/24/20 Documentation Clarification: Please clarify if you are treating a proba ble/suspected/likely or confirmed: Consistency of documentation: Sepsis due to Covid-19/Pneumonia/ARDS with Acute hypoxic and hypercarbic respiratory failure POA Severe Sepsis with shock due to Covid-19/Pneumonia/ARDS w Acute hypoxic and hypercarbic respiratory failure Please specify if known Provider Response: Other Other Diagnosis: Severe sepsis with end-organ dysfunction secondary to COVID-19 PLEASE DO NOT DELETE/MODIFY EXISTING CONTENT Additional information is needed in order to code to the highest accuracy and appropriate Severity of Illness (SOI). Please clarify the information noted below in your progress notes and discharge summary. Risk Factors/Clinical Indicators/Treatments ICU 04/14 - Bilateral infiltrates/ARDS 2nd to Covid-19 with Acute hypoxemic and hypercarbic respiratory failure CXR Consistent with Covid-19 pneumonia presumed Septic shock, empiric C eftriaxone, Zithromycin, Doxycycline, Solumedrol, ICU admit, intubated and vent. BRYSON 2nd to Sepsis vs. Covid-19. ICU 04/15 - Acute respiratory failure, CRP up, prolactin up to 80 hypotensive probably bacterial septic shock, bump up in wbc. CDS: Corrina Driver CCS, [facility] Contact Number: [phone] Please Review the information above and exercise your independent professional j udgment in responding to the query. If you concur, pleas document in the PROGRESS NOTES and DISCHARGE SUMMARY. If you do not agree with the query, p shasha document in the query above. THIS QUERY IS PART OF THE PERMANENT MEDICAL RECORD
[2020-04-24] MEDS: Insulin Glargine,Hum.rec.anlog 100 UNIT/ML 10 ML VIAL 40 UNIT SUBCUT (08:22)
[2020-04-24] MEDS: Chlorhexidine Gluc Oral Rinse 15 ML MOUTHWASH BUCCAL ×3 (08:22→21:02)
[2020-04-24] MEDS: dexAMETHasone sod phosphate 4 MG/ML VIAL IVPUSH ×2 (08:22→21:02)
--- NOTE | 2020-04-24 08:59 | PM.PNNEP ---
Subjective Subjective Date of Service: 04/24/20 Interval history: Events noted Spiked Temp UO noted Physical Exam Vital Signs: Vital Signs: Last Vital Signs Temp 101.3 F H 04/24/20 07:55 Pulse 83 04/24/20 07:55 Resp 29 H 04/24/20 07:55 BP 131/54 L 04/24/20 07:55 Pulse Ox 95 04/24/20 07:55 Body Mass Index 40.4 Const: General: ill appearing Objective Data Labs CBC & Chem 7: 04/24/20 05:25 04/23/20 04:42 Labs: Laboratory Results - last 24 hr 04/23/20 04/23/20 04/23/20 08:41 11:40 17:15 WBC RBC Hgb Hct MCV MCH MCHC RDW Plt Count MPV Immature Gran % (Auto) Neut % (Auto) Lymph % (Auto) [place] % (Auto) Eos % (Auto) Baso % (Auto) Lymph # (Auto) [place] # (Auto) Eos # (Auto) Baso # (Auto) Abs Immat Gran (auto) Absolute Neuts (auto) Absolute Nucleated RBC Nucleated RBC % (auto) Smear Tech's Comments VBG pH VBG pCO2 VBG pO2 VBG HCO3 VBG O2 Saturation VBG Base Excess POC Glucose 198 H 232 H 320 H Ammonia Albumin 04/23/20 04/24/20 04/24/20 23:25 05:25 05:25 WBC 11.1 H RBC 2.99 L Hgb 9.7 L Hct 31.0 L MCV 103.7 H MCH 32.4 MCHC 31.3 RDW 16.7 H Plt Count 95 L MPV 12.8 H Immature Gran % (Auto) 1.4 H Neut % (Auto) 90.6 H Lymph % (Auto) 1.8 L [place] % (Auto) 6.1 Eos % (Auto) 0.0 Baso % (Auto) 0.1 Lymph # (Auto) 0.2 L [place] # (Auto) 0.7 Eos # (Auto) 0.0 Baso # (Auto) 0.0 Abs Immat Gran (auto) 0.15 H Absolute Neuts (auto) 10.0 H Absolute Nucleated RBC 0.160 H Nucleated RBC % (auto) 1.4 H Smear Tech's Comments VERIFIED VBG pH VBG pCO2 VBG pO2 VBG HCO3 VBG O2 Saturation VBG Base Excess POC Glucose 356 H* Ammonia 57 H Albumin 04/24/20 04/24/20 04/24/20 05:25 05:25 05:25 WBC RBC Hgb Hct MCV MCH MCHC RDW Plt Count MPV Immature Gran % (Auto) Neut % (Auto) Lymph % (Auto) [place] % (Auto) Eos % (Auto) Baso % (Auto) Lymph # (Auto) [place] # (Auto) Eos # (Auto) Baso # (Auto) Abs Immat Gran (auto) Absolute Neuts (auto) Absolute Nucleated RBC Nucleated RBC % (auto) Smear Tech's Comments VBG pH 7.45 H VBG pCO2 41 VBG pO2 53 VBG HCO3 28 VBG O2 Saturation 86.4 VBG Base Excess 3.3 POC Glucose 394 H* Ammonia Albumin 3.0 L D Microbiology Microbiology Results: Microbiology 04/21/20 18:34 Sputum - Suctioned Gram Stain - Final 04/21/20 18:34 Sputum - Suctioned Sputum Culture - Final Stenotrophomonas maltophilia 04/21/20 16:43 Blood - Venous Blood Culture - Preliminary No growth after 48 hours. 04/21/20 16:41 Blood - Venous Blood Culture - Preliminary No growth after 48 hours. 04/21/20 17:21 Urine Catheterized - [place] Catheter Urine Culture - Preliminary No growth to date. 04/14/20 07:14 Blood - Venous Blood Culture - Final No growth after 5 days. 04/14/20 07:09 Blood - Venous Blood Culture - Final No growth after 5 days. 04/14/20 21:02 Sputum - Suctioned Gram Stain - Final 04/14/20 21:02 Sputum - Suctioned Sputum Culture - Final Strep agalactiae (Grp B) Assessment & Plan Assessment and plan (1) Acute kidney injury: Problem details: Due to ATN Has not needed dialysis in > 72 hrs Watch UO and labs Hold HD for now Status: Acute (2) Hyperkalemia: Problem details: Hyperkalemia is due predominantly to transcell shift due to acidemia and relative insulin deficiency; mild rhabdo as well. K improving Status: Acute Time Spent With Patient Time: Total time spent is greater than 50% in coordination of care (as documented) at patient's floor/unit and/or counseling patient:
[2020-04-24 09:02] LABS: Basophils Percent Auto 0.1 % (0-2); Lymphocytes Absolute Auto 0.2 X10*3/uL (1.2-4.9); MANUAL DIFF FLAG SCAN; Red Cell Distribution Width 16.7 % (11.0-16.0); SCAN SMEAR FLAG 1
[2020-04-24 09:04] LABS: Hematocrit 30.8 % (42-52); Hemoglobin 9.5 g/dl (14.0-18.0); Imm Gran Abs Auto 0.13 X10*3/uL (0.00-0.03); Imm Gran Pct Auto 1.3 % (0.0-0.4); Lymphocytes Percent Auto 2.1 % (20-40); Mean Corpuscular HGB Conc 30.8 g/dl (31.0-36.0); Mean Corpuscular Hemoglobin 32.3 pg (27.0-33.0); Mean Corpuscular Volume 104.8 fL (80-98); Monocytes Absolute Auto 0.7 X10*3/uL (0.1-1.2); Monocytes Percent Auto 6.3 % (2-11); Neutrophils Absolute Auto 9.4 X10*3/uL (2.0-8.3); Neutrophils Percent Auto 90.2 % (45-73); Red Blood Count 2.94 X10*6/uL (4.60-5.80); White Blood Count 10.4 X10*3/uL (4.8-10.8)
[2020-04-24 09:05] LABS: NRBC Pct Auto 1.4 /100WBC (0.0-0.2); PLT ABN DIST 1; Platelet Count 93 X10*3/uL (160-400)
[2020-04-24 09:06] LABS: Base Excess VBG 2.8 mmol/L; HCO3 VBG 29 mmol/L; Oxygen Saturation VBG 78.2 %; PCO2 VBG 49 mmhg; PO2 VBG 49 mmhg; pH VBG 7.38 (7.32-7.43)
[2020-04-24 09:18] LABS: Ammonia 47 umol/L (13-55)
[2020-04-24 10:04] LABS: Alanine Aminotransferase 182 U/L (0-40); Alkaline Phosphatase 146 U/L (39-117); Anion Gap 13 (12-20); Aspartate Amino Transferase 139 U/L (5-37); Bilirubin Direct 1.3 mg/dL (0.0-0.5); Bilirubin Total 1.7 mg/dL (0.0-1.0); Blood Urea Nitrogen 117 mg/dL (9-16); Calcium 7.9 mg/dL (8.4-10.2); Carbon Dioxide 31 mmol/L (22-29); Chloride 121 mmol/L (96-108); Creatinine Clr Calc Pharmacy 42.8; Estimated Glomerular Filt Rate 31; Glucose Random 421 mg/dL (60-115); Magnesium 3.3 mg/dL (1.6-2.6); Phosphorus 4.7 mg/dL (2.7-4.5); Potassium 5.4 mmol/l (3.3-5.1); Sodium 160 mmol/L (135-145); Total Protein 5.3 g/dL (6.5-8.0)
--- NOTE | 2020-04-24 11:03 | MHC.CM.PN ---
Per ICU MD rounds Pt remains intubated and vented. No changes. May attempt to reduce sedation today and assess status. Will continue to follow for d/c needs
[2020-04-24] MEDS: Dextrose 5 % 1,000 ML 200 ML IVCONT ×2 (11:14→19:29)
[2020-04-24] MEDS: Enoxaparin Sodium 30 MG/0.3 ML SYRINGE SUBCUT (11:14)
[2020-04-24] MEDS: Insulin Glargine,Hum.rec.anlog 100 UNIT/ML 10 ML VIAL 20 UNIT SUBCUT (11:15)
[2020-04-24 12:07] LABS: Glucose, Whole Blood 375 mg/dL (60-115)
--- NOTE | 2020-04-24 15:14 | PC.NURSE ---
Pt on AC settings on vent, sedation vacation from [id number] today, eyes open occasionally and pt moving head around and coughing, not following commands, propofol currently running at 30 mcg, D5 at 100/hr, rectal tube and clemons in place, pt bathed, repositioned q2h, pt received lantus and humalog coverage per orders, MD aware of core temp no new orders at this time. Nepro running at 35/hr, 0 residuals, water flushes q4h, called pt daughter to fill out MRI form, plan for MRI today at 1730, will cont to monitor
--- NOTE | 2020-04-24 16:16 | PM.CCPN ---
Subjective Subjective Date of Service: 04/24/20 Interval History: 65-year-old gentleman with underlying history of obesity, COPD, SHIRA/obesity hyperventilation syndrome, diabetes, liver disease, admitted on 04/14/2020 with dyspnea and fevers secondary to COVID-19 requiring intubation and ventilatory support. Hospital course further complicated by acute renal failure requiring temporary hemodialysis, bacterial pneumonia, and encephalopathy. No events overnight. Still with poor arousal with sedation vacation today. Physical Exam Vital Signs: Vital Signs: Last Vital Signs Temp 101.3 F H 04/24/20 16:00 Pulse 86 04/24/20 16:00 Resp 25 H 04/24/20 16:00 BP 125/48 L 04/24/20 16:00 Pulse Ox 94 04/24/20 16:00 Body Mass Index 40.4 Const: General: no acute distress; No alert or awake Eyes: Sclerae: sclerae normal EOM: EOMs intact bilaterally Neck: Neck: Yes no lymphadenopathy, Yes trachea midline and Yes supple Resp: Auscultation: crackles (Mild bilateral) Cardio: Rate: regular rate Rhythm: regular rhythm Heart sounds: no gallops, no murmurs and no rubs GI: Palpation (GI): Soft to palpation and Other GI palpation findings present ( Nontender) Auscultation: normal bowel sounds Extrem: General: No clubbing, No cyanosis and Yes edema (1+ bilateral) Objective Data Labs CBC & Chem 7: 04/24/20 08:24 04/24/20 08:24 Labs: Laboratory Results - last 24 hr 04/23/20 04/23/20 04/24/20 17:15 23:25 05:25 WBC 11.1 H RBC 2.99 L Hgb 9.7 L Hct 31.0 L MCV 103.7 H MCH 32.4 MCHC 31.3 RDW 16.7 H Plt Count 95 L MPV 12.8 H Immature Gran % (Auto) 1.4 H Neut % (Auto) 90.6 H Lymph % (Auto) 1.8 L [place] % (Auto) 6.1 Eos % (Auto) 0.0 Baso % (Auto) 0.1 Lymph # (Auto) 0.2 L [place] # (Auto) 0.7 Eos # (Auto) 0.0 Baso # (Auto) 0.0 Abs Immat Gran (auto) 0.15 H Absolute Neuts (auto) 10.0 H Absolute Nucleated RBC 0.160 H Nucleated RBC % (auto) 1.4 H Smear Tech's Comments VERIFIED VBG pH VBG pCO2 VBG pO2 VBG HCO3 VBG O2 Saturation VBG Base Excess Sodium Potassium Chloride Carbon Dioxide Anion Gap BUN Creatinine Estim Creat Clear Calc Estimated GFR POC Glucose 320 H 356 H* Random Glucose Calcium Phosphorus Magnesium Total Bilirubin Direct Bilirubin AST ALT Alkaline Phosphatase Ammonia Total Protein Albumin 04/24/20 04/24/20 04/24/20 05:25 05:25 05:25 WBC RBC Hgb Hct MCV MCH MCHC RDW Plt Count MPV Immature Gran % (Auto) Neut % (Auto) Lymph % (Auto) [place] % (Auto) Eos % (Auto) Baso % (Auto) Lymph # (Auto) [place] # (Auto) Eos # (Auto) Baso # (Auto) Abs Immat Gran (auto) Absolute Neuts (auto) Absolute Nucleated RBC Nucleated RBC % (auto) Smear Tech's Comments VBG pH 7.45 H VBG pCO2 41 VBG pO2 53 VBG HCO3 28 VBG O2 Saturation 86.4 VBG Base Excess 3.3 Sodium Potassium Chloride Carbon Dioxide Anion Gap BUN Creatinine Estim Creat Clear Calc Estimated GFR POC Glucose Random Glucose Calcium Phosphorus Magnesium Total Bilirubin Direct Bilirubin AST ALT Alkaline Phosphatase Ammonia 57 H Total Protein Albumin 3.0 L D 04/24/20 04/24/20 04/24/20 05:25 08:24 08:24 WBC 10.4 RBC 2.94 L Hgb 9.5 L Hct 30.8 L MCV 104.8 H MCH 32.3 MCHC 30.8 L RDW 16.7 H Plt Count 93 L MPV 13.0 H Immature Gran % (Auto) 1.3 H Neut % (Auto) 90.2 H Lymph % (Auto) 2.1 L [place] % (Auto) 6.3 Eos % (Auto) 0.0 Baso % (Auto) 0.1 Lymph # (Auto) 0.2 L [place] # (Auto) 0.7 Eos # (Auto) 0.0 Baso # (Auto) 0.0 Abs Immat Gran (auto) 0.13 H Absolute Neuts (auto) 9.4 H Absolute Nucleated RBC 0.150 H Nucleated RBC % (auto) 1.4 H Smear Tech's Comments VBG pH VBG pCO2 VBG pO2 VBG HCO3 VBG O2 Saturation VBG Base Excess Sodium 160 H* Potassium 5.4 H Chloride 121 H Carbon Dioxide 31 H Anion Gap 13 BUN 117 H* Creatinine 2.13 H Estim Creat Clear Calc 42.8 Estimated GFR 31 POC Glucose 394 H* Random Glucose 421 H* Calcium 7.9 L Phosphorus 4.7 H Magnesium 3.3 H Total Bilirubin 1.7 H Direct Bilirubin 1.3 H AST 139 H ALT 182 H Alkaline Phosphatase 146 H D Ammonia Total Protein 5.3 L Albumin 3.0 L 04/24/20 04/24/20 04/24/20 08:24 08:24 11:39 WBC RBC Hgb Hct MCV MCH MCHC RDW Plt Count MPV Immature Gran % (Auto) Neut % (Auto) Lymph % (Auto) [place] % (Auto) Eos % (Auto) Baso % (Auto) Lymph # (Auto) [place] # (Auto) Eos # (Auto) Baso # (Auto) Abs Immat Gran (auto) Absolute Neuts (auto) Absolute Nucleated RBC Nucleated RBC % (auto) Smear Tech's Comments VBG pH 7.38 VBG pCO2 49 VBG pO2 49 VBG HCO3 29 VBG O2 Saturation 78.2 VBG Base Excess 2.8 Sodium Potassium Chloride Carbon Dioxide Anion Gap BUN Creatinine Estim Creat Clear Calc Estimated GFR POC Glucose 375 H* Random Glucose Calcium Phosphorus Magnesium Total Bilirubin Direct Bilirubin AST ALT Alkaline Phosphatase Ammonia 47 Total Protein Albumin Microbiology Microbiology Results: Microbiology 04/21/20 17:21 Urine Catheterized - [place] Catheter Urine Culture - Final No growth. 04/21/20 18:34 Sputum - Suctioned Gram Stain - Final 04/21/20 18:34 Sputum - Suctioned Sputum Culture - Final Stenotrophomonas maltophilia 04/21/20 16:43 Blood - Venous Blood Culture - Preliminary No growth after 48 hours. 04/21/20 16:41 Blood - Venous Blood Culture - Preliminary No growth after 48 hours. 04/14/20 07:14 Blood - Venous Blood Culture - Final No growth after 5 days. 04/14/20 07:09 Blood - Venous Blood Culture - Final No growth after 5 days. 04/14/20 21:02 Sputum - Suctioned Gram Stain - Final 04/14/20 21:02 Sputum - Suctioned Sputum Culture - Final Strep agalactiae (Grp B) Progress Note: A&P Assessment and plan (1) Acute hypernatremia: Status: Acute Assessment and Plan: Assessment: 65-year-old gentleman with underlying obesity, COPD, diabetes mellitus, liver disease admitted on 04/14/2020 with acute hypoxemic respiratory failure secondary to COVID-19 ARDS requiring ventilatory support with hospital course further complicated by acute kidney injury, bacterial pneumonia, and acute encephalopathy. Plan: Neuro: Acute encephalopathy, poor arousal with sedation vacation. Toxic versus hepatic versus metabolic. 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 Will check CT head. Cardiac: No acute issues. Pulmonary: Acute hypoxic respiratory failure secondary to COVID-19 ARDS requiring ventilatory support. Continue to titrate off as tolerated. Renal: Acute renal failure secondary to COVID-19 micro thrombolysis requiring temporary dialysis, now improved. Continue with fluid mobilization. Nephrology service care appreciated. Worsening hypernatremia, started on free water. Endo: No acute issues. Underlying diabetes mellitus. 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 ID: COVID 19 status post dexamethasone. Now with bacterial superinfection, continue lyons Levaquin. Stenotrophomonas Levaquin sensitive, will continue on Levaquin for the next 7 days. Infectious Disease service care appreciated. Heme/Onc: No acute issues. Chronic thrombocytopenia. Psych: No acute issues. Miscellaneous: No acute issues. Prophylaxis: Heparin Diet: Tube feeds Critical care time spent: 60 minutes (2) ARDS (adult respiratory distress syndrome): Status: Acute (3) Acute hypoxemic respiratory failure due to COVID-19: Status: Acute (4) Morbid obesity: Status: Acute (5) Diabetic nephropathy associated with type 2 diabetes mellitus: Status: Acute Time Spent With Patient Total time spent with greater than 50% in coordination of care (as documented) at patient's floor/unit and/or counseling patient:: 0 Critical Care Time Critical Care Time (minutes): 60
[2020-04-24 19:25] LABS: Glucose, Whole Blood 347 mg/dL (60-115)
[2020-04-24] MEDS: Insulin Glargine,Hum.rec.anlog 100 UNIT/ML 10 ML VIAL 60 UNIT SUBCUT (21:02)
[2020-04-24] MEDS: levoFLOXacin/D5W 750 MG/150 ML PIGGYBACK 100 MG IV (21:02)
--- NOTE | 2020-04-24 22:56 | PC.NURSE ---
Pt remained stable and sedate on propofol foe vent compliance. AC settings. Pt transported to CT without complications. Family updated on plan of care. facetime provided to family at bedside.
[2020-04-25] VITALS (35 sets, daily range): BP systolic 90–162; BP diastolic 43–84; PULSE 72–109; RESP 14–30; TEMP 37.3–38.5; O2SAT 85–94; BMI 40.4
[2020-04-25] MEDS: 0.9 % Sodium Chloride Flush 3 ML SYRINGE IVFLUSH ×4 (00:50→23:15)
[2020-04-25] MEDS: propofoL 1,000 MG/100 ML VIAL 21.6 MG IVCONT ×4 (00:51→18:40)
[2020-04-25] MEDS: Insulin Lispro 100 UNIT/ML 3 ML VIAL SUBCUT ×5 (00:53→23:28)
[2020-04-25] MEDS: Famotidine/PF 20 MG/2 ML VIAL IVPUSH ×2 (06:36→17:59)
[2020-04-25 06:57] LABS: Base Excess VBG 3.2 mmol/L; HCO3 VBG 30 mmol/L; Oxygen Saturation VBG 79.7 %; PCO2 VBG 56 mmhg; PO2 VBG 49 mmhg; pH VBG 7.35 (7.32-7.43)
[2020-04-25 06:58] LABS: Glucose, Whole Blood 481 mg/dL (60-115)
[2020-04-25 07:19] LABS: MANUAL DIFF FLAG SCAN; SCAN SMEAR FLAG 1
[2020-04-25 07:21] LABS: Hemoglobin 9.8 g/dl (14.0-18.0); Imm Gran Abs Auto 0.11 X10*3/uL (0.00-0.03); Imm Gran Pct Auto 1.2 % (0.0-0.4); Lymphocytes Absolute Auto 0.2 X10*3/uL (1.2-4.9); Lymphocytes Percent Auto 2.1 % (20-40); Mean Corpuscular HGB Conc 31.6 g/dl (31.0-36.0); Mean Corpuscular Hemoglobin 33.7 pg (27.0-33.0); Mean Corpuscular Volume 106.5 fL (80-98); Mean Platelet Volume 13.1 fL (9.4-12.4); Monocytes Absolute Auto 0.6 X10*3/uL (0.1-1.2); Monocytes Percent Auto 6.1 % (2-11); Neutrophils Absolute Auto 8.3 X10*3/uL (2.0-8.3); Neutrophils Percent Auto 90.6 % (45-73); Red Blood Count 2.91 X10*6/uL (4.60-5.80); White Blood Count 9.2 X10*3/uL (4.8-10.8)
[2020-04-25 07:34] LABS: NRBC Pct Auto 2.4 /100WBC (0.0-0.2); PLT ABN DIST 1; Platelet Count 98 X10*3/uL (160-400)
[2020-04-25 07:48] LABS: Albumin Level 2.6 g/dL (3.5-5.0); Anion Gap 14 (12-20); Blood Urea Nitrogen 107 mg/dL (9-16); Calcium 7.7 mg/dL (8.4-10.2); Carbon Dioxide 29 mmol/L (22-29); Chloride 120 mmol/L (96-108); Creatinine Clr Calc Pharmacy 49.1; Estimated Glomerular Filt Rate 37; Glucose Random 506 mg/dL (60-115); Magnesium 3.2 mg/dL (1.6-2.6); Phosphorus 4.7 mg/dL (2.7-4.5); Potassium 5.9 mmol/l (3.3-5.1); Sodium 157 mmol/L (135-145)
[2020-04-25] MEDS: dexAMETHasone sod phosphate 4 MG/ML VIAL IVPUSH ×2 (08:15→19:52)
[2020-04-25] MEDS: Chlorhexidine Gluc Oral Rinse 15 ML MOUTHWASH BUCCAL ×3 (08:16→19:52)
[2020-04-25] MEDS: Dextrose 5 % 1,000 ML 250 ML IVCONT ×3 (08:27→17:33)
[2020-04-25] MEDS: Insulin Glargine,Hum.rec.anlog 100 UNIT/ML 10 ML VIAL 75 UNIT SUBCUT ×2 (08:28→19:52)
[2020-04-25 08:30] LABS: SLIDE REVIEW VERIFIED
[2020-04-25 10:24] LABS: Glucose, Whole Blood 440 mg/dL (60-115)
[2020-04-25] MEDS: Enoxaparin Sodium 30 MG/0.3 ML SYRINGE SUBCUT (10:25)
--- NOTE | 2020-04-25 10:33 | P.PNNP_ITS ---
Subjective Subjective Date of Service: 04/25/20 Interval history: Events noted K and Na are up Physical Exam Vital Signs: Vital Signs: Last Vital Signs Temp 99.9 F 04/25/20 10:00 Pulse 85 04/25/20 10:00 Resp 26 H 04/25/20 10:00 BP 143/62 H 04/25/20 10:00 Pulse Ox 92 04/25/20 10:00 Body Mass Index 40.4 Const: Other: Intubated General: ill appearing Neck: Neck: Yes no JVD Resp: Auscultation: rhonchi and diminished lung sounds Cardio: Other: Intubated Heart sounds: no rubs GI: Auscultation: normal bowel sounds Extrem: Left upper extremity: edema Objective Data Labs CBC & Chem 7: 04/25/20 06:30 04/25/20 06:30 Labs: Laboratory Results - last 24 hr 04/24/20 04/24/20 04/25/20 11:39 19:21 00:16 WBC RBC Hgb Hct MCV MCH MCHC RDW Plt Count MPV Immature Gran % (Auto) Neut % (Auto) Lymph % (Auto) [place] % (Auto) Eos % (Auto) Baso % (Auto) Lymph # (Auto) [place] # (Auto) Eos # (Auto) Baso # (Auto) Abs Immat Gran (auto) Absolute Neuts (auto) Absolute Nucleated RBC Nucleated RBC % (auto) Smear Tech's Comments VBG pH VBG pCO2 VBG pO2 VBG HCO3 VBG O2 Saturation VBG Base Excess Sodium Potassium Chloride Carbon Dioxide Anion Gap BUN Creatinine Estim Creat Clear Calc Estimated GFR POC Glucose 375 H* 347 H 481 H* Random Glucose Calcium Phosphorus Magnesium Albumin 04/25/20 04/25/20 04/25/20 06:30 06:30 06:30 WBC 9.2 RBC 2.91 L Hgb 9.8 L Hct 31.0 L MCV 106.5 H MCH 33.7 H MCHC 31.6 RDW 17.0 H Plt Count 98 L MPV 13.1 H Immature Gran % (Auto) 1.2 H Neut % (Auto) 90.6 H Lymph % (Auto) 2.1 L [place] % (Auto) 6.1 Eos % (Auto) 0.0 Baso % (Auto) 0.0 Lymph # (Auto) 0.2 L [place] # (Auto) 0.6 Eos # (Auto) 0.0 Baso # (Auto) 0.0 Abs Immat Gran (auto) 0.11 H Absolute Neuts (auto) 8.3 Absolute Nucleated RBC 0.220 H Nucleated RBC % (auto) 2.4 H Smear Tech's Comments VERIFIED VBG pH 7.35 VBG pCO2 56 VBG pO2 49 VBG HCO3 30 VBG O2 Saturation 79.7 VBG Base Excess 3.2 Sodium 157 H Potassium 5.9 H Chloride 120 H Carbon Dioxide 29 Anion Gap 14 BUN 107 H* Creatinine 1.86 H Estim Creat Clear Calc 49.1 Estimated GFR 37 POC Glucose Random Glucose 506 H* Calcium 7.7 L Phosphorus 4.7 H Magnesium 3.2 H Albumin 2.6 L 04/25/20 06:32 WBC RBC Hgb Hct MCV MCH MCHC RDW Plt Count MPV Immature Gran % (Auto) Neut % (Auto) Lymph % (Auto) [place] % (Auto) Eos % (Auto) Baso % (Auto) Lymph # (Auto) [place] # (Auto) Eos # (Auto) Baso # (Auto) Abs Immat Gran (auto) Absolute Neuts (auto) Absolute Nucleated RBC Nucleated RBC % (auto) Smear Tech's Comments VBG pH VBG pCO2 VBG pO2 VBG HCO3 VBG O2 Saturation VBG Base Excess Sodium Potassium Chloride Carbon Dioxide Anion Gap BUN Creatinine Estim Creat Clear Calc Estimated GFR POC Glucose 440 H* Random Glucose Calcium Phosphorus Magnesium Albumin Microbiology Microbiology Results: Microbiology 04/21/20 17:21 Urine Catheterized - [place] Catheter Urine Culture - Final No growth. 04/21/20 18:34 Sputum - Suctioned Gram Stain - Final 04/21/20 18:34 Sputum - Suctioned Sputum Culture - Final Stenotrophomonas maltophilia 04/21/20 16:43 Blood - Venous Blood Culture - Preliminary No growth after 48 hours. 04/21/20 16:41 Blood - Venous Blood Culture - Preliminary No growth after 48 hours. 04/14/20 07:14 Blood - Venous Blood Culture - Final No growth after 5 days. 04/14/20 07:09 Blood - Venous Blood Culture - Final No growth after 5 days. 04/14/20 21:02 Sputum - Suctioned Gram Stain - Final 04/14/20 21:02 Sputum - Suctioned Sputum Culture - Final Strep agalactiae (Grp B) Assessment & Plan Assessment and plan (1) Acute kidney injury: Problem details: Due to ATN Watch UO and labs HD today for high K Will use low Na bath Status: Acute (2) Hyperkalemia: Problem details: Hyperkalemia is due predominantly to transcell shift due to acidemia and relative insulin deficiency; mild rhabdo as well. Status: Acute Time Spent With Patient Time: Total time spent is greater than 50% in coordination of care (as doc umented) at patient's floor/unit and/or counseling patient:
--- NOTE | 2020-04-25 10:54 | MHC.CLN ---
F/U PT RECEIVING TF NEPRO AT MAX GOAL RATE 35CC/HR and 300cc q 4 hrs PROVIDES 1512KCALS (23kcals/kg), 68G PROTEIN (1.0G/KG), 2410CC TOTAL FREE WATER FROM FORMULA AND FLUSHES (36CC/KG BASED ON IBW) TOLERATING PER NSG FOLLOWING
--- NOTE | 2020-04-25 11:23 | MHC.CM.PN ---
Per MD rounds, pt cammie dunn. Will need dialysis today. Remains intubated and vented. Off sedation, not following commands. Will continue to follow for d/c needs
[2020-04-25] MEDS: Insulin Lispro 100 UNIT/ML 3 ML VIAL 10 UNIT SUBCUT (12:33)
[2020-04-25 12:39] LABS: Glucose, Whole Blood 428 mg/dL (60-115)
--- NOTE | 2020-04-25 13:58 | XR_ITS ---
EXAMINATION: XR CHEST CLINICAL INFORMATION: Dialysis catheter. COMPARISON: None TECHNIQUE: Frontal view of the chest was obtained. FINDINGS: The lungs are somewhat expanded with bilateral parahilar streaky interstitial markings suspicious for interstitial pneumonitis. There is bibasilar patchy density suspicious for infiltrates as well. Heart size and pulmonary vascularity is normal. Right central venous sheath has been removed. The left central venous catheter, endotracheal tube and nasogastric tube are in satisfactory position. No gross bony abnormality. XR/XR chest 1V IMPRESSION: Right jugular venous sheath has been removed. No change in support lines and catheters from 04/23/2020. Bibasilar airspace opacities and bilateral prominent interstitial markings are stable.
--- NOTE | 2020-04-25 14:32 | PM.CCPN ---
Subjective Subjective Date of Service: 04/25/20 Interval History: 65-year-old gentleman with underlying history of obesity, COPD, SHIRA/obesity hyperventilation syndrome, diabetes, liver disease, admitted on 04/14/2020 with dyspnea and fevers secondary to COVID-19 requiring intubation and ventilatory support. Hospital course further complicated by acute renal failure requiring temporary hemodialysis, bacterial pneumonia, and encephalopathy. No events overnight. Mental status mental status continues to remain suppressed. Physical Exam Vital Signs: Vital Signs: Last Vital Signs Temp 101.3 F H 04/25/20 13:58 Pulse 92 04/25/20 13:58 Resp 28 H 04/25/20 13:58 BP 130/57 L 04/25/20 13:58 Pulse Ox 91 L 04/25/20 13:58 Body Mass Index 40.4 Const: General: no acute distress; No alert or awake Nutritional Appearance: obese Eyes: Sclerae: sclerae normal Neck: Neck: Yes no lymphadenopathy, Yes trachea midline and Yes supple Resp: Auscultation: crackles (Diffuse bilateral) Cardio: Rate: regular rate Rhythm: regular rhythm Heart sounds: no gallops, no murmurs and no rubs GI: Palpation (GI): Soft to palpation and Other GI palpation findings present ( Nontender) Auscultation: normal bowel sounds Extrem: General: No clubbing, No cyanosis and Yes edema (1+ bilateral) Objective Data Labs CBC & Chem 7: 04/25/20 06:30 04/25/20 06:30 Labs: Laboratory Results - last 24 hr 04/24/20 04/25/20 04/25/20 19:21 00:16 06:30 WBC 9.2 RBC 2.91 L Hgb 9.8 L Hct 31.0 L MCV 106.5 H MCH 33.7 H MCHC 31.6 RDW 17.0 H Plt Count 98 L MPV 13.1 H Immature Gran % (Auto) 1.2 H Neut % (Auto) 90.6 H Lymph % (Auto) 2.1 L [place] % (Auto) 6.1 Eos % (Auto) 0.0 Baso % (Auto) 0.0 Lymph # (Auto) 0.2 L [place] # (Auto) 0.6 Eos # (Auto) 0.0 Baso # (Auto) 0.0 Abs Immat Gran (auto) 0.11 H Absolute Neuts (auto) 8.3 Absolute Nucleated RBC 0.220 H Nucleated RBC % (auto) 2.4 H Smear Tech's Comments VERIFIED VBG pH VBG pCO2 VBG pO2 VBG HCO3 VBG O2 Saturation VBG Base Excess Sodium Potassium Chloride Carbon Dioxide Anion Gap BUN Creatinine Estim Creat Clear Calc Estimated GFR POC Glucose 347 H 481 H* Random Glucose Calcium Phosphorus Magnesium Albumin 04/25/20 04/25/20 04/25/20 06:30 06:30 06:32 WBC RBC Hgb Hct MCV MCH MCHC RDW Plt Count MPV Immature Gran % (Auto) Neut % (Auto) Lymph % (Auto) [place] % (Auto) Eos % (Auto) Baso % (Auto) Lymph # (Auto) [place] # (Auto) Eos # (Auto) Baso # (Auto) Abs Immat Gran (auto) Absolute Neuts (auto) Absolute Nucleated RBC Nucleated RBC % (auto) Smear Tech's Comments VBG pH 7.35 VBG pCO2 56 VBG pO2 49 VBG HCO3 30 VBG O2 Saturation 79.7 VBG Base Excess 3.2 Sodium 157 H Potassium 5.9 H Chloride 120 H Carbon Dioxide 29 Anion Gap 14 BUN 107 H* Creatinine 1.86 H Estim Creat Clear Calc 49.1 Estimated GFR 37 POC Glucose 440 H* Random Glucose 506 H* Calcium 7.7 L Phosphorus 4.7 H Magnesium 3.2 H Albumin 2.6 L 04/25/20 12:05 WBC RBC Hgb Hct MCV MCH MCHC RDW Plt Count MPV Immature Gran % (Auto) Neut % (Auto) Lymph % (Auto) [place] % (Auto) Eos % (Auto) Baso % (Auto) Lymph # (Auto) [place] # (Auto) Eos # (Auto) Baso # (Auto) Abs Immat Gran (auto) Absolute Neuts (auto) Absolute Nucleated RBC Nucleated RBC % (auto) Smear Tech's Comments VBG pH VBG pCO2 VBG pO2 VBG HCO3 VBG O2 Saturation VBG Base Excess Sodium Potassium Chloride Carbon Dioxide Anion Gap BUN Creatinine Estim Creat Clear Calc Estimated GFR POC Glucose 428 H* Random Glucose Calcium Phosphorus Magnesium Albumin Microbiology Microbiology Results: Microbiology 04/21/20 17:21 Urine Catheterized - [place] Catheter Urine Culture - Final No growth. 04/21/20 18:34 Sputum - Suctioned Gram Stain - Final 04/21/20 18:34 Sputum - Suctioned Sputum Culture - Final Stenotrophomonas maltophilia 04/21/20 16:43 Blood - Venous Blood Culture - Preliminary No growth after 48 hours. 04/21/20 16:41 Blood - Venous Blood Culture - Preliminary No growth after 48 hours. 04/14/20 07:14 Blood - Venous Blood Culture - Final No growth after 5 days. 04/14/20 07:09 Blood - Venous Blood Culture - Final No growth after 5 days. 04/14/20 21:02 Sputum - Suctioned Gram Stain - Final 04/14/20 21:02 Sputum - Suctioned Sputum Culture - Final Strep agalactiae (Grp B) Progress Note: A&P Assessment and plan (1) ARDS (adult respiratory distress syndrome): Status: Acute Assessment and Plan: Assessment: 65-year-old gentleman with underlying obesity, COPD, diabetes mellitus, liver disease admitted on 04/14/2020 with acute hypoxemic respiratory failure secondary to COVID-19 ARDS requiring ventilatory support with hospital course further complicated by acute kidney injury, bacterial pneumonia, and acute encephalopathy. Plan: Neuro: Acute encephalopathy, poor arousal with sedation vacation. Toxic versus hepatic versus metabolic. CT head on 04/24/2020 with no acute findings. Continue with daily sedation vacations. Cardiac: No acute issues. Pulmonary: Acute hypoxic respiratory failure secondary to COVID-19 ARDS requiring ventilatory support. Continue to titrate off as tolerated. Renal: Acute renal failure secondary to COVID-19 micro thrombolysis requiring temporary dialysis, now improved. Continue with fluid mobilization. Nephrology service care appreciated. Hyponatremia improving on free water. Hyperkalemia despite significant urine output. Will request hemodialysis today. Endo: No acute issues. Underlying diabetes mellitus. 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 ID: COVID 19 status post dexamethasone. Now with bacterial superinfection, continue lyons Levaquin. Stenotrophomonas Levaquin sensitive, will continue on Levaquin for the next 6 days. Infectious Disease service care appreciated. Heme/Onc: No acute issues. Chronic thrombocytopenia. Psych: No acute issues. Miscellaneous: No acute issues. Prophylaxis: Heparin Diet: Tube feeds Critical care time spent: 60 minutes excluding separately billable procedures (2) Hyperkalemia: Status: Acute (3) Morbid obesity: Status: Acute (4) Hypertension: Status: Acute (5) Acute hypoxemic respiratory failure due to COVID-19: Status: Acute (6) Acute kidney injury: Status: Acute Time Spent With Patient Total time spent with greater than 50% in coordination of care (as documented) at patient's floor/unit and/or counseling patient:: 0 Critical Care Time Critical Care Time (minutes): 60
[2020-04-25 14:33] LABS: Glucose, Whole Blood 472 mg/dL (60-115)
[2020-04-25 18:23] LABS: Glucose, Whole Blood 331 mg/dL (60-115)
--- NOTE | 2020-04-25 18:27 | PC.NURSE ---
Patient remains intubated and sedated on ventilator. Sedation holiday performed for approximately 4 hours. Tolerated fairly well. Opened eyes and looked at this nurse but did not follow commands. Had one round of dialysis today. Removed 1.5 kg. Tmax 101.3 today. Vitals stable. Will continue to monitor.
[2020-04-25 20:48] LABS: Anion Gap 14 (12-20); Blood Urea Nitrogen 71 mg/dL (9-16); Calcium 7.5 mg/dL (8.4-10.2); Carbon Dioxide 29 mmol/L (22-29); Chloride 110 mmol/L (96-108); Creatinine Clr Calc Pharmacy 52.8; Estimated Glomerular Filt Rate 40; Glucose Random 490 mg/dL (60-115); Potassium 5.4 mmol/l (3.3-5.1); Sodium 148 mmol/L (135-145)
[2020-04-25] MEDS: propofoL 1,000 MG/100 ML VIAL 18 MG IVCONT (23:14)
[2020-04-25 23:49] LABS: Glucose, Whole Blood 436 mg/dL (60-115)
[2020-04-26] VITALS (31 sets, daily range): BP systolic 105–145; BP diastolic 48–88; PULSE 70–105; RESP 14–97; TEMP 37.3–38.4; O2SAT 90–94; BMI 40.3
[2020-04-26] MEDS: propofoL 1,000 MG/100 ML VIAL 18 MG IVCONT ×2 (03:07→05:33)
[2020-04-26] MEDS: Insulin Lispro 100 UNIT/ML 3 ML VIAL SUBCUT ×4 (05:33→23:50)
[2020-04-26] MEDS: Famotidine/PF 20 MG/2 ML VIAL IVPUSH ×2 (05:33→18:21)
[2020-04-26 05:51] LABS: Glucose, Whole Blood 413 mg/dL (60-115)
[2020-04-26 05:53] LABS: Basophils Percent Auto 0.1 % (0-2); Hematocrit 32.4 % (42-52); Hemoglobin 10.1 g/dl (14.0-18.0); Imm Gran Abs Auto 0.12 X10*3/uL (0.00-0.03); Imm Gran Pct Auto 1.1 % (0.0-0.4); Lymphocytes Absolute Auto 0.3 X10*3/uL (1.2-4.9); Lymphocytes Percent Auto 2.3 % (20-40); MANUAL DIFF FLAG SCAN; Mean Corpuscular HGB Conc 31.2 g/dl (31.0-36.0); Mean Corpuscular Volume 105.9 fL (80-98); Mean Platelet Volume 12.9 fL (9.4-12.4); Monocytes Absolute Auto 0.6 X10*3/uL (0.1-1.2); Monocytes Percent Auto 5.6 % (2-11); Neutrophils Absolute Auto 9.7 X10*3/uL (2.0-8.3); Neutrophils Percent Auto 90.9 % (45-73); Red Blood Count 3.06 X10*6/uL (4.60-5.80); Red Cell Distribution Width 16.4 % (11.0-16.0); SCAN SMEAR FLAG 1; White Blood Count 10.7 X10*3/uL (4.8-10.8)
[2020-04-26 05:57] LABS: Platelet Count 80 X10*3/uL (160-400)
[2020-04-26 05:58] LABS: NRBC Pct Auto 2.8 /100WBC (0.0-0.2)
[2020-04-26] MEDS: Insulin Lispro 100 UNIT/ML 3 ML VIAL 10 UNIT SUBCUT (06:06)
[2020-04-26 06:11] LABS: Base Excess VBG 1.5 mmol/L; HCO3 VBG 27 mmol/L; Oxygen Saturation VBG 73.2 %; PCO2 VBG 44 mmhg; PO2 VBG 42 mmhg
--- NOTE | 2020-04-26 06:15 | PC.NURSE ---
HCP Alma updated at start of shift. Attempted to titrate down propofol, patient became restless, tachypneic, and started fighting ventilator. PERRL. +Cough/Gag. Opens eyes, does not follow commands or move purposefully. SBP 90's-110's without levophed. SR 70's. +2 pitting edema. Lungs coarse. 7.5 ETT, 25 CLAUDIA. FIO2 weaned to 80%, satting low 90's. Rectal tube patent, draining dark tarry stool. UOP 30-100 cc/hr. BG 400's. Additional coverage ordered and given. Tolerating TF with max residual 20. Skin remains intact.
[2020-04-26 06:25] LABS: Albumin Level 2.4 g/dL (3.5-5.0); Anion Gap 16 (12-20); Blood Urea Nitrogen 85 mg/dL (9-16); Calcium 7.6 mg/dL (8.4-10.2); Carbon Dioxide 26 mmol/L (22-29); Chloride 110 mmol/L (96-108); Creatinine Clr Calc Pharmacy 45.1; Estimated Glomerular Filt Rate 33; Glucose Random 495 mg/dL (60-115); Magnesium 2.7 mg/dL (1.6-2.6); Phosphorus 5.5 mg/dL (2.7-4.5); Potassium 5.6 mmol/l (3.3-5.1); Sodium 146 mmol/L (135-145)
[2020-04-26 06:40] LABS: SLIDE REVIEW VERIFIED
[2020-04-26] MEDS: Chlorhexidine Gluc Oral Rinse 15 ML MOUTHWASH BUCCAL ×3 (10:00→19:46)
[2020-04-26] MEDS: dexAMETHasone sod phosphate 4 MG/ML VIAL IVPUSH (10:00)
[2020-04-26] MEDS: Insulin Glargine,Hum.rec.anlog 100 UNIT/ML 10 ML VIAL 75 UNIT SUBCUT ×2 (10:00→21:47)
--- NOTE | 2020-04-26 10:04 | MHC.CM.PN ---
Per MD rounds, pt remains poor. Increasing poor kidney labs. Dialysis today. Will have sedation vacation today. No plans to extubate. Will continue to monitor for d/c needs. Unsure at this time.
[2020-04-26] MEDS: 0.9 % Sodium Chloride Flush 3 ML SYRINGE IVFLUSH ×3 (10:34→23:51)
[2020-04-26] MEDS: Enoxaparin Sodium 30 MG/0.3 ML SYRINGE SUBCUT (10:37)
--- NOTE | 2020-04-26 12:11 | MHC.CM.PN ---
Concern expressed during MD rounds that ? family is not aware of seriousness of pt condition per nursing rides supervisor. CM called daughter, Eliza ([phone]) to clarify. Eliza states that her mother, Meg is the HCP and her sister, Alma ([phone]) is the alternate. The family is requesting that all information regarding her father be directed to Alma Alvarado. States her mother is not well, has recently lost her mother, and is very upset about her husbands illness. Eliza requests that no information be given to her aunt, Margot Alvarado. Eliza states that her extended family is trying to get involved in decision making. Will alert RN. Per Eliza, her mother and sister are aware of how ill her father is and that they have communicated this to other family.
[2020-04-26 13:24] LABS: Glucose, Whole Blood 331 mg/dL (60-115)
--- NOTE | 2020-04-26 14:04 | PM.CCPN ---
Subjective Subjective Date of Service: 04/26/20 Interval History: 65-year-old gentleman with underlying history of obesity, COPD, SHIRA/obesity hyperventilation syndrome, diabetes, liver disease, admitted on 04/14/2020 with dyspnea and fevers secondary to COVID-19 requiring intubation and ventilatory support. Hospital course further complicated by acute renal failure requiring hemodialysis, bacterial pneumonia, and encephalopathy. No events overnight. Mental status mental status continues to remain suppressed. Physical Exam Vital Signs: Vital Signs: Last Vital Signs Temp 99.9 F 04/26/20 13:00 Pulse 91 04/26/20 14:00 Resp 34 H 04/26/20 14:00 BP 142/65 H 04/26/20 14:00 Pulse Ox 92 04/26/20 14:00 Body Mass Index 40.3 Const: General: no acute distress; No alert or awake Nutritional Appearance: obese Eyes: Sclerae: sclerae normal EOM: EOMs intact bilaterally Neck: Neck: Yes no lymphadenopathy, Yes trachea midline and Yes supple Resp: Auscultation: crackles (diffuse bilateral) Cardio: Rate: regular rate Rhythm: regular rhythm Heart sounds: no gallops, no murmurs and no rubs GI: Palpation (GI): Soft to palpation and Other GI palpation findings present ( Nontender) Auscultation: normal bowel sounds Extrem: General: No clubbing, No cyanosis and Yes edema (1+ bilateral) Objective Data Labs CBC & Chem 7: 04/26/20 05:37 04/26/20 05:37 Labs: Laboratory Results - last 24 hr 04/25/20 04/25/20 04/25/20 12:06 17:56 20:08 WBC RBC Hgb Hct MCV MCH MCHC RDW Plt Count MPV Immature Gran % (Auto) Neut % (Auto) Lymph % (Auto) [place] % (Auto) Eos % (Auto) Baso % (Auto) Lymph # (Auto) [place] # (Auto) Eos # (Auto) Baso # (Auto) Abs Immat Gran (auto) Absolute Neuts (auto) Absolute Nucleated RBC Nucleated RBC % (auto) Smear Tech's Comments VBG pH VBG pCO2 VBG pO2 VBG HCO3 VBG O2 Saturation VBG Base Excess Sodium 148 H Potassium 5.4 H Chloride 110 H Carbon Dioxide 29 Anion Gap 14 BUN 71 H Creatinine 1.73 H Estim Creat Clear Calc 52.8 Estimated GFR 40 POC Glucose 472 H* 331 H Random Glucose 490 H* Calcium 7.5 L Phosphorus Magnesium Albumin 04/25/20 04/26/20 04/26/20 23:25 05:37 05:37 WBC 10.7 RBC 3.06 L Hgb 10.1 L Hct 32.4 L MCV 105.9 H MCH 33.0 MCHC 31.2 RDW 16.4 H Plt Count 80 L MPV 12.9 H Immature Gran % (Auto) 1.1 H Neut % (Auto) 90.9 H Lymph % (Auto) 2.3 L [place] % (Auto) 5.6 Eos % (Auto) 0.0 Baso % (Auto) 0.1 Lymph # (Auto) 0.3 L [place] # (Auto) 0.6 Eos # (Auto) 0.0 Baso # (Auto) 0.0 Abs Immat Gran (auto) 0.12 H Absolute Neuts (auto) 9.7 H Absolute Nucleated RBC 0.300 H Nucleated RBC % (auto) 2.8 H Smear Tech's Comments VERIFIED VBG pH VBG pCO2 VBG pO2 VBG HCO3 VBG O2 Saturation VBG Base Excess Sodium 146 H Potassium 5.6 H Chloride 110 H Carbon Dioxide 26 Anion Gap 16 BUN 85 H* Creatinine 2.02 H Estim Creat Clear Calc 45.1 Estimated GFR 33 POC Glucose 436 H* Random Glucose 495 H* Calcium 7.6 L Phosphorus 5.5 H Magnesium 2.7 H Albumin 2.4 L 04/26/20 04/26/20 04/26/20 05:37 05:39 13:20 WBC RBC Hgb Hct MCV MCH MCHC RDW Plt Count MPV Immature Gran % (Auto) Neut % (Auto) Lymph % (Auto) [place] % (Auto) Eos % (Auto) Baso % (Auto) Lymph # (Auto) [place] # (Auto) Eos # (Auto) Baso # (Auto) Abs Immat Gran (auto) Absolute Neuts (auto) Absolute Nucleated RBC Nucleated RBC % (auto) Smear Tech's Comments VBG pH 7.40 VBG pCO2 44 VBG pO2 42 VBG HCO3 27 VBG O2 Saturation 73.2 VBG Base Excess 1.5 Sodium Potassium Chloride Carbon Dioxide Anion Gap BUN Creatinine Estim Creat Clear Calc Estimated GFR POC Glucose 413 H* 331 H Random Glucose Calcium Phosphorus Magnesium Albumin Microbiology Microbiology Results: Microbiology 04/21/20 17:21 Urine Catheterized - [place] Catheter Urine Culture - Final No growth. 04/21/20 18:34 Sputum - Suctioned Gram Stain - Final 04/21/20 18:34 Sputum - Suctioned Sputum Culture - Final Stenotrophomonas maltophilia 04/21/20 16:43 Blood - Venous Blood Culture - Preliminary No growth after 48 hours. 04/21/20 16:41 Blood - Venous Blood Culture - Preliminary No growth after 48 hours. 04/14/20 07:14 Blood - Venous Blood Culture - Final No growth after 5 days. 04/14/20 07:09 Blood - Venous Blood Culture - Final No growth after 5 days. 04/14/20 21:02 Sputum - Suctioned Gram Stain - Final 04/14/20 21:02 Sputum - Suctioned Sputum Culture - Final Strep agalactiae (Grp B) Progress Note: A&P Assessment and plan (1) ARDS (adult respiratory distress syndrome): Status: Acute Assessment and Plan: Assessment: 65-year-old gentleman with underlying obesity, COPD, diabetes mellitus, liver disease admitted on 04/14/2020 with acute hypoxemic respiratory failure secondary to COVID-19 ARDS requiring ventilatory support with hospital course further complicated by acute kidney injury, bacterial pneumonia, and acute encephalopathy. Plan: Neuro: Acute encephalopathy, poor arousal with sedation vacation. Toxic versus hepatic versus metabolic. CT head on 04/24/2020 with no acute findings. Continue with daily sedation vacations. Cardiac: No acute issues. Pulmonary: Acute hypoxic respiratory failure secondary to COVID-19 ARDS requiring ventilatory support. Continue to titrate off as tolerated. Renal: Acute renal failure secondary to COVID-19 micro thrombolysis requiring dialysis, now improved, but still with episodes of hyperkalemia requiring intermittent dialysis despite significant urine output. Continue with fluid mobilization. Nephrology service care appreciated. Hypernatremia resolved. Endo: No acute issues. Underlying diabetes mellitus. 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 ID: COVID 19 status post dexamethasone. Now with bacterial superinfection, continue lyons Levaquin. Stenotrophomonas Levaquin sensitive, will continue on Levaquin for the next 5 days. Infectious Disease service care appreciated. Heme/Onc: No acute issues. Chronic thrombocytopenia. Psych: No acute issues. Miscellaneous: No acute issues. Prophylaxis: Heparin Diet: Tube feeds Critical care time spent: 60 minutes (2) Acute hypoxemic respiratory failure due to COVID-19: Status: Acute (3) Acute kidney injury: Status: Acute (4) Encephalopathy acute: Status: Acute Time Spent With Patient Total time spent with greater than 50% in coordination of care (as documented) at patient's floor/unit and/or counseling patient:: 0 Critical Care Time Critical Care Time (minutes): 60
--- NOTE | 2020-04-26 15:50 | P.PNNP_ITS ---
Subjective Subjective Date of Service: 04/26/20 Interval history: Discussed with team Cr up K is up again UP improved Physical Exam Vital Signs: Vital Signs: Last Vital Signs Temp 100.6 F H 04/26/20 15:00 Pulse 95 04/26/20 15:00 Resp 28 H 04/26/20 15:00 BP 138/64 04/26/20 15:00 Pulse Ox 92 04/26/20 15:00 Body Mass Index 40.3 Const: Other: Intubated General: ill appearing Neck: Neck: Yes no JVD Resp: Auscultation: rhonchi and diminished lung sounds Cardio: Other: Intubated Heart sounds: no rubs GI: Auscultation: normal bowel sounds Extrem: Left upper extremity: edema Objective Data Labs CBC & Chem 7: 04/26/20 05:37 04/26/20 05:37 Labs: Laboratory Results - last 24 hr 04/25/20 04/25/20 04/25/20 17:56 20:08 23:25 WBC RBC Hgb Hct MCV MCH MCHC RDW Plt Count MPV Immature Gran % (Auto) Neut % (Auto) Lymph % (Auto) [place] % (Auto) Eos % (Auto) Baso % (Auto) Lymph # (Auto) [place] # (Auto) Eos # (Auto) Baso # (Auto) Abs Immat Gran (auto) Absolute Neuts (auto) Absolute Nucleated RBC Nucleated RBC % (auto) Smear Tech's Comments VBG pH VBG pCO2 VBG pO2 VBG HCO3 VBG O2 Saturation VBG Base Excess Sodium 148 H Potassium 5.4 H Chloride 110 H Carbon Dioxide 29 Anion Gap 14 BUN 71 H Creatinine 1.73 H Estim Creat Clear Calc 52.8 Estimated GFR 40 POC Glucose 331 H 436 H* Random Glucose 490 H* Calcium 7.5 L Phosphorus Magnesium Albumin 04/26/20 04/26/20 04/26/20 05:37 05:37 05:37 WBC 10.7 RBC 3.06 L Hgb 10.1 L Hct 32.4 L MCV 105.9 H MCH 33.0 MCHC 31.2 RDW 16.4 H Plt Count 80 L MPV 12.9 H Immature Gran % (Auto) 1.1 H Neut % (Auto) 90.9 H Lymph % (Auto) 2.3 L [place] % (Auto) 5.6 Eos % (Auto) 0.0 Baso % (Auto) 0.1 Lymph # (Auto) 0.3 L [place] # (Auto) 0.6 Eos # (Auto) 0.0 Baso # (Auto) 0.0 Abs Immat Gran (auto) 0.12 H Absolute Neuts (auto) 9.7 H Absolute Nucleated RBC 0.300 H Nucleated RBC % (auto) 2.8 H Smear Tech's Comments VERIFIED VBG pH 7.40 VBG pCO2 44 VBG pO2 42 VBG HCO3 27 VBG O2 Saturation 73.2 VBG Base Excess 1.5 Sodium 146 H Potassium 5.6 H Chloride 110 H Carbon Dioxide 26 Anion Gap 16 BUN 85 H* Creatinine 2.02 H Estim Creat Clear Calc 45.1 Estimated GFR 33 POC Glucose Random Glucose 495 H* Calcium 7.6 L Phosphorus 5.5 H Magnesium 2.7 H Albumin 2.4 L 04/26/20 04/26/20 05:39 13:20 WBC RBC Hgb Hct MCV MCH MCHC RDW Plt Count MPV Immature Gran % (Auto) Neut % (Auto) Lymph % (Auto) [place] % (Auto) Eos % (Auto) Baso % (Auto) Lymph # (Auto) [place] # (Auto) Eos # (Auto) Baso # (Auto) Abs Immat Gran (auto) Absolute Neuts (auto) Absolute Nucleated RBC Nucleated RBC % (auto) Smear Tech's Comments VBG pH VBG pCO2 VBG pO2 VBG HCO3 VBG O2 Saturation VBG Base Excess Sodium Potassium Chloride Carbon Dioxide Anion Gap BUN Creatinine Estim Creat Clear Calc Estimated GFR POC Glucose 413 H* 331 H Random Glucose Calcium Phosphorus Magnesium Albumin Microbiology Microbiology Results: Microbiology 04/21/20 17:21 Urine Catheterized - [place] Catheter Urine Culture - Final No growth. 04/21/20 18:34 Sputum - Suctioned Gram Stain - Final 04/21/20 18:34 Sputum - Suctioned Sputum Culture - Final Stenotrophomonas maltophilia 04/21/20 16:43 Blood - Venous Blood Culture - Preliminary No growth after 48 hours. 04/21/20 16:41 Blood - Venous Blood Culture - Preliminary No growth after 48 hours. 04/14/20 07:14 Blood - Venous Blood Culture - Final No growth after 5 days. 04/14/20 07:09 Blood - Venous Blood Culture - Final No growth after 5 days. 04/14/20 21:02 Sputum - Suctioned Gram Stain - Final 04/14/20 21:02 Sputum - Suctioned Sputum Culture - Final Strep agalactiae (Grp B) Assessment & Plan Assessment and plan (1) Acute kidney injury: Status: Acute Assessment and Plan: No renal recovery yet HD again tomorrow (2) Hyperkalemia: Status: Acute Time Spent With Patient Time: Total time spent is greater than 50% in coordination of care (as documented) at patient's floor/unit and/or counseling patient:
[2020-04-26 17:43] LABS: Glucose, Whole Blood 346 mg/dL (60-115)
[2020-04-26] MEDS: propofoL 1,000 MG/100 ML VIAL 36 MG IVCONT ×2 (18:23→20:33)
[2020-04-26] MEDS: levoFLOXacin/D5W 750 MG/150 ML PIGGYBACK 100 MG IV (19:45)
--- NOTE | 2020-04-26 19:49 | PC.NURSE ---
assumed care at 0700. patient sedated on propofol this morning, sedation vacation from 11am to 1700 with patient tracking, pupils reactive, +cough and +gag. not following directions, not replying to questions. communication done in [place]. patient did a psv trial from about 1200 to 1700 as well, appeared comfortable; this evening though, became tachypneic with rr 39; minute volumes up to 29, tv in 6-700's, rt and md discussed and placed patient back on ac settings. patient is now back on 40 of propofol gtt, tachypnea, overbreathing, md aware, no new orders at this time--patient appears comfortable. tv was lowered to 450 today. tube tamer changed today, ett 7.5 and 25 cm at the inside of lower lip. now AC settings 20; 450;10;80%; spo2 90-92%. oral secretions white/yellow/thick, md aware. pocs in 300's. mild temps tmax 101.1. na at 146, md aware; k at 5.6, md aware, no hd today. patient appears to have a small blister on the dorsal aspect of right forearm, continuing to monitor. tarry black stools to rectal tube, continuing to monitor. Alma updated this evening, good teachback with patient's progress today.
[2020-04-27] VITALS (28 sets, daily range): BP systolic 87–135; BP diastolic 36–57; PULSE 92–114; RESP 20–30; TEMP 37.1–38.1; O2SAT 88–95; BMI 40.7
[2020-04-27] MEDS: propofoL 1,000 MG/100 ML VIAL 21.6 MG IVCONT ×6 (01:37→23:47)
[2020-04-27 04:10] LABS: Glucose, Whole Blood 321 mg/dL (60-115)
[2020-04-27 04:10] LABS: Glucose, Whole Blood 308 mg/dL (60-115)
[2020-04-27 05:51] LABS: Basophils Percent Auto 0.1 % (0-2); SCAN SMEAR FLAG 1
[2020-04-27 05:52] LABS: Eosinophils Percent Auto 0.1 % (0-4); Hematocrit 36.2 % (42-52); Imm Gran Abs Auto 0.33 X10*3/uL (0.00-0.03); Imm Gran Pct Auto 1.9 % (0.0-0.4); Lymphocytes Absolute Auto 0.3 X10*3/uL (1.2-4.9); Lymphocytes Percent Auto 1.5 % (20-40); MANUAL DIFF FLAG NO; Mean Corpuscular HGB Conc 30.4 g/dl (31.0-36.0); Mean Corpuscular Hemoglobin 32.5 pg (27.0-33.0); Mean Corpuscular Volume 107.1 fL (80-98); Mean Platelet Volume 13.6 fL (9.4-12.4); Monocytes Absolute Auto 0.7 X10*3/uL (0.1-1.2); Monocytes Percent Auto 4.1 % (2-11); Neutrophils Absolute Auto 16.1 X10*3/uL (2.0-8.3); Neutrophils Percent Auto 92.3 % (45-73); Red Blood Count 3.38 X10*6/uL (4.60-5.80); Red Cell Distribution Width 17.2 % (11.0-16.0); White Blood Count 17.5 X10*3/uL (4.8-10.8)
[2020-04-27] MEDS: Famotidine/PF 20 MG/2 ML VIAL IVPUSH ×2 (05:52→18:27)
[2020-04-27 05:56] LABS: Base Excess VBG -2.4 mmol/L; HCO3 VBG 26 mmol/L; Oxygen Saturation VBG 89.8 %; PCO2 VBG 66 mmhg; PO2 VBG 72 mmhg; pH VBG 7.22 (7.32-7.43)
[2020-04-27 06:02] LABS: NRBC Pct Auto 1.4 /100WBC (0.0-0.2); PLT ABN DIST 1; Platelet Count 93 X10*3/uL (160-400)
[2020-04-27 06:24] LABS: Blood Urea Nitrogen 110 mg/dL (9-16)
[2020-04-27 06:25] LABS: Alanine Aminotransferase 182 U/L (0-40); Albumin Level 2.5 g/dL (3.5-5.0); Alkaline Phosphatase 172 U/L (39-117); Anion Gap 20 (12-20); Aspartate Amino Transferase 125 U/L (5-37); Bilirubin Total 2.4 mg/dL (0.0-1.0); Calcium 7.6 mg/dL (8.4-10.2); Carbon Dioxide 25 mmol/L (22-29); Chloride 108 mmol/L (96-108); Creatinine Clr Calc Pharmacy 34.1; Estimated Glomerular Filt Rate 24; Glucose Random 360 mg/dL (60-115); Magnesium 3.1 mg/dL (1.6-2.6); Phosphorus 8.5 mg/dL (2.7-4.5); Potassium 6.4 mmol/l (3.3-5.1); Sodium 147 mmol/L (135-145); Total Protein 5.2 g/dL (6.5-8.0)
[2020-04-27] MEDS: Insulin Lispro 100 UNIT/ML 3 ML VIAL SUBCUT ×4 (06:36→23:54)
[2020-04-27] MEDS: 0.9 % Sodium Chloride Flush 3 ML SYRINGE IVFLUSH ×2 (09:03→18:27)
[2020-04-27] MEDS: Chlorhexidine Gluc Oral Rinse 15 ML MOUTHWASH BUCCAL ×3 (09:03→19:56)
[2020-04-27] MEDS: dexAMETHasone sod phosphate 4 MG/ML VIAL 6 MG IVPUSH (09:03)
[2020-04-27] MEDS: Insulin Glargine,Hum.rec.anlog 100 UNIT/ML 10 ML VIAL 75 UNIT SUBCUT ×2 (09:03→19:54)
[2020-04-27] MEDS: Enoxaparin Sodium 30 MG/0.3 ML SYRINGE SUBCUT (09:05)
--- NOTE | 2020-04-27 09:56 | P.PNNP_ITS ---
Subjective Subjective Date of Service: 05/11/20 Interval history: Discussed with team Cr up K is up again Physical Exam Vital Signs: Vital Signs: Last Vital Signs Temp 99.7 F 04/27/20 09:55 Pulse 97 04/27/20 09:55 Resp 25 H 04/27/20 09:55 BP 104/46 L 04/27/20 09:55 Pulse Ox 93 04/27/20 09:55 Body Mass Index 40.7 Const: Other: Intubated General: ill appearing Neck: Neck: Yes no JVD Resp: Auscultation: rhonchi and diminished lung sounds Cardio: Other: Intubated Heart sounds: no rubs GI: Auscultation: normal bowel sounds Extrem: Left upper extremity: edema Objective Data Labs CBC & Chem 7: 05/01/20 05:48 05/01/20 05:48 Labs: Laboratory Results - last 24 hr 04/26/20 04/26/20 04/26/20 13:20 17:38 21:41 WBC RBC Hgb Hct MCV MCH MCHC RDW Plt Count MPV Immature Gran % (Auto) Neut % (Auto) Lymph % (Auto) [place] % (Auto) Eos % (Auto) Baso % (Auto) Lymph # (Auto) [place] # (Auto) Eos # (Auto) Baso # (Auto) Abs Immat Gran (auto) Absolute Neuts (auto) Absolute Nucleated RBC Nucleated RBC % (auto) VBG pH VBG pCO2 VBG pO2 VBG HCO3 VBG O2 Saturation VBG Base Excess Sodium Potassium Chloride Carbon Dioxide Anion Gap BUN Creatinine Estim Creat Clear Calc Estimated GFR POC Glucose 331 H 346 H 321 H Random Glucose Calcium Phosphorus Magnesium Total Bilirubin AST ALT Alkaline Phosphatase Total Protein Albumin 04/26/20 04/27/20 04/27/20 23:43 05:15 05:15 WBC 17.5 H RBC 3.38 L Hgb 11.0 L Hct 36.2 L MCV 107.1 H MCH 32.5 MCHC 30.4 L RDW 17.2 H Plt Count 93 L MPV 13.6 H Immature Gran % (Auto) 1.9 H Neut % (Auto) 92.3 H Lymph % (Auto) 1.5 L [place] % (Auto) 4.1 Eos % (Auto) 0.1 Baso % (Auto) 0.1 Lymph # (Auto) 0.3 L [place] # (Auto) 0.7 Eos # (Auto) 0.0 Baso # (Auto) 0.0 Abs Immat Gran (auto) 0.33 H Absolute Neuts (auto) 16.1 H Absolute Nucleated RBC 0.240 H Nucleated RBC % (auto) 1.4 H VBG pH VBG pCO2 VBG pO2 VBG HCO3 VBG O2 Saturation VBG Base Excess Sodium 147 H Potassium 6.4 H* Chloride 108 Carbon Dioxide 25 Anion Gap 20 BUN 110 H* D Creatinine 2.68 H Estim Creat Clear Calc 34.1 Estimated GFR 24 POC Glucose 308 H Random Glucose 360 H* Calcium 7.6 L Phosphorus 8.5 H Magnesium 3.1 H Total Bilirubin 2.4 H AST 125 H ALT 182 H Alkaline Phosphatase 172 H Total Protein 5.2 L Albumin 2.5 L 04/27/20 05:15 WBC RBC Hgb Hct MCV MCH MCHC RDW Plt Count MPV Immature Gran % (Auto) Neut % (Auto) Lymph % (Auto) [place] % (Auto) Eos % (Auto) Baso % (Auto) Lymph # (Auto) [place] # (Auto) Eos # (Auto) Baso # (Auto) Abs Immat Gran (auto) Absolute Neuts (auto) Absolute Nucleated RBC Nucleated RBC % (auto) VBG pH 7.22 L VBG pCO2 66 VBG pO2 72 VBG HCO3 26 VBG O2 Saturation 89.8 VBG Base Excess -2.4 Sodium Potassium Chloride Carbon Dioxide Anion Gap BUN Creatinine Estim Creat Clear Calc Estimated GFR POC Glucose Random Glucose Calcium Phosphorus Magnesium Total Bilirubin AST ALT Alkaline Phosphatase Total Protein Albumin Microbiology Microbiology Results: Microbiology 04/21/20 16:43 Blood - Venous Blood Culture - Final No growth after 5 days. 04/21/20 16:41 Blood - Venous Blood Culture - Final No growth after 5 days. 04/21/20 17:21 Urine Catheterized - [place] Catheter Urine Culture - Final No growth. 04/21/20 18:34 Sputum - Suctioned Gram Stain - Final 04/21/20 18:34 Sputum - Suctioned Sputum Culture - Final Stenotrophomonas maltophilia 04/14/20 07:14 Blood - Venous Blood Culture - Final No growth after 5 days. 04/14/20 07:09 Blood - Venous Blood Culture - Final No growth after 5 days. 04/14/20 21:02 Sputum - Suctioned Gram Stain - Final 04/14/20 21:02 Sputum - Suctioned Sputum Culture - Final Strep agalactiae (Grp B) Assessment & Plan Assessment and plan (1) Acute kidney injury: Status: Acute Assessment and Plan: No renal recovery yet HD today with low K bath (2) Hyperkalemia: Status: Acute Time Spent With Patient Time: Total time spent is greater than 50% in coordination of care (as documented) at patient's floor/unit and/or counseling patient:
--- NOTE | 2020-04-27 10:11 | MHC.CLN ---
F/U PT CONTINUES WITH TF NEPRO AT MAX GOAL RATE 35CC/HR and 300cc q 4 hrs PROVIDES 1512KCALS (2082KCALS WITH SEDATION; 31KCALS/KG BASED ON IBW), 68G PROTEIN (1.0G/KG), 2410CC TOTAL FREE WATER FROM FORMULA AND FLUSHES (36CC/KG BASED ON IBW) TOLERATING PER NSG FOLLOWING
[2020-04-27 12:49] LABS: Glucose, Whole Blood 291 mg/dL (60-115)
--- NOTE | 2020-04-27 13:35 | PC.NURSE ---
Pt remains on Vent AC 20 450 80/10 no fighting or bucking vent, pt having dialysis at this writing. Will attempt a sedation vacation on completion of Dialysis. noon FSBS 291 covered with 6 units insulin. 180 residual on tube feed at noon. Dr Valdez aware and holding tube feed and continue with free water flush. LS dininished but clear this shift. + JVD noted, faint pedal pulses. Distal extremity edema remains.No open area to glans of penis noted today as well as stage 2 to perianal area. Daughter called to Nursing station and updated.
--- NOTE | 2020-04-27 14:40 | PM.CCPN ---
Subjective Subjective Date of Service: 04/27/20 Interval History: 65-year-old gentleman with underlying history of obesity, COPD, SHIRA/obesity hyperventilation syndrome, diabetes, liver disease, admitted on 04/14/2020 with dyspnea and fevers secondary to COVID-19 requiring intubation and ventilatory support. Hospital course further complicated by acute renal failure requiring hemodialysis, bacterial pneumonia, and encephalopathy. No events overnight. No changes in underlying diminished mental status. Physical Exam Vital Signs: Vital Signs: Last Vital Signs Temp 99.9 F 04/27/20 14:00 Pulse 114 H 04/27/20 14:00 Resp 29 H 04/27/20 14:00 BP 110/51 L 04/27/20 14:00 Pulse Ox 90 L 04/27/20 14:00 Body Mass Index 40.7 Const: General: no acute distress; No alert or awake Nutritional Appearance: obese Eyes: Sclerae: sclerae normal EOM: EOMs intact bilaterally Neck: Neck: Yes no lymphadenopathy, Yes trachea midline and Yes supple Resp: Auscultation: crackles (Diffuse bilateral) Cardio: Rate: tachycardic Rhythm: regular rhythm Heart sounds: no gallops, no murmurs and no rubs GI: Palpation (GI): Soft to palpation and Other GI palpation findings present ( Nontender) Auscultation: normal bowel sounds Extrem: General: No clubbing, No cyanosis and Yes edema (1+ bilateral) Objective Data Labs CBC & Chem 7: 04/27/20 05:15 04/27/20 05:15 Labs: Laboratory Results - last 24 hr 04/26/20 04/26/20 04/26/20 17:38 21:41 23:43 WBC RBC Hgb Hct MCV MCH MCHC RDW Plt Count MPV Immature Gran % (Auto) Neut % (Auto) Lymph % (Auto) [place] % (Auto) Eos % (Auto) Baso % (Auto) Lymph # (Auto) [place] # (Auto) Eos # (Auto) Baso # (Auto) Abs Immat Gran (auto) Absolute Neuts (auto) Absolute Nucleated RBC Nucleated RBC % (auto) VBG pH VBG pCO2 VBG pO2 VBG HCO3 VBG O2 Saturation VBG Base Excess Sodium Potassium Chloride Carbon Dioxide Anion Gap BUN Creatinine Estim Creat Clear Calc Estimated GFR POC Glucose 346 H 321 H 308 H Random Glucose Calcium Phosphorus Magnesium Total Bilirubin AST ALT Alkaline Phosphatase Total Protein Albumin 12/18/20 12/18/20 12/18/20 05:15 05:15 05:15 WBC 17.5 H RBC 3.38 L Hgb 11.0 L Hct 36.2 L MCV 107.1 H MCH 32.5 MCHC 30.4 L RDW 17.2 H Plt Count 93 L MPV 13.6 H Immature Gran % (Auto) 1.9 H Neut % (Auto) 92.3 H Lymph % (Auto) 1.5 L [place] % (Auto) 4.1 Eos % (Auto) 0.1 Baso % (Auto) 0.1 Lymph # (Auto) 0.3 L [place] # (Auto) 0.7 Eos # (Auto) 0.0 Baso # (Auto) 0.0 Abs Immat Gran (auto) 0.33 H Absolute Neuts (auto) 16.1 H Absolute Nucleated RBC 0.240 H Nucleated RBC % (auto) 1.4 H VBG pH 7.22 L VBG pCO2 66 VBG pO2 72 VBG HCO3 26 VBG O2 Saturation 89.8 VBG Base Excess -2.4 Sodium 147 H Potassium 6.4 H* Chloride 108 Carbon Dioxide 25 Anion Gap 20 BUN 110 H* D Creatinine 2.68 H Estim Creat Clear Calc 34.1 Estimated GFR 24 POC Glucose Random Glucose 360 H* Calcium 7.6 L Phosphorus 8.5 H Magnesium 3.1 H Total Bilirubin 2.4 H AST 125 H ALT 182 H Alkaline Phosphatase 172 H Total Protein 5.2 L Albumin 2.5 L 04/27/20 12:35 WBC RBC Hgb Hct MCV MCH MCHC RDW Plt Count MPV Immature Gran % (Auto) Neut % (Auto) Lymph % (Auto) [place] % (Auto) Eos % (Auto) Baso % (Auto) Lymph # (Auto) [place] # (Auto) Eos # (Auto) Baso # (Auto) Abs Immat Gran (auto) Absolute Neuts (auto) Absolute Nucleated RBC Nucleated RBC % (auto) VBG pH VBG pCO2 VBG pO2 VBG HCO3 VBG O2 Saturation VBG Base Excess Sodium Potassium Chloride Carbon Dioxide Anion Gap BUN Creatinine Estim Creat Clear Calc Estimated GFR POC Glucose 291 H Random Glucose Calcium Phosphorus Magnesium Total Bilirubin AST ALT Alkaline Phosphatase Total Protein Albumin Microbiology Microbiology Results: Microbiology 04/21/20 16:43 Blood - Venous Blood Culture - Final No growth after 5 days. 12/12/20 16:41 Blood - Venous Blood Culture - Final No growth after 5 days. 04/21/20 17:21 Urine Catheterized - [place] Catheter Urine Culture - Final No growth. 04/21/20 18:34 Sputum - Suctioned Gram Stain - Final 04/21/20 18:34 Sputum - Suctioned Sputum Culture - Final Stenotrophomonas maltophilia 04/14/20 07:14 Blood - Venous Blood Culture - Final No growth after 5 days. 04/14/20 07:09 Blood - Venous Blood Culture - Final No growth after 5 days. 04/14/20 21:02 Sputum - Suctioned Gram Stain - Final 04/14/20 21:02 Sputum - Suctioned Sputum Culture - Final Strep agalactiae (Grp B) Progress Note: A&P Assessment and plan (1) Encephalopathy acute: Status: Acute Assessment and Plan: Assessment: 65-year-old gentleman with underlying obesity, COPD, diabetes mellitus, liver disease admitted on 04/14/2020 with acute hypoxemic respiratory failure secondary to COVID-19 ARDS requiring ventilatory support with hospital course further complicated by acute kidney injury, bacterial pneumonia, and acute encephalopathy. Plan: Neuro: Acute encephalopathy, poor arousal with sedation vacation. Toxic versus hepatic versus metabolic. CT head on 04/24/2020 with no acute findings. Continue with daily sedation vacations. Still with no significant improvements. Will consider repeating CT head in a.m.. 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 Cardiac: No acute issues. Pulmonary: Acute hypoxic respiratory failure secondary to COVID-19 ARDS requiring ventilatory support. Continue to titrate off as tolerated. Renal: Acute renal failure secondary to COVID-19 micro thrombolysis requiring dialysis, now improved, but still with episodes of hyperkalemia requiring intermittent dialysis despite significant urine output. Continue with fluid mobilization. Nephrology service care appreciated. Hypernatremia resolved. Endo: No acute issues. Underlying diabetes mellitus. 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 ID: COVID 19 status post dexamethasone. Now with Stenotrophomonas Levaquin sensitive, will continue on Levaquin for the next 4 days. Infectious Disease service care appreciated. Heme/Onc: No acute issues. Chronic thrombocytopenia. Psych: No acute issues. Miscellaneous: No acute issues. Prophylaxis: Heparin Diet: Tube feeds Critical care time spent: 60 minutes (2) Coagulopathy: Status: Acute (3) ARDS (adult respiratory distress syndrome): Status: Acute (4) Acute hypoxemic respiratory failure due to COVID-19: Status: Acute (5) Acute kidney injury: Status: Acute Time Spent With Patient Total time spent with greater than 50% in coordination of care (as documented) at patient's floor/unit and/or counseling patient:: 0 Critical Care Time Critical Care Time (minutes): 60
--- NOTE | 2020-04-27 16:39 | PC.NURSE ---
pt became hypotensive at tail end of Dialysis 78/34 at 1605 Norepi started at 0.05 then to 0.06 bp slowly coming back up Q5 intervals on. 1633 decreased norepi to 0.04 pt vitals 127/42 at this writting.
[2020-04-27 18:27] LABS: Glucose, Whole Blood 276 mg/dL (60-115)
[2020-04-27] MEDS: Albumin Human 25 % 100 ML IV ×2 (18:34→19:55)
--- NOTE | 2020-04-27 19:14 | PC.NURSE ---
pt BP dropped again norepi increased to 0.07 for pressure support. rectal tube removed due to pressure injury. recorded. pt BP 110/50 at this writting. Albumin ordered and hanging pt 1800 FSBS 276 covered with 6 unit of insulin. pt did not wake with sedation vacation nor roused to painfu stim
[2020-04-28] VITALS (30 sets, daily range): BP systolic 99–133; BP diastolic 33–73; PULSE 93–110; RESP 24–38; TEMP 37.1–38.1; O2SAT 88–99; BMI 39.4
--- NOTE | 2020-04-28 | CT_ITS ---
EXAMINATION: CT HEAD WITHOUT CONTRAST CLINICAL INFORMATION: Persistent encephalopathy. COMPARISON: Head CT 04/24/2020. TECHNIQUE: Contiguous axial imaging was performed from the skull base to vertex without intravenous administration of contrast. This CT examination was performed using dose optimization techniques as appropriate, variously including the following: *Automated exposure control *Adjustment of mA and/or kV according to patient size (this includes techniques or standardized protocols for targeted exams where dose is matched to indication/reason for exam; i.e. extremities or head) *Use of iterative reconstruction technique DLP: 770 mGy-cm. FINDINGS: There are postoperative findings related to left pterional craniotomy for aneurysm clipping. Encephalomalacic and gliotic changes are seen within the left frontal lobe, operculum, insula, and temporal lobe. There is no intracranial hemorrhage, extra-axial collection, mass effect, or midline shift. The ventricular caliber appears normal. No definite territorial infarction is seen. Atheromatous calcifications are seen along the proximal intracranial arteries. There is fluid within the pharynx and in the bilateral mastoids and middle ear cavities. 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 No acute intracranial abnormality superimposed on these chronic findings. If more sensitive evaluation is needed consider brain MRI.
[2020-04-28 01:03] LABS: Glucose, Whole Blood 220 mg/dL (60-115)
[2020-04-28] MEDS: propofoL 1,000 MG/100 ML VIAL 21.6 MG IVCONT ×4 (04:08→16:55)
[2020-04-28] MEDS: Famotidine/PF 20 MG/2 ML VIAL IVPUSH ×2 (05:08→16:55)
[2020-04-28] MEDS: Insulin Lispro 100 UNIT/ML 3 ML VIAL SUBCUT ×4 (05:17→23:36)
[2020-04-28 05:39] LABS: Glucose, Whole Blood 199 mg/dL (60-115)
[2020-04-28 05:57] LABS: Hematocrit 31.7 % (42-52); Hemoglobin 9.6 g/dl (14.0-18.0); Mean Corpuscular HGB Conc 30.3 g/dl (31.0-36.0); Mean Corpuscular Hemoglobin 33.2 pg (27.0-33.0); Mean Corpuscular Volume 109.7 fL (80-98); Mean Platelet Volume 12.6 fL (9.4-12.4); Red Blood Count 2.89 X10*6/uL (4.60-5.80); Red Cell Distribution Width 17.4 % (11.0-16.0); White Blood Count 20.4 X10*3/uL (4.8-10.8)
[2020-04-28 06:04] LABS: NRBC Pct Auto 2.1 /100WBC (0.0-0.2); Platelet Count 77 X10*3/uL (160-400)
[2020-04-28 06:14] LABS: PCO2 VBG 66 mmhg; PO2 VBG 32 mmhg
[2020-04-28 06:15] LABS: Base Excess VBG -4.4 mmol/L; HCO3 VBG 25 mmol/L; Oxygen Saturation VBG 86.9 %
[2020-04-28 06:28] LABS: Albumin Level 2.8 g/dL (3.5-5.0); Anion Gap 19 (12-20); Blood Urea Nitrogen 111 mg/dL (9-16); Calcium 7.6 mg/dL (8.4-10.2); Carbon Dioxide 27 mmol/L (22-29); Chloride 103 mmol/L (96-108); Creatinine Clr Calc Pharmacy 25.3; Estimated Glomerular Filt Rate 17; Glucose Random 229 mg/dL (60-115); Phosphorus 9.4 mg/dL (2.7-4.5); Potassium 6.6 mmol/l (3.3-5.1); Sodium 142 mmol/L (135-145)
[2020-04-28 07:52] LABS: Band Neutrophils Percent 1 % (3-5); Lymphocytes Absolute Manual 0.8 X10*3/uL (0.6-4.8); Lymphocytes Percent Manual 4 % (20-40); Neutrophils Absolute Manual 19.6 X10*3/uL (2.2-7.9); Neutrophils Percent Manual 95 % (45-73); Nucleated Red Blood Cells 3 /100WBC (0-0)
[2020-04-28 07:53] LABS: Polychromasia 1+; RBC Morphology NOTED; Stomatocytes 1+
[2020-04-28 07:54] LABS: Platelet Estimate SLIGHTLY DECREASED (NORMAL); Platelet Morphology Comment NORMAL
[2020-04-28] MEDS: Chlorhexidine Gluc Oral Rinse 15 ML MOUTHWASH BUCCAL ×3 (08:37→19:46)
[2020-04-28] MEDS: dexAMETHasone sod phosphate 4 MG/ML VIAL 6 MG IVPUSH (08:37)
[2020-04-28] MEDS: Enoxaparin Sodium 30 MG/0.3 ML SYRINGE SUBCUT (08:38)
[2020-04-28] MEDS: Insulin Glargine,Hum.rec.anlog 100 UNIT/ML 10 ML VIAL 75 UNIT SUBCUT ×2 (08:39→19:47)
[2020-04-28] MEDS: 0.9 % Sodium Chloride Flush 3 ML SYRINGE IVFLUSH ×3 (08:47→23:18)
--- NOTE | 2020-04-28 11:15 | PM.CCPN ---
Subjective Subjective Date of Service: 04/28/20 Interval History: 65-year-old gentleman with underlying history of obesity, COPD, SHIRA/obesity hyperventilation syndrome, diabetes, liver disease, admitted on 04/14/2020 with dyspnea and fevers secondary to COVID-19 requiring intubation and ventilatory support. Hospital course further complicated by acute renal failure requiring hemodialysis, bacterial pneumonia, and encephalopathy. No events overnight. No changes in underlying diminished mental status. Renal function continues to deteriorate. Physical Exam Vital Signs: Vital Signs: Last Vital Signs Temp 100.6 F H 04/28/20 09:50 Pulse 99 04/28/20 10:53 Resp 28 H 04/28/20 10:53 BP 133/45 L 04/28/20 10:53 Pulse Ox 91 L 04/28/20 10:53 Body Mass Index 39.4 Const: General: no acute distress; No alert or awake Nutritional Appearance: obese Eyes: Sclerae: sclerae normal EOM: EOMs intact bilaterally Neck: Neck: Yes no lymphadenopathy, Yes trachea midline and Yes supple Resp: Auscultation: crackles bilateral and diffuse Cardio: Rate: regular rate Rhythm: regular rhythm Heart sounds: no gallops, no murmurs and no rubs GI: Palpation (GI): Soft to palpation and Other GI palpation findings present ( Nontender) Auscultation: normal bowel sounds Extrem: General: No clubbing, No cyanosis and Yes edema (1+ bilateral) Objective Data Labs CBC & Chem 7: 04/28/20 05:12 04/28/20 05:12 Labs: Laboratory Results - last 24 hr 04/27/20 04/27/20 04/27/20 12:35 18:21 23:51 WBC RBC Hgb Hct MCV MCH MCHC RDW Plt Count MPV Immature Gran % (Auto) Neut % (Auto) Lymph % (Auto) [place] % (Auto) Eos % (Auto) Baso % (Auto) Lymph # (Auto) [place] # (Auto) Eos # (Auto) Baso # (Auto) Abs Immat Gran (auto) Absolute Neuts (auto) Absolute Nucleated RBC Nucleated RBC % (auto) Neutrophils % (Manual) Band Neutrophils % Lymphocytes % (Manual) Abs Neuts (Manual) Lymphocytes # (Manual) Nucleated RBCs Platelet Estimate Plt Morphology Comment RBC Morphology Polychromasia Stomatocytes VBG pH VBG pCO2 VBG pO2 VBG HCO3 VBG O2 Saturation VBG Base Excess Sodium Potassium Chloride Carbon Dioxide Anion Gap BUN Creatinine Estim Creat Clear Calc Estimated GFR POC Glucose 291 H 276 H 220 H Random Glucose Calcium Phosphorus Magnesium Albumin 04/28/20 04/28/20 04/28/20 05:12 05:12 05:12 WBC 20.4 H RBC 2.89 L Hgb 9.6 L Hct 31.7 L MCV 109.7 H MCH 33.2 H MCHC 30.3 L RDW 17.4 H Plt Count 77 L MPV 12.6 H Immature Gran % (Auto) Cancelled Neut % (Auto) Cancelled Lymph % (Auto) Cancelled [place] % (Auto) Cancelled Eos % (Auto) Cancelled Baso % (Auto) Cancelled Lymph # (Auto) Cancelled [place] # (Auto) Cancelled Eos # (Auto) Cancelled Baso # (Auto) Cancelled Abs Immat Gran (auto) Cancelled Absolute Neuts (auto) Cancelled Absolute Nucleated RBC 0.430 H Nucleated RBC % (auto) 2.1 H Neutrophils % (Manual) 95 H Band Neutrophils % 1 L Lymphocytes % (Manual) 4 L Abs Neuts (Manual) 19.6 H Lymphocytes # (Manual) 0.8 Nucleated RBCs 3 H Platelet Estimate SLIGHTLY DECREASED Plt Morphology Comment NORMAL RBC Morphology NOTED Polychromasia 1+ Stomatocytes 1+ VBG pH 7.20 L* VBG pCO2 66 VBG pO2 32 VBG HCO3 25 VBG O2 Saturation 86.9 VBG Base Excess -4.4 Sodium 142 Potassium 6.6 H* Chloride 103 Carbon Dioxide 27 Anion Gap 19 BUN 111 H* Creatinine 3.55 H Estim Creat Clear Calc 25.3 Estimated GFR 17 POC Glucose Random Glucose 229 H D Calcium 7.6 L Phosphorus 9.4 H Magnesium 3.0 H Albumin 2.8 L 04/28/20 05:15 WBC RBC Hgb Hct MCV MCH MCHC RDW Plt Count MPV Immature Gran % (Auto) Neut % (Auto) Lymph % (Auto) [place] % (Auto) Eos % (Auto) Baso % (Auto) Lymph # (Auto) [place] # (Auto) Eos # (Auto) Baso # (Auto) Abs Immat Gran (auto) Absolute Neuts (auto) Absolute Nucleated RBC Nucleated RBC % (auto) Neutrophils % (Manual) Band Neutrophils % Lymphocytes % (Manual) Abs Neuts (Manual) Lymphocytes # (Manual) Nucleated RBCs Platelet Estimate Plt Morphology Comment RBC Morphology Polychromasia Stomatocytes VBG pH VBG pCO2 VBG pO2 VBG HCO3 VBG O2 Saturation VBG Base Excess Sodium Potassium Chloride Carbon Dioxide Anion Gap BUN Creatinine Estim Creat Clear Calc Estimated GFR POC Glucose 199 H Random Glucose Calcium Phosphorus Magnesium Albumin Microbiology Microbiology Results: Microbiology 04/21/20 16:43 Blood - Venous Blood Culture - Final No growth after 5 days. 04/21/20 16:41 Blood - Venous Blood Culture - Final No growth after 5 days. 04/21/20 17:21 Urine Catheterized - [place] Catheter Urine Culture - Final No growth. 04/21/20 18:34 Sputum - Suctioned Gram Stain - Final 04/21/20 18:34 Sputum - Suctioned Sputum Culture - Final Stenotrophomonas maltophilia 04/14/20 07:14 Blood - Venous Blood Culture - Final No growth after 5 days. 04/14/20 07:09 Blood - Venous Blood Culture - Final No growth after 5 days. 04/14/20 21:02 Sputum - Suctioned Gram Stain - Final 04/14/20 21:02 Sputum - Suctioned Sputum Culture - Final Strep agalactiae (Grp B) Progress Note: A&P Assessment and plan (1) Encephalopathy acute: Status: Acute (2) ARDS (adult respiratory distress syndrome): Status: Acute Assessment and Plan: Assessment: 65-year-old gentleman with underlying obesity, COPD, diabetes mellitus, liver disease admitted on 04/14/2020 with acute hypoxemic respiratory failure secondary to COVID-19 ARDS requiring ventilatory support with hospital course further complicated by acute kidney injury, bacterial pneumonia, and acute encephalopathy. Plan: Neuro: Acute encephalopathy, poor arousal with sedation vacation. Toxic versus hepatic versus metabolic. CT head on 04/24/2020 with no acute findings. Continue with daily sedation vacations. Still with no significant improvements. Repeat CT head is pending. 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 Cardiac: No acute issues. Pulmonary: Acute hypoxic respiratory failure secondary to COVID-19 ARDS requiring ventilatory support. Continue to titrate off as tolerated. Renal: Acute renal failure secondary to COVID-19 micro thrombolysis requiring dialysis, now worsening, requiring re-initiation of hemodialysis. Continue with fluid mobilization. Nephrology service care appreciated. Hypernatremia resolved. Endo: No acute issues. Underlying diabetes mellitus. 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 ID: COVID 19 status post dexamethasone. Now with Stenotrophomonas Levaquin sensitive, will continue on Levaquin for the next 3 days. Infectious Disease service care appreciated. Heme/Onc: No acute issues. Chronic thrombocytopenia. Psych: No acute issues. Miscellaneous: No acute issues. Prophylaxis: Lovenox, famotidine Diet: Tube feeds Critical care time spent: 60 minutes (3) Acute hypoxemic respiratory failure due to COVID-19: Status: Acute (4) Acute kidney injury: Status: Acute Time Spent With Patient Total time spent with greater than 50% in coordination of care (as documented) at patient's floor/unit and/or counseling patient:: 0 Critical Care Time Critical Care Time (minutes): 60
--- NOTE | 2020-04-28 11:47 | MHC.CM.PN ---
Patient remains intubated/vented in ICU. Patient is from home without services. Please see last case management progress on on 04/26 from Rubina in regards to which HCP to contact. Continue to monitor for d/c needs.
[2020-04-28 12:26] LABS: Glucose, Whole Blood 175 mg/dL (60-115)
[2020-04-28] MEDS: Albumin Human 25 % 100 ML IV (19:46)
[2020-04-28] MEDS: levoFLOXacin/D5W 750 MG/150 ML PIGGYBACK 100 MG IV (19:46)
[2020-04-28 20:14] LABS: Glucose, Whole Blood 172 mg/dL (60-115)
[2020-04-28] MEDS: propofoL 1,000 MG/100 ML VIAL 18 MG IVCONT (21:39)
--- NOTE | 2020-04-28 22:15 | PC.NURSE ---
BP 100-120'S/30'S, WIDE PULSE PRESSURE WITH MAP 40'S-50'S. OVERBREATHING VENT RR 26-30. ETCO2 45-50. SMALL TARRY BM. VOMITED SMALL AMOUNT COFFEE GROUND DURING BATH. NO RESIDUAL AT THAT TIME. HELD TUBE FEED. UOP 30 CC IN 8 HOURS. STAGE II TO MEATUS. BARRIER CREAM APPLIED. LARGE BLISTER TO RIGHT LOWER ARM. INTACT. SCLEREDEMA. PINPOINT PUPILS. PROPOFOL TITRATED DOWN TOLERATED. VFX ARTIST UPDATE RE:ASSESSMENT FINDINGS.
--- NOTE | 2020-04-28 22:22 | P.PNNPD_ITS ---
Subjective Subjective This patient was seen during dialysis. Interval history: 65-year-old gentleman with underlying history of obesity, COPD, SHIRA/obesity hyperventilation syndrome, diabetes, liver disease, admitted on 04/14/2020 with dyspnea and fevers secondary to COVID-19 requiring intubation and ventilatory support. Hospital course further complicated by acute renal failure requiring hemodialysis, bacterial pneumonia, and encephalopathy. No events overnight. No changes in underlying diminished mental status. Renal function continues to deteriorate. Physical Exam Vital Signs: Vital Signs: Last Vital Signs Temp 99.9 F 04/28/20 22:00 Pulse 99 04/28/20 22:00 Resp 28 H 04/28/20 22:00 BP 99/39 L 04/28/20 22:00 Pulse Ox 93 04/28/20 22:00 Body Mass Index 39.4 Const: Other: Intubated General: cooperative, no acute distress, acute distress severe and respiratory, ill appearing, lethargic and tired appearing; No alert or awake Nutritional Appearance: obese and other (Anasarca) Orientation/consciousness: oriented to person, oriented to place, oriented to time and lethargic Limitations: language barrier HENMT: Head: Yes normal to inspection and Yes normocephalic Ears: hearing grossly normal bilaterally Face and sinus: Yes normal facial exam Mouth: Normal oral and palatal mucosa present and oropharynx normal Eyes: General: appearance normal, both eyes and all related structures Conjunctivae: conjunctivae normal Sclerae: sclerae normal EOM: EOMs intact bilaterally Neck: Neck: Yes normal visual inspection, Yes full ROM, Yes no lympha denopathy, Yes trachea midline, Yes supple and Yes no JVD Thyroid: Thyroid normal Carotids: normal carotid upstroke Lymphatic: no lymphadenopathy noted Chest: Chest palpation & inspection: normal inspection of the chest Resp: Other: I did not examine patient but reviewed the exam done by the director of resource development -pt is orally intubated, sitting 45 degrees Effort & Inspection: normal respiratory effort, decreased respiratory effort, labored, nasal flaring, respiratory distress, uses accessory muscles and prolonged expiratory phase Auscultation: crackles bilateral and diffuse, rhonchi and diminished lung sounds Percussion: percussion normal Cardio: Other: Intubated Jugular venous distension: no JVD Palpation: normal PMI Rate: regular rate and tachycardic Rhythm: regular rhythm Heart sounds: S1 normal heart sound present, S2 normal heart sound present, no gallops, no murmurs and no rubs GI: Inspection: Yes normal to inspection Palpation (GI): Soft to palpation, nontender, no guarding and Other GI palpation findings present ( Nontender) Auscultation: normal bowel sounds : General: Yes no CVA tenderness Penis: normal penis Back/Spine/Pelvis: Back: no CVA tenderness Thoracic/Lumbar Spine: thoracic and lumbar spine normal to inspection Skin: General skin exam: no rashes or lesions noted Neuro: Other: Sedated General: oriented to person, oriented to place, oriented to time, moves all extremities, no focal motor deficits and other (sedated) Extrem: General: Yes normal to inspection, Yes full ROM, Yes normal exam except as noted, Yes no calf tenderness, Yes normal gait, No clubbing, No cyanosis, Yes edema (1+ bilateral) and No pedal edema Left upper extremity: edema Assessment & Plan Assessment and plan (1) Encephalopathy acute: Status: Acute (2) ARDS (adult respiratory distress syndrome): Status: Acute Assessment and Plan: Assessment: 65-year-old gentleman with underlying obesity, COPD, diabetes mellitus, liver disease admitted on 04/14/2020 with acute hypoxemic respiratory failure secondary to COVID-19 ARDS requiring ventilatory support with hospital course further complicated by acute kidney injury, bacterial pneumonia, and acute encephalopathy. Plan: Neuro: Acute encephalopathy, poor arousal with sedation vacation. Toxic versus hepatic versus metabolic. CT head on 04/24/2020 with no acute findings. Continue with daily sedation vacations. Still with no significant improvements. Repeat CT head is pending. 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 Cardiac: No acute issues. Pulmonary: Acute hypoxic respiratory failure secondary to COVID-19 ARDS requiring ventilatory support. Continue to titrate off as tolerated. Renal: Acute renal failure secondary to COVID-19 micro thrombolysis requiring dialysis, now worsening, requiring re-initiation of hemodialysis. Continue with fluid mobilization. Nephrology service care appreciated. Hypernatremia resolved. Endo: No acute issues. Underlying diabetes mellitus. 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 ID: COVID 19 status post dexamethasone. Now with Stenotrophomonas Levaquin sensitive, will continue on Levaquin for the next 3 days. Infectious Disease service care appreciated. Heme/Onc: No acute issues. Chronic thrombocytopenia. Psych: No acute issues. Miscellaneous: No acute issues. Prophylaxis: Lovenox, famotidine Diet: Tube feeds Critical care time spent: 60 minutes (3) Acute hypoxemic respiratory failure due to COVID-19: Status: Acute (4) Acute kidney injury: Status: Acute Time Spent With Patient Time: Total time spent is greater than 50% in coordination of care (as documented) at patient's floor/unit and/or counseling patient:
[2020-04-29] VITALS (28 sets, daily range): BP systolic 99–150; BP diastolic 15–56; PULSE 84–100; RESP 27–37; TEMP 37–37.7; O2SAT 89–97; BMI 39.2
[2020-04-29 00:36] LABS: Glucose, Whole Blood 247 mg/dL (60-115)
[2020-04-29] MEDS: Albumin Human 25 % 100 ML IV ×3 (01:48→12:34)
[2020-04-29 02:26] LABS: Glucose, Whole Blood 219 mg/dL (60-115)
[2020-04-29] MEDS: propofoL 1,000 MG/100 ML VIAL 14.4 MG IVCONT ×4 (02:58→21:00)
--- NOTE | 2020-04-29 03:28 | PC.NURSE ---
Addendum entered by Erick Monaco RN 04/29/20 03:35: CURRENTLY SBP 130'S...MAP 60'S...SAO2 93% WITH FIO2 80%/PEEP 10CM Original Note: CARE ASSUMED 23:15...REMAINS TUBED/VENTED...RR CONTINUES 28-30 ON AC 20/VCV SETTINGS...SAO2 89-90% AT HS WITH FIO2 80% & PEEP 10CM...PROPOFOL WEANED TO 20 MCG/KG/MIN...(+)WEAK GAG/COUGH....PUPILS REMAINS PINPOINT PER SHIFT REPORT...OG-FEEDS 35 CC/HR...BILE SUCTIONED DURING ORAL CARE..ASPIRATE 500ml BILIOUS DRAINAGE AT HS...FEEDS HELD PER ICU OPERATIONS STAFF SPECIALIST SECURITY...SBP 90'S-100'S...DBP 30'S...MAP 40'S-50'S...LEVOPHED STARTED AND TITRATE TO 0.9 MCG/KG/MIN PER OPERATIONS STAFF SPECIALIST SECURITY...SHAH WITH MINIMAL OUTPUT PER SHIFT REPORT...HS POC [id number]...LISPRO INSULIN 4 UNITS SC GIVEN...2AM POC [id number] WITH TUBE FEEDS ON HOLD...PREVIOUSLY RECEIVED LANTUS INSULIN PER JUL HS 3-11 SHIFT...SMALL PENILE MEATUS ULCER & BLISTER TO RIGHT FOREARM PER REPORT
[2020-04-29 05:01] LABS: Glucose, Whole Blood 217 mg/dL (60-115)
[2020-04-29] MEDS: Famotidine/PF 20 MG/2 ML VIAL IVPUSH ×2 (05:05→17:55)
[2020-04-29 05:41] LABS: Basophils Percent Auto 0.1 % (0-2); Eosinophils Percent Auto 0.1 % (0-4); Hematocrit 29.5 % (42-52); Hemoglobin 9.1 g/dl (14.0-18.0); Imm Gran Abs Auto 0.58 X10*3/uL (0.00-0.03); Imm Gran Pct Auto 2.5 % (0.0-0.4); Lymphocytes Absolute Auto 0.4 X10*3/uL (1.2-4.9); Lymphocytes Percent Auto 1.7 % (20-40); Mean Corpuscular HGB Conc 30.8 g/dl (31.0-36.0); Mean Corpuscular Hemoglobin 33.5 pg (27.0-33.0); Mean Corpuscular Volume 108.5 fL (80-98); Monocytes Absolute Auto 0.9 X10*3/uL (0.1-1.2); Neutrophils Absolute Auto 21.3 X10*3/uL (2.0-8.3); Neutrophils Percent Auto 91.6 % (45-73); Red Blood Count 2.72 X10*6/uL (4.60-5.80); Red Cell Distribution Width 17.9 % (11.0-16.0); SCAN SMEAR FLAG 1; White Blood Count 23.2 X10*3/uL (4.8-10.8)
[2020-04-29 05:42] LABS: MANUAL DIFF FLAG NO
[2020-04-29 05:55] LABS: Base Excess VBG -4.8 mmol/L; HCO3 VBG 23 mmol/L; Oxygen Saturation VBG 83.5 %; PCO2 VBG 59 mmhg; PO2 VBG 55 mmhg; pH VBG 7.22 (7.32-7.43)
--- NOTE | 2020-04-29 05:58 | PC.NURSE ---
ADDITIONAL 300ml BILIOUS DRAINAGE OBTAINED FROM OG-TUBE...TOTAL OG-TUBE OUTPUT 12AM-[id number]
[2020-04-29 06:01] LABS: NRBC Pct Auto 2.5 /100WBC (0.0-0.2); Platelet Count 94 X10*3/uL (160-400)
[2020-04-29 06:03] LABS: Glucose, Whole Blood 219 mg/dL (60-115)
[2020-04-29 06:13] LABS: Alanine Aminotransferase 242 U/L (0-40); Albumin Level 3.1 g/dL (3.5-5.0); Alkaline Phosphatase 157 U/L (39-117); Anion Gap 19 (12-20); Aspartate Amino Transferase 306 U/L (5-37); Bilirubin Total 5.9 mg/dL (0.0-1.0); Blood Urea Nitrogen 111 mg/dL (9-16); Calcium 6.6 mg/dL (8.4-10.2); Carbon Dioxide 26 mmol/L (22-29); Chloride 98 mmol/L (96-108); Creatinine Clr Calc Pharmacy 21.2; Estimated Glomerular Filt Rate 14; Glucose Random 221 mg/dL (60-115); Magnesium 2.8 mg/dL (1.6-2.6); Phosphorus 10.3 mg/dL (2.7-4.5); Potassium 5.9 mmol/l (3.3-5.1); Sodium 137 mmol/L (135-145); Total Protein 5.1 g/dL (6.5-8.0)
[2020-04-29] MEDS: Chlorhexidine Gluc Oral Rinse 15 ML MOUTHWASH BUCCAL ×3 (08:13→21:00)
[2020-04-29] MEDS: 0.9 % Sodium Chloride Flush 3 ML SYRINGE IVFLUSH ×3 (08:16→21:35)
[2020-04-29] MEDS: dexAMETHasone sod phosphate 4 MG/ML VIAL IVPUSH (08:17)
--- NOTE | 2020-04-29 09:44 | PM.CCPN ---
Subjective Subjective Date of Service: 04/29/20 Interval History: ICU day 15 for acute hypoxic respiratory failure, COVID-19 related ARDS, acute renal failure, stenotrophomonas pneumonia, encephalopathy. 65-year-old gentleman with underlying history of obesity, COPD, SHIRA/obesity hyperventilation syndrome, diabetes, liver disease, admitted on 04/14/2020 with dyspnea and fevers secondary to COVID-19, initially positive on 04/03/2020 ER visit. On admission requiring intubation and ventilatory support. Hospital course further complicated by acute renal failure requiring hemodialysis, bacterial pneumonia, and encephalopathy. No events overnight. No changes in underlying diminished mental status. Physical Exam Vital Signs: Vital Signs: Last Vital Signs Temp 99.7 F 04/29/20 08:00 Pulse 84 04/29/20 09:00 Resp 31 H 04/29/20 09:00 BP 111/29 L 04/29/20 09:00 Pulse Ox 92 04/29/20 09:00 Body Mass Index 39.2 Const: General: no acute distress; No alert or awake Nutritional Appearance: obese Eyes: Sclerae: sclerae normal Neck: Neck: Yes no lymphadenopathy, Yes trachea midline and Yes supple Resp: Auscultation: crackles bilateral and diffuse Cardio: Rate: regular rate Rhythm: regular rhythm Heart sounds: no gallops, no murmurs and no rubs GI: Palpation (GI): Soft to palpation and Other GI palpation findings present ( Nontender) Auscultation: normal bowel sounds Extrem: General: No clubbing, No cyanosis and Yes edema (Trace bilateral) Objective Data Labs CBC & Chem 7: 04/29/20 05:00 04/29/20 05:00 Labs: Laboratory Results - last 24 hr 04/28/20 04/28/20 04/28/20 12:18 17:02 23:34 WBC RBC Hgb Hct MCV MCH MCHC RDW Plt Count MPV Immature Gran % (Auto) Neut % (Auto) Lymph % (Auto) [place] % (Auto) Eos % (Auto) Baso % (Auto) Lymph # (Auto) [place] # (Auto) Eos # (Auto) Baso # (Auto) Abs Immat Gran (auto) Absolute Neuts (auto) Absolute Nucleated RBC Nucleated RBC % (auto) VBG pH VBG pCO2 VBG pO2 VBG HCO3 VBG O2 Saturation VBG Base Excess Sodium Potassium Chloride Carbon Dioxide Anion Gap BUN Creatinine Estim Creat Clear Calc Estimated GFR POC Glucose 175 H 172 H 247 H Random Glucose Calcium Phosphorus Magnesium Total Bilirubin AST ALT Alkaline Phosphatase Total Protein Albumin 04/29/20 04/29/20 04/29/20 01:52 03:57 05:00 WBC 23.2 H RBC 2.72 L Hgb 9.1 L Hct 29.5 L MCV 108.5 H MCH 33.5 H MCHC 30.8 L RDW 17.9 H Plt Count 94 L MPV 13.0 H Immature Gran % (Auto) 2.5 H Neut % (Auto) 91.6 H Lymph % (Auto) 1.7 L [place] % (Auto) 4.0 Eos % (Auto) 0.1 Baso % (Auto) 0.1 Lymph # (Auto) 0.4 L [place] # (Auto) 0.9 Eos # (Auto) 0.0 Baso # (Auto) 0.0 Abs Immat Gran (auto) 0.58 H Absolute Neuts (auto) 21.3 H Absolute Nucleated RBC 0.580 H Nucleated RBC % (auto) 2.5 H VBG pH VBG pCO2 VBG pO2 VBG HCO3 VBG O2 Saturation VBG Base Excess Sodium Potassium Chloride Carbon Dioxide Anion Gap BUN Creatinine Estim Creat Clear Calc Estimated GFR POC Glucose 219 H 217 H Random Glucose Calcium Phosphorus Magnesium Total Bilirubin AST ALT Alkaline Phosphatase Total Protein Albumin 04/29/20 04/29/20 04/29/20 05:00 05:00 05:09 WBC RBC Hgb Hct MCV MCH MCHC RDW Plt Count MPV Immature Gran % (Auto) Neut % (Auto) Lymph % (Auto) [place] % (Auto) Eos % (Auto) Baso % (Auto) Lymph # (Auto) [place] # (Auto) Eos # (Auto) Baso # (Auto) Abs Immat Gran (auto) Absolute Neuts (auto) Absolute Nucleated RBC Nucleated RBC % (auto) VBG pH 7.22 L VBG pCO2 59 VBG pO2 55 VBG HCO3 23 VBG O2 Saturation 83.5 VBG Base Excess -4.8 Sodium 137 Potassium 5.9 H Chloride 98 Carbon Dioxide 26 Anion Gap 19 BUN 111 H* Creatinine 4.23 H* Estim Creat Clear Calc 21.2 Estimated GFR 14 POC Glucose 219 H Random Glucose 221 H Calcium 6.6 L D Phosphorus 10.3 H Magnesium 2.8 H Total Bilirubin 5.9 H AST 306 H ALT 242 H Alkaline Phosphatase 157 H Total Protein 5.1 L Albumin 3.1 L Microbiology Microbiology Results: Microbiology 04/21/20 16:43 Blood - Venous Blood Culture - Final No growth after 5 days. 04/21/20 16:41 Blood - Venous Blood Culture - Final No growth after 5 days. 04/21/20 17:21 Urine Catheterized - Chandler Catheter Urine Culture - Final No growth. 04/21/20 18:34 Sputum - Suctioned Gram Stain - Final 04/21/20 18:34 Sputum - Suctioned Sputum Culture - Final Stenotrophomonas maltophilia 04/14/20 07:14 Blood - Venous Blood Culture - Final No growth after 5 days. 04/14/20 07:09 Blood - Venous Blood Culture - Final No growth after 5 days. 04/14/20 21:02 Sputum - Suctioned Gram Stain - Final 04/14/20 21:02 Sputum - Suctioned Sputum Culture - Final Strep agalactiae (Grp B) Progress Note: A&P Assessment and plan (1) Encephalopathy acute: Status: Acute Assessment and Plan: Assessment: 65-year-old gentleman with underlying obesity, COPD, diabetes mellitus, liver disease, SHIRA admitted on 04/14/2020 with acute hypoxemic respiratory failure secondary to COVID-19 ARDS requiring ventilatory support with hospital course further complicated by acute kidney injury, bacterial pneumonia, and acute encephalopathy. Plan: Neuro: Acute encephalopathy, poor arousal with sedation vacation. Toxic versus hepatic versus metabolic. CT head on 04/24/2020 and on 04/28/2020 with no acute findings. Continue with daily sedation vacations. Still with no significant improvements. Will plan on EEG in a.m.. 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 Cardiac: No acute issues. Pulmonary: Acute hypoxic respiratory failure secondary to COVID-19 ARDS requiring ventilatory support. Continue to titrate off as tolerated. FiO2 requirements are slowly improving. Renal: Acute renal failure secondary to COVID-19 micro thrombolysis requiring dialysis, now worsening, requiring re-initiation of hemodialysis. Nephrology service care appreciated. Endo: No acute issues. Underlying diabetes mellitus. 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 ID: COVID 19 status post dexamethasone. Now with Stenotrophomonas Levaquin sensitive, will continue on Levaquin for the next 2 days. Infectious Disease service care appreciated. Heme/Onc: No acute issues. Chronic thrombocytopenia. Psych: No acute issues. Miscellaneous: No acute issues. Prophylaxis: Lovenox, famotidine Diet: Tube feeds Critical care time spent: 60 minutes (2) ARDS (adult respiratory distress syndrome): Status: Acute (3) Acute kidney injury: Status: Acute (4) Acute hypoxemic respiratory failure due to COVID-19: Status: Acute (5) Morbid obesity: Status: Acute Time Spent With Patient Total time spent with greater than 50% in coordination of care (as documented) at patient's floor/unit and/or counseling patient:: 0 Critical Care Time Critical Care Time (minutes): 60
[2020-04-29] MEDS: bisacodyL 10 MG SUPP.RECT PR (10:11)
[2020-04-29] MEDS: Enoxaparin Sodium 30 MG/0.3 ML SYRINGE SUBCUT (10:11)
[2020-04-29] MEDS: Insulin Glargine,Hum.rec.anlog 100 UNIT/ML 10 ML VIAL 75 UNIT SUBCUT (10:14)
[2020-04-29 11:02] LABS: Glucose, Whole Blood 185 mg/dL (60-115)
--- NOTE | 2020-04-29 12:43 | PM.PNNEP ---
Subjective Subjective Date of Service: 04/29/20 Interval history: ICU day 15 for acute hypoxic respiratory failure, COVID-19 related ARDS, acute renal failure, stenotrophomonas pneumonia, encephalopathy. Last HD 04/28 Min UOP 5-10/hr 65-year-old gentleman with underlying history of obesity, COPD, SHIRA/obesity hyperventilation syndrome, diabetes, liver disease, admitted on 04/14/2020 with dyspnea and fevers secondary to COVID-19, initially positive on 04/03/2020 ER visit. On admission requiring intubation and ventilatory support. Hospital course further complicated by acute renal failure requiring hemodialysis, bacterial pneumonia, and encephalopathy. No events overnight. No changes in underlying diminished mental status. Physical Exam Vital Signs: Vital Signs: Last Vital Signs Temp 99.1 F 04/29/20 12:00 Pulse 90 04/29/20 12:00 Resp 32 H 04/29/20 12:00 BP 147/39 H 04/29/20 12:00 Pulse Ox 93 04/29/20 12:00 Body Mass Index 39.2 Const: Other: Intubated General: cooperative, no acute distress, acute distress severe and respiratory, ill appearing, lethargic and tired appearing; No alert or awake Nutritional Appearance: obese and other (Anasarca) Orientation/consciousness: oriented to person, oriented to place, oriented to time and lethargic Limitations: language barrier HENMT: Head: Yes normal to inspection and Yes normocephalic Ears: hearing grossly normal bilaterally Face and sinus: Yes normal facial exam Mouth: Normal oral and palatal mucosa present and oropharynx normal Eyes: General: appearance normal, both eyes and all related structures Conjunctivae: conjunctivae normal Sclerae: sclerae normal EOM: EOMs intact bilaterally Neck: Neck: Yes normal visual inspection, Yes full ROM, Yes no lymphadenopathy, Yes trachea midline, Yes supple and Yes no JVD Thyroid: Thyroid normal Carotids: normal carotid upstroke Lymphatic: no lymphadenopathy noted Chest: Chest palpation & inspection: normal inspection of the chest Resp: Other: I did not examine patient but reviewed the exam done by the marine firefighter -pt is orally intubated, sitting 45 degrees Effort & Inspection: normal respiratory effort, decreased respiratory effort, labored, nasal flaring, respiratory distress, uses accessory muscles and prolonged expiratory phase Auscultation: crackles bilateral and diffuse, rhonchi and diminished lung sounds Percussion: percussion normal Cardio: Other: Intubated Jugular venous distension: no JVD Palpation: normal PMI Rate: regular rate and tachycardic Rhythm: regular rhythm Heart sounds: S1 normal heart sound present, S2 normal heart sound present, no gallops, no murmurs and no rubs GI: Inspection: Yes normal to inspection Palpation (GI): Soft to palpation, nontender, no guarding and Other GI palpation findings present ( Nontender) Auscultation: normal bowel sounds : General: Yes no CVA tenderness Penis: normal penis Back/Spine/Pelvis: Back: no CVA tenderness Thoracic/Lumbar Spine: thoracic and lumbar spine normal to inspection Skin: General skin exam: no rashes or lesions noted Neuro: Other: Sedated General: oriented to person, oriented to place, oriented to time, moves all extremities, no focal motor deficits and other (sedated) Extrem: General: Yes normal to inspection, Yes full ROM, Yes normal exam except as noted, Yes no calf tenderness, Yes normal gait, No clubbing, No cyanosis, Yes edema (1+ bilateral) and No pedal edema Left upper extremity: edema Objective Data Labs CBC & Chem 7: 04/29/20 05:00 04/29/20 05:00 Labs: Laboratory Results - last 24 hr 04/28/20 04/28/20 04/29/20 17:02 23:34 01:52 WBC RBC Hgb Hct MCV MCH MCHC RDW Plt Count MPV Immature Gran % (Auto) Neut % (Auto) Lymph % (Auto) [place] % (Auto) Eos % (Auto) Baso % (Auto) Lymph # (Auto) [place] # (Auto) Eos # (Auto) Baso # (Auto) Abs Immat Gran (auto) Absolute Neuts (auto) Absolute Nucleated RBC Nucleated RBC % (auto) VBG pH VBG pCO2 VBG pO2 VBG HCO3 VBG O2 Saturation VBG Base Excess Sodium Potassium Chloride Carbon Dioxide Anion Gap BUN Creatinine Estim Creat Clear Calc Estimated GFR POC Glucose 172 H 247 H 219 H Random Glucose Calcium Phosphorus Magnesium Total Bilirubin AST ALT Alkaline Phosphatase Total Protein Albumin 04/29/20 04/29/20 04/29/20 03:57 05:00 05:00 WBC 23.2 H RBC 2.72 L Hgb 9.1 L Hct 29.5 L MCV 108.5 H MCH 33.5 H MCHC 30.8 L RDW 17.9 H Plt Count 94 L MPV 13.0 H Immature Gran % (Auto) 2.5 H Neut % (Auto) 91.6 H Lymph % (Auto) 1.7 L [place] % (Auto) 4.0 Eos % (Auto) 0.1 Baso % (Auto) 0.1 Lymph # (Auto) 0.4 L [place] # (Auto) 0.9 Eos # (Auto) 0.0 Baso # (Auto) 0.0 Abs Immat Gran (auto) 0.58 H Absolute Neuts (auto) 21.3 H Absolute Nucleated RBC 0.580 H Nucleated RBC % (auto) 2.5 H VBG pH VBG pCO2 VBG pO2 VBG HCO3 VBG O2 Saturation VBG Base Excess Sodium 137 Potassium 5.9 H Chloride 98 Carbon Dioxide 26 Anion Gap 19 BUN 111 H* Creatinine 4.23 H* Estim Creat Clear Calc 21.2 Estimated GFR 14 POC Glucose 217 H Random Glucose 221 H Calcium 6.6 L D Phosphorus 10.3 H Magnesium 2.8 H Total Bilirubin 5.9 H AST 306 H ALT 242 H Alkaline Phosphatase 157 H Total Protein 5.1 L Albumin 3.1 L 04/29/20 04/29/20 04/29/20 05:00 05:09 10:56 WBC RBC Hgb Hct MCV MCH MCHC RDW Plt Count MPV Immature Gran % (Auto) Neut % (Auto) Lymph % (Auto) [place] % (Auto) Eos % (Auto) Baso % (Auto) Lymph # (Auto) [place] # (Auto) Eos # (Auto) Baso # (Auto) Abs Immat Gran (auto) Absolute Neuts (auto) Absolute Nucleated RBC Nucleated RBC % (auto) VBG pH 7.22 L VBG pCO2 59 VBG pO2 55 VBG HCO3 23 VBG O2 Saturation 83.5 VBG Base Excess -4.8 Sodium Potassium Chloride Carbon Dioxide Anion Gap BUN Creatinine Estim Creat Clear Calc Estimated GFR POC Glucose 219 H 185 H Random Glucose Calcium Phosphorus Magnesium Total Bilirubin AST ALT Alkaline Phosphatase Total Protein Albumin Microbiology Microbiology Results: Microbiology 04/21/20 16:43 Blood - Venous Blood Culture - Final No growth after 5 days. 04/21/20 16:41 Blood - Venous Blood Culture - Final No growth after 5 days. 04/21/20 17:21 Urine Catheterized - Chandler Catheter Urine Culture - Final No growth. 04/21/20 18:34 Sputum - Suctioned Gram Stain - Final 04/21/20 18:34 Sputum - Suctioned Sputum Culture - Final Stenotrophomonas maltophilia 04/14/20 07:14 Blood - Venous Blood Culture - Final No growth after 5 days. 04/14/20 07:09 Blood - Venous Blood Culture - Final No growth after 5 days. 04/14/20 21:02 Sputum - Suctioned Gram Stain - Final 04/14/20 21:02 Sputum - Suctioned Sputum Culture - Final Strep agalactiae (Grp B) Assessment & Plan Assessment and plan (1) Encephalopathy acute: Status: Acute (2) ARDS (adult respiratory distress syndrome): Status: Acute (3) Acute hypoxemic respiratory failure due to COVID-19: Status: Acute (4) Acute kidney injury: Status: Acute Assessment and Plan: 1. Oliguric BRYSON: c/w multifact ATN related to COVID 2. resp [place]: on vent 3. hyperK; depsite HD yesterday 4. Anemia REC: HD scheduled for tomorrow; silvino GT feeds; kayexalte for K control today D/W Dr Valdez will follwo with ICU team Time Spent With Patient Time: Total time spent is greater than 50% in coordination of care (as documented) at patient's floor/unit and/or counseling patient:
--- NOTE | 2020-04-29 15:27 | ECG_ITS ---
Test Reason : EKG CHANGES Blood Pressure : / mmHG Vent. Rate : 088 BPM Atrial Rate : 088 BPM P-R Int : 160 ms QRS Dur : 084 ms QT Int : 374 ms P-R-T Axes : 043 088 124 degrees QTc Int : 452 ms Poor data quality Normal sinus rhythm Possible Lateral infarct , age undetermined Abnormal ECG When compared with ECG of 14-APR-2020 08:15, Poor data quality in current ECG precludes serial comparison Referred By: Delroy Valdez Electronically Signed By:MARITZA CONTE MD
--- NOTE | 2020-04-29 15:48 | MHC.CM.PN ---
Patient remains intubated/vented in ICU. Patient is from home without services. Continue to monitor for d/c needs.
--- NOTE | 2020-04-29 16:07 | PC.NURSE ---
pt continues on Propofol for sedation, positive cough and gag, overbreathing vent trending 26-3, not following commands bp continue with wide pulse pressures, levophed being titrated continues on ac settings, fio2 initially titrated down to 70%, this afternoon pt o2 sat trending 87-99%, fio2 titrated back to 80%. o2 sat currently trending 90-91 tlc remains to left ij, all ports flush with ease/ dialysis cath remains to right ij, dressing cdi md aware of bile from og tube, inter suction turned off per md, tube feeds remains off, given duculox supp with good effect, large liguid brown stool out this shift, rectal tube not placed due to pressure area from previous rectal tube pt being repositioned freqently, q 2 hours and on air mattress repo system, lantus still given per md this shift, poc being trended, lispro slidiing scale not given due to patient being npo planfor dialysis tomorrow daughter (jasiel) updated by this rn
[2020-04-29 17:57] LABS: Glucose, Whole Blood 177 mg/dL (60-115)
--- NOTE | 2020-04-29 18:03 | PC.NURSE ---
1800 POC 177. MD NOTIFIED VIA [employer]. SLIDING SCALE INSULIN HELD PER .
[2020-04-30] VITALS (30 sets, daily range): BP systolic 93–157; BP diastolic 31–54; PULSE 83–114; RESP 20–36; TEMP 37.4–38.2; O2SAT 86–94; BMI 36.9
--- NOTE | 2020-04-30 | US_ITS ---
EXAMINATION: US VENOUS ULTRASOUND WITH DOPPLER LOWER EXTREMITY, BILATERAL CLINICAL INFORMATION: Edema. Swelling COMPARISON: None TECHNIQUE: Ultrasound of the deep veins is performed from the hip to the calf with compression sonography and color and pulse Doppler assessment. Spectral analysis with color-flow imaging is performed. FINDINGS: RIGHT: There is normal venous compression and respiratory variation and augmented flow. The visualized common femoral vein, superficial femoral vein, profunda femoral vein, popliteal vein, and the trifurcation region shows no evidence of deep venous thrombosis. There is no significant popliteal fossa cyst. LEFT: There is normal venous compression and respiratory variation and augmented flow. The visualized common femoral vein, superficial femoral vein, profunda femoral vein, popliteal vein, and the trifurcation region shows no evidence of deep venous thrombosis. There is no significant popliteal fossa cyst. If the patient's symptoms persist, followup ultrasound in 5 days 7 days might be of value to exclude proximal propagation from a non-visualized calf vein. US/US venous duplex LE BI IMPRESSION: No DVT demonstrated in the bilateral lower extremity.
--- NOTE | 2020-04-30 | XR_ITS ---
EXAMINATION: CHEST 1 VIEW CLINICAL INFORMATION: Enteric tube placement. COMPARISON: 04/25/2020. TECHNIQUE: An AP view of the chest is provided. FINDINGS: The tip of the endotracheal tube is approximately 6.5 cm above the ramón. The tip of the enteric tube is difficult to discern. A right central venous line has a tip that overlies the confluence near the right internal jugular vein and brachiocephalic vein. The left central venous line tip has flipped and is now directed cephalad within the right internal jugular vein. The cardiac silhouette is stable. There is increasing mixed interstitial and airspace opacification within the right lung. There are neither pleural effusions nor pneumothoraces. The osseous structures are stable. XR/XR chest 1V IMPRESSION: Lines and tubes in place as stated above. The tip of the endotracheal tube is approximately 6.5 cm above the ramón. The tip of the left central venous line has slipped into the right internal jugular vein and is directed cephalad. Increasing mixed interstitial and airspace opacification within the right lung.
[2020-04-30 00:21] LABS: Glucose, Whole Blood 156 mg/dL (60-115)
[2020-04-30 04:50] LABS: Glucose, Whole Blood 151 mg/dL (60-115)
[2020-04-30] MEDS: propofoL 1,000 MG/100 ML VIAL 10.8 MG IVCONT (05:11)
[2020-04-30] MEDS: Famotidine/PF 20 MG/2 ML VIAL IVPUSH (05:32)
[2020-04-30 05:52] LABS: Basophils Percent Auto 0.1 % (0-2); Eosinophils Percent Auto 0.2 % (0-4); Hematocrit 26.3 % (42-52); Hemoglobin 8.2 g/dl (14.0-18.0); Imm Gran Abs Auto 0.41 X10*3/uL (0.00-0.03); Imm Gran Pct Auto 2.3 % (0.0-0.4); Lymphocytes Absolute Auto 0.3 X10*3/uL (1.2-4.9); Lymphocytes Percent Auto 1.8 % (20-40); Mean Corpuscular HGB Conc 31.2 g/dl (31.0-36.0); Mean Corpuscular Hemoglobin 32.8 pg (27.0-33.0); Mean Corpuscular Volume 105.2 fL (80-98); Mean Platelet Volume 12.3 fL (9.4-12.4); Monocytes Absolute Auto 0.7 X10*3/uL (0.1-1.2); Monocytes Percent Auto 4.1 % (2-11); NRBC Pct Auto 1.6 /100WBC (0.0-0.2); Neutrophils Absolute Auto 16.5 X10*3/uL (2.0-8.3); Neutrophils Percent Auto 91.5 % (45-73); Platelet Count 74 X10*3/uL (160-400); SCAN SMEAR FLAG 1
[2020-04-30 05:56] LABS: MANUAL DIFF FLAG SCAN
[2020-04-30 06:08] LABS: Base Excess VBG -8.1 mmol/L; HCO3 VBG 20 mmol/L; Oxygen Saturation VBG 83.2 %; PCO2 VBG 53 mmhg; PO2 VBG 57 mmhg
[2020-04-30 06:09] LABS: pH VBG 7.19 (7.32-7.43)
[2020-04-30 06:19] LABS: SLIDE REVIEW VERIFIED
--- NOTE | 2020-04-30 06:22 | PC.NURSE ---
No cough/gag. pinpoint pupils. Propofol titrated down as tolerated. Restraints removed. Remains on levo for bp support. Wide pulse pressure with dbp 20-40. SR 80's-90's. Overbreathing vent, RR 24-34. Satting mid 90's on 80% fio2. Tube tamer changed. OGT found coiled in mouth. New OGT placed, drained approx 200 dark brown/coffee ground. Tube feed remains on hold. Held PM lantus and SS per QUALITY COMPLIANCE COORDINATOR. BG 150's-170's. UOP 60 cc total this shift. Large tarry black stool. Stage II to meatus with white discharge from urethra. Stage II to perineum. DTI to coccyx. Barrier cream applied to all skin injuries. Repo'd side to side Q2H. Prevalon system and airloss bed in place.
[2020-04-30 06:34] LABS: Alanine Aminotransferase 222 U/L (0-40); Albumin Level 3.1 g/dL (3.5-5.0); Alkaline Phosphatase 141 U/L (39-117); Anion Gap 24 (12-20); Aspartate Amino Transferase 275 U/L (5-37); Bilirubin Total 6.2 mg/dL (0.0-1.0); Calcium 5.4 mg/dL (8.4-10.2); Carbon Dioxide 21 mmol/L (22-29); Chloride 98 mmol/L (96-108); Creatinine Clr Calc Pharmacy 14.5; Estimated Glomerular Filt Rate 10; Glucose Random 133 mg/dL (60-115); Phosphorus 12.1 mg/dL (2.7-4.5); Potassium 6.4 mmol/l (3.3-5.1); Sodium 137 mmol/L (135-145); Total Protein 5.1 g/dL (6.5-8.0); Triglycerides 265 mg/dL
[2020-04-30 06:55] LABS: Blood Urea Nitrogen 143 mg/dL (9-16)
[2020-04-30] MEDS: Chlorhexidine Gluc Oral Rinse 15 ML MOUTHWASH BUCCAL ×3 (07:52→19:38)
[2020-04-30] MEDS: 0.9 % Sodium Chloride Flush 3 ML SYRINGE IVFLUSH ×2 (07:52→14:28)
[2020-04-30] MEDS: dexAMETHasone sod phosphate 4 MG/ML VIAL IVPUSH (07:53)
--- NOTE | 2020-04-30 08:01 | EEG_ITS ---
The patient is reported as being unresponsive. The waking background activity consists of very low voltage activity with occasional hints of a very low voltage 1 to 2 hertz delta. Hyperventilation and photic stimulation were omitted. IMPRESSION: This is a markedly abnormal EEG due to minimal cerebral electrical activity. No epileptiform discharges seen. MD AALIYAH Cummings/BECKIE / [id number]
--- NOTE | 2020-04-30 10:23 | MHC.CLN ---
F/U TF CURRENTLY ON HOLD R/T [employer] EMESIS AND HIGH RESIDUALS FOLLOWING
--- NOTE | 2020-04-30 10:58 | MHC.CM.PN ---
Per MD rounds, prognosis very poor. Will need to assess neuro status today. Discharge plan will depend on pt progress. If improves, will need STR. No referrals placed pending neuro status. Pt remains intubated and vented. Will continue to follow for d/c needs
[2020-04-30 11:34] LABS: HBsAGNum1 0.19 S/CO (0.00-0.99); Hepatitis B Surface Antigen Negative (Negative)
--- NOTE | 2020-04-30 11:36 | PM.PNNEP ---
Subjective Subjective Date of Service: 04/30/20 Interval history: seen and examinedon dialysis vented Physical Exam Vital Signs: Vital Signs: Last Vital Signs Temp 100.2 F 04/30/20 10:55 Pulse 105 H 04/30/20 10:55 Resp 29 H 04/30/20 10:55 BP 127/51 L 04/30/20 10:55 Pulse Ox 88 L 04/30/20 10:55 Body Mass Index 36.9 Const: General: ill appearing HENMT: Head: Yes normocephalic and Yes atraumatic Neck: Neck: Yes supple Resp: Auscultation: diminished lung sounds Cardio: Heart sounds: S1 normal heart sound present and S2 normal heart sound present GI: Palpation (GI): Soft to palpation and no guarding Extrem: Left upper extremity: edema Objective Data Labs CBC & Chem 7: 04/30/20 05:12 04/30/20 05:12 Labs: Laboratory Results - last 24 hr 04/29/20 04/29/20 04/30/20 17:53 23:44 04:46 WBC RBC Hgb Hct MCV MCH MCHC RDW Plt Count MPV Immature Gran % (Auto) Neut % (Auto) Lymph % (Auto) [place] % (Auto) Eos % (Auto) Baso % (Auto) Lymph # (Auto) [place] # (Auto) Eos # (Auto) Baso # (Auto) Abs Immat Gran (auto) Absolute Neuts (auto) Absolute Nucleated RBC Nucleated RBC % (auto) Smear Tech's Comments VBG pH VBG pCO2 VBG pO2 VBG HCO3 VBG O2 Saturation VBG Base Excess Sodium Potassium Chloride Carbon Dioxide Anion Gap BUN Creatinine Estim Creat Clear Calc Estimated GFR POC Glucose 177 H 156 H 151 H Random Glucose Calcium Phosphorus Magnesium Total Bilirubin AST ALT Alkaline Phosphatase Total Protein Albumin Triglycerides 04/30/20 04/30/20 04/30/20 05:12 05:12 05:12 WBC 18.0 H RBC 2.50 L Hgb 8.2 L Hct 26.3 L MCV 105.2 H MCH 32.8 MCHC 31.2 RDW 19.0 H Plt Count 74 L MPV 12.3 Immature Gran % (Auto) 2.3 H Neut % (Auto) 91.5 H Lymph % (Auto) 1.8 L [place] % (Auto) 4.1 Eos % (Auto) 0.2 Baso % (Auto) 0.1 Lymph # (Auto) 0.3 L [place] # (Auto) 0.7 Eos # (Auto) 0.0 Baso # (Auto) 0.0 Abs Immat Gran (auto) 0.41 H Absolute Neuts (auto) 16.5 H Absolute Nucleated RBC 0.280 H Nucleated RBC % (auto) 1.6 H Smear Tech's Comments VERIFIED VBG pH 7.19 L* VBG pCO2 53 VBG pO2 57 VBG HCO3 20 VBG O2 Saturation 83.2 VBG Base Excess -8.1 Sodium 137 Potassium 6.4 H* Chloride 98 Carbon Dioxide 21 L Anion Gap 24 H BUN 143 H* D Creatinine 5.98 H* Estim Creat Clear Calc 14.5 Estimated GFR 10 POC Glucose Random Glucose 133 H D Calcium 5.4 L* D Phosphorus 12.1 H Magnesium 3.0 H Total Bilirubin 6.2 H AST 275 H ALT 222 H Alkaline Phosphatase 141 H Total Protein 5.1 L Albumin 3.1 L Triglycerides 265 Microbiology Microbiology Results: Microbiology 04/21/20 16:43 Blood - Venous Blood Culture - Final No growth after 5 days. 04/21/20 16:41 Blood - Venous Blood Culture - Final No growth after 5 days. 04/21/20 17:21 Urine Catheterized - [place] Catheter Urine Culture - Final No growth. 04/21/20 18:34 Sputum - Suctioned Gram Stain - Final 04/21/20 18:34 Sputum - Suctioned Sputum Culture - Final Stenotrophomonas maltophilia 04/14/20 07:14 Blood - Venous Blood Culture - Final No growth after 5 days. 04/14/20 07:09 Blood - Venous Blood Culture - Final No growth after 5 days. 04/14/20 21:02 Sputum - Suctioned Gram Stain - Final 04/14/20 21:02 Sputum - Suctioned Sputum Culture - Final Strep agalactiae (Grp B) Assessment & Plan Assessment and plan (1) BRYSON (acute kidney injury): Status: Acute (2) Hyperkalemia: Status: Acute (3) COVID-19: Status: Acute (4) Respiratory failure: Status: Acute Assessment and Plan: BRYSON in the setting of SARS COV 2 cytokine release syndrome with acute tubular injury and ? microvascular thrombosis elevated serum potassium due to impaired distal flow normal baseline kidney function REC HD today optimize volume status Time Spent With Patient Time: Total time spent is greater than 50% in coordination of care (as documented) at patient's floor/unit and/or counseling patient:
--- NOTE | 2020-04-30 11:46 | PC.NURSE ---
pt recieving his dialysis at this writing, sat 88% Dr Staton aware. Propofol shut off at 10:30 no movement noted, Dr Staton at bedside and ordered Fentanly 100mcg bolus and a drip to start at 100mcg/hr due to resp rated and WOB. Dr staton also increased pt Peep setting to 13 while at bedside. Other vent setting remained unchanged AV 20 TV 450, FiOI2 80%. AM meds bia during dialysis and Lantus and Lovenox help altogether. decreased output Dr Staton aware Daughter tiffanie updated earlier today she will call back later in shift to [facility] with mother and patient
--- NOTE | 2020-04-30 12:18 | PM.CCPN ---
Subjective Subjective Date of Service: 04/30/20 Interval History: Mr. Christiano Tirado was admitted to the ICU Apr 14 because of acute respiratory failure secondary to COVID pneumonia. The patient is a 65-year-old male with a past medical history of morbid obesity, COPD/asthma, sleep apnea, diabetes, liver disease, vitamin-D deficiency, and thrombocytopenia. Was seen at hematology clinic on Apr 03 for follow-up for thrombocytopenia and was noted to be febrile and was sent to the emergency department for further evaluation. Was febrile to 100.5. Tested COVID positive there, and was sent home. At that time, he denied any symptoms and felt well. Over the 2 days prior to the current admission, the patient's breathing was getting worse. He called EMS Apr 14 and was brought to the ED. Sat was 67% on room air at the scene, increased to 80% on non-rebreather face mask by EMS. On arrival to the ED, the patient was very short of breath, unable to speak full sentences, saturating 38% at room air and increased to 70% on non-rebreather. Placed on high-flow nasal cannula, was still barely maintaining 75-80% sat. LABS in the ED were notable for white count 4.3, with 0.6% lymphs. Hemoglobin 15.0, platelet count was 115,000. D-dimer was 1249. BUN and creatinine were 13/0.8, lactate was 6.6, ferritin was 765, total bili was 2.1, AST/ALT were 131/64, LDH 798, CRP 21, PCT was 42, albumin 2.8. Chest x-ray was consistent with coronavirus pneumonia. The patient was given Decadron, Rocephin, and Zithromax. He started getting tired and was intubated. After sedation, his BP dropped into 80s-90?s, and he was started on Levophed. Doxycycline was added and he was admitted to the ICU. In the ICU, he was afebrile. He required NMB. A central line was placed. He was started on full dose Lovenox and the complete [facility] COVID protocol (minus ivermectin), plus doxycycline. His creat delmer rapidly, despite Levophed and vasopressin. Elevated CPK?s suggested rhabdomyolysis. He required an amiodarone drip to keep him in SR. ECHOCARDIOGRAM was notable for: 1. Wall thickness probably normal or top normal. 2. LV cavity size normal, with normal LV fxn. EF 50-60%. 3. RV size normal or top normal. 4. No gross valvular pathology 7. Unable to obtain TV Doppler signal; IVC 1.3 cm w minimal insp collapse. Est CVP 8cm. His renal [place] [id number]. A temporary HD catheter was placed on 04/16 and he was started on HD. Abd CT on 04/17 showed a cirrhotic-appearing liver, splenomegaly and small amount of ascites. Abd US suggested thrombosis of the splenic/portal vein confluence. He grew out Group B strep from sputum; Doxy was changed to Levaquin. He only required 3 days of hemodialysis, then started to make urine and his creat and potassium improved. His temporary HD catheter was pulled. Subsequent course marked by encephalopathy with failure to wake up and become responsive. Head CT on Apr 24 was unremarkable. Had to restart hemodialysis on April 25 for hyperkalemia with rising renal indices; a new temporary HD catheter was placed. He still failed to awaken; another head CT on 04/28 was still unremarkable. An MRI scan is contraindicated bec of aneurysm clipping clips. In previous days, when the propofol is discontinued, the patient does not become interactive, he just shakes his head from side to side. The propofol infusion was continued, but he was on no opiates. This morning, we discontinued the propofol infusion. On exam about an hour later, he was completely unresponsive. No eye opening, no grimace to pain, no response to verbal stimulation, no movement of any extremities. See vital signs below. He?s on Levophed 0.17ug. Running low-grade temps, 99-100 degrees. With a set RR of 20, his RR was 29. On 90%/+10, Sat was low 90?s. Plateau pressure is 29. Ventilatory pattern is dysynchronus with mild-mod incr WOB. Slight scleral icterus. No JVD. Abd benign, but he?s putting out red coffee grounds from his OGT and black stool from below. At least 1+ anasarca. I dropped the FiO2 to 80%, increased PEEP to 13. We started him on a fentanyl drip and his WOB resolved. LABORATORY DATA: As below. Notably, white count is down. Has a mild respiratory and metabolic acidosis. Potassium and renal indices very high today. He was dialyzed for 4 hours. Bilirubin continues to rise. Chest x-ray looks a little worse on the right side compared to the previous film from April 25. Overall though definitely improved from admission. IMPRESSION: 1. Bilateral pulmonary infiltrates/ARDS secondary to COVID pneumonia. He?s on Decadron 4mg daily. I will change him to Solu-Medrol 80 mg bid. He?s also on DVT prophylaxis dose Lovenox. We?ll follow biomarkers daily. If DDimer is high, I?ll up his anticoagulation. Also check LE duplex scan. 2. Acute hypoxemic and hypercarbic respiratory failure secondary to above. Has a mild respiratory and metabolic acidosis. I upped his PEEP, respiratory rate and tidal volume. 3. Hypotension of unclear etiology. We?ll recheck lactate and cultures, and get a formal echo. 4. BRYSON with metabolic acidosis. 2? rhabdomyolysis and COVID. Continue HD. ? Daily. 5. UGI bleed. Likely stress gastritis. Recheck Hb at 5pm. Type & cross. Started high dose IV PPI. 6. Worsening LFTs. ? 2? MOSF. Check coags. 7. Thrombocytopenia. Chronic. Follow. Could be worsening bec of his worsening liver dz. 8. ID: Finishing a course of Levaquin for Stenotrophomonas. Recheck sputum, urine, and blood cultures. 9. Coma. Negative CT x 2 suggests toxic/metabolic encephalopathy. Check EEG today. Prognosis very grim. Critical care time (including multiple visits, extended discussions with Renal consult and with Dr. Valdez, full chart rev and hosp course summary): 120+ min. Physical Exam Vital Signs: Vital Signs: Last Vital Signs Temp 100.2 F 04/30/20 11:59 Pulse 109 H 04/30/20 11:59 Resp 28 H 04/30/20 11:59 BP 127/52 L 04/30/20 11:59 Pulse Ox 88 L 04/30/20 11:59 Body Mass Index 36.9 Objective Data Labs CBC & Chem 7: 04/30/20 16:58 04/30/20 05:12 Labs: Laboratory Results - last 24 hr 04/29/20 04/29/20 04/30/20 17:53 23:44 04:46 WBC RBC Hgb Hct MCV MCH MCHC RDW Plt Count MPV Immature Gran % (Auto) Neut % (Auto) Lymph % (Auto) [place] % (Auto) Eos % (Auto) Baso % (Auto) Lymph # (Auto) [place] # (Auto) Eos # (Auto) Baso # (Auto) Abs Immat Gran (auto) Absolute Neuts (auto) Absolute Nucleated RBC Nucleated RBC % (auto) Smear Tech's Comments VBG pH VBG pCO2 VBG pO2 VBG HCO3 VBG O2 Saturation VBG Base Excess Sodium Potassium Chloride Carbon Dioxide Anion Gap BUN Creatinine Estim Creat Clear Calc Estimated GFR POC Glucose 177 H 156 H 151 H Random Glucose Calcium Phosphorus Magnesium Total Bilirubin AST ALT Alkaline Phosphatase Total Protein Albumin Triglycerides Hep Bs Antigen 04/30/20 04/30/20 04/30/20 05:12 05:12 05:12 WBC 18.0 H RBC 2.50 L Hgb 8.2 L Hct 26.3 L MCV 105.2 H MCH 32.8 MCHC 31.2 RDW 19.0 H Plt Count 74 L MPV 12.3 Immature Gran % (Auto) 2.3 H Neut % (Auto) 91.5 H Lymph % (Auto) 1.8 L [place] % (Auto) 4.1 Eos % (Auto) 0.2 Baso % (Auto) 0.1 Lymph # (Auto) 0.3 L [place] # (Auto) 0.7 Eos # (Auto) 0.0 Baso # (Auto) 0.0 Abs Immat Gran (auto) 0.41 H Absolute Neuts (auto) 16.5 H Absolute Nucleated RBC 0.280 H Nucleated RBC % (auto) 1.6 H Smear Tech's Comments VERIFIED VBG pH 7.19 L* VBG pCO2 53 VBG pO2 57 VBG HCO3 20 VBG O2 Saturation 83.2 VBG Base Excess -8.1 Sodium 137 Potassium 6.4 H* Chloride 98 Carbon Dioxide 21 L Anion Gap 24 H BUN 143 H* D Creatinine 5.98 H* Estim Creat Clear Calc 14.5 Estimated GFR 10 POC Glucose Random Glucose 133 H D Calcium 5.4 L* D Phosphorus 12.1 H Magnesium 3.0 H Total Bilirubin 6.2 H AST 275 H ALT 222 H Alkaline Phosphatase 141 H Total Protein 5.1 L Albumin 3.1 L Triglycerides 265 Hep Bs Antigen 04/30/20 10:25 WBC RBC Hgb Hct MCV MCH MCHC RDW Plt Count MPV Immature Gran % (Auto) Neut % (Auto) Lymph % (Auto) [place] % (Auto) Eos % (Auto) Baso % (Auto) Lymph # (Auto) [place] # (Auto) Eos # (Auto) Baso # (Auto) Abs Immat Gran (auto) Absolute Neuts (auto) Absolute Nucleated RBC Nucleated RBC % (auto) Smear Tech's Comments VBG pH VBG pCO2 VBG pO2 VBG HCO3 VBG O2 Saturation VBG Base Excess Sodium Potassium Chloride Carbon Dioxide Anion Gap BUN Creatinine Estim Creat Clear Calc Estimated GFR POC Glucose Random Glucose Calcium Phosphorus Magnesium Total Bilirubin AST ALT Alkaline Phosphatase Total Protein Albumin Triglycerides Hep Bs Antigen Negative Microbiology Microbiology Results: Microbiology 04/21/20 16:43 Blood - Venous Blood Culture - Final No growth after 5 days. 04/21/20 16:41 Blood - Venous Blood Culture - Final No growth after 5 days. 04/21/20 17:21 Urine Catheterized - [place] Catheter Urine Culture - Final No growth. 04/21/20 18:34 Sputum - Suctioned Gram Stain - Final 04/21/20 18:34 Sputum - Suctioned Sputum Culture - Final Stenotrophomonas maltophilia 04/14/20 07:14 Blood - Venous Blood Culture - Final No growth after 5 days. 04/14/20 07:09 Blood - Venous Blood Culture - Final No growth after 5 days. 04/14/20 21:02 Sputum - Suctioned Gram Stain - Final 04/14/20 21:02 Sputum - Suctioned Sputum Culture - Final Strep agalactiae (Grp B) Progress Note: A&P Time Spent With Patient Time: Total time spent is greater than 50% in coordination of care (as documented) at patient's floor/unit and/or counseling patient: Total time spent with greater than 50% in coordination of care (as documented) at patient's floor/unit and/or counseling patient:: 0 Critical Care Time Critical Care Time (minutes): 120
[2020-04-30 12:23] LABS: HBc Num1 0.25 S/CO (0.00-0.79); Hepatitis B Core Antibody Nonreactive (Nonreactive); ~Hepatitis B Surface Antibody REACTIVE (Nonreactive)
[2020-04-30] MEDS: Pantoprazole Sodium 40 MG/10 ML VIAL 80 MG IVPUSH (12:32)
[2020-04-30] MEDS: fentaNYL citrate/NS 1,000 MCG/100 ML PLAST..BAG 10 MCG IVCONT (12:33)
[2020-04-30] MEDS: methylPREDNISolone Sod Succ/PF 125 MG/2 ML VIAL 80 MG IVPUSH (14:28)
[2020-04-30 15:48] LABS: Glucose, Whole Blood 107 mg/dL (60-115)
[2020-04-30 17:08] LABS: Hematocrit 28.9 % (42-52); Hemoglobin 8.8 g/dl (14.0-18.0)
--- NOTE | 2020-04-30 17:38 | PC.NURSE ---
this nurse noted a visable pulse in pt upper abd area that has not been observed before. Dr Pool alerted and in to see pt immed. Pt fent decreased and TV increased due to High end tidal. Right pedal and radial pulse auscultated via doppler. urine output remains alost zero. Pt did have Dialysis today and nurse took off 3Liters.
[2020-04-30 18:09] LABS: Glucose, Whole Blood 77 mg/dL (60-115)
[2020-04-30] MEDS: levoFLOXacin/D5W 750 MG/150 ML PIGGYBACK 100 MG IV (19:37)
[2020-04-30] MEDS: Pantoprazole Sodium 40 MG/10 ML VIAL IVPUSH (19:38)
[2020-04-30 19:55] LABS: Base Excess VBG -7.6 mmol/L; HCO3 VBG 23 mmol/L; PCO2 VBG 76 mmhg; PO2 VBG 74 mmhg
[2020-04-30 19:56] LABS: Blood Gas Serial # 5396; Oxygen Saturation VBG 90.7 %
[2020-04-30 19:57] LABS: pH VBG 7.09 (7.32-7.43)
[2020-04-30 21:48] LABS: PCO2 VBG 66 mmhg; PO2 VBG 70 mmhg
[2020-04-30 21:49] LABS: Base Excess VBG -8.5 mmol/L; Blood Gas Serial # 5414; HCO3 VBG 21 mmol/L; Oxygen Saturation VBG 88.8 %
[2020-04-30 21:50] LABS: pH VBG 7.12 (7.32-7.43)
[2020-04-30 23:43] LABS: Glucose, Whole Blood 101 mg/dL (60-115)
[2020-05-01] VITALS (30 sets, daily range): BP systolic 100–185; BP diastolic 30–59; PULSE 101–119; RESP 22–28; TEMP 37.5–39.1; O2SAT 86–96; BMI 37.7
[2020-05-01] MEDS: methylPREDNISolone Sod Succ/PF 125 MG/2 ML VIAL 80 MG IVPUSH ×3 (00:35→23:47)
[2020-05-01] MEDS: fentaNYL citrate/NS 1,000 MCG/100 ML PLAST..BAG 5 MCG IVCONT (00:35)
[2020-05-01] MEDS: 0.9 % Sodium Chloride Flush 3 ML SYRINGE IVFLUSH ×4 (00:36→23:44)
[2020-05-01 06:00] LABS: Glucose, Whole Blood 87 mg/dL (60-115)
[2020-05-01 06:33] LABS: HCO3 VBG 17 mmol/L; Oxygen Saturation VBG 78.8 %; PCO2 VBG 65 mmhg; PO2 VBG 56 mmhg
[2020-05-01 06:35] LABS: pH VBG 7.04 (7.32-7.43)
[2020-05-01 06:48] LABS: Basophils Percent Auto 0.2 % (0-2); Eosinophils Percent Auto 0.1 % (0-4); Hematocrit 26.7 % (42-52); Imm Gran Abs Auto 0.39 X10*3/uL (0.00-0.03); Lymphocytes Absolute Auto 0.3 X10*3/uL (1.2-4.9); Lymphocytes Percent Auto 1.3 % (20-40); MANUAL DIFF FLAG SCAN; Mean Corpuscular Hemoglobin 33.9 pg (27.0-33.0); Monocytes Absolute Auto 0.7 X10*3/uL (0.1-1.2); Monocytes Percent Auto 3.5 % (2-11); Neutrophils Percent Auto 92.9 % (45-73); Red Blood Count 2.36 X10*6/uL (4.60-5.80); Red Cell Distribution Width 20.6 % (11.0-16.0); SCAN SMEAR FLAG 1; White Blood Count 19.4 X10*3/uL (4.8-10.8)
[2020-05-01 06:50] LABS: Lactic Acid 7.5 mmol/L (0.5-2.0)
[2020-05-01 07:13] LABS: Ferritin 421 ng/mL (20-250); Procalcitonin 19.22 ng/mL
[2020-05-01 07:17] LABS: Mean Corpuscular Volume 113.1 fL (80-98); NRBC Pct Auto 3.2 /100WBC (0.0-0.2); Platelet Count 69 X10*3/uL (160-400)
[2020-05-01 07:35] LABS: Alanine Aminotransferase 230 U/L (0-40); Albumin Level 2.7 g/dL (3.5-5.0); Alkaline Phosphatase 175 U/L (39-117); Anion Gap 31 (12-20); Aspartate Amino Transferase 338 U/L (5-37); Bilirubin Total 8.4 mg/dL (0.0-1.0); Blood Urea Nitrogen 118 mg/dL (9-16); C Reactive Protein 14.16 mg/dL (< or = 0.50); Calcium 5.2 mg/dL (8.4-10.2); Carbon Dioxide 14 mmol/L (22-29); Chloride 98 mmol/L (96-108); Creatinine Clr Calc Pharmacy 15.1; Estimated Glomerular Filt Rate 10; Glucose Random 84 mg/dL (60-115); Magnesium 2.9 mg/dL (1.6-2.6); Phosphorus 14.9 mg/dL (2.7-4.5); Potassium 7.1 mmol/l (3.3-5.1); Sodium 136 mmol/L (135-145); Total Protein 4.7 g/dL (6.5-8.0)
[2020-05-01 07:38] LABS: INTERNATIONAL NORM RATIO 1.3 (0.9-1.1); Prothrombin Time 15.9 SEC (10.8-13.0)
[2020-05-01] MEDS: Chlorhexidine Gluc Oral Rinse 15 ML MOUTHWASH BUCCAL ×3 (07:59→20:38)
[2020-05-01] MEDS: Pantoprazole Sodium 40 MG/10 ML VIAL IVPUSH ×2 (08:00→20:38)
--- NOTE | 2020-05-01 08:00 | CA_ITS ---
Transthoracic Echocardiogram Patient (Last, First, Middle): Dharmesh Adams, Gender: Male Date of : 1955 Age: 65 Procedure Date: 05/01/2020 Procedure Type: Transthoracic Echocardiogram Location: ICU Height: 170.18 cm Weight: 108.86 kg BSA: 2.18 m2 Heart Rate: bpm BP: 103 / 30 mmHg Vision Impaired Teacher: CARMELA Referring MD: Erik Pool Yard Engineer: Darren Rosas MD Symptoms: refractory hypotension Study Quality: Technically Difficult ECG Rhythm: Sinus Conclusions: - 1. Technically very limited study despite use of contrast media due to off axis views and patient positioning issues 2. LV systolic function appears to be normal with normal diastolic filling 3. Limited evaluation of cardiac valves with cardiac valvular Doppler within normal limits 4. Remainder of the cardiac structure not well visualized Findings Procedure Information Contrast agent, definity, is being given per protocol without apparent complications. Left Ventricle The visually estimated ejection fraction is between 55-60%. Regional wall motion abnormalities can not be excluded due to suboptimal endocardial definition. Spectral Doppler is indicative of a normal filling pattern. Right Ventricle The right ventricle was not well visualized. RV appears to be enlarged on some views, however these views are off axis. RV systolic function is difficult to assess on this study Atria The left atrium was not well visualized. The right atrium was not well visualized. Aortic Valve The aortic valve was not well visualized. There is no aortic valve regurgitation. Mitral Valve The mitral valve was not well visualized. Pulmonic Valve The pulmonic valve was not well visualized. Tricuspid Valve The tricuspid valve was not well visualized. There is trace tricuspid valve regurgitation. The right ventricular systolic pressure is normal. Great Vessels The aorta was not well visualized. The pulmonary artery was not well visualized. Venous The inferior vena cava was not well visualized. Pericardium/Pleural The pericardium was not well visualized. Prior Study Comparison No previous study in the last 5 years for comparison Measurements 2D Linear Measurements IVSd: 1.24 0.6-0.9/0.6-1.0 cm LVIDd: 3.91 3.9-5.3/4.2-5.9 cm LVIDd Index: 1.79 2.4-3.2/2.2-3.1 cm/m2 LVIDs: 2.73 2.0-3.6 cm LVPWd: 1.26 0.7-1.1 cm Ao Root: 3.70 2.1-3.5 cm LA Diam: 3.50 2.7-3.8/3.0-4.0 cm LAIDs Index: 1.61 1.5-2.3 cm/m2 LV Mass: 211.74 67-162/88-224 g LV Mass Index: 97.13 43-95/49-115 g/m2 LVOT Diam: 2.30 3.0+(-)1.3 cm Mitral Valve MV Pk E: 0.78 MV PK A: 0.73 MV Decel Time: 134.00 E/A: 1.10 E'Lateral: 10.30 E'Medial: 10.30 E/E' Med: 7.60 E/E' Lat: 7.60 Aortic Valve AoV Pk Flaco: 1.81 AoV Mn Flaco: 1.28 AoV VTI: 0.28 AoV Pk Grad: 13.00 Aov Mn Grad: 8.00 CHLOE Cont.VTI: 2.73 LVOT LVOT Pk Flaco: 1.12 LVOT Mn Flaco: 0.80 LVOT VTI: 0.18 LVOT Pk Grad: 5.00 LVOT Mn Grad: 3.00 LVOT Diam: 2.30 LVOT Area: 4.15 Diastolic Function MV Pk E: 0.78 MV Pk A: 0.73 E/A: 1.10 E'Medial: 10.30 E/E' Med: 7.60 E' Laterial: 10.30 E/E' Lat: 7.60 Tricuspid Valve TR Pk Flaco: 2.00 TR Pk Grad: 16.00 RA Press: 3.00 RVSP: 19.00 Great Vessels Aorta Ao Root-2D: 3.70 2.0-3.7 cm Pulmonary Valve PV Pk Flaco: 0.95 Peak PV Grad: 4.00 Updated in Other Vendor System with Status of Final Darren Rosas MD electronically signed on 05/01/2020 4:31:10 PM with status of Final
[2020-05-01 08:04] LABS: SLIDE REVIEW VERIFIED
[2020-05-01 08:15] LABS: D Dimer 2100 NG/ML
[2020-05-01 08:19] LABS: Reflex Lactate? Lactic Acid Added
[2020-05-01] MEDS: Sodium Bicarbonate 8.4% 50 MEQ/50 ML VIAL 100 MEQ IVPUSH (08:38)
[2020-05-01 09:52] LABS: ~Lactic Acid-LAB USE ONLY 8.8 mmol/L (0.5-2.0)
--- NOTE | 2020-05-01 10:13 | MHC.CDI.CONC ---
CDI Concurrent Query Service Date: 05/01/20 Documentation Clarification: Please clarify if you are treating a probable/suspected/likely or confirmed: Consistency and clarity of documentation within the medical record: Severe sepsis due to COVID-19/Pneumonia/ARDS/with acute hypoxic respiratory failure POA Severe sepsis with septic shock due to COVID-19/Pneumonia/ARDS w acute hypoxic respiratory failure Please specify if know or other PLEASE DO NOT DELETE/MODIFY EXISTING CONTENT Additional information is needed in order to code to the highest accuracy and appropriate Severity of Illness (SOI). Please clarify the information noted below in your progress notes and discharge summary. Risk Factors/Clinical Indicators/Treatments ICU 04/14 - bilateral infiltrates/ARDS 2nd to Covid-19 with acute hypoxemic and hypercarbic respiratory failure. Intubate and vent, vasopressor...ICU admit. CXR consistent w Covid-19 pneumonia presumed septic shock, empiric Ceftrianxone, Zithromycin, Doxycycline. ICU 04/15 - Acute respiratory failure, CRP up, prolactin up to 80 hypotensive probably bacterial septic shock, bump up in wbc. Query response 04/24 - Severe sepsis with end-organ dysfunction secondary to COVID-19. BRYSON 2nd to Sepsis vs. Covid-19, encephalopathy, CDS: Corrina Driver [facility], CDIS Contact Number: [phone] Please Review the information above and exercise your independent professional judgment in responding to the query. If you concur, pleas document in the PROGRESS NOTES and DISCHARGE SUMMARY. If you do not agree with the query, please document in the query above. THIS QUERY IS PART OF THE PERMANENT MEDICAL RECORD
--- NOTE | 2020-05-01 10:23 | PM.CCPN ---
Subjective Subjective Date of Service: 05/01/20 Interval History: Mr. Christiano Tirado was admitted to the ICU Apr 14 because of acute respiratory failure secondary to COVID pneumonia. The patient is a 65-year-old male with a past medical history of morbid obesity, COPD/asthma, sleep apnea, diabetes, liver disease, vitamin-D deficiency, and thrombocytopenia. Was seen at hematology clinic on Apr 03 for follow-up for thrombocytopenia and was noted to be febrile and was sent to the emergency department for further evaluation. Was febrile to 100.5. Tested COVID positive there, and was sent home. At that time, he denied any symptoms and felt well. Over the 2 days prior to the current admission, the patient's breathing was getting worse. He called EMS Apr 14. Sat was 67% on room air at the scene, increased to 80% on non-rebreather face mask by EMS. On arrival to the ED, the patient was very short of breath, unable to speak full sentences, saturating 38% at room air and increased to 70% on non-rebreather. Placed on high-flow nasal cannula, was still barely maintaining 75-80% sat. LABS in the ED were notable for white count 4.3, with 0.6% lymphs. Hemoglobin 15.0, platelet count was 115,000. D-dimer was 1249. BUN and creatinine were 13/0.8, lactate was 6.6, ferritin was 765, total bili was 2.1, AST/ALT were 131/64, LDH 798, CRP 21, PCT was 42, albumin 2.8. Chest x-ray was consistent with coronavirus pneumonia. The patient was given Decadron, Rocephin, and Zithromax. He started getting tired and was intubated. After sedation, his BP dropped into 80s-90?s, and he was started on Levophed. Doxycycline was added and he was admitted to the ICU. In the ICU, he was afebrile. He required NMB. A central line was placed. He was started on full dose Lovenox and the complete [facility] COVID protocol (minus ivermectin), plus doxycycline. His creat delmer rapidly, despite Levophed and vasopressin. Elevated CPK?s suggested rhabdomyolysis. He required an amiodarone drip to keep him in SR. ECHOCARDIOGRAM was notable for: 1. Wall thickness probably normal or top normal. 2. LV cavity size normal, with normal LV fxn. EF 50-60%. 3. RV size normal or top normal. 4. No gross valvular pathology 7. Unable to obtain TV Doppler signal; IVC 1.3 cm w minimal insp collapse. Est CVP 8cm. His renal [place] [address]. A temporary HD catheter was placed on 04/16 and he was started on HD. Abd CT on 04/17 showed a cirrhotic-appearing liver, splenomegaly and small amount of ascites. Abd US suggested thrombosis of the splenic/portal vein confluence. He grew out Group B strep from sputum; Doxy was changed to Levaquin. He only required 3 days of hemodialysis, then started to make urine and his creat and potassium improved. His temporary HD catheter was pulled. Subsequent course was marked by encephalopathy with failure to wake up and become responsive. Head CT on Apr 24 was unremarkable. Had to restart hemodialysis on April 25 for hyperkalemia with rising renal indices; a new temporary HD catheter was placed. He still failed to awaken; another head CT on 04/28 was still unremarkable. An MRI scan is contraindicated bec of aneurysm clipping clips. Yesterday we discontinued the propofol entirely. In previous days, when the propofol was discontinued, the patient did not become interactive, but he would toss his head side to side. Since the propofol was d/c?d yesterday, he has not done anything. He was overbreathing the ventilator with a dysynchronus pattern, so fentanyl was added, which smoothed out his respiratory pattern dramatically. He had a full dialysis yesterday. The patient was also having bloodly coffee grounds out of his gastric tube, and black stools. Hb was not dropping however. He was put on bid PPI for presumed stress gastritis. I also changed him from Decadron back to bid solumedrol for COVID. EEG done yesterday is pending. As of this morning, propofol has been off for 24 hours. The patient remains completely unresponsive on only fentanyl at 25 mcg. No eye opening, no response to any painful stimulation, no movement whatsoever, other than spontaneous respiratory efforts. Corneal reflexes and dolls eyes negative. Pupils equal round about 3 mm, and responsive to light. See Vital Signs below. On dialysis, Levophed was up to 0.4ug, with vasopressin up to 0.08u. Tmax up to 102.4 degrees this morning. With a set RR of 24, his RR was 24. On 70%/+10, Sat was low 90?s. CVBG this morning showed 7.04/65/-13. We upped his ventilatory support. Later on dialysis, CVBG showed 7.08/77/-8. Slight scleral icterus. No JVD. Abd benign, and he?s no longer putting out much coffee grounds from his OG tube or black stool from below. 1-2+ anasarca. LABORATORY DATA: As below. Notably. Ddimer is up. Potassium and renal indices very high (despite HD yesterday). Bicarb is down to 14. Gluc is low. Lactate is high, Bilirubin continues to rise. Phos up to 14.9. Ferritin down to 421, PCT down to 19 (in the face of ARF). I attempted an echo, was unable to see anything. ECHOCARDIOGRAM: I watched the tech do the echo at the bedside. Findings: 1. LV wall thickness is normal. 2. LV cavity size is normal or low normal. Wall motion assessment was difficult, even with contrast. I am unable to estimate LV function other than to say that wall motion looked ?stiff?. 3. RV size is at least mildly enlarged and RV:LV cavity ratio is > 1.0. 4. Trace TR with continuous wave Doppler jet measuring 2.0 m/sec (gradient 16 mm). 5. IVC is dilated, about 2.7 cm, with no inspiratory collapse. Estimated CVP 15 mm. IMPRESSION: 1. Bilateral ARDS secondary to COVID pneumonia. Ddimer is up, Ferritin and PCT down, CRP steady. LE duplex scan was negative. He?s back on Solu-Medrol 80 mg bid. He?s also on DVT prophylaxis-dose. 2. Acute hypoxemic and hypercarbic respiratory failure secondary to above. Chest x-ray and oxygenation are improving, but hypercarbia is worsening. The patient is not a candidate for tPA because of his gastrointestinal bleeding, and I am equally hesitant to increase his Lovenox. We changed him to PCV and upped his Vt and rate. 3. Hypotension of unclear etiology. Echo is suggestive of right heart failure, and possibly left heart failure. 4. Acute renal failure. Needs daily HD. 5. Worsening metabolic acidosis. I suspect this is secondary to hepatic failure (w underlying cirrhosis). Elevated lactate for the same reason. 5. UGI bleed. Likely stress gastritis. Hb is realtively steady. 6. Worsening LFTs. ? 2? MOSF w hepatic failure. 7. Thrombocytopenia. Chronic. Follow. Could be worsening bec of his worsening liver dz. 8. ID: Hypotensive, febrile, elevated lactate. Could be septic. Finished a course of Levaquin for Stenotrophomonas. BCs are drawn. Not making any sputum or urine. CXR is improved. No choice but to give him empiric abx pending Cx?s. 9. Coma. Negative CT x 2. Progressive loss of brainstem reflexes. EEG results pending. Check ammonia level tomorrow. Prognosis very grim. I called the patient?s daughter Alma, one of the HCPs ([phone]) and discussed with her, told her that I was doubtful that he?ll make it through tonite. Told her that we won?t do CPR. She said that she understands. I have written ?no CPR? orders. Two family members came in to visit and are at the bedside. Critical care time (including multiple visits, extended discussions family, with pharmacy, and with Renal consult): 110 min. Physical Exam Vital Signs: Vital Signs: Last Vital Signs Temp 101.7 F H 05/01/20 09:58 Pulse 119 H 05/01/20 09:58 Resp 24 H 05/01/20 09:58 BP 114/47 L 05/01/20 09:58 Pulse Ox 92 05/01/20 09:58 Body Mass Index 37.7 Objective Data Labs CBC & Chem 7: 05/01/20 05:48 05/01/20 05:48 Labs: Laboratory Results - last 24 hr 04/30/20 04/30/20 04/30/20 10:25 12:34 13:29 WBC RBC Hgb Hct MCV MCH MCHC RDW Plt Count MPV Immature Gran % (Auto) Neut % (Auto) Lymph % (Auto) [place] % (Auto) Eos % (Auto) Baso % (Auto) Lymph # (Auto) [place] # (Auto) Eos # (Auto) Baso # (Auto) Abs Immat Gran (auto) Absolute Neuts (auto) Absolute Nucleated RBC Nucleated RBC % (auto) Smear Tech's Comments PT INR D-Dimer VBG pH VBG pCO2 VBG pO2 VBG HCO3 VBG O2 Saturation VBG Base Excess Sodium Potassium Chloride Carbon Dioxide Anion Gap BUN Creatinine Estim Creat Clear Calc Estimated GFR POC Glucose 107 Random Glucose Lactic Acid Lactic Acid Fup @ 2Hr Calcium Phosphorus Magnesium Ferritin Total Bilirubin AST ALT Alkaline Phosphatase C-Reactive Protein Total Protein Albumin Procalcitonin Hep Bs Antigen Negative Hep Bs Antibody REACTIVE Hep B Core Total Ab Nonreactive Blood Type A Positive Antibody Screen NEGATIVE 04/30/20 04/30/20 04/30/20 16:58 18:00 19:42 WBC RBC Hgb 8.8 L Hct 28.9 L MCV MCH MCHC RDW Plt Count MPV Immature Gran % (Auto) Neut % (Auto) Lymph % (Auto) [place] % (Auto) Eos % (Auto) Baso % (Auto) Lymph # (Auto) [place] # (Auto) Eos # (Auto) Baso # (Auto) Abs Immat Gran (auto) Absolute Neuts (auto) Absolute Nucleated RBC Nucleated RBC % (auto) Smear Tech's Comments PT INR D-Dimer VBG pH 7.09 L* VBG pCO2 76 VBG pO2 74 VBG HCO3 23 VBG O2 Saturation 90.7 VBG Base Excess -7.6 Sodium Potassium Chloride Carbon Dioxide Anion Gap BUN Creatinine Estim Creat Clear Calc Estimated GFR POC Glucose 77 Random Glucose Lactic Acid Lactic Acid Fup @ 2Hr Calcium Phosphorus Magnesium Ferritin Total Bilirubin AST ALT Alkaline Phosphatase C-Reactive Protein Total Protein Albumin Procalcitonin Hep Bs Antigen Hep Bs Antibody Hep B Core Total Ab Blood Type Antibody Screen 04/30/20 04/30/20 05/01/20 21:35 23:37 05:35 WBC RBC Hgb Hct MCV MCH MCHC RDW Plt Count MPV Immature Gran % (Auto) Neut % (Auto) Lymph % (Auto) [place] % (Auto) Eos % (Auto) Baso % (Auto) Lymph # (Auto) [place] # (Auto) Eos # (Auto) Baso # (Auto) Abs Immat Gran (auto) Absolute Neuts (auto) Absolute Nucleated RBC Nucleated RBC % (auto) Smear Tech's Comments PT INR D-Dimer VBG pH 7.12 L* VBG pCO2 66 VBG pO2 70 VBG HCO3 21 VBG O2 Saturation 88.8 VBG Base Excess -8.5 Sodium Potassium Chloride Carbon Dioxide Anion Gap BUN Creatinine Estim Creat Clear Calc Estimated GFR POC Glucose 101 87 Random Glucose Lactic Acid Lactic Acid Fup @ 2Hr Calcium Phosphorus Magnesium Ferritin Total Bilirubin AST ALT Alkaline Phosphatase C-Reactive Protein Total Protein Albumin Procalcitonin Hep Bs Antigen Hep Bs Antibody Hep B Core Total Ab Blood Type Antibody Screen 05/01/20 05/01/20 05/01/20 05:48 05:48 05:48 WBC 19.4 H RBC 2.36 L Hgb 8.0 L Hct 26.7 L MCV 113.1 H D MCH 33.9 H MCHC 30.0 L RDW 20.6 H Plt Count 69 L MPV 13.0 H Immature Gran % (Auto) 2.0 H Neut % (Auto) 92.9 H Lymph % (Auto) 1.3 L [place] % (Auto) 3.5 Eos % (Auto) 0.1 Baso % (Auto) 0.2 Lymph # (Auto) 0.3 L [place] # (Auto) 0.7 Eos # (Auto) 0.0 Baso # (Auto) 0.0 Abs Immat Gran (auto) 0.39 H Absolute Neuts (auto) 18.0 H Absolute Nucleated RBC 0.620 H Nucleated RBC % (auto) 3.2 H Smear Tech's Comments VERIFIED PT 15.9 H INR 1.3 H D-Dimer 2100 VBG pH VBG pCO2 VBG pO2 VBG HCO3 VBG O2 Saturation VBG Base Excess Sodium 136 Potassium 7.1 H* Chloride 98 Carbon Dioxide 14 L Anion Gap 31 H BUN 118 H* Creatinine 5.81 H* Estim Creat Clear Calc 15.1 Estimated GFR 10 POC Glucose Random Glucose 84 D Lactic Acid Lactic Acid Fup @ 2Hr Calcium 5.2 L* Phosphorus 14.9 H Magnesium 2.9 H Ferritin 421 H Total Bilirubin 8.4 H AST 338 H ALT 230 H Alkaline Phosphatase 175 H D C-Reactive Protein 14.16 H Total Protein 4.7 L Albumin 2.7 L Procalcitonin Hep Bs Antigen Hep Bs Antibody Hep B Core Total Ab Blood Type Antibody Screen 05/01/20 05/01/20 05/01/20 05:48 05:48 05:49 WBC RBC Hgb Hct MCV MCH MCHC RDW Plt Count MPV Immature Gran % (Auto) Neut % (Auto) Lymph % (Auto) [place] % (Auto) Eos % (Auto) Baso % (Auto) Lymph # (Auto) [place] # (Auto) Eos # (Auto) Baso # (Auto) Abs Immat Gran (auto) Absolute Neuts (auto) Absolute Nucleated RBC Nucleated RBC % (auto) Smear Tech's Comments PT INR D-Dimer VBG pH 7.04 L* VBG pCO2 65 VBG pO2 56 VBG HCO3 17 VBG O2 Saturation 78.8 VBG Base Excess -13.0 Sodium Potassium Chloride Carbon Dioxide Anion Gap BUN Creatinine Estim Creat Clear Calc Estimated GFR POC Glucose Random Glucose Lactic Acid 7.5 H* Lactic Acid Fup @ 2Hr Calcium Phosphorus Magnesium Ferritin Total Bilirubin AST ALT Alkaline Phosphatase C-Reactive Protein Total Protein Albumin Procalcitonin 19.22 Hep Bs Antigen Hep Bs Antibody Hep B Core Total Ab Blood Type Antibody Screen 05/01/20 09:02 WBC RBC Hgb Hct MCV MCH MCHC RDW Plt Count MPV Immature Gran % (Auto) Neut % (Auto) Lymph % (Auto) [place] % (Auto) Eos % (Auto) Baso % (Auto) Lymph # (Auto) [place] # (Auto) Eos # (Auto) Baso # (Auto) Abs Immat Gran (auto) Absolute Neuts (auto) Absolute Nucleated RBC Nucleated RBC % (auto) Smear Tech's Comments PT INR D-Dimer VBG pH VBG pCO2 VBG pO2 VBG HCO3 VBG O2 Saturation VBG Base Excess Sodium Potassium Chloride Carbon Dioxide Anion Gap BUN Creatinine Estim Creat Clear Calc Estimated GFR POC Glucose Random Glucose Lactic Acid Lactic Acid Fup @ 2Hr 8.8 H* Calcium Phosphorus Magnesium Ferritin Total Bilirubin AST ALT Alkaline Phosphatase C-Reactive Protein Total Protein Albumin Procalcitonin Hep Bs Antigen Hep Bs Antibody Hep B Core Total Ab Blood Type Antibody Screen Microbiology Microbiology Results: Microbiology 04/21/20 16:43 Blood - Venous Blood Culture - Final No growth after 5 days. 04/21/20 16:41 Blood - Venous Blood Culture - Final No growth after 5 days. 04/21/20 17:21 Urine Catheterized - Chandler Catheter Urine Culture - Final No growth. 04/21/20 18:34 Sputum - Suctioned Gram Stain - Final 04/21/20 18:34 Sputum - Suctioned Sputum Culture - Final Stenotrophomonas maltophilia 04/14/20 07:14 Blood - Venous Blood Culture - Final No growth after 5 days. 04/14/20 07:09 Blood - Venous Blood Culture - Final No growth after 5 days. 04/14/20 21:02 Sputum - Suctioned Gram Stain - Final 04/14/20 21:02 Sputum - Suctioned Sputum Culture - Final Strep agalactiae (Grp B) Progress Note: A&P Time Spent With Patient Time: Total time spent is greater than 50% in coordination of care (as documented) at patient's floor/unit and/or counseling patient: Total time spent with greater than 50% in coordination of care (as documented) at patient's floor/unit and/or counseling patient:: 0 Critical Care Time Critical Care Time (minutes): 120
[2020-05-01] MEDS: Albumin Human 25 % 100 ML IV (10:39)
[2020-05-01 10:59] LABS: Base Excess VBG -8.8 mmol/L; HCO3 VBG 22 mmol/L; PCO2 VBG 77 mmhg; PO2 VBG 50 mmhg
[2020-05-01 11:01] LABS: pH VBG 7.08 (7.32-7.43)
[2020-05-01 11:05] LABS: Reflex Lactate? 2 Y
[2020-05-01 12:24] LABS: Glucose, Whole Blood 70 mg/dL (60-115)
[2020-05-01] MEDS: Enoxaparin Sodium 30 MG/0.3 ML SYRINGE SUBCUT (12:35)
--- NOTE | 2020-05-01 14:23 | PC.NURSE ---
Pt remains off of propofol, fentanyl decreased to 25mcg per md. Pupils nonreactive, no cough and gag noted. Md notified and assessed at bedside. Critical k of 7.1 and critical labs reported to MD, emergent dialysis ordered, detacker at bedside. PT noted to be in junctional rhythym with widening qrs right before dialysis, 1 amp of sodium bicarb ordered and given. Bp trending downward. dialysis not started yet but systolic BP down to 70s. Levophed maxed out. MD aware, vasopressin ordered and hung. Bps continue to trend down pulses via doppler. MD at bedside, per MD levophed titrated over max to 0.4 and vasopressin titrated to 0.08. Dillalais RN, this RN, RT, and MD at bedside. MD aware of critical lactic and critical vbg. Blood cultures drawn off of tlc per MD. Family called by MD, pt code status changed to DNR. (Meg) and daughter (Eliza) at bedside and able to facetime with daughter jasiel. Dialysis completed, 1 L removed. BP slowly improving, titrating levo and vaso for map goal of 55 per MD. Echo done at bedside this shift continues on ac settings clemons output only 10ml this shift Incontinent of large amount of loose liquid brown stool Tube feeds turned off per MD, not tolerating, high residuals. POC checked this am and BS 70, MD aware, stat amp of d50 ordered and given, POC rechecked in 4 hours per md and poc of 65 reported to MD, another amp of d50 ordered and given and started on d10 drip. To recheck another poc in 4 hours at 1700
--- NOTE | 2020-05-01 14:29 | P.PNNP_ITS ---
Subjective Subjective Date of Service: 05/01/20 Interval history: seen and examined vented family at bedside had HD earlier Physical Exam Vital Signs: Vital Signs: Last Vital Signs Temp 100.0 F 05/01/20 12:58 Pulse 108 H 05/01/20 14:00 Resp 26 H 05/01/20 14:00 BP 128/44 L 05/01/20 14:00 Pulse Ox 92 05/01/20 14:00 Body Mass Index 37.7 Const: General: ill appearing HENMT: Head: Yes normocephalic and Yes atraumatic Neck: Neck: Yes supple Resp: Auscultation: diminished lung sounds Cardio: Heart sounds: S1 normal heart sound present and S2 normal heart sound present GI: Palpation (GI): Soft to palpation and nontender Extrem: General: Yes pedal edema Objective Data Labs CBC & Chem 7: 05/01/20 05:48 05/01/20 05:48 Labs: Laboratory Results - last 24 hr 04/30/20 04/30/20 04/30/20 12:34 16:58 18:00 WBC RBC Hgb 8.8 L Hct 28.9 L MCV MCH MCHC RDW Plt Count MPV Immature Gran % (Auto) Neut % (Auto) Lymph % (Auto) [place] % (Auto) Eos % (Auto) Baso % (Auto) Lymph # (Auto) [place] # (Auto) Eos # (Auto) Baso # (Auto) Abs Immat Gran (auto) Absolute Neuts (auto) Absolute Nucleated RBC Nucleated RBC % (auto) Smear Tech's Comments Smear Path Review PT INR D-Dimer VBG pH VBG pCO2 VBG pO2 VBG HCO3 VBG O2 Saturation VBG Base Excess Sodium Potassium Chloride Carbon Dioxide Anion Gap BUN Creatinine Estim Creat Clear Calc Estimated GFR POC Glucose 107 77 Random Glucose Lactic Acid Lactic Acid Fup @ 2Hr Calcium Phosphorus Magnesium Ferritin Total Bilirubin AST ALT Alkaline Phosphatase C-Reactive Protein Total Protein Albumin Procalcitonin 04/30/20 04/30/20 04/30/20 19:42 21:35 23:37 WBC RBC Hgb Hct MCV MCH MCHC RDW Plt Count MPV Immature Gran % (Auto) Neut % (Auto) Lymph % (Auto) [place] % (Auto) Eos % (Auto) Baso % (Auto) Lymph # (Auto) [place] # (Auto) Eos # (Auto) Baso # (Auto) Abs Immat Gran (auto) Absolute Neuts (auto) Absolute Nucleated RBC Nucleated RBC % (auto) Smear Tech's Comments Smear Path Review PT INR D-Dimer VBG pH 7.09 L* 7.12 L* VBG pCO2 76 66 VBG pO2 74 70 VBG HCO3 23 21 VBG O2 Saturation 90.7 88.8 VBG Base Excess -7.6 -8.5 Sodium Potassium Chloride Carbon Dioxide Anion Gap BUN Creatinine Estim Creat Clear Calc Estimated GFR POC Glucose 101 Random Glucose Lactic Acid Lactic Acid Fup @ 2Hr Calcium Phosphorus Magnesium Ferritin Total Bilirubin AST ALT Alkaline Phosphatase C-Reactive Protein Total Protein Albumin Procalcitonin 05/01/20 05/01/20 05/01/20 05:35 05:48 05:48 WBC 19.4 H RBC 2.36 L Hgb 8.0 L Hct 26.7 L MCV 113.1 H D MCH 33.9 H MCHC 30.0 L RDW 20.6 H Plt Count 69 L MPV 13.0 H Immature Gran % (Auto) 2.0 H Neut % (Auto) 92.9 H Lymph % (Auto) 1.[address] [place] % (Auto) 3.5 Eos % (Auto) 0.1 Baso % (Auto) 0.2 Lymph # (Auto) 0.[address] [place] # (Auto) 0.7 Eos # (Auto) 0.0 Baso # (Auto) 0.0 Abs Immat Gran (auto) 0.39 H Absolute Neuts (auto) 18.0 H Absolute Nucleated RBC 0.620 H Nucleated RBC % (auto) 3.2 H Smear Tech's Comments VERIFIED Smear Path Review SEE NOTE PT 15.9 H INR 1.3 H D-Dimer 2100 VBG pH VBG pCO2 VBG pO2 VBG HCO3 VBG O2 Saturation VBG Base Excess Sodium Potassium Chloride Carbon Dioxide Anion Gap BUN Creatinine Estim Creat Clear Calc Estimated GFR POC Glucose 87 Random Glucose Lactic Acid Lactic Acid Fup @ 2Hr Calcium Phosphorus Magnesium Ferritin Total Bilirubin AST ALT Alkaline Phosphatase C-Reactive Protein Total Protein Albumin Procalcitonin 05/01/20 05/01/20 05/01/20 05:48 05:48 05:48 WBC RBC Hgb Hct MCV MCH MCHC RDW Plt Count MPV Immature Gran % (Auto) Neut % (Auto) Lymph % (Auto) [place] % (Auto) Eos % (Auto) Baso % (Auto) Lymph # (Auto) [place] # (Auto) Eos # (Auto) Baso # (Auto) Abs Immat Gran (auto) Absolute Neuts (auto) Absolute Nucleated RBC Nucleated RBC % (auto) Smear Tech's Comments Smear Path Review PT INR D-Dimer VBG pH VBG pCO2 VBG pO2 VBG HCO3 VBG O2 Saturation VBG Base Excess Sodium 136 Potassium 7.1 H* Chloride 98 Carbon Dioxide 14 L Anion Gap 31 H BUN 118 H* Creatinine 5.81 H* Estim Creat Clear Calc 15.1 Estimated GFR 10 POC Glucose Random Glucose 84 D Lactic Acid 7.5 H* Lactic Acid Fup @ 2Hr Calcium 5.2 L* Phosphorus 14.9 H Magnesium 2.9 H Ferritin 421 H Total Bilirubin 8.4 H AST 338 H ALT 230 H Alkaline Phosphatase 175 H D C-Reactive Protein 14.16 H Total Protein 4.7 L Albumin 2.7 L Procalcitonin 19.05/01/20 05/01/20 05/01/20 05:49 08:28 09:02 WBC RBC Hgb Hct MCV MCH MCHC RDW Plt Count MPV Immature Gran % (Auto) Neut % (Auto) Lymph % (Auto) [place] % (Auto) Eos % (Auto) Baso % (Auto) Lymph # (Auto) [place] # (Auto) Eos # (Auto) Baso # (Auto) Abs Immat Gran (auto) Absolute Neuts (auto) Absolute Nucleated RBC Nucleated RBC % (auto) Smear Tech's Comments Smear Path Review PT INR D-Dimer VBG pH 7.04 L* VBG pCO2 65 VBG pO2 56 VBG HCO3 17 VBG O2 Saturation 78.8 VBG Base Excess -13.0 Sodium Potassium Chloride Carbon Dioxide Anion Gap BUN Creatinine Estim Creat Clear Calc Estimated GFR POC Glucose 70 Random Glucose Lactic Acid Lactic Acid Fup @ 2Hr 8.8 H* Calcium Phosphorus Magnesium Ferritin Total Bilirubin AST ALT Alkaline Phosphatase C-Reactive Protein Total Protein Albumin Procalcitonin 05/01/20 10:30 WBC RBC Hgb Hct MCV MCH MCHC RDW Plt Count MPV Immature Gran % (Auto) Neut % (Auto) Lymph % (Auto) [place] % (Auto) Eos % (Auto) Baso % (Auto) Lymph # (Auto) [place] # (Auto) Eos # (Auto) Baso # (Auto) Abs Immat Gran (auto) Absolute Neuts (auto) Absolute Nucleated RBC Nucleated RBC % (auto) Smear Tech's Comments Smear Path Review PT INR D-Dimer VBG pH 7.08 L* VBG pCO2 77 VBG pO2 50 VBG HCO3 22 VBG O2 Saturation 71.0 VBG Base Excess -8.8 Sodium Potassium Chloride Carbon Dioxide Anion Gap BUN Creatinine Estim Creat Clear Calc Estimated GFR POC Glucose Random Glucose Lactic Acid Lactic Acid Fup @ 2Hr Calcium Phosphorus Magnesium Ferritin Total Bilirubin AST ALT Alkaline Phosphatase C-Reactive Protein Total Protein Albumin Procalcitonin Microbiology Microbiology Results: Microbiology 04/21/20 16:43 Blood - Venous Blood Culture - Final No growth after 5 days. 04/21/20 16:41 Blood - Venous Blood Culture - Final No growth after 5 days. 04/21/20 17:21 Urine Catheterized - [place] Catheter Urine Culture - Final No growth. 04/21/20 18:34 Sputum - Suctioned Gram Stain - Final 04/21/20 18:34 Sputum - Suctioned Sputum Culture - Final Stenotrophomonas maltophilia 04/14/20 07:14 Blood - Venous Blood Culture - Final No growth after 5 days. 04/14/20 07:09 Blood - Venous Blood Culture - Final No growth after 5 days. 04/14/20 21:02 Sputum - Suctioned Gram Stain - Final 04/14/20 21:02 Sputum - Suctioned Sputum Culture - Final Strep agalactiae (Grp B) Assessment & Plan Assessment and plan (1) BRYSON (acute kidney injury): Status: Acute (2) Hyperkalemia: Status: Acute (3) COVID-19: Status: Acute (4) Respiratory failure: Status: Acute Assessment and Plan: BRYSON in the setting of SARS COV 2 cytokine release syndrome with acute tubular injury and ? microvascular thrombosis elevated serum potassium due to impaired distal flow worsening acidosis normal baseline kidney function overall very high mortality poor prognosis REC HD today optimize volume status goal of care discussion Time Spent With Patient Time: Total time spent is greater than 50% in coordination of care (as documented) at patient's floor/unit and/or counseling patient:
[2020-05-01] MEDS: Dextrose 10 % 1,000 ML 50 ML IVCONT (14:42)
[2020-05-01 14:48] LABS: PCO2 VBG 59 mmhg; PO2 VBG 70 mmhg; pH VBG 7.21 (7.32-7.43)
[2020-05-01 14:49] LABS: Base Excess VBG -4.6 mmol/L; HCO3 VBG 23 mmol/L; Oxygen Saturation VBG 89.8 %
--- NOTE | 2020-05-01 14:49 | MHC.CM.PN ---
Per MD rounds, prognosis very grim per Dr. Pool. Will speak with family. Unresponsive. No gag, no cough, pupils non-reactive. Remains intubated and ventilated. Positive Covid. Will continue to monitor
[2020-05-01 15:09] LABS: Lactic Acid 6.3 mmol/L (0.5-2.0)
[2020-05-01 16:49] LABS: Glucose, Whole Blood 65 mg/dL (60-115)
[2020-05-01 16:50] LABS: Reflex Lactate? Lactic Acid Added
[2020-05-01 17:07] LABS: Cancel Lactic Acid Canceled
[2020-05-01 18:05] LABS: Glucose, Whole Blood 133 mg/dL (60-115)
[2020-05-01 23:32] LABS: Glucose, Whole Blood 156 mg/dL (60-115)
[2020-05-02] VITALS: BP 113/41; PULSE 102; RESP 26; TEMP 38.1; O2SAT 86
[2020-05-02 00:18] VITALS: BP 113/41; PULSE 102; O2SAT 87
--- NOTE | 2020-05-02 01:18 | PM.CCN ---
Critical Care Event Note Summary Code activated: No Narrative: At approximately 0100 a.m., I was called by nursing personnel, apparently they were turning the patient and a noted quite a bit of blood in the patient's mouth and the endotracheal tube had come out. The patient quickly desaturated. Upon my intervention, the patient was bagged with an Ambu bag. At the time, his O2 sat was in the mid 20s, heart rate in the mid 30s to 40s. We did note that the patient is a do not resuscitate, do not intubate. We try to get his O2 sat up as much as possible with the Ambu bag, copies amount of bright red blood was noted around the mouth and oropharyngeal cavity, this was suction. Using the GlideScope with direct visualization, I was able to replace the endotracheal tube, capnography was applied and good color change to yellow was noted, patient was bagged, however he by now was asystole. No CPR attempt was made; however 2 rounds of epinephrine 1 mg each, were given. Despite of all the above, the patient remained asystole and we were not able to get this patient back at this point. Given the above-mentioned code status, no further pulses were felt, no heartbeat was noted, corneal reflexes are absent. Reason for is cardiopulmonary arrest and multisystemic organ failure. Time of is 0115 a.m. At 0125 am I spoke to jordon Bejarano's daughter and made her aware of the events and her dad's passing away. Case was discussed in detail with Dr. Pool. He is aware of all the above as well as the plan of care for this patient. Critical Care Time (minutes): 15
--- NOTE | 2020-05-02 01:34 | PC.NURSE ---
Time of 0115, @ 0118 [facility] called - spoke to Isac, case #[id number]. Case declined. Titus PEDRAZA at bedside - notified daughter, Alma about patient passing.
--- NOTE | 2020-05-02 01:39 | PC.NURSE ---
AT APPROX 0100, PT INCT OF STOOL. PT CLEANED AND REPOSITIONED. IMMEDIATELY AFTER REPOSITIONING, PT DESATURATING, ETCO2 0. ETT CHECKED, MIGRATED OUT TO APPROX 17 CM CLAUDIA, PREVIOUSLY NOTED AT 23 CM. RT ON UNIT AND NOTIFIED IMMEDIATELY. RT ATTEMPTED TO ADVANCE ETT BUT UNSUCCESSFUL, CONTINUES TO DESAT. ORALLY SUCTIONED FOR DARK BLOODY EMESIS. PA NOTIFIED AND TO BEDSIDE. PT EXTUBATED AND BAGGED WITH MINIMAL EFFECT. RE-INTUBATION ATTEMPT MADE BUT SPO2 DOWN TO 20s, HR DOWN TO 30s. NO PULSE PALPATED. PEA ON TELE. 2 DOSES EPI GIVEN. PT DNR STATUS. TIME OF CALLED AT 0115. PA CALLED/UPDATED HCP/DAUGHTER WOODY. [facility] NOTIFIED, SEE INTERVENTION FOR DOCUMENTATION.
--- NOTE | 2020-07-02 13:13 | PM.DDS ---
Discharge Sum: Prov Provider Primary care physician: Nerissa Physician Consults: 04/14/20 14:06 Consult Respiratory Therapy Routine Reason for consultation: intubated/vent/cpap at home 04/15/20 09:00 Consult to Infectious Diseases Routine Consulting Provider: Deloris Francis Reason for consultation: [facility] 04/15/20 11:01 Consult to Nephrology Stat Consulting Provider: Eleni Bolden Reason for consultation: BRYSON Has provider been notified: Yes Discharge Sum: Diag Contributing Factors (1) Respiratory failure: (2) COVID-19: (3) Hyperkalemia: (4) BRYSON (acute kidney injury): (5) Encephalopathy acute: (6) Fever of unknown origin (FUO): (7) Acute hypernatremia: (8) Rhabdomyolysis due to COVID-19: (9) Coagulopathy: (10) Ventilator-associated bacterial pneumonia: (11) ARDS (adult respiratory distress syndrome): (12) Hyperkalemia: (13) Acute kidney injury: (14) Anemia: (15) Thrombocytopenia: (16) Acute hypoxemic respiratory failure due to COVID-19: (17) Vitamin D deficiency: (18) Morbid obesity: (19) Hypertension: (20) Diabetic retinopathy associated with type 2 diabetes mellitus: (21) Diabetic nephropathy associated with type 2 diabetes mellitus: (22) Diabetic polyneuropathy associated with type 2 diabetes mellitus: (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 Bilateral COVID-19 pneumonia. 2. ARDS. 3. Acute hypoxemic and hypercarbic respiratory failure. 4. Hypotension. 5. Right heart failure. 6. Acute renal failure requiring hemodialysis. 7. Worsening metabolic acidosis. 8. Hepatic failure. 9. Underlying cirrhosis. 10. UGI bleed, likely stress gastritis. 11. Thrombocytopenia. 12. Possible sepsis. 13. Coma. 14. Morbid obesity. 15. Diabetes. Mr. Christiano Tirado was a 65-year-old male with a past medical history of morbid obesity, COPD/asthma, sleep apnea, diabetes, liver disease, vitamin-D deficiency, and thrombocytopenia. He was seen at hematology clinic on Apr 03 for follow-up for thrombocytopenia and was noted to be febrile and was sent to the emergency department for further evaluation. Was febrile to 100.5. Tested COVID positive there, and was sent home. At that time, he denied any symptoms and felt well. Over the 2 days prior to the current admission, the patient's breathing was getting worse. He called EMS Apr 14. Sat was 67% on room air at the scene, increased to 80% on non-rebreather face mask by EMS. He was taken to the [place] ED. On arrival to the ED, the patient was very short of breath, unable to speak full sentences, saturating 38% at room air and increased to 70% on non-rebreather. Placed on high-flow nasal cannula, was still barely maintaining 75-80% sat. LABS in the ED were notable for white count 4.3, with 0.6% lymphs. Hemoglobin 15.0, platelet count was 115,000. D-dimer was 1249. BUN and creatinine were 13/0.8, lactate was 6.6, ferritin was 765, total bili was 2.1, AST/ALT were 131/64, LDH 798, CRP 21, PCT was 42, albumin 2.8. Chest x-ray was consistent with coronavirus pneumonia. The patient was given Decadron, Rocephin, and Zithromax. He started getting tired and was intubated. After sedation, his BP dropped into 80s-90?s, and he was started on Levophed. Doxycycline was added and he was admitted to the ICU. In the ICU, he was afebrile. He required NMB. A central line was placed. He was started on full dose Lovenox and the complete [facility] COVID protocol (minus ivermectin), plus doxycycline. His creat delmer rapidly, despite Levophed and vasopressin. Elevated CPK?s suggested rhabdomyolysis. He required an amiodarone drip to keep him in SR. Echocardiogram was notable for: 1. Wall thickness probably normal or top normal. 2. LV cavity size normal, with normal LV fxn. EF 50-60%. 3. RV size normal or top normal. 4. No gross valvular pathology 7. Unable to obtain TV Doppler signal; IVC 1.3 cm w minimal insp collapse. Est CVP 8cm. His renal [place] [address]. A temporary HD catheter was placed on 04/16 and he was started on HD. Abd CT on 04/17 showed a cirrhotic-appearing liver, splenomegaly and small amount of ascites. Abd US suggested thrombosis of the splenic/portal vein confluence. He grew out Group B strep from sputum; Doxy was changed to Levaquin. He only required 3 days of hemodialysis, then started to make urine and his creat and potassium improved. His temporary HD catheter was pulled. His subsequent course was marked by encephalopathy with failure to wake up and become responsive. Head CT on Apr 24 was unremarkable. Hemodialysis was restarted on April 25 for hyperkalemia with rising renal indices. He still failed to awaken; another head CT on 04/28 was still unremarkable. An MRI scan was contraindicated bec of aneurysm clipping clips. On Apr 30, the propofol was discontinued entirely. He still did not awaken. He had no eye opening, no response to any painful stimulation, and no movement whatsoever, other than spontaneous respiratory efforts. He was overbreathing the ventilator with a dysynchronus pattern, so fentanyl was added, which smoothed out his respiratory pattern dramatically. He required increasing doses of Levophed and vasopressin, above usual max doses. The patient was also having bloody coffee grounds out of his gastric tube, and black stools. Hb did not drop however. He was put on bid PPI for presumed stress gastritis. EEG was done and read by Dr. Galvez who indicated that the tracing was very low amplitude, and he couldn't be sure that there was any cortical activity at all. He agreed with the conclusion that the patient appeared to be progressing towards brain . We called the patient?s daughter Alma again and discussed the above with her, and again emphasized that it was unlikely that her father was going to survive the night. DNR status was reconfirmed. Early the next morning, the patient?s endotracheal tube was dislodged while the patient was being turned by the nurses. The patient was given ambu-bag ventilation and the trachea reintubated, but the patient desaturated and apolinar?d down to asystole. He was unable be resuscitated, despite ACLS. Time of was 0115 on May 02, 2020. The patient?s daughter was notified of his . Additional Data Attending physician: Erik Pool
== END 2020-05-02 04:35 | disposition expired | DRG 720 ==
LOC: HO.ED 07:56 → HO.ICU 11:46
PROVIDERS: Internal Medicine; Internal Medicine Cardiovascular Disease; Internal Medicine Pulmonary Disease; Physician Assistant; Physician Assistant Medical; Admitting Provider Anesthesiology; Emergency Provider Emergency Medicine Emergency Medical Services; Visit Provider Anesthesiology
DX: A41.89 Other specified sepsis (principal); U07.1 COVID-19; N17.0 Acute kidney failure with tubular necrosis; R65.21 Severe sepsis with septic shock; J95.851 Ventilator associated pneumonia; D69.6 Thrombocytopenia, unspecified; J80 Acute respiratory distress syndrome; J12.89 Other viral pneumonia; E11.21 Type 2 diabetes mellitus with diabetic nephropathy; E11.319 Type 2 diabetes mellitus with unspecified diabetic retinopathy without macular edema; I95.9 Hypotension, unspecified; E87.5 Hyperkalemia; E11.42 Type 2 diabetes mellitus with diabetic polyneuropathy; Z68.37 Body mass index [BMI] 37.0-37.9, adult; E55.9 Vitamin D deficiency, unspecified; E78.5 Hyperlipidemia, unspecified; E66.2 Morbid (severe) obesity with alveolar hypoventilation; M62.82 Rhabdomyolysis; Z86.73 Personal history of transient ischemic attack (TIA), and cerebral infarction without residual deficits; Z88.0 Allergy status to penicillin; Z79.4 Long term (current) use of insulin; Z79.02 Long term (current) use of antithrombotics/antiplatelets; Z79.82 Long term (current) use of aspirin; Z79.899 Other long term (current) drug therapy
CPT/HCPCS: 36415; 36600; 70450; 71045; 74176; 76705; 80048; 80053; 80076; 81001; 82040; 82140; 82550; 82728; 82803; 82947; 83605; 83615; 83690; 83735; 83880; 83935; 84100; 84145; 84300; 84478; 84484; 85007; 85014; 85018; 85025; 85027; 85060; 85379; 85610; 85730; 86140; 86704; 86706; 86769; 86850; 86900; 86901; 87040; 87070; 87077; 87086; 87147; 87186; 87205; 87340; 90999; 93005; 93306; 93970; 94002; 94003; 94640; 94644; 94799; 95816; 96365; 96366; 96367; 96375; 99225; 99232; 99285; 99291; J0171; J0282; J0456; J0696; J1100; J1650; J1940; J1956; J2020; J2185; J2250; J2930; J3010; J3370; J3411; J3475; P9047